=== PATIENT | male | born 1965 | race Caucasian/White ===

== ENCOUNTER 2016-10-04 20:42 | Inpatient (IN) | payer MEDICARE, MEDICAID ==
[2016-10-04 20:46] VITALS: BMI 27.3
[2016-10-04] MEDS ORDERED: Etomidate 20 mg/10ml Inj IV ONE (20:54)
[2016-10-04] MEDS ORDERED: Succinylcholine 200 mg/10 ml Inj IV ONE (20:59)
[2016-10-04] MEDS ORDERED: Etomidate 20 mg/10ml Inj IV STA (21:08)
[2016-10-04] MEDS ORDERED: Succinylcholine 200 mg/10 ml Inj IV STA (21:09)
[2016-10-04] MEDS ORDERED: Etomidate 20 mg/10ml Inj IVP STA (21:09)
[2016-10-04] MEDS ORDERED: Propofol 10 mg/ml 50 ML IV PRN (21:10)
[2016-10-04 21:11] LABS: ADD MANUAL DIFF? NO
[2016-10-04 21:14] LABS: VENOUS BLOOD GAS BASE EXCESS 2.3 mmol/L (0.0-2.0); VENOUS BLOOD PH 7.33 (7.32-7.43)
[2016-10-04 21:15] LABS: BASO # 0.03 K/mm3 (0.0-2.0); BASO % 0.2 % (0.0-3.0); EOS % 0.2 % (1.5-5.0); GRAN # 13.05 (1.4-6.5); GRAN % 79.2 % (50.0-68.0); HEMATOCRIT 43.6 % (42.0-52.0); LYMPH # 2.5 (1.2-3.4); MEAN CELL VOLUME 83.7 fL (80.0-105.0); MEAN CORPUSCULAR HEMOGLOBIN 28.2 pg (25.0-35.0); MEAN CORPUSCULAR HGB CONC 33.7 g/dl (31.0-37.0); MEAN PLATELET VOLUME 10.3 fl (7.0-11.0); MONO # 0.9 (0.1-0.6); MONO % 5.4 % (1.0-6.0); PLATELET COUNT 367 10^3/uL (120.0-450.0); RED CELL DISTRIBUTION WIDTH 13.1 % (11.5-14.5); WHITE BLOOD COUNT 16.5 10^3/ul (4.5-11.0)
--- NOTE | 2016-10-04 21:21 | ED PDOC ---
Arrival/HPI - General Time Seen by Provider: 10/04/16 20:42 Historian: EMS EM Caveat: Altered Mental Status - History of Present Illness Narrative History of Present Illness (Text): 10/04/16 21:18 51 year old male whose past medical history includes seizure disorder, multiple sclerosis, Larsen's palsy, hypertension, hypercholesterolemia, and GERD presents to the Emergency department via EMS complaining of shortness of breath. HPI and ROS limited due to patient's altered mental status. Past Medical History - Provider Review Nursing Documentation Reviewed: Yes - Infectious Disease Hx of Infectious Diseases: None - Cardiac Hx Cardiac Disorders: No Hx Hypertension: Yes - Neurological Hx Neurological Disorder: Yes (bells palsey, multiple sclerosis since 19 y/old) Hx Dizziness: Yes (headaches) Hx Seizures: Yes (Absent seizures) - HEENT Other/Comment: Optic neuritis - Musculoskeletal/Rheumatological Hx Falls: Yes (in the past) - Gastrointestinal Hx Gastroesophageal Reflux: Yes - Genitourinary/Gynecological Hx Incontinence: Yes - Psychiatric Hx Substance Use: No - Anesthesia Hx Anesthesia: Yes Hx Anesthesia Reactions: No Hx Malignant Hyperthermia: No Family/Social History - Physician Review Nursing Documentation Reviewed: Yes Family/Social History: Unknown Family HX Smoking Status: Light Smoker < 10 Cigarettes Daily Hx Alcohol Use: No Hx Substance Use: No Allergies/Home Meds Allergies/Adverse Reactions: Allergies No Known Allergies Allergy (Verified 10/04/16 21:29) Home Medications: Home Meds Medication Instructions Recorded Confirmed Pantoprazole Sodium [Protonix] 40 mg PO DAILY 09/14/15 10/04/16 lamoTRIgine [Lamictal] 25 mg PO BID 09/26/15 10/04/16 Review of Systems - Review of Systems Systems not reviewed;Unavailable: Altered Mental Status Respiratory: SOB Physical Exam Vital Signs Reviewed: Yes Vital Signs Temp Pulse Pulse Resp BP Pulse Ox 10/05/16 00:42 94 H 16 10/04/16 23:59 111/74 10/04/16 23:39 100 F H 126 H 18 113/79 97 10/04/16 22:37 103.8 F H 133 H 131 H 15 153/91 H 10/04/16 22:25 133 H 15 153/91 H 99 10/04/16 22:19 123 H 157/108 H 10/04/16 21:23 103.8 F H 139 H 16 83 L 10/04/16 21:22 131 H 188/117 H Temperature: Afebrile Blood Pressure: Hypertensive Pulse: Tachycardic Respiratory Rate: Normal Appearance: Positive for: Non-Toxic Pain Distress: None Mental Status: Positive for: other (obtunded) - Systems Exam Head: Present: Atraumatic, Normocephalic Pupils: Present: PERRL Extroacular Muscles: Present: EOMI Conjunctiva: Present: Normal Mouth: Present: Moist Mucous Membranes Neck: Present: Normal Range of Motion Respiratory/Chest: Present: Rhonchi (b/l) Cardiovascular: Present: Normal S1, S2, Tachycardic. No: Murmurs Abdomen: Present: Normal Bowel Sounds. No: Tenderness, Distention, Peritoneal Signs Back: Present: Normal Inspection Upper Extremity: Present: Normal Inspection. No: Cyanosis, Edema Lower Extremity: Present: Normal Inspection. No: Edema Neurological: Present: GCS=15, CN II-XII Intact Skin: Present: Warm, Dry, Normal Color. No: Rashes Psychiatric: Present: Other (+obtunded) Medical Decision Making ED Course and Treatment: 10/04/16 21:20 Impression: 51 year old male complaining of shortness of breath. Physical exam revealed b/l rhonchi and obtundation. Plan: --EKG --Chest X-ray --blood culture --labs --etomidate, succinylcholine, propofol -- Reassess and disposition Prior Visits: Notes and results from previous visits were reviewed. case d/w dr cline who saw pt in ed, case d/w dr wood accepts case to icu Progress Notes: 10/05/16 04:24 10/08/16 06:11 - Critical Care Critical Care Minutes: 30 minutes (management of respiratory failure) Critical Care Time: Excluding Proc Time - Lab Interpretations Microbiology Results: Microbiology Results 10/04/16 21:15 Blood-Venous Blood Culture - Preliminary NO GROWTH AFTER 3 DAYS 10/04/16 21:00 Blood-Venous Blood Culture - Preliminary NO GROWTH AFTER 3 DAYS Lab Results: 10/04/16 21:00 10/04/16 21:00 Lab Results 10/04/16 21:00: WBC 16.5 H, RBC 5.21, Hgb 14.7, Hct 43.6, MCV 83.7, MCH 28.2, MCHC 33.7, RDW 13.1, Plt Count 367, MPV 10.3, Gran % 79.2 H, Lymph % (Auto) 15.0 L, Stone % (Auto) 5.4, Eos % (Auto) 0.2 L, Baso % (Auto) 0.2, Gran # 13.05 H , Lymph # 2.5, Stone # 0.9 H, Eos # 0.0, Baso # 0.03, pO2 26 L, VBG pH 7.33, VBG pCO2 56.0, VBG HCO3 29.5 H, VBG Total CO2 31.2 H, VBG O2 Sat (Calc) 42.3, VBG Base Excess 2.3 H, VBG Potassium 4.0, Glucose 137 H, Lactate 1.8, FiO2 21.0, Sodium 143.0, Potassium 4.0, Chloride 110.0 H, Carbon Dioxide 31, Anion Gap 17, BUN 15, Creatinine 1.4, Est GFR ( Amer) > 60, Est GFR (Non-Af Amer) 54, Random Glucose 138 H, Calcium 10.2, Total Bilirubin 0.7, AST 37, ALT 47, Alkaline Phosphatase 125, Lactate Dehydrogenase 486, Total Creatine Kinase 54, Troponin I < 0.01, NT-Pro-B Natriuret Pep 77.6, Total Protein 9.3 H, Albumin 4.8 , Globulin 4.5, Albumin/Globulin Ratio 1.1, Venous Blood Potassium 4.0 I have reviewed the lab results: Yes - RAD Interpretation Radiology Orders: 10/04/16 21:07 CHEST PORTABLE [RAD] Stat - Medication Orders Current Medication Orders: Acetylcysteine (Acetylcysteine 20%) 4 ml IH BIDRESP [facility], [facility] Last Admin: 10/07/16 21:01 Dose: 4 ML Albuterol/Ipratropium (Duoneb 3 Mg/0.5 Mg (3 Ml) Ud) 3 ml IH [id number] [facility], [facility]1983 Last Admin: 10/08/16 00:59 Dose: 3 ML Furosemide (Lasix) 40 mg IV DAILY GOKUL Glycopyrrolate (Robinul) 0.2 mg IV Q12 GOKUL Last Admin: 10/07/16 21:51 Dose: 0.2 MG eMAR Start Stop Document 10/07/16 21:51 FDE (Rec: 10/07/16 21:52 FDE [facility]) Intravenous Solution Start Date 10/07/16 Start Time 21:51 Heparin Sodium (Porcine) (Heparin) 5,000 units SC Q8 GOKUL PRN Reason: Protocol Last Admin: 10/08/16 06:00 Dose: 5,000 UNITS Subcutaneous Administrations Document 10/08/16 06:00 AMA (Rec: 10/08/16 06:00 AMA [id number]) Injection Site MAR Injection Site Left Deltoid Charges for Administration # of Subcutaneous Administrations 1 Pantoprazole Sodium (Protonix 40mg Ivpb) 100 mls @ 20 mls/hr IVPB .Q5H GOKUL Last Admin: 10/08/16 02:00 Dose: 20 MLS/HR eMAR Start Stop Document 10/08/16 02:00 AMA (Rec: 10/08/16 02:18 AMA [id number]) Intravenous Solution Start Date 10/08/16 Start Time 02:00 End Date 10/08/16 End time 07:00 Total Infusion Time 300 Propofol (Diprivan) 100 mls @ 2.667 mls/hr IV .Q24H PRN; Protocol; 5 MCG/KG/MIN PRN Reason: TITRATE PER MD ORDER Last Admin: 10/07/16 16:07 Dose: 17.613 MLS/HR Titration Intervention Document 10/07/16 16:07 JCL (Rec: 10/07/16 16:10 [id number] Titration Intake Container Volume 100 Titration Dosing Titration Dose 35 IV Rate 17.613 Intake/Decrease Resume/Increase eMAR Start Stop Document 10/07/16 16:07 JCL (Rec: 10/07/16 16:10 [id number]) Intravenous Solution Start Date 10/07/16 Start Time 16:10 Propofol (Diprivan) 100 mls @ 2.395 mls/hr IV .Q24H PRN; Protocol; 5 MCG/KG/MIN PRN Reason: TITRATE PER MD ORDER Last Titration: 10/07/16 06:30 Dose: 30 MCG/KG/MIN Titration Intervention Document 10/07/16 06:30 LD (Rec: 10/07/16 06:49 LD [id number] Titration Dosing Titration Dose 30 IV Rate 14.37 Intake/Decrease Increase Vancomycin HCl (Vancomycin 1gm) 250 mls @ 167 mls/hr IVPB Q12H GOKUL PRN Reason: Protocol Last Admin: 10/08/16 04:56 Dose: 167 MLS/HR eMAR Start Stop Document 10/08/16 04:56 AMA (Rec: 10/08/16 04:56 AMA [id number]) Intravenous Solution Start Date 10/08/16 Start Time 04:00 End Date 10/08/16 End time 05:30 Total Infusion Time 90 Aztreonam (Azactam 2 Gm) 100 mls @ 100 mls/hr IVPB Q8 GOKUL PRN Reason: Protocol Stop: 10/12/16 23:59 Last Admin: 10/08/16 05:18 Dose: 100 MLS/HR eMAR Start Stop Document 10/08/16 05:18 AMA (Rec: 10/08/16 05:18 AMA [id number]) Intravenous Solution Start Date 10/08/16 Start Time 05:30 End Date 10/08/16 End time 06:30 Total Infusion Time 60 Metronidazole (Flagyl) 100 mls @ 100 mls/hr IVPB Q8 GOKUL PRN Reason: Protocol Last Admin: 10/07/16 21:35 Dose: 100 MLS/HR eMAR Start Stop Document 10/07/16 21:35 FDE (Rec: 10/07/16 21:36 FDE [place] [id number]) Intravenous Solution Start Date 10/07/16 Start Time 21:36 Lamotrigine (Lamictal) 25 mg PO BID GOKUL PRN Reason: Protocol Last Admin: 10/07/16 17:26 Dose: 25 MG Methylprednisolone (Solu-Medrol) 40 mg IVP Q12 [facility] Last Admin: 10/07/16 21:36 Dose: 40 MG IVP Administration Document 10/07/16 21:36 FDE (Rec: 10/07/16 21:36 FDE [place] [id number]) Charges for Administration # of IVP Administrations 1 Metoprolol Tartrate (Lopressor) 25 mg PO BID GOKUL Montelukast Sodium (Singulair) 10 mg PO HS [facility] Last Admin: 10/07/16 21:50 Dose: 10 MG Morphine Sulfate (Morphine) 2 mg IVP Q4H PRN PRN Reason: Pain, severe (8-10) Discontinued Medications Acetaminophen (Tylenol 650 Mg Supp) Confirm Administered Dose 650 mg .ROUTE .STK -MED ONE Stop: 10/04/16 21:30 Last Admin: 10/04/16 21:32 Dose: 650 MG Acetaminophen (Tylenol 650 Mg Supp) 650 mg RC STAT STA Stop: 10/04/16 21:32 Last Admin: 10/04/16 21:33 Dose: 650 MG Albuterol/Ipratropium (Duoneb 3 Mg/0.5 Mg (3 Ml) Ud) 3 ml IH Q3H PRN PRN Reason: Shortness of Breath Stop: 10/05/16 05:46 Etomidate (Amidate) Confirm Administered Dose 20 mg IV .STK-MED ONE Stop: 10/04/16 20:55 Last Admin: 10/04/16 20:54 Dose: 20 mg eMAR Start Stop Document 10/04/16 20:54 GMI (Rec: 10/04/16 21:37 [id number] Intravenous Solution Start Date 10/04/16 Start Time 21:37 End Date 10/04/16 End time 21:37 Total Infusion Time 0 Etomidate (Amidate) 10 mg IV STAT STA Stop: 10/04/16 21:09 Last Admin: 10/04/16 21:38 Dose: Etomidate (Amidate) 10 mg IVP STAT STA Stop: 10/04/16 21:10 Last Admin: 10/04/16 21:39 Dose: Furosemide (Lasix) 40 mg IV ONCE ONE Stop: 10/07/16 11:47 Last Admin: 10/07/16 13:32 Dose: Hydralazine HCl (Apresoline) 10 mg IVP STAT GOKUL Stop: 10/04/16 21:46 Last Admin: 10/04/16 22:19 Dose: 10 MG MAR Pulse and Blood Pressure Document 10/04/16 22:19 GMI (Rec: 10/04/16 22:20 I [id number]) Pulse Pulse Rate (60-90) 123 Blood Pressure Blood Pressure (100/60-150/90) 157/108 IVP Administration Document 10/04/16 22:19 GMI (Rec: 10/04/16 22:20 [id number]) Charges for Administration # of IVP Administrations 1 Hydralazine HCl (Apresoline) 10 mg IVP Q4H PRN PRN Reason: Systolic Blood Pressure Last Admin: 10/05/16 19:49 Dose: 10 MG MAR Pulse and Blood Pressure Document 10/05/16 19:49 LD (Rec: 10/05/16 19:50 LD [facility] [place] Pulse Pulse Rate (60-90) 111 Blood Pressure Blood Pressure (100/60-150/90) 181/122 IVP Administration Document 10/05/16 19:49 LD (Rec: 10/05/16 19:50 LD [facility] [place] Charges for Administration # of IVP Administrations 1 Hydralazine HCl (Apresoline) 20 mg IVP Q4H PRN PRN Reason: Systolic Blood Pressure Propofol (Diprivan) Confirm Administered Dose 100 mls @ ud .ROUTE .STK-MED ONE Stop: 10/04/16 21:06 Last Admin: 10/04/16 21:45 Dose: Propofol (Diprivan) 50 mls @ 2.667 mls/hr IV .[id number] PRN; Protocol; 5 MCG/KG/ MIN PRN Reason: TITRATE PER MD ORDER Last Titration: 10/04/16 23:57 Dose: 5 MCG/KG/MIN Titration Intervention Document 10/04/16 23:57 GMI (Rec: 10/04/16 23:58 GMI [id number]) Titration Dosing Titration Dose 5 IV Rate 2.667 Intake/Decrease Decrease Piperacillin Sod/Tazobactam Sod (Zosyn 3.375 In Ns 100ml) 100 mls @ 200 mls/hr IVPB STAT STA PRN Reason: Protocol Stop: 10/04/16 22:14 Last Admin: 10/04/16 22:20 Dose: 200 MLS/HR eMAR Start Stop Document 10/04/16 22:20 GMI (Rec: 10/04/16 22:20 GMI [id number]) Intravenous Solution Start Date 10/04/16 Start Time 22:20 End Date 10/04/16 End time 23:54 Total Infusion Time 94 Clindamycin Phosphate 300 mg/ (Sodium Chloride) 52 mls @ 104 mls/hr IVPB STAT STA PRN Reason: Protocol Stop: 10/04/16 22:44 Last Admin: 10/04/16 23:23 Dose: 104 MLS/HR eMAR Start Stop Document 10/04/16 23:23 RD (Rec: 10/04/16 23:23 RD [id number]) Intravenous Solution Start Date 10/04/16 Start Time 23:23 End Date 10/04/16 End time 23:53 Total Infusion Time 30 Acetaminophen (Ofirmev) 100 mls @ 400 mls/hr IVPB Q6H PRN PRN Reason: Fever >100.4 F Stop: 10/06/16 23:47 Last Admin: 10/06/16 03:07 Dose: 400 MLS/HR eMAR Start Stop Document 10/06/16 03:07 LD (Rec: 10/06/16 03:07 LD [id number]) Intravenous Solution Start Date 10/06/16 Start Time 03:07 End Date 10/06/16 End time 03:22 Total Infusion Time 15 Re-Assess: MAR Pain Assessment Document 10/06/16 04:07 LD (Rec: 10/06/16 04:11 LD [id number]) Pain Reassessment Is this a pain reassessment? No Sleep Is patient sleeping during reassessment? Yes Piperacillin Sod/Tazobactam Sod (Zosyn 3.375 In Ns 100ml) 100 mls @ 200 mls/hr IVPB Q6 GOKUL PRN Reason: Protocol Stop: 10/05/16 06:29 Last Admin: 10/05/16 04:03 Dose: 200 MLS/HR eMAR Start Stop Document 10/05/16 04:03 AMA (Rec: 10/05/16 04:03 AMA [id number]) Intravenous Solution Start Date 10/05/16 Start Time 04:00 End Date 10/05/16 End time 04:30 Total Infusion Time 30 Vancomycin HCl (Vancomycin 1gm) 250 mls @ 167 mls/hr IVPB Q12H GOKUL PRN Reason: Protocol Last Admin: 10/05/16 01:05 Dose: 167 MLS/HR eMAR Start Stop Document 10/05/16 01:05 AMA (Rec: 10/05/16 01:05 AMA [id number]) Intravenous Solution Start Date 10/05/16 Start Time 01:05 End Date 10/05/16 End time 02:35 Total Infusion Time 90 Sodium Chloride (Sodium Chloride 0.9%) 1,000 mls @ 100 mls/hr IV .Q10H GOKUL Last Admin: 10/06/16 20:42 Dose: 100 MLS/HR eMAR Start Stop Document 10/06/16 20:42 LD (Rec: 10/06/16 20:42 LD [id number] Intravenous Solution Start Date 10/06/16 Start Time 20:42 Cefepime HCl (Maxipime 1gm) 100 mls @ 100 mls/hr IVPB Q8 GOKUL PRN Reason: Protocol Last Admin: 10/05/16 21:55 Dose: 100 MLS/HR eMAR Start Stop Document 10/05/16 21:55 LD (Rec: 10/05/16 21:55 LD [id number]) Intravenous Solution Start Date 10/05/16 Start Time 21:55 End Date 10/05/16 End time 22:55 Total Infusion Time 60 Clindamycin Phosphate 600 mg/ (Sodium Chloride) 54 mls @ 102 mls/hr IVPB Q8 GOKUL Last Admin: 10/06/16 13:34 Dose: 102 MLS/HR eMAR Start Stop Document 10/06/16 13:34 [id number] (Rec: 10/06/16 13:35 [id number] ) Intravenous Solution Start Date 10/06/16 Start Time 13:34 End Date 10/06/16 End time 14:05 Total Infusion Time 31 Propofol (Diprivan) Confirm Administered Dose 100 mls @ ud .ROUTE .STK-MED ONE Stop: 10/06/16 04:07 Last Admin: 10/06/16 04:36 Dose: Aztreonam (Azactam 1 Gm) 100 mls @ 100 mls/hr IVPB Q8 GOKUL PRN Reason: Protocol Stop: 10/06/16 14:59 Last Admin: 10/06/16 14:54 Dose: 100 MLS/HR eMAR Start Stop Document 10/06/16 14:54 [id number] (Rec: 10/06/16 14:54 [id number] ) Intravenous Solution Start Date 10/06/16 Start Time 14:54 End Date 10/06/16 End time 15:54 Total Infusion Time 60 Influenza Virus Vaccine (Fluvirin) 45 mcg IM .ONCE ONE Stop: 10/04/16 23:07 Methylprednisolone (Solu-Medrol) 20 mg IVP Q12 GOKUL Last Admin: 10/06/16 10:00 Dose: 20 MG IVP Administration Document 10/06/16 10:00 [id number] (Rec: 10/06/16 10:00 [id number] ) Charges for Administration # of IVP Administrations 1 Metoprolol Tartrate (Lopressor) 5 mg IVP ONCE ONE Stop: 10/05/16 22:19 Last Admin: 10/05/16 22:25 Dose: 5 MG MAR Pulse and Blood Pressure Document 10/05/16 22:25 LD (Rec: 10/05/16 22:25 LD [facility] [place] Pulse Pulse Rate (60-90) 134 Blood Pressure Blood Pressure (100/60-150/90) 175/109 IVP Administration Document 10/05/16 22:25 LD (Rec: 10/05/16 22:25 LD [id number]) Charges for Administration # of IVP Administrations 1 Metoprolol Tartrate (Lopressor) 2.5 mg IVP ONCE ONE Stop: 10/06/16 01:22 Last Admin: 10/06/16 01:32 Dose: 2.5 MG MAR Pulse and Blood Pressure Document 10/06/16 01:32 LD (Rec: 10/06/16 01:33 LD [facility] [place] Pulse Pulse Rate (60-90) 133 Blood Pressure Blood Pressure (100/60-150/90) 139/79 IVP Administration Document 10/06/16 01:32 LD (Rec: 10/06/16 01:33 LD [facility] [place] Charges for Administration # of IVP Administrations 1 Midazolam HCl (Versed Inj) Confirm Administered Dose 2 mg .ROUTE .STK-MED ONE Stop: 10/06/16 03:57 Last Admin: 10/06/16 03:56 Dose: 2 MG Midazolam HCl (Versed Inj) Confirm Administered Dose 2 mg .ROUTE .STK-MED ONE Stop: 10/06/16 04:05 Last Admin: 10/06/16 04:05 Dose: 2 MG Pneumococcal Polyvalent Vaccine (Pneumovax 23 Vaccine) 0.5 ml IM .ONCE ONE Stop: 10/04/16 23:07 Succinylcholine Chloride (Quelicin) Confirm Administered Dose 200 mg IV .STK- MED ONE Stop: 10/04/16 21:00 Last Admin: 10/04/16 21:00 Dose: 80 MG eMAR Start Stop Document 10/04/16 21:00 GMI (Rec: 10/04/16 21:38 GMI [id number] Intravenous Solution Start Date 10/04/16 Start Time 21:37 End Date 10/04/16 End time 21:38 Total Infusion Time 1 Succinylcholine Chloride (Quelicin) 80 mg IV STAT STA Stop: 10/04/16 21:10 Last Admin: 10/04/16 21:39 Dose: - Scribe Statement The provider has reviewed the documentation as recorded by the Scribe Verenice Pardo Provider Scribe Attestation: All medical record entries made by the Scribe were at my direction and personally dictated by me. I have reviewed the chart and agree that the record accurately reflects my personal performance of the history, physical exam, medical decision making, and the department course for this patient. I have also personally directed, reviewed, and agree with the discharge instructions and disposition. Disposition/Present on Arrival - Present on Arrival Any Indicators Present on Arrival: No History of DVT/PE: No History of Uncontrolled Diabetes: No Urinary Catheter: No History Surgical Site Infection Following: None - Disposition Have Diagnosis and Disposition been Completed?: Yes Diagnosis: Respiratory distress, Aspiration pneumonia Disposition: HOSPITALIZED Disposition Time: 22:30 Condition: CRITICAL Endotracheal Intubation - Endotracheal Intubation Intubated With ETT Size: 8 Blade Type Used: Curved Indication: Respiratory Failure Intubated: Orally Pre-Intubation Airway Assessment: Ventilated And Oxygenated, Does Not Appear To Have A Difficult Airway Medications Used During Pre-Intubation: Etomidate Paralyzed With: Succinylcholine Post-Intubation Assessment: ETT Secured AT (cm): (24), Breath Sounds Equal Bilat , Placement Confirmed Via CXR, Color Change W/End Tidal CO2 Detector
[2016-10-04 21:27] LABS: ALB/GLOB RATIO 1.1 (1.1-1.8); ALKALINE PHOSPHATASE 125 U/L (38-133); ALT/SGPT 47 U/L (7-56); AST/SGOT 37 U/L (15-59); BILIRUBIN,TOTAL 0.7 mg/dL (0.2-1.3); BLOOD UREA NITROGEN 15 mg/dL (7-21); CALCIUM 10.2 mg/dL (8.4-10.5); CARBON DIOXIDE 31 mmol/L (21-33); CHLORIDE 102 mmol/L (98-107); GFR AFRICAN-AMERICAN > 60; GLUCOSE,RANDOM 138 mg/dL (70-110); SODIUM 146 mmol/L (132-148); TOTAL PROTEIN 9.3 g/dL (5.8-8.3)
[2016-10-04 21:45] LABS: TROPONIN I < 0.01 ng/mL
[2016-10-04] MEDS ORDERED: Piperacillin/Tazobact 3.375 gm 100 ML IVPB STA (21:45)
[2016-10-04] MEDS ORDERED: Clindamycin 300 MG in Sodium Chloride 0.9% 50 ML IVPB STA (22:15)
[2016-10-04] MEDS: Pantoprazole 40mg/100ml IVPB 100 ML IVPB SCH (22:19)
[2016-10-04 22:57] LABS: ARTERIAL BLOOD GAS HCO3 20.3 mmol/L (21-28); ARTERIAL BLOOD GAS O2 CAPACITY 18.8 mL/dl (16-24); ARTERIAL BLOOD GAS O2 CONTENT 18.7 ML/dl (15-23); CARBOXYHEMOGLOBIN 1.2 % (0.5-1.5); HHB 0.5 % (0-5); METHEMOGLOBIN 1.4 % (0.0-3.0)
[2016-10-04] MEDS ORDERED: Pneumococcal 23-Valent Vaccine IM ONE (23:06)
[2016-10-04] MEDS ORDERED: Influenza Vaccine 45 MCG/0.5 ml IM ONE (23:06)
--- NOTE | 2016-10-04 23:39 | CP.PCM.CON ---
History of Present Illness - History of Present Illness History of Present Illness: Reason for ICU Consult: Intubated due to respiratory distress HPI: 51 y/o male with a PMHx Seizures, MS, Htn, GERD and a history of larsen's palsy was brought to the ED in respiratory distress earlier tonight. As per my discussion with the ED Physician (Dr. Quiroga) the patient was extremely tachypnic, tachycardic and required emergent intubation. He is currently intubated and sedated, unable to participate in offering any history. As per my discussion with the patient's mother, she states that 2 days prior he began coughing with a thick clear sputum and she felt that he may have a cold as everyone in the house had a cold. She tells me that she went to see his PMD ( Dr. Torre) and was prescribed a Z-pack which he took yesterday and today. Today she noticed that he was lethargic moreso than usual, and also had been drooling with dried white secretions by his mouth. She feels he may have vomited shortly after he was given the Z-pack. Apart from these issues over the last 2 weeks, she reports he has been in his usual state of health being assisted by his home health aides which help transfer him due to his MS. About 1 week ago, he fell while being transferred and struck his right side of his ribcage leaving a bruise that was present for a few days. She did not witness any seizures or loss of consciousness today, only lethargy and increased work of breathing. While in the ED the patient was also noted to be febrile with a temp of 103. As per his mother, she did not report any subjective fevers until earlier today 10/04. His mother also relays that over the past few weeks he has been struggling to urinate and will often press on his abdomen to help with urination. She had scheduled an appointment as an outpatient for him to see a urologist. He was not offering any complaints of nausea or vomiting prior to intubation, however after the patient was intubated and an NG-tube was placed, it began draining coffee ground material. PMhx: Htn MS Seizures GERD h/o bells palsy h/o aspiration pneumonia after a seizure which required him to be intubated last year 09/14/2015 - 09/26/15 Allergies: NKDA Fam Hx: unable to obtain Soc Hx: no tobacco/etoh/illicit drug history as per the chart Home meds: Protonix 40mg po daily Lamictal 25mg po bid Review of Systems - Review of Systems Review of Systems: As per HPI otherwise negative for a 12 point ROS Past Patient History - Infectious Disease Hx of Infectious Diseases: None - Past Social History Smoking Status: Never Smoked Alcohol: None Drugs: Denies Home Situation {Lives}: With Family - CARDIAC Hx Cardiac Disorders: No Hx Hypercholesterolemia: (mother denies) Hx Hypertension: (mother denies) - NEUROLOGICAL Hx Neurological Disorder: Yes (bells palsey, multiple sclerosis since 19 y/old) Hx Dizziness: Yes (headaches) Hx Seizures: Yes (Absent seizures) Other/Comment: pt had bells palsey about 4 yrs ago, has had ms since age 19, according to mother donavan pt can speak but speech is impaired - HEENT Hx HEENT Problems: Yes Other/Comment: Optic neuritis - INTEGUMENTARY Other/Comment: multiple old bruises from banging his lower legs when in a chair - MUSCULOSKELETAL/RHEUMATOLOGICAL Hx Falls: (past) Hx Unsteady Gait: Yes (oob to chair only) - GASTROINTESTINAL Hx Gastroesophageal Reflux: Yes Other/Comment: mother and homemaker wheel pt to bathromm and assist to toilet for bm, sometimes pt is incontinent of stool, diaper at night - GENITOURINARY/GYNECOLOGICAL Hx Incontinence: Yes - PSYCHIATRIC Hx Substance Use: No - SURGICAL HISTORY Hx Surgeries: No - ANESTHESIA Hx Anesthesia: Yes Hx Anesthesia Reactions: No Hx Malignant Hyperthermia: No Meds Allergies/Adverse Reactions: Allergies Allergy/AdvReac Type Severity Reaction Status Date / Time No Known Allergies Allergy Verified 10/04/16 21:29 - Medications Medications: Current Medications Propofol (Diprivan) 50 mls @ 2.667 mls/hr IV .[id number] PRN; Protocol; 5 MCG/KG/ MIN PRN Reason: TITRATE PER MD ORDER Last Titration: 10/04/16 22:32 Dose: 25 mcg/kg/min Pantoprazole Sodium (Protonix 40mg Ivpb) 100 mls @ 20 mls/hr IVPB .Q5H GOKUL Last Admin: 10/04/16 22:19 Dose: 20 mls/hr Physical Exam - Constitutional Additional comments: intubated; sedated - Head Exam Head Exam: ATRAUMATIC, NORMOCEPHALIC - Eye Exam Eye Exam: Normal appearance - ENT Exam ENT Exam: Mucous Membranes Moist Additional comments: + NG-tube in place draining dark brown coffee ground material - Respiratory Exam Respiratory Exam: Clear to Auscultation Bilateral, NORMAL BREATHING PATTERN. absent: Rales, Rhonchi, Wheezes - Cardiovascular Exam Cardiovascular Exam: Tachycardia, +S1, +S2 - GI/Abdominal Exam GI & Abdominal Exam: Soft. absent: Guarding, Rebound, Tenderness - Rectal Exam Rectal Exam: Deferred - Extremities Exam Extremities exam: Positive for: normal inspection - Neurological Exam Additional comments: intubated and sedated; unable to perform a full neurological exam - Skin Skin Exam: Dry, Intact, Normal Color, Warm Results - Vital Signs Recent Vital Signs: Last Vital Signs Temp 103.8 F H 10/04/16 22:37 Pulse 131 H 10/04/16 22:37 Resp 15 10/04/16 22:37 BP 153/91 H 10/04/16 22:37 Pulse Ox 99 10/04/16 22:25 - Labs Result Diagrams: 10/04/16 21:00 10/04/16 21:00 Labs: Laboratory Results - last 24 hr 10/04/16 22:55 pCO2 26 L pO2 337.0 H HCO3 20.3 L ABG pH 7.50 H ABG Total CO2 21.1 L ABG O2 Saturation 99.5 H ABG O2 Content 18.7 ABG Base Excess -1.5 ABG Hemoglobin 13.1 ABG Carboxyhemoglobin 1.2 POC ABG HHb (Measured) 0.5 ABG Methemoglobin 1.4 ABG O2 Capacity 18.8 Hgb O2 Saturation 97.0 FiO2 100.0 - EKG Data EKG Interpreted by: Myself EKG shows normal: Sinus rhythm Rate: Tachycardia - Imaging and Cardiology Chest x-ray Status: Image reviewed by me (?RML infiltrate; no pleural effusion or gross pulmonary edema noted) Assessment & Plan - Assessment and Plan (Free Text) Assessment: 51 y/o male with a PMHx Htn, MS, Seizure disorder, GERD and a history of Larsen's Palsy presented to the ED in acute respiratory distress requiring emergent intubation. The patient is now intubated and sedated and will be admitted to the ICU for further care and management. Plan: Neuro: Patient was noted to be AAOX3 prior to intubation complaining of respiratory distress; will monitor him overnight and wean sedation in the AM for a possible breathing trial; will c/w Lamictal via NG-t for seizure prophylaxis; follow along with neurology who has been consulted as well Pulm: unclear as to the source of his respiratory failure; initial ABG shows the patient having a respiratory alkalosis; will continue on the ventilator overnight and decrease his tidal volume to 400; will place him on Abx for a possible Community Acquired pneumonia given his leukocytosis, fever and respiratory failure. Will obtain a CT Chest without contrast to further evaluate for a possible source of lung disease or infiltrate suggestive of pneumonia as the infiltrate on the CXR is not very large and would not necessarily account for the respiratory failure alone. It's possible that a recent rib contusion, coupled with his MS led to increased difficulty with diaphragmatic expansion which contributed to his respiratory failure. CVS: he remains tachycardic; will repeat his hgb Q4H to ensure he does not have a brisk upper GI bleed; po2 in the 300's on his initial ABG; will add IVF for maintenance @ 100cc/hr. Will trend his troponin's and get an additional EKG in the AM to ensure there's not a significant cardiac component to his shortness of breath. GI: will keep him NPO; will send the gastric contents for Occult blood testing; Protonix drip has already been started in the ED; check CBC Q4H; will also get a CT Abd/pelvis without contrast to evaluate for any possible cause of GI bleed. Renal: will monitor daily bmp for renal function; tapia catheter placed in the ED, he likely has BPH given the history of him pressing on the abdomen to urinate; will monitor strict i's and o's and daily weights ID: Sepsis with CAP vs Aspiration pneumonia as the likely culprit; will continue treatment with IV Abx (Zosyn - started in the ED already) and add Vanco. He also received one dose of clindamycin IV; will check a procalcitonin ; urine for legionella, strep pneumo and also obtain serum for mycoplasma. Heme: leukocytosis secondary to sepsis likely; will trend hgb to ensure no large drops in hgb; will transfuse if needed psych: unable to assess Case discussed with Dr. Quiroga in the Ed at length labs and images available thus far have been reviewed personally Total time of care: 45 minutes
[2016-10-04] MEDS ORDERED: Vancomycin 1gm in NS 250ml 250 ML IVPB SCH (23:45)
[2016-10-04] MEDS ORDERED: Albuterol-Ipratrop 3 mg / 0.5 (3 ml) UD IH PRN (23:46)
[2016-10-05] MEDS: Sodium Chloride 0.9% 1,000 ML IV SCH
[2016-10-05 00:16] LABS: PH,URINE 6.5 (4.7-8.0); URINE BILIRUBIN NEGATIVE (NEGATIVE); URINE BLOOD LARGE (NEGATIVE); URINE GLUCOSE (UA) NEGATIVE (NEGATIVE); URINE KETONE NEGATIVE (NEGATIVE); URINE LEUKOCYTE ESTERASE NEGATIVE Leu/uL (NEGATIVE); URINE PROTEIN 100 mg/dL (<30 mg/dL); URINE UROBILINOGEN 0.2 E.U./dL (<1 E.U./dL)
[2016-10-05 00:18] LABS: URINE APPEARANCE CLOUDY (CLEAR); URINE COLOR YELLOW (YELLOW)
[2016-10-05 00:23] LABS: MAGNESIUM 1.9 mg/dL (1.7-2.2); PHOSPHOROUS 3.2 mg/dL (2.5-4.5)
[2016-10-05 00:40] LABS: URINE RBC TNTC /hpf (0-2)
[2016-10-05 00:41] LABS: URINE AMORPHOUS SEDIMENT MODERATE; URINE EPITHELIAL CELLS 0 - 2 /hpf (0-5)
--- NOTE | 2016-10-05 00:48 | CT ---
EXAM: CT Chest Without Intravenous Contrast. CLINICAL HISTORY: 51 years old, male; Signs and symptoms; Shortness of breath; Additional info: Evaluate lung edward for possible infiltrate/pneum TECHNIQUE: Axial computed tomography images of the chest without intravenous contrast. This CT exam was performed using one or more of the following dose reduction techniques: automated exposure control, adjustment of the mA and/or kV according to patient size, and/or use of iterative reconstruction technique. MIP reconstructed images were created and reviewed. Coronal and sagittal reformatted images were created and reviewed. COMPARISON: No relevant prior studies available. FINDINGS: Lungs: Infiltrate with air bronchograms noted in the right lower lobe. Question infiltrate versus atelectasis at the left lung base. Pleural space: No pneumothorax. No significant effusion. Heart: No cardiomegaly. No significant pericardial effusion. Bones/joints: No acute fracture. Vasculature: At the level of the main pulmonary artery, the ascending aorta measures 3.9 cm and the right measures 2.7 cm. Lymph nodes: Shotty mediastinal nodes. Evaluation of zara limited without contrast Endotracheal tube and nasogastric tube noted. Partial visualization of a hypoattenuating lesion in the right lobe of the liver. IMPRESSION: Infiltrate with air bronchograms noted in the right lower lobe. Question infiltrate versus atelectasis at the left lung base. Please see additional details/findings as above. Some of the above findings may warrant followup evaluation.
[2016-10-05 01:02] LABS: ADD MANUAL DIFF? NO
[2016-10-05 01:04] LABS: BASO # 0.01 K/mm3 (0.0-2.0); BASO % 0.1 % (0.0-3.0); EOS % 0.1 % (1.5-5.0); GRAN # 12.85 (1.4-6.5); GRAN % 80.8 % (50.0-68.0); HEMATOCRIT 40.9 % (42.0-52.0); LYMPH # 1.8 (1.2-3.4); LYMPH % 11.4 % (22.0-35.0); MEAN CELL VOLUME 82.1 fL (80.0-105.0); MEAN CORPUSCULAR HEMOGLOBIN 27.7 pg (25.0-35.0); MEAN CORPUSCULAR HGB CONC 33.7 g/dl (31.0-37.0); MEAN PLATELET VOLUME 9.8 fl (7.0-11.0); MONO # 1.2 (0.1-0.6); MONO % 7.6 % (1.0-6.0); PLATELET COUNT 302 10^3/uL (120.0-450.0); RED CELL DISTRIBUTION WIDTH 13.3 % (11.5-14.5); WHITE BLOOD COUNT 15.9 10^3/ul (4.5-11.0)
--- NOTE | 2016-10-05 01:04 | CT ---
EXAM: CT Abdomen and Pelvis Without Intravenous Contrast. CLINICAL HISTORY: 51 years old, male; Pain; Abdominal pain; Acute; Additional info: Evaluate for gastrointestinal bleed TECHNIQUE: Axial computed tomography images of the abdomen and pelvis without intravenous contrast. This CT exam was performed using one or more of the following dose reduction techniques: automated exposure control, adjustment of the mA and/or kV according to patient size, and/or use of iterative reconstruction technique. Coronal and sagittal reformatted images were created and reviewed. COMPARISON: No relevant prior studies available. FINDINGS: 2.6 cm hypoattenuating lesion in the right lobe of the liver, may represent cysts. Incompletely characterize without contrast. The unenhanced spleen, pancreas and adrenal glands demonstrate no acute abnormalities. Bilateral intrarenal calcification. Calcification within the central left collecting system is significant. No hydronephrosis. Nonspecific perinephric stranding. Calcification along the peripheral wall and the bladder. Garcia catheter in the bladder along with air. The aorta is unremarkable. Evaluation of the bowel limited without contrast. The small and large bowel as visualized demonstrate no evidence of obstruction or clear focus of inflammation. Retained fecal material in the colon. No ascites. No free air. Mild degenerative changes. IMPRESSION: Bilateral intrarenal calcification. Calcification within the central left collecting system is significant. No hydronephrosis. Nonspecific perinephric stranding. Calcification along the peripheral wall and the bladder. Garcia catheter in the bladder along with air. Retained fecal material in the colon. If there is concern for GI bleed, nuclear study may aid in evaluation. 2.6 cm hypoattenuating lesion in the right lobe of the liver, may represent cysts. Incompletely characterize without contrast. Correlate with report for a concurrently performed CT chest which describes an infiltrate.
[2016-10-05] MEDS: Pantoprazole 40mg/100ml IVPB 100 ML IVPB SCH ×3 (03:24→20:36)
[2016-10-05] MEDS ORDERED: Piperacillin/Tazobact 3.375 gm 100 ML IVPB SCH (04:00)
[2016-10-05 05:20] LABS: ADD MANUAL DIFF? NO
[2016-10-05 05:32] LABS: BASO # 0.01 K/mm3 (0.0-2.0); BASO % 0.1 % (0.0-3.0); GRAN # 14.97 (1.4-6.5); GRAN % 83.2 % (50.0-68.0); LYMPH # 1.7 (1.2-3.4); LYMPH % 9.2 % (22.0-35.0); MEAN CORPUSCULAR HEMOGLOBIN 27.6 pg (25.0-35.0); MEAN CORPUSCULAR HGB CONC 33.3 g/dl (31.0-37.0); MEAN PLATELET VOLUME 10.3 fl (7.0-11.0); MONO # 1.3 (0.1-0.6); MONO % 7.5 % (1.0-6.0); PLATELET COUNT 309 10^3/uL (120.0-450.0); RED CELL DISTRIBUTION WIDTH 13.4 % (11.5-14.5)
[2016-10-05 05:37] LABS: ALB/GLOB RATIO 1.1 (1.1-1.8); ALKALINE PHOSPHATASE 100 U/L (38-133); ALT/SGPT 39 U/L (7-56); AST/SGOT 33 U/L (15-59); BILIRUBIN,TOTAL 1.2 mg/dL (0.2-1.3); BLOOD UREA NITROGEN 18 mg/dL (7-21); CALCIUM 9.1 mg/dL (8.4-10.5); CARBON DIOXIDE 26 mmol/L (21-33); CHLORIDE 107 mmol/L (98-107); GFR AFRICAN-AMERICAN > 60; GLUCOSE,RANDOM 150 mg/dL (70-110); POTASSIUM 3.6 mmol/L (3.6-5.0); SODIUM 145 mmol/L (132-148); TOTAL PROTEIN 7.7 g/dL (5.8-8.3)
[2016-10-05 05:52] LABS: TROPONIN I 0.12 ng/mL
[2016-10-05 06:11] LABS: ARTERIAL BLOOD GAS HCO3 23.2 mmol/L (21-28); ARTERIAL BLOOD GAS O2 CONTENT 17.9 ML/dl (15-23); ARTERIAL BLOOD GAS PH 7.43 (7.35-7.45); CARBOXYHEMOGLOBIN 1.4 % (0.5-1.5); HHB 0.7 % (0-5); METHEMOGLOBIN 0.9 % (0.0-3.0)
[2016-10-05] MEDS: Cefepime 1gm in NS 100ml 100 ML IVPB SCH ×3 (08:25→21:55)
--- NOTE | 2016-10-05 09:12 | RAD ---
PROCEDURE: Chest portable HISTORY: sob COMPARISON: October 05, 2016. CT thorax. Summary of findings on the comparison examination: Infiltrate with air bronchograms noted in the right lower lobe. Question infiltrate versus atelectasis at the left lung base TECHNIQUE: Technique: Single view portable semi erect @ 21:24. FINDINGS: No active pulmonary disease. No pulmonary nodules, masses or infiltrates. No evidence of acute, significant cardiovascular disease. No significant pleural, osseous or subdiaphragmatic abnormalities. Endotracheal tube in satisfactory position. The tip is 3.7 cm from the rell. Suboptimal placement nasogastric tube. The tip is at gastroesophageal junction. The distal side hole is in the distal esophagus. This should be advanced at least 9 cm for optimal placement. IMPRESSION: 1. No active pulmonary disease, infiltrate apparent on recent CT scan and not identified on the current study. 2. Endotracheal tube in satisfactory position. 3. Suboptimal placement nasogastric tube should be advanced 09-2010 cm for optimal placement in the stomach
[2016-10-05] MEDS: MethylPREDNISolone 40 mg Vial IVP SCH ×2 (09:28→21:56)
--- NOTE | 2016-10-05 12:17 | CON ---
DATE: 10/05/2016 CHIEF COMPLAINT: History of MS and seizures. HISTORY OF PRESENT ILLNESS: A 51-year-old man who is well known to me from previous admission in 201 6 who has past medical history of multiple sclerosis with his last MRI on 09/07/2015 showing chronic d emyelinating disease, atrophy of the corpus callosum, but no enhancing lesions. He is on Copaxone in jections for his MS. He has history of seizure disorder, last was replaced on Lamictal 25 mg p.o. b. i.d. and Vimpat as an outpatient 100 mg p.o. b.i.d. for seizure prophylaxis, who came in for respirat ory distress. He was intubated overnight and currently extubated. Apparently, the patient was extre lj tachypneic and tachycardia and required emergent intubation. He was intubated and sedated initi ally and he was having 2 days prior of a cough with clear thick sputum and was prescribed a Z-AGUSTIN whi ch he took yesterday, was becoming more lethargic and was drooling and came to the hospital for furth er evaluation. Currently, he is extubated. He has an NG tube in place. He denies any chest pain. No seizures while he has been in the hospital. He is following commands, moving all extremities. He has dysmetria from his multiple sclerosis in his extremities. PAST MEDICAL HISTORY: History of multiple sclerosis, history of seizures from MS, GERD, hypertension , history of Larsen's palsy. ALLERGIES: No known drug allergies. FAMILY HISTORY: Noncontributory. SOCIAL HISTORY: No illicit drug use, smoking, or ETOH abuse. MEDICATIONS: Reviewed via nurse's reconciliation sheet. REVIEW OF SYSTEMS: A 14-point review of systems is negative except for the HPI. PHYSICAL EXAMINATION: VITAL SIGNS: Temperature of 100, pulse rate of 92, blood pressure 129/97, respiratory rate of 20. GENERAL: The patient is sitting in bed with a NG-tube place, in no acute distress. HEENT: Atraumatic, normocephalic. PERRLA. Extraocular muscles intact. NECK: Supple, no JVD, no adenopathy noted. LUNGS: Decreased breath sounds bilaterally. HEART: S1, S2, normal rate and rhythm. No murmurs, rubs, or gallops. ABDOMEN: Soft, nontender, nondistended. Bowel sounds are present. EXTREMITIES: No clubbing, no cyanosis. Peripheral pulses 2+ felt bilaterally. NEUROLOGIC: The patient is alert. Speech is hypophonic due to NG tube in place. He is oriented to person and place and month. Recall after 5 minutes is 0/3. Judgment and insight are kind of poor. He has cognitive impairment. Cranial nerves II-XII are intact. MOTOR: Slight increased tone throughout and spastic, but moves all extremities equally. Toes downgo ing bilaterally. SENSORY: Withdraws to localized noxious stimulus. Light touch is intact. Proprioception intact dani aterally. DTRs are 2+ throughout and brisk at the knees. Toes are downgoing bilaterally. COORDINAT ION: Dysmetria [id number] which is consistent with his history of MS. GAIT: Deferred for now. LABORATORIES: Sodium is 145, potassium 3.6, chloride of 107, carbon dioxide 26, BUN of 18, creatinin e 1.2, random glucose of 150. ASSESSMENT AND PLAN: This is a 51-year-old man with past medical history of multiple sclerosis with his last MRI on 09/07/2015 showing chronic demyelinating disease and atrophy of the corpus callosum. No enhancing lesions, on Copaxone injections for his multiple sclerosis. He has history of seizures from his multiple sclerosis, on Lamictal 25 mg p.o. b.i.d. and was supposed to be on Vimpat 100 mg p. o. b.i.d., came in for respiratory distress which required emergent intubation, now extubated. He is in the ICU being monitored. He is getting Lamictal for his seizures via NG tube. His CT scan of e chest showed infiltrate in the right lower lobe. He is on antibiotics such as cefepime and getting some Solu-Medrol as well. At this time, in regards to his multiple sclerosis: 1. Make sure he has been getting his Copaxone injections, be may need to get his medications from [facility]. 2. Continue with Lamictal 25 mg p.o. b.i.d. via NG tube for seizure prophylaxis. 3. Seizure precautions should be in place since he has a right lobe infiltrate which could lower the seizure threshold, so therefore monitor. 4. Monitor his electrolytes and correct accordingly and continue with current present medical manage ment. No further neurological workup needed at this time, continue with ICU management. Thank you for this consult. Bentley Lindquist MD cc: [id number] TT: 10/05/2016 12:17:27 Confirmation # [id number] Dictation # [id number] tn
--- NOTE | 2016-10-05 13:31 | CARD ---
APPROVED REPORT EKG Measurement Heart [id number] <Conclusion> Sinus tachycardia Cannot rule out Anterior infarct, age undetermined Abnormal ECG
[2016-10-05 13:49] LABS: TROPONIN I 0.07 ng/mL
--- NOTE | 2016-10-05 15:48 | CON ---
DATE: 10/05/2016 The patient is a 51-year-old gentleman with history of multiple sclerosis, seizures, hypertension, who came to [facility] with difficulty breathing, respiratory distress, tachypneic after several days of fever and cold -like symptoms. He was prescribed by his primary medical doctor a Z-Scott; however, it did not help and his symptoms progressed. He was also coughing some sputum of whitish color. No nausea, no vomiting, no diarrhea, no constipation. PAST MEDICAL HISTORY: Hypertension, multiple sclerosis, seizures, GERD, history of Larsen's palsy, history of aspiration pneumonia after seizures about a year ago. ALLERGIES: NKDA. FAMILY HISTORY: Noncontributory. SOCIAL HISTORY: No alcohol or illicit drug abuse. No tobacco smoking. MEDICATIONS AT HOME: Protonix, Lamictal. REVIEW OF SYSTEMS: Revealed 12 organ system other than mentioned in history of present illness is negative. HOSPITAL MEDICATIONS: Tylenol p.r.n., propofol drip, cefepime, Protonix drip, Solu-Medrol 20 mg IV q. 12, normal saline 100 mL per hour, vancomycin. Chest x-ray: No acute pulmonary disease, however, CAT scan showed a right lower lobe infiltrate. Abdominal CAT scan revealed bilateral intrarenal calcifications, no hydronephrosis, nonspecific perinephric stranding. Calcification within the central left collecting system is significant. LABORATORY DATA: Influenza rapid negative. WBC 18, hemoglobin 13.3, platelet count 309. U-tox screen is negative. Sodium 145, potassium 3.6, chloride 107, carbon dioxide 26, BUN 18, creatinine 1.3, glucose 150. Troponin 0.12. ASSESSMENT AND PLAN: This is a 51-year-old gentleman with severe community- acquired pneumonia resulted in hypoxemic respiratory failure. At present time, the patient is on broad-spectrum antibiotics. Low-dose Solu-Medrol was started for severe community-acquired pneumonia. At present time, the patient is on pressure support 5/5 and tolerates it well. He is pulling in about 370 mL of tidal volume. His rapid shallow breathing index is 51. His oxygen saturation is 100% on 35% FIO2. If the patient is successfully extubated, we will monitor him on nasal cannula in the ICU for overnight. We will continue antibiotics, septic workup, urine for legionella and streptococcal antigen. Procalcitonin will be followed as well. Blood culture, urine culture and sputum culture were sent. We will continue with conservative fluid management. We will continue with conservative oxygen management. I will continue with deep venous thrombosis and gastrointestinal prophylaxis. Addendum: patient is successfully extubated and doing well. Will get swallow eval ccm time 40 min Dann Seymour MD cc: [id number] TT: 10/05/2016 15:47:53 Confirmation # [id number] Dictation # [id number] tn MTDD
--- NOTE | 2016-10-05 16:58 | HP ---
HISTORY OF PRESENT ILLNESS: The patient is a 51-year-old male admitted through the Emergency Departm ent on 10/04/2016 with respiratory distress. The patient required intubation and mechanical ventilat ion, and was transferred to the intensive care unit for further evaluation and management. At the pr esent time he has been extubated, he is awake and alert without chest pain or shortness of breath, an d he is responsive to verbal commands. The patient's past medical history includes Seizure disorder, multiple sclerosis, Larsen's palsy, and h ypertension, hypercholesterolemia, and GERD. There is no history of diabetes mellitus, heart disease , or cancer. The patient has no significant past surgical history. The patient's current medications include Lamictal 25 mg twice daily, and Protonix 40 mg daily. The patient has no known drug allergies. SOCIAL HISTORY: The patient is essentially bed and wheelchair- bound with total ADL and IADL depende nce, and lives at home with his mother and father. There is no history of tobacco, alcohol, or drug use. REVIEW OF SYSTEMS: The patient denies any chest pain, shortness of breath. No nausea, no vomiting, no diarrhea, no hemoptysis. PHYSICAL EXAMINATION: The patient is a well-developed male in no acute distress. VITAL SIGNS: Blood pressure 129/97, pulse 95, respiratory rate 20, T-max 103, temperature 100 axilla ry. HEENT: Head is normocephalic, atraumatic. Pupils equal, round, reactive to light, extraocular movem ents intact. NECK: Supple, no thyromegaly, no carotid bruit, no nuchal rigidity. LUNGS: Show scattered crepitations at the right base. HEART: Regular rate and rhythm, slightly tachycardic. ABDOMEN: Soft, nontender, bowel sounds are normoactive. There is a nasogastric tube intact. EXTREMITIES: Without cyanosis, clubbing, or edema. NEUROLOGIC: The patient is awake and responsive to verbal commands without focal, sensory, or motor deficits. SKIN: Warm and dry. LABORATORY DATA: WBC is 18.0, hemoglobin 13.3, hematocrit 40.0. Sodium 145, potassium 3.6, chloride 107, CO2 of 26, BUN 18, creatinine 1.3, glucose 150. Troponin is slightly elevated at 0.12. CAT scan of the chest shows a right lower lobe infiltrate. IMPRESSION: 1. Probable aspiration pneumonia with ventilatory failure. 2. Seizure disorder. 3. Multiple sclerosis. 4. History of Larsen's palsy. 5. History of hypertension. 6. History of hypercholesterolemia. 7. History of gastroesophageal reflux disease. PLAN: Continue to monitor the patient in the intensive care unit. Will obtain neurology consult grover Dr. Lindquist, infectious disease consult with Dr. De Leon. Will maintain the patient empirically on cefep gerry 1 g IV q. 24 hours, and clindamycin 600 q. 8 hours for anaerobic coverage. Will obtain cardiolog y consult, Dr. Huynh/[facility], for elevated troponin and CPK levels. Out of bed as tolerated. Social w ork for discharge planning. Garrett Torre JD, MD cc: [id number] TT: 10/05/2016 16:57:19 [email or web address]
--- NOTE | 2016-10-05 20:04 | CP.PCM.CON ---
History of Present Illness - History of Present Illness History of Present Illness: Infectious Disease Consultation October 05, 2016 51 yo male with presentation of SOB, tachypnea, and tachycardia. The patient was intubated in the ER and given Clindamycin and Zosyn in the ER. He was extubated earlier today and remains on Nasal Cannula without any major issues. The patient is awake and alert. Severe Multiple Sclerosis where the patient is mostly bedbound, has random involuntary movements especially of the arms, and he has difficulty with speech. Patient does understand what is going on around him as it is easier for him to say short phrases like "Yes I do" or "No I don't " in interviewing him. More complicated answer before garbled as he speaks. The patient is currently afebrile but had fevers up to 103 F on admission that has slowly downtrended through the course of the day. He is currently on Cefepime and Clindamycin which is reasonable coverage at this time. RLL possible pneumonia based on Chest X-ray. PMHx: Multiple sclerosis, hyperlipidemia, seizures PSHx: none that I am aware of Allergies: NKDA Social Hx: No tobacco, EtOH, illicit drug use Active Medications Heparin Sodium (Porcine) (Heparin) 5,000 units SC Q8 [facility] PRN Reason: Protocol Last Admin: 10/05/16 14:35 Dose: 5,000 units Hydralazine HCl (Apresoline) 10 mg IVP Q4H PRN PRN Reason: Systolic Blood Pressure Hydralazine HCl (Apresoline) 20 mg IVP Q4H PRN PRN Reason: Systolic Blood Pressure Pantoprazole Sodium (Protonix 40mg Ivpb) 100 mls @ 20 mls/hr IVPB .Q5H [facility] Last Admin: 10/05/16 08:26 Dose: 20 mls/hr Acetaminophen (Ofirmev) 100 mls @ 400 mls/hr IVPB Q6H PRN PRN Reason: Fever >100.4 F Stop: 10/06/16 23:47 Last Admin: 10/05/16 01:06 Dose: 400 mls/hr Sodium Chloride (Sodium Chloride 0.9%) 1,000 mls @ 100 mls/hr IV .Q10H [facility] Last Admin: 10/05/16 00:00 Dose: 100 mls/hr Propofol (Diprivan) 100 mls @ 2.667 mls/hr IV .Q24H PRN; Protocol; 5 MCG/KG/MIN PRN Reason: TITRATE PER MD ORDER Last Titration: 10/05/16 09:41 Dose: 0 mcg/kg/min Cefepime HCl (Maxipime 1gm) 100 mls @ 100 mls/hr IVPB Q8 [facility] PRN Reason: Protocol Last Admin: 10/05/16 14:35 Dose: 100 mls/hr Clindamycin Phosphate 600 mg/ (Sodium Chloride) 54 mls @ 102 mls/hr IVPB Q8 [facility] Last Admin: 10/05/16 14:33 Dose: 102 mls/hr Lamotrigine (Lamictal) 25 mg PO BID [facility] PRN Reason: Protocol Last Admin: 10/05/16 18:06 Dose: 25 mg Methylprednisolone (Solu-Medrol) 20 mg IVP Q12 [facility] Last Admin: 10/05/16 09:28 Dose: Not Given Family Hx: Unable to obtain at this time ROS: Unable to obtain at this time. Patient has difficulty with speech secondary to Multiple Sclerosis. Past Patient History - Infectious Disease Hx of Infectious Diseases: None - Past Social History Smoking Status: Light Smoker < 10 Cigarettes Daily - CARDIAC Hx Cardiac Disorders: No Hx Congestive Heart Failure: No Hx Hypercholesterolemia: No Hx Hypertension: Yes - PULMONARY Hx Chronic Obstructive Pulmonary Disease (COPD): No Hx Pneumonia: No - NEUROLOGICAL HX Cerebrovascular Accident: No - HEENT Other/Comment: Optic neuritis - RENAL Hx Renal Failure: No - ENDOCRINE/METABOLIC Hx Diabetes Mellitus Type 1: No Hx Diabetes Mellitus Type 2: No Hx Hypothyroidism: No - HEMATOLOGICAL/ONCOLOGICAL Hx Cancer: No - INTEGUMENTARY Other/Comment: multiple old bruises from banging his lower legs when in a chair - MUSCULOSKELETAL/RHEUMATOLOGICAL Hx Arthritis: No Hx Rheumatoid Arthritis: No - GASTROINTESTINAL Hx Gastroesophageal Reflux: Yes - GENITOURINARY/GYNECOLOGICAL Hx Incontinence: Yes - PSYCHIATRIC Hx Substance Use: No - SURGICAL HISTORY Hx Surgeries: No - ANESTHESIA Hx Anesthesia: Yes Hx Anesthesia Reactions: No Hx Malignant Hyperthermia: No Meds Allergies/Adverse Reactions: Allergies Allergy/AdvReac Type Severity Reaction Status Date / Time No Known Allergies Allergy Verified 10/04/16 21:29 - Medications Medications: Current Medications Heparin Sodium (Porcine) (Heparin) 5,000 units SC Q8 [facility] PRN Reason: Protocol Last Admin: 10/05/16 14:35 Dose: 5,000 units Hydralazine HCl (Apresoline) 10 mg IVP Q4H PRN PRN Reason: Systolic Blood Pressure Hydralazine HCl (Apresoline) 20 mg IVP Q4H PRN PRN Reason: Systolic Blood Pressure Pantoprazole Sodium (Protonix 40mg Ivpb) 100 mls @ 20 mls/hr IVPB .Q5H [facility] Last Admin: 10/05/16 08:26 Dose: 20 mls/hr Acetaminophen (Ofirmev) 100 mls @ 400 mls/hr IVPB Q6H PRN PRN Reason: Fever >100.4 F Stop: 10/06/16 23:47 Last Admin: 10/05/16 01:06 Dose: 400 mls/hr Sodium Chloride (Sodium Chloride 0.9%) 1,000 mls @ 100 mls/hr IV .Q10H [facility] Last Admin: 10/05/16 00:00 Dose: 100 mls/hr Propofol (Diprivan) 100 mls @ 2.667 mls/hr IV .Q24H PRN; Protocol; 5 MCG/KG/MIN PRN Reason: TITRATE PER MD ORDER Last Titration: 10/05/16 09:41 Dose: 0 mcg/kg/min Cefepime HCl (Maxipime 1gm) 100 mls @ 100 mls/hr IVPB Q8 [facility] PRN Reason: Protocol Last Admin: 10/05/16 14:35 Dose: 100 mls/hr Clindamycin Phosphate 600 mg/ (Sodium Chloride) 54 mls @ 102 mls/hr IVPB Q8 [facility] Last Admin: 10/05/16 14:33 Dose: 102 mls/hr Lamotrigine (Lamictal) 25 mg PO BID [facility] PRN Reason: Protocol Last Admin: 10/05/16 18:06 Dose: 25 mg Methylprednisolone (Solu-Medrol) 20 mg IVP Q12 [facility] Last Admin: 10/05/16 09:28 Dose: Not Given Physical Exam - Constitutional Appears: Non-toxic, No Acute Distress, Chronically Ill - Head Exam Head Exam: ATRAUMATIC, NORMOCEPHALIC - Eye Exam Eye Exam: EOMI, PERRL Pupil Exam: NORMAL ACCOMODATION, PERRL - ENT Exam ENT Exam: Mucous Membranes Moist, Normal External Ear Exam, TM's Normal Bilaterally - Neck Exam Neck exam: Positive for: Full Rom, Normal Inspection - Respiratory Exam Respiratory Exam: Decreased Breath Sounds, Rhonchi. absent: Rales, Wheezes Additional comments: worst in RLL - Cardiovascular Exam Cardiovascular Exam: REGULAR RHYTHM, RRR, +S1, +S2 - GI/Abdominal Exam GI & Abdominal Exam: Normal Bowel Sounds, Soft. absent: Distended, Tenderness - Extremities Exam Additional comments: random jerking movement on exam. - Neurological Exam Neurological exam: Alert, Oriented x3 Additional comments: He does have random facial jerking motions on exam. I believe he is orientated x 3. - Psychiatric Exam Psychiatric exam: Normal Affect, Normal Mood - Skin Skin Exam: Intact, Normal Color Results - Vital Signs Recent Vital Signs: Last Vital Signs Temp 100 F H 10/05/16 03:45 Pulse 92 H 10/05/16 08:54 Resp 16 10/05/16 00:42 BP 129/97 H 10/05/16 07:00 Pulse Ox 100 10/05/16 07:00 - Labs Result Diagrams: 10/05/16 05:00 10/05/16 05:00 Labs: Laboratory Results - last 24 hr 10/04/16 10/04/16 10/04/16 22:55 23:30 23:40 WBC RBC Hgb Hct MCV MCH MCHC RDW Plt Count MPV Gran % Lymph % (Auto) Curry % (Auto) Eos % (Auto) Baso % (Auto) Gran # Lymph # Curry # Eos # Baso # ESR pCO2 26 L pO2 337.0 H HCO3 20.3 L ABG pH 7.50 H ABG Total CO2 21.1 L ABG O2 Saturation 99.5 H ABG O2 Content 18.7 ABG Base Excess -1.5 ABG Hemoglobin 13.1 ABG Carboxyhemoglobin 1.2 POC ABG HHb (Measured) 0.5 ABG Methemoglobin 1.4 ABG O2 Capacity 18.8 Hgb O2 Saturation 97.0 FiO2 100.0 Sodium Potassium Chloride Carbon Dioxide Anion Gap BUN Creatinine Est GFR ( Amer) Est GFR (Non-Af Amer) Random Glucose Calcium Phosphorus 3.2 Magnesium 1.9 Total Bilirubin AST ALT Alkaline Phosphatase Lactate Dehydrogenase Total Creatine Kinase CK-MB (CK-2) CK-MB (CK-2) % Troponin I Total Protein Albumin Globulin Albumin/Globulin Ratio Procalcitonin Urine Color Urine Appearance Urine pH Ur Specific [place] Urine Protein Urine Glucose (UA) Urine Ketones Urine Blood Urine Nitrate Urine Bilirubin Urine Urobilinogen Ur Leukocyte Esterase Urine RBC Urine WBC Ur Epithelial Cells Amorphous Sediment Urine Opiates Screen Negative Urine Methadone Screen Negative Ur Barbiturates Screen Negative Ur Phencyclidine Scrn Negative Ur Amphetamines Screen Negative U Benzodiazepines Scrn Negative U Oth Cocaine Metabols Negative U Cannabinoids Screen Negative Influenza Typ A,B (EIA) 10/04/16 10/05/16 10/05/16 23:45 00:10 01:00 WBC 15.9 H RBC 4.98 Hgb 13.8 L Hct 40.9 L MCV 82.1 MCH 27.7 MCHC 33.7 RDW 13.3 Plt Count 302 MPV 9.8 Gran % 80.8 H Lymph % (Auto) 11.4 L Curry % (Auto) 7.6 H Eos % (Auto) 0.1 L Baso % (Auto) 0.1 Gran # 12.85 H Lymph # 1.8 Curry # 1.2 H Eos # 0.0 Baso # 0.01 ESR pCO2 pO2 HCO3 ABG pH ABG Total CO2 ABG O2 Saturation ABG O2 Content ABG Base Excess ABG Hemoglobin ABG Carboxyhemoglobin POC ABG HHb (Measured) ABG Methemoglobin ABG O2 Capacity Hgb O2 Saturation FiO2 Sodium Potassium Chloride Carbon Dioxide Anion Gap BUN Creatinine Est GFR ( Amer) Est GFR (Non-Af Amer) Random Glucose Calcium Phosphorus Magnesium Total Bilirubin AST ALT Alkaline Phosphatase Lactate Dehydrogenase Total Creatine Kinase CK-MB (CK-2) CK-MB (CK-2) % Troponin I Total Protein Albumin Globulin Albumin/Globulin Ratio Procalcitonin < 0.05 L Urine Color Yellow Urine Appearance Cloudy Urine pH 6.5 Ur Specific [place] 1.020 Urine Protein 100 H Urine Glucose (UA) Negative Urine Ketones Negative Urine Blood Large H Urine Nitrate Negative Urine Bilirubin Negative Urine Urobilinogen 0.2 Ur Leukocyte Esterase Negative Urine RBC Tntc Urine WBC 2 - 5 Ur Epithelial Cells 0 - 2 Amorphous Sediment Moderate Urine Opiates Screen Urine Methadone Screen Ur Barbiturates Screen Ur Phencyclidine Scrn Ur Amphetamines Screen U Benzodiazepines Scrn U Oth Cocaine Metabols U Cannabinoids Screen Influenza Typ A,B (EIA) 03/06/1310/05/16 10/05/16 05:00 06:00 07:24 WBC 18.0 H RBC 4.82 Hgb 13.3 L Hct 40.0 L MCV 83.0 MCH 27.6 MCHC 33.3 RDW 13.4 Plt Count 309 MPV 10.3 Gran % 83.2 H Lymph % (Auto) 9.2 L Curry % (Auto) 7.5 H Eos % (Auto) 0.0 L Baso % (Auto) 0.1 Gran # 14.97 H Lymph # 1.7 Curry # 1.3 H Eos # 0.0 Baso # 0.01 ESR pCO2 35 pO2 148.0 H HCO3 23.2 ABG pH 7.43 ABG Total CO2 24.3 ABG O2 Saturation 99.3 H ABG O2 Content 17.9 ABG Base Excess -0.7 ABG Hemoglobin 12.9 ABG Carboxyhemoglobin 1.4 POC ABG HHb (Measured) 0.7 ABG Methemoglobin 0.9 ABG O2 Capacity 18.0 Hgb O2 Saturation 97.0 FiO2 50.0 Sodium 145 Potassium 3.6 Chloride 107 Carbon Dioxide 26 Anion Gap 16 BUN 18 Creatinine 1.3 Est GFR ( Amer) > 60 Est GFR (Non-Af Amer) 59 Random Glucose 150 H Calcium 9.1 Phosphorus Magnesium Total Bilirubin 1.2 AST 33 ALT 39 Alkaline Phosphatase 100 Lactate Dehydrogenase 507 Total Creatine Kinase 381 H CK-MB (CK-2) 0.7 CK-MB (CK-2) % Cancelled Troponin I 0.12 D Total Protein 7.7 Albumin 4.0 Globulin 3.8 Albumin/Globulin Ratio 1.1 Procalcitonin Urine Color Urine Appearance Urine pH Ur Specific [place] Urine Protein Urine Glucose (UA) Urine Ketones Urine Blood Urine Nitrate Urine Bilirubin Urine Urobilinogen Ur Leukocyte Esterase Urine RBC Urine WBC Ur Epithelial Cells Amorphous Sediment Urine Opiates Screen Urine Methadone Screen Ur Barbiturates Screen Ur Phencyclidine Scrn Ur Amphetamines Screen U Benzodiazepines Scrn U Oth Cocaine Metabols U Cannabinoids Screen Influenza Typ A,B (EIA) Negative for flu a/b 10/05/16 10/05/16 08:00 13:10 WBC RBC Hgb Hct MCV MCH MCHC RDW Plt Count MPV Gran % Lymph % (Auto) Curry % (Auto) Eos % (Auto) Baso % (Auto) Gran # Lymph # Curry # Eos # Baso # ESR 25 H pCO2 pO2 HCO3 ABG pH ABG Total CO2 ABG O2 Saturation ABG O2 Content ABG Base Excess ABG Hemoglobin ABG Carboxyhemoglobin POC ABG HHb (Measured) ABG Methemoglobin ABG O2 Capacity Hgb O2 Saturation FiO2 Sodium Potassium Chloride Carbon Dioxide Anion Gap BUN Creatinine Est GFR ( Amer) Est GFR (Non-Af Amer) Random Glucose Calcium Phosphorus Magnesium Total Bilirubin AST ALT Alkaline Phosphatase Lactate Dehydrogenase 557 Total Creatine Kinase 569 H CK-MB (CK-2) 1.0 CK-MB (CK-2) % Cancelled Troponin I 0.07 D Total Protein Albumin Globulin Albumin/Globulin Ratio Procalcitonin Urine Color Urine Appearance Urine pH Ur Specific [place] Urine Protein Urine Glucose (UA) Urine Ketones Urine Blood Urine Nitrate Urine Bilirubin Urine Urobilinogen Ur Leukocyte Esterase Urine RBC Urine WBC Ur Epithelial Cells Amorphous Sediment Urine Opiates Screen Urine Methadone Screen Ur Barbiturates Screen Ur Phencyclidine Scrn Ur Amphetamines Screen U Benzodiazepines Scrn U Oth Cocaine Metabols U Cannabinoids Screen Influenza Typ A,B (EIA) Assessment & Plan - Assessment and Plan (Free Text) Assessment: 51 yo male with severe Multiple Sclerosis presented with SOB, tachypnea, and tachycardia. The patient was intubated on admission and febrile up to 103 F. The patient has improved over the past few hours and has been extubated now. The patient with findings of RLL pneumonia and questionable LLL pneumonia on Chest CT and the patient had signs of fecal impaction on the CT of the abdomen and pelvis. The patient remains on Cefepime and Clindamycin which is a reasonable choice for antibiotic therapy. Cody cultures sent. Fevers on admission up to 103 F. Supportive care. Patient appears to have improved during this hospitalization. Than you for allowing me to participate in the care of this patient, we will follow with you.
[2016-10-05] MEDS ORDERED: Metoprolol 1 mg/ml Inj IVP ONE (22:18)
[2016-10-06] MEDS ORDERED: Metoprolol 1 mg/ml Inj IVP ONE (01:21)
[2016-10-06] MEDS: Pantoprazole 40mg/100ml IVPB 100 ML IVPB SCH ×4 (03:11→19:30)
[2016-10-06 03:38] LABS: ARTERIAL BLOOD GAS HCO3 19.5 mmol/L (21-28); ARTERIAL BLOOD GAS O2 CAPACITY 16.8 mL/dl (16-24); ARTERIAL BLOOD GAS O2 CONTENT 16.4 ML/dl (15-23); ARTERIAL BLOOD GAS PH 7.42 (7.35-7.45); ARTERIAL BLOOD HGB O2 SAT 94.6 % (95.0-98.0); CARBOXYHEMOGLOBIN 1.8 % (0.5-1.5); HHB 2.5 % (0-5); METHEMOGLOBIN 1.1 % (0.0-3.0)
[2016-10-06] MEDS ORDERED: Midazolam 2 MG/2 ML VIAL ONE ×2 (03:56→04:04)
[2016-10-06 04:02] LABS: ADD MANUAL DIFF? NO
[2016-10-06 04:07] LABS: BASO # 0.01 K/mm3 (0.0-2.0); BASO % 0.1 % (0.0-3.0); GRAN # 11.83 (1.4-6.5); GRAN % 89.3 % (50.0-68.0); HEMATOCRIT 37.6 % (42.0-52.0); LYMPH # 0.5 (1.2-3.4); LYMPH % 3.7 % (22.0-35.0); MEAN CELL VOLUME 82.6 fL (80.0-105.0); MEAN CORPUSCULAR HEMOGLOBIN 27.9 pg (25.0-35.0); MEAN CORPUSCULAR HGB CONC 33.8 g/dl (31.0-37.0); MEAN PLATELET VOLUME 10.1 fl (7.0-11.0); MONO # 0.9 (0.1-0.6); MONO % 6.9 % (1.0-6.0); PLATELET COUNT 294 10^3/uL (120.0-450.0); RED CELL DISTRIBUTION WIDTH 13.5 % (11.5-14.5); WHITE BLOOD COUNT 13.2 10^3/ul (4.5-11.0)
[2016-10-06] MEDS ORDERED: Metoprolol 1 mg/ml Inj IVP PRN (04:21)
--- NOTE | 2016-10-06 04:21 | CP.PCM.PN ---
Subjective - Date & Time of Evaluation Date of Evaluation: 10/06/16 Time of Evaluation: 03:30 - Subjective Subjective: Asked by Nurse to evaluate patient for oxygen desaturation and respiratory distress. I came to the bedside to see the patient who was tachypnic breathing at approximately 35-40 per minute and was also tachycardic with a HR in the 130' s. His oxygen saturation was fluctuating between 92 and 88% while on 100%NRM mask. He was unable to offer any complaints and appeared extremely lethargic. He was also noted to have a temperature of 103 F. ABG was ordered and reviewed showing a decreaed p02 of 72 while on 100% fi02 via NRM. Objective - Vital Signs/Intake and Output Vital Signs (last 24 hours): Temp Pulse Resp BP Pulse Ox 98.9 F 133 H 26 H 139/79 82 L 10/05/16 20:00 10/06/16 01:32 10/06/16 01:00 10/06/16 01:32 10/06/16 01:00 Intake and Output: 10/05/16 10/06/16 18:59 07:59 Intake Total 1200 Output Total 500 Balance 700 - Medications Medications: Current Medications Heparin Sodium (Porcine) (Heparin) 5,000 units SC Q8 [facility] PRN Reason: Protocol Last Admin: 10/05/16 21:56 Dose: 5,000 units Hydralazine HCl (Apresoline) 10 mg IVP Q4H PRN PRN Reason: Systolic Blood Pressure Last Admin: 10/05/16 19:49 Dose: 10 mg Hydralazine HCl (Apresoline) 20 mg IVP Q4H PRN PRN Reason: Systolic Blood Pressure Pantoprazole Sodium (Protonix 40mg Ivpb) 100 mls @ 20 mls/hr IVPB .Q5H [facility] Last Admin: 10/06/16 03:11 Dose: 20 mls/hr Acetaminophen (Ofirmev) 100 mls @ 400 mls/hr IVPB Q6H PRN PRN Reason: Fever >100.4 F Stop: 10/06/16 23:47 Last Admin: 10/06/16 03:07 Dose: 400 mls/hr Sodium Chloride (Sodium Chloride 0.9%) 1,000 mls @ 100 mls/hr IV .Q10H [facility] Last Admin: 10/05/16 00:00 Dose: 100 mls/hr Propofol (Diprivan) 100 mls @ 2.667 mls/hr IV .Q24H PRN; Protocol; 5 MCG/KG/MIN PRN Reason: TITRATE PER MD ORDER Last Titration: 10/05/16 09:41 Dose: 0 mcg/kg/min Clindamycin Phosphate 600 mg/ (Sodium Chloride) 54 mls @ 102 mls/hr IVPB Q8 [facility] Last Admin: 10/05/16 21:55 Dose: 102 mls/hr Aztreonam (Azactam 1 Gm) 100 mls @ 100 mls/hr IVPB Q8 [facility] PRN Reason: Protocol Stop: 10/06/16 14:59 Propofol (Diprivan) 100 mls @ 2.395 mls/hr IV .Q24H PRN; Protocol; 5 MCG/KG/MIN PRN Reason: TITRATE PER MD ORDER Vancomycin HCl (Vancomycin 1gm) 250 mls @ 167 mls/hr IVPB Q12H [facility] PRN Reason: Protocol Lamotrigine (Lamictal) 25 mg PO BID [facility] PRN Reason: Protocol Last Admin: 10/05/16 18:06 Dose: 25 mg Methylprednisolone (Solu-Medrol) 20 mg IVP Q12 [facility] Last Admin: 10/05/16 21:56 Dose: 20 mg - Labs Labs: 10/05/16 05:00 10/05/16 05:00 - Constitutional Appears: In Acute Distress, Confused - Head Exam Head Exam: ATRAUMATIC, NORMOCEPHALIC - ENT Exam ENT Exam: Mucous Membranes Dry - Neck Exam Neck Exam: Normal Inspection - Respiratory Exam Respiratory Exam: Accessory Muscle Use, Rhonchi (bilateral ronchi) - Cardiovascular Exam Cardiovascular Exam: Tachycardia, +S1, +S2 - GI/Abdominal Exam GI & Abdominal Exam: Soft, Normal Bowel Sounds. absent: Guarding, Tenderness, Rebound - Rectal Exam Rectal Exam: Deferred - Extremities Exam Extremities Exam: Normal Inspection. absent: Calf Tenderness - Neurological Exam Neurological Exam: Alert, Altered, Awake - Skin Skin Exam: Dry, Intact, Normal Color, Warm Assessment and Plan - Assessment and Plan (Free Text) Assessment: 51 y/o male with a PMHx MS, Seizure disorder, GERD who was admitted 2 days ago for respiratory distress requiring intubation and ventilator support. He was successfully extubated yesterday after passing his breathing trial, however became acutely short of breath and went into hypoxic respiratory failure early this morning. Decision was made to intubate; patient successfully intubated by the House DrFifi (Dr. Carpenter). Immediately upon intubation, patient's ETT put out copious amounts of thick, green secretions. Plan: CAP vs Aspiration pneumonia Aggressively suctioned Will place on PRVC with a rate of 16, fi02 of 100% and PEEP of 5; repeat ABG at 6am Cefepime DC'd; Started Vanco and Azactam IV in addition to c/w clindamycin IV Acetaminophen IV administered and patient was pancultured (Blood and Urine) again for temp of 103; cooling blanket applied 12 lead EKG reviewed showing sinus tachycardia Will sedate with IV propofol Increase solumedrol to 40mg IV Q8 c/w Hep SQ for DVT ppx Will follow along with pulmonary for further recs Called patient's mother (Kallie Galicia) and updated her on patient's current condition
[2016-10-06] MEDS: Vancomycin 1gm in NS 250ml 250 ML IVPB SCH ×2 (04:23→16:55)
[2016-10-06] MEDS: Sodium Chloride 0.9% 1,000 ML IV SCH ×2 (04:24→20:42)
[2016-10-06 04:25] LABS: ALKALINE PHOSPHATASE 94 U/L (38-133); ALT/SGPT 29 U/L (7-56); AST/SGOT 36 U/L (15-59); BILIRUBIN,TOTAL 0.9 mg/dL (0.2-1.3); BLOOD UREA NITROGEN 14 mg/dL (7-21); CALCIUM 8.9 mg/dL (8.4-10.5); CARBON DIOXIDE 22 mmol/L (21-33); CHLORIDE 112 mmol/L (98-107); GFR AFRICAN-AMERICAN > 60; GLUCOSE,RANDOM 147 mg/dL (70-110); POTASSIUM 3.7 mmol/L (3.6-5.0); SODIUM 147 mmol/L (132-148); TOTAL PROTEIN 7.4 g/dL (5.8-8.3)
--- NOTE | 2016-10-06 04:53 | CP.PCM.PN ---
Subjective - Date & Time of Evaluation Date of Evaluation: 10/06/16 Time of Evaluation: 04:50 - Subjective Subjective: # 7.5 ETT inserted. Position confirmed with CO2 detector, auscultation,CXR. large amount of white/mancuso mucus secretion came out as soon as ETT was inserted. Objective - Vital Signs/Intake and Output Vital Signs (last 24 hours): Temp Pulse Resp BP Pulse Ox 103.5 F H 116 H 22 115/69 99 10/06/16 04:00 10/06/16 03:31 10/06/16 03:31 10/06/16 03:10 10/06/16 03:31 Intake and Output: 10/05/16 10/06/16 18:59 07:59 Intake Total 1200 Output Total 500 Balance 700 - Medications Medications: Current Medications Heparin Sodium (Porcine) (Heparin) 5,000 units SC Q8 [facility] PRN Reason: Protocol Last Admin: 10/05/16 21:56 Dose: 5,000 units Pantoprazole Sodium (Protonix 40mg Ivpb) 100 mls @ 20 mls/hr IVPB .Q5H [facility] Last Admin: 10/06/16 03:11 Dose: 20 mls/hr Acetaminophen (Ofirmev) 100 mls @ 400 mls/hr IVPB Q6H PRN PRN Reason: Fever >100.4 F Stop: 10/06/16 23:47 Last Admin: 10/06/16 03:07 Dose: 400 mls/hr Sodium Chloride (Sodium Chloride 0.9%) 1,000 mls @ 100 mls/hr IV .Q10H [facility] Last Admin: 10/06/16 04:24 Dose: 100 mls/hr Propofol (Diprivan) 100 mls @ 2.667 mls/hr IV .Q24H PRN; Protocol; 5 MCG/KG/MIN PRN Reason: TITRATE PER MD ORDER Last Titration: 10/05/16 09:41 Dose: 0 mcg/kg/min Clindamycin Phosphate 600 mg/ (Sodium Chloride) 54 mls @ 102 mls/hr IVPB Q8 [facility] Last Admin: 10/05/16 21:55 Dose: 102 mls/hr Aztreonam (Azactam 1 Gm) 100 mls @ 100 mls/hr IVPB Q8 [facility] PRN Reason: Protocol Stop: 10/06/16 14:59 Propofol (Diprivan) 100 mls @ 2.395 mls/hr IV .Q24H PRN; Protocol; 5 MCG/KG/MIN PRN Reason: TITRATE PER MD ORDER Last Titration: 10/06/16 04:15 Dose: 10 mcg/kg/min Vancomycin HCl (Vancomycin 1gm) 250 mls @ 167 mls/hr IVPB Q12H [facility] PRN Reason: Protocol Last Admin: 10/06/16 04:23 Dose: 167 mls/hr Lamotrigine (Lamictal) 25 mg PO BID [facility] PRN Reason: Protocol Last Admin: 10/05/16 18:06 Dose: 25 mg Methylprednisolone (Solu-Medrol) 20 mg IVP Q12 [facility] Last Admin: 10/05/16 21:56 Dose: 20 mg Metoprolol Tartrate (Lopressor) 5 mg IVP Q4H PRN PRN Reason: Heart rate - Labs Labs: 10/06/16 03:40 10/06/16 03:40
--- NOTE | 2016-10-06 05:02 | CP.PCM.PRO ---
Pronouncement of Note - Clinical Findings Physical Exam: No Response Verbal/Painful Stimuli, Absent Peripheral Pulses{ Carotid & Femoral}, Absent Heart & Breath Sounds, No Pupillary Light Reflex, No Corneal Reflex, Pupils Fixed & Dilated, Absence of Vital Signs - Pronouncement Time Time of Pronouncement of : 03:45 Additional Comments: Nurse Candy will notify PMD and sharing network. - Notifications Pronouncement Notifications: Atending Notified (To be done by nurse.) [employer] Notified: No - Autopsy Autopsy Requested: No [place] [id number]
--- NOTE | 2016-10-06 05:17 | CP.PCM.PN ---
Subjective - Date & Time of Evaluation Date of Evaluation: 10/06/16 Time of Evaluation: 05:14 - Subjective Subjective: Preceding note of pronouncement was entered by mistake.It was for another patient:Geovanna Arcos. I tried to cancel it , but not able to cancel it. DISREGARD THIS NOTE WHICH WAS ENTERED BY ME AT 5:00 ON 10/06/2016. Objective - Vital Signs/Intake and Output Vital Signs (last 24 hours): Temp Pulse Resp BP Pulse Ox 103.5 F H 116 H 22 115/69 99 10/06/16 04:00 10/06/16 03:31 10/06/16 03:31 10/06/16 03:10 10/06/16 03:31 Intake and Output: 10/05/16 10/06/16 18:59 07:59 Intake Total 1200 Output Total 500 Balance 700 - Medications Medications: Current Medications Heparin Sodium (Porcine) (Heparin) 5,000 units SC Q8 [facility] PRN Reason: Protocol Last Admin: 10/05/16 21:56 Dose: 5,000 units Pantoprazole Sodium (Protonix 40mg Ivpb) 100 mls @ 20 mls/hr IVPB .Q5H [facility] Last Admin: 10/06/16 03:11 Dose: 20 mls/hr Acetaminophen (Ofirmev) 100 mls @ 400 mls/hr IVPB Q6H PRN PRN Reason: Fever >100.4 F Stop: 10/06/16 23:47 Last Admin: 10/06/16 03:07 Dose: 400 mls/hr Sodium Chloride (Sodium Chloride 0.9%) 1,000 mls @ 100 mls/hr IV .Q10H [facility] Last Admin: 10/06/16 04:24 Dose: 100 mls/hr Propofol (Diprivan) 100 mls @ 2.667 mls/hr IV .Q24H PRN; Protocol; 5 MCG/KG/MIN PRN Reason: TITRATE PER MD ORDER Last Titration: 10/05/16 09:41 Dose: 0 mcg/kg/min Clindamycin Phosphate 600 mg/ (Sodium Chloride) 54 mls @ 102 mls/hr IVPB Q8 [facility] Last Admin: 10/05/16 21:55 Dose: 102 mls/hr Aztreonam (Azactam 1 Gm) 100 mls @ 100 mls/hr IVPB Q8 [facility] PRN Reason: Protocol Stop: 10/06/16 14:59 Propofol (Diprivan) 100 mls @ 2.395 mls/hr IV .Q24H PRN; Protocol; 5 MCG/KG/MIN PRN Reason: TITRATE PER MD ORDER Last Titration: 10/06/16 04:15 Dose: 10 mcg/kg/min Vancomycin HCl (Vancomycin 1gm) 250 mls @ 167 mls/hr IVPB Q12H [facility] PRN Reason: Protocol Last Admin: 10/06/16 04:23 Dose: 167 mls/hr Lamotrigine (Lamictal) 25 mg PO BID [facility] PRN Reason: Protocol Last Admin: 10/05/16 18:06 Dose: 25 mg Methylprednisolone (Solu-Medrol) 20 mg IVP Q12 [facility] Last Admin: 10/05/16 21:56 Dose: 20 mg Metoprolol Tartrate (Lopressor) 5 mg IVP Q4H PRN PRN Reason: Heart rate - Labs Labs: 10/06/16 03:40 10/06/16 03:40
[2016-10-06 05:18] LABS: URINE BILIRUBIN NEGATIVE (NEGATIVE); URINE BLOOD LARGE (NEGATIVE); URINE GLUCOSE (UA) NEGATIVE (NEGATIVE); URINE KETONE >=80 mg/dL (NEGATIVE); URINE LEUKOCYTE ESTERASE NEGATIVE Leu/uL (NEGATIVE); URINE PROTEIN TRACE mg/dL (<30 mg/dL); URINE UROBILINOGEN 0.2 E.U./dL (<1 E.U./dL)
[2016-10-06 05:21] LABS: URINE APPEARANCE CLEAR (CLEAR); URINE COLOR YELLOW (YELLOW)
[2016-10-06] MEDS: Aztreonam 1 Gm in NS 100mL 100 ML IVPB SCH ×2 (05:24→14:54)
[2016-10-06 05:27] LABS: ARTERIAL BLOOD GAS HCO3 20.3 mmol/L (21-28); ARTERIAL BLOOD GAS O2 CAPACITY 16.9 mL/dl (16-24); ARTERIAL BLOOD GAS O2 CONTENT 16.8 ML/dl (15-23); ARTERIAL BLOOD GAS PH 7.41 (7.35-7.45); ARTERIAL BLOOD HGB O2 SAT 97.2 % (95.0-98.0); CARBOXYHEMOGLOBIN 1.4 % (0.5-1.5); HHB 0.5 % (0-5)
[2016-10-06 05:29] LABS: URINE RBC 25 - 30 /hpf (0-2)
--- NOTE | 2016-10-06 05:36 | CON ---
DATE: 10/05/2016 REFERRING PHYSICIAN: Dr. Torre. REASON FOR CONSULT: Respiratory failure, aspiration pneumonia. HISTORY OF PRESENT ILLNESS: This is a 51-year-old gentleman with known history of multiple sclerosis, seizure disorder, hypertens ion, history of recurrent aspiration pneumonia in the past, brought into Emergency Room with few days history of fever, cough and shortness of breath. He failed treatment as an outpatient. He was unab le to clear pulmonary secretion and of a respiratory failure requiring intubation. This morning, he is liberated from the ventilator, presently sleepy, arousable, has a nasogastric tube. Unable to cou gh and clear secretion, has shortness of breath. No nausea, vomiting, diarrhea. No leg pain or leg swelling. PAST MEDICAL HISTORY: Multiple sclerosis, seizure disorder, hypertension, recurrent aspiration pneumonia, basically bedridd en. SOCIAL HISTORY: Denied any smoking or alcohol use. FAMILY HISTORY: No significant cardiopulmonary disease reported. MEDICATIONS: At present, he is on hydralazine 10 mg q. 4 hours p.r.n., also on hydralazine 20 mg q. 4 hours for hy pertension, clindamycin 600 mg q. 8 hours, was on Diprivan, heparin 5000 units subQ q. 8 hours, Lamic blaze 25 mg twice a day, cefepime 1 gram IV q. 8 hours, Tylenol q. 6 hours, Protonix 40 mg daily, IV fl uid normal saline 100 mL per hour, Solu-Medrol 20 mg q. 12 hours. REVIEW OF SYSTEMS: Denies any headache, no rhinitis. Has cough, shortness of breath, sputum production. No chest pain, no nausea, no vomiting, no diarrhea, no leg pain or leg swelling. PHYSICAL EXAMINATION: GENERAL: Sleepy, arousable. VITAL SIGNS: Temp is 98, heart rate is 92, respiratory rate is 22, blood pressure 129/97, pulse ox 1 00% on supplemental oxygen. HEENT: Moist mucous membranes. Crowded airway. Mallampati score is 4. NECK: Supple, no JVD. Has a nasogastric tube. LUNGS: Has a poor effort with scattered rhonchi and crackles. HEART: S1, S2. ABDOMEN: Soft, nontender. No organomegaly. EXTREMITIES: There is no edema. NEUROLOGIC: Sleepy, but arousable. LABORATORY DATA: Shows hemoglobin 13.3, hematocrit 40.7, WBC 18,000, platelet is 309. Sed rate is 25. ABG done this morning shows pH 7.43, pCO2 of 35, pO2 of 148 that was on ventilator with 60% oxygen. Sodium 144, po tassium 3.6, chloride 107, bicarbonate 26, BUN 18, creatinine 1.3, glucose 150, calcium is 9.1, AST 3 3, ALT 39, alkaline phosphatase is 100, troponin is less than 0.07, serum protein is 7.7, albumin is 4.0. Procalcitonin 0.05. Tracheal aspiration culture is pending. CAT scan of lungs shows right lower lobe infiltrate with air bronchograms, also left basilar infiltra te. There is a shotty lymphadenopathy. Has abdominal CAT scan done, which shows unremarkable. There is some retained fecal material in the colon. IMPRESSION AND PLAN: Probably aspiration related pneumonia with some shotty mediastinal lymph node, history of multiple sc lerosis, hypertension, gastroesophageal reflux disease, seizure disorder. Agree with the present man agement. Keep head elevated at 45 degrees. Keep n.p.o. for now. Speech therapy evaluation for aspi ration and inhaled bronchodilator, IV antibiotics. Gastric prophylaxis, deep venous thrombosis proph ylaxis. Follow up x-ray and labs in the morning. We will follow with you. Laquita Gonzalez MD cc: [id number] TT: 10/06/2016 05:36:22 Confirmation # [id number] Dictation # [id number] hn
[2016-10-06] MEDS: MethylPREDNISolone 40 mg Vial IVP SCH ×2 (10:00→21:31)
[2016-10-06] MEDS ORDERED: Morphine 2 mg/ml ISec IVP PRN (10:06)
--- NOTE | 2016-10-06 11:46 | RAD ---
PROCEDURE: Portable chest HISTORY: hypoxia; tachycardia; evaluate for infiltrate/[place] COMPARISON: October 05, 2016. CT thorax. Summary of findings on the comparison examination: Infiltrate with air bronchograms noted in the right lower lobe. Question infiltrate versus atelectasis at the left lung base. TECHNIQUE: Technique: Single view portable semi erect @ 03:54. FINDINGS: Right lower lobe infiltrate. Clear left lung. No radiographic findings to suggest acute or significant cardiovascular disease. New line nasogastric tube in the proximal stomach. The distal side hole is at gastroesophageal junction. Optimal placement would be achieved by advancing the nasogastric tube with these 5 cm. IMPRESSION: Right lower lobe infiltrate.
--- NOTE | 2016-10-06 11:47 | RAD ---
PROCEDURE: Portable chest HISTORY: pt now intubated; evaluate ET tube COMPARISON: Multiple serial examinations preceding the most recent study: October 06, 2016. Study performed within 1 hour of the current examination. TECHNIQUE: Technique: Single view portable semi erect @ 04:16. FINDINGS: Stable right lower lobe infiltrate. Stable position of nasogastric tube. Satisfactory position of recently placed endotracheal tube. IMPRESSION: Satisfactory position of recently placed endotracheal tube. Otherwise no interval change.
--- NOTE | 2016-10-06 14:54 | PN ---
DATE: 10/06/2016 SUBJECTIVE: The patient went into respiratory distress earlier this morning, required reintubation. At the present time, he is intubated on the ventilator. He is awake and responsive, in no acute dis tress, tolerating CPAP with pressure support. OBJECTIVE: VITAL SIGNS: Blood pressure 119/76, pulse 94, temperature 98.9, respiratory rate 14. LUNGS: Endotracheal tube is intact. There is good air entry bilaterally with coarse crepitations at the right base. HEART: Regular rate and rhythm. Slightly tachycardic. ABDOMEN: Soft, nontender, bowel sounds are normoactive. EXTREMITIES: Without cyanosis, clubbing, or edema. NEUROLOGIC: The patient is awake and responsive to verbal commands without focal, sensory or motor d eficits. SKIN: Warm and dry. LABORATORY DATA: WBCs 13.2, hemoglobin 12.7, hematocrit 37.6. Sodium 147, potassium 3.7, chloride 1 12, CO2 22, BUN 14, creatinine 1.0, glucose 147. Troponin is slightly elevated at 0.12. ABG: pH 7. 41, pCO2 32, pO2 218, bicarbonate 20.3, O2 saturation 97.2% on CPAP with pressure support, FiO2 100%. Chest x-ray shows a right lower lobe infiltrate, endotracheal tube is in place. IMPRESSION: 1. Recurrent aspiration pneumonia with ventilatory failure. 2. Seizure disorder. 3. Multiple sclerosis. 4. History of Larsen's palsy. 5. History of hypertension. 6. Hypercholesterolemia. 7. Gastroesophageal reflux disease. PLAN: Continue ventilatory support. Continue pulmonary followup with Dr. Gonzalez, neurology followup with Dr. Lindquist and infectious disease followup with Dr. De Leon. Continue IV antibiotics. Cardiology c onsult for elevated troponin and CPK levels pending. Garrett Torre JD, MD cc: [id number] TT: 10/06/2016 14:53:56 Confirmation # [id number] Dictation # [id number] en
--- NOTE | 2016-10-06 16:00 | CARD ---
APPROVED REPORT EKG Measurement Heart [id number] <Conclusion> Sinus tachycardia Septal infarct, age undetermined Possible Lateral infarct, age undetermined Abnormal ECG
--- NOTE | 2016-10-06 17:54 | PN ---
DATE: 10/06/2016 The patient seen and examined at bedside. He is on propofol, however, fairly awake and trying to communicate nonverbally. He was reintubated last night due to his inability to protect airways and inability to manage saliva and secretion. The patient became tachypneic, tachycardic, started using accessory muscle to breathe, secretion pooled in oral cavity and despite our best effort to clear his airways with conservative measures, had to be reintubated for airway protection. He also spiked fever, which likely signifies progression of the aspiration pneumonia/pneumonitis. PHYSICAL EXAMINATION: VITAL SIGNS: T-max 104.2, heart rate 88, respiratory rate currently 17, oxygen saturation 100% of 60 FiO2, blood pressure 119/76. HEAD AND NECK: Atraumatic. LUNGS: Few crackles bibasilarly. HEART: Regular rate and rhythm. S1, S2 normal. ABDOMEN: Soft, nontender, nondistended. MUSCULOSKELETAL: No C/C/E. SKIN: Moist. PSYCHIATRIC: The patient is alert and trying to communicate nonverbally. LABORATORIES: WBC 13.2, down from 18, hemoglobin 12.7, platelet count 294. Sodium 147, potassium 3.7, chloride 112, carbon dioxide 22, BUN 14, creatinine 1 , glucose 147, AST 36, ALT 29. Troponin x 3 negative. Procalcitonin less than 0.05. Influenza serology is negative. Urine legionella antigen is negative. MEDICATIONS: Tylenol IV p.r.n., clindamycin, heparin subQ, Lamictal, metoprolol , Protonix. drip, Solu-Medrol 20 mg IV q. 12, vancomycin. ASSESSMENT AND PLAN: This is a 51-year-old gentleman who presented with aspiration pneumonia/pneumonitis complicated by hypoxemic respiratory failure requiring intubation. Pulmonary marie, the patient has been doing very well shortly after extubation yesterday. However, later in the day and during the night, it appears that he was unable to manage secretion/saliva, was drooling, had increased cough, shortness of breath, fell into respiratory distress and had to be reintubated after failed attempts to control his secretion and aspiration conservatively. The patient is continued to be followed up by ID service, he is on broad-spectrum antibiotics and septic workup is pending. Today, he appears to be doing very well pulmonary marie, while his airways protected with ET. He passed his pressure support trial. However, extubating at present time, without protecting airways first will be too dangerous provided that he has impaired airway protective reflexes. I discussed option of proceeding with tracheostomy with subsequent weaning from mechanical ventilation with PMD (Dr. Torre) and patient pulmonary service (). In my opinion, that will be the safest way to proceed from here. Trach would allow quick weaning from MV, while allowing to perform endotracheal suction and preventing (to some degree) secretion/saliva from getting into low airways by cuffed trach. Patient's family did admit that patient had similar presentation not so long ago when he was admitted with pneumonia and hypoxemic respiratory requiring intubation when they also refused tracheostomy at that time, which led to several reintubations (for the same reason), before patient was able to stay off of vent. At present time, we will continue with antibiotics, pulmonary toilet, head of bed elevated more than 35 degrees, septic workup. I will keep in touch with patient's PMD, queen's counsel and family. We will continue to target euvolemia, euglycemia, normothermia and oxygen saturation more than 90%. ccm time 40 min Dann Seymour MD cc: [id number] TT: 10/06/2016 17:53:57 Confirmation # [id number] Dictation # [id number] en MTDD
--- NOTE | 2016-10-06 18:13 | PN ---
DATE: 10/06/2016 REFERRING PHYSICIAN: Dr. Torre. SUBJECTIVE: He is intubated and sedated, arousable, on Diprivan. Overnight events noted. Apparentl y had respiratory difficulty with problems including secretions; ended up on the ventilator because o f respiratory failure. Since then he has been doing okay. I spoke to grocery caddy, Dr. Seymour in d etail. Also case discussed with Dr. Torre in detail. Presently there is not much secretion in ET tu be. No hemoptysis, no hematemesis, no hematuria, no diarrhea reported. OBJECTIVE: GENERAL: On a ventilator, mildly sedated. VITAL SIGNS: Temperature is 98, heart rate is 88, respiratory rate is 20, blood pressure 119/76 and pulse ox 100% on ventilator with 60% oxygen. HEENT: Moist mucous membrane. Crowded airway. ET tube not much secretion. NECK: Supple. No JVD. LUNGS: Has scattered rhonchi. HEART: S1 and S2. ABDOMEN: Soft and nontender. No organomegaly. EXTREMITIES: There is no edema. NEUROLOGIC: Sedated. MEDICATIONS: He is on clindamycin 600 mg q.8 hours, Diprivan IV, heparin 5000 units subQ q.8 hours, Lamictal 25 mg twice a day, metoprolol tartrate 5 mg q.4 hours p.r.n., morphine 2 mg q.4 hours p.r.n. , Tylenol p.r.n., Protonix 40 mg daily, IV fluid normal saline 100 mL per hour, vancomycin 1 gram q.1 2 hours. LABORATORY DATA: Shows hemoglobin 12.7, hematocrit 37.6, WBC 13.2, platelet count is 294. Yesterday SED rate was 25. Blood gases this morning shows, after intubation, pH 7.41, pCO2 of 32, O2 of 218; this is on 100% oxygen after intubation on the ventilator. Sodium 147, potassium 3.7, chloride 112, bicarbonate 22, BUN 14, creatinine 1.0, calcium is 8.9, AST 36, ALT 29, alkaline phosphatase is 94, a lbumin is 3.8. Influenza A and B has been negative. Microbiology: Blood culture, nasal culture and sputum all are positive unremarkable. Chest x-ray this morning shows right lower lobe pneumonia, ET tube in place. IMPRESSION AND PLAN: Aspiration pneumonia with respiratory failure on ventilator, shotty lymphadenop athy, mediastinal; history of multiple sclerosis, hypertension, gastroesophageal reflux disease, seiz ure disorder. Case discussed with grocery caddy Dr. Seymour. Also, spoke to Dr. Torre In detail. I spoke to nursing staff. Requested to cut down the sedative, only keep minimal sedative as much as po ssible. Keep head elevated at 45 degree. Will add IV and inhaled bronchodilator. Pulmonary toilet. Will give him another day or so to get the secretion under control. Will make another attemp t to extubate him in the next 24-48 hours once the secretions are better. he is a high risk fo r reintubation because of his, I believe, multiple scleroses and difficulty clearing secretions. Fol low up ABGs, chest x-ray, CBC, CMP in the morning. Critical care time spent more than 35 minutes. Thank you and will follow with you. Laquita Gonzalez MD cc: [id number] TT: 10/06/2016 18:12:41 Confirmation # [id number] Dictation # [id number] raphael
--- NOTE | 2016-10-06 18:24 | CP.PCM.PN ---
Subjective - Date & Time of Evaluation Date of Evaluation: 10/06/16 Time of Evaluation: 17:15 - Subjective Subjective: Infectious Disease Follow Up: October 06, 2016 51 yo male with presentation of SOB, tachypnea, and tachycardia. The patient was intubated in the ER and given Clindamycin and Zosyn in the ER. He was extubated earlier today and remains on Nasal Cannula without any major issues. The patient is awake and alert. Severe Multiple Sclerosis where the patient is mostly bedbound, has random involuntary movements especially of the arms, and he has difficulty with speech. Patient does understand what is going on around him as it is easier for him to say short phrases like "Yes I do" or "No I don't " in interviewing him. More complicated answer before garbled as he speaks. The patient is currently afebrile but had fevers up to 103 F on admission that has slowly downtrended through the course of the day. He was on Cefepime and Clindamycin. RLL possible pneumonia based on Chest X-ray. Events overnight noted. Respiratory distress with severe lethargy overnight into the radar air traffic controller. Fevers spiked back up to 103 to 104.2 F. Noted that Aztreonam started and Cefepime stopped last night. On Vancomycin as well. Would stop Clindamycin and start Flagyl. Unclear if there is a reason to stop Cefepime. Cultures currently negative. The patient was intubated this morning. Objective - Vital Signs/Intake and Output Vital Signs (last 24 hours): Temp Pulse Resp BP Pulse Ox 99.3 F 88 18 136/80 98 10/06/16 16:00 10/06/16 15:25 10/06/16 15:25 10/06/16 15:00 10/06/16 15:25 Intake and Output: 10/06/16 10/06/16 06:59 18:59 Intake Total 1666 Output Total 450 Balance 1216 - Medications Medications: Current Medications Acetylcysteine (Acetylcysteine 20%) 4 ml IH BIDRESP GOKUL Albuterol/Ipratropium (Duoneb 3 Mg/0.5 Mg (3 Ml) Ud) 3 ml IH [id number] GOKUL Glycopyrrolate (Robinul) 0.2 mg IV Q12 GOKUL Heparin Sodium (Porcine) (Heparin) 5,000 units SC Q8 GOKUL PRN Reason: Protocol Last Admin: 10/06/16 13:37 Dose: 5,000 units Pantoprazole Sodium (Protonix 40mg Ivpb) 100 mls @ 20 mls/hr IVPB .Q5H GOKUL Last Admin: 10/06/16 13:32 Dose: 20 mls/hr Acetaminophen (Ofirmev) 100 mls @ 400 mls/hr IVPB Q6H PRN PRN Reason: Fever >100.4 F Stop: 10/06/16 23:47 Last Admin: 10/06/16 03:07 Dose: 400 mls/hr Sodium Chloride (Sodium Chloride 0.9%) 1,000 mls @ 100 mls/hr IV .Q10H GOKUL Last Admin: 10/06/16 04:24 Dose: 100 mls/hr Propofol (Diprivan) 100 mls @ 2.667 mls/hr IV .Q24H PRN; Protocol; 5 MCG/KG/MIN PRN Reason: TITRATE PER MD ORDER Last Titration: 10/05/16 09:41 Dose: 0 mcg/kg/min Clindamycin Phosphate 600 mg/ (Sodium Chloride) 54 mls @ 102 mls/hr IVPB Q8 GOKUL Last Admin: 10/06/16 13:34 Dose: 102 mls/hr Propofol (Diprivan) 100 mls @ 2.395 mls/hr IV .Q24H PRN; Protocol; 5 MCG/KG/MIN PRN Reason: TITRATE PER MD ORDER Last Titration: 10/06/16 13:06 Dose: 20 mcg/kg/min Vancomycin HCl (Vancomycin 1gm) 250 mls @ 167 mls/hr IVPB Q12H GOKUL PRN Reason: Protocol Last Admin: 10/06/16 16:55 Dose: 167 mls/hr Lamotrigine (Lamictal) 25 mg PO BID GOKUL PRN Reason: Protocol Last Admin: 10/06/16 17:12 Dose: 25 mg Methylprednisolone (Solu-Medrol) 40 mg IVP Q12 GOKUL Metoprolol Tartrate (Lopressor) 5 mg IVP Q4H PRN PRN Reason: Heart rate Montelukast Sodium (Singulair) 10 mg PO HS [facility] Morphine Sulfate (Morphine) 2 mg IVP Q4H PRN PRN Reason: Pain, severe (8-10) - Labs Labs: 10/06/16 03:40 10/06/16 03:40 - Constitutional Appears: Toxic, Chronically Ill - Head Exam Additional comments: intubated and ventilated. - Eye Exam Eye Exam: EOMI, PERRL. absent: Conjunctival injection, Scleral icterus Pupil Exam: NORMAL ACCOMODATION, PERRL - ENT Exam ENT Exam: Mucous Membranes Moist, Normal External Ear Exam, TM's Normal Bilaterally Additional comments: intubated and ventilated. - Neck Exam Additional comments: intubated and ventilated. - Respiratory Exam Respiratory Exam: Decreased Breath Sounds, Rhonchi. absent: Rales, Wheezes - Cardiovascular Exam Cardiovascular Exam: REGULAR RHYTHM, RRR, +S1, +S2 - GI/Abdominal Exam GI & Abdominal Exam: Soft, Normal Bowel Sounds. absent: Distended, Tenderness - Extremities Exam Additional comments: random jerking movement on exam. - Neurological Exam Additional comments: intubated and ventilated. sedated. - Skin Skin Exam: Intact, Normal Color Assessment and Plan - Assessment and Plan (Free Text) Assessment: 51 yo male with severe Multiple Sclerosis presented with SOB, tachypnea, and tachycardia. The patient was intubated on admission and febrile up to 103 F. The patient had improved over the past few hours after admission and was extubated. The patient with findings of RLL pneumonia and questionable LLL pneumonia on Chest CT and the patient had signs of fecal impaction on the CT of the abdomen and pelvis. The patient was on Cefepime and Clindamycin which is a reasonable choice for antibiotic therapy. Cody cultures sent. Fevers on admission up to 103 F. Supportive care. Unfortunately, overnight the patient became lethargic and had difficulty with breathing. The patient spiked fevers up to 104.2 F overnight. The patient required intubation this morning. Cultures to date remain negative. On Vancomycin, Clindamycin, and Aztreonam. Changed Clindamycin to Flagyl. Consider Meropenem over Aztreonam if no previous documentation of PCN allergy. Guarded to poor prognosis at this time. Than you for allowing me to participate in the care of this patient, we will follow with you.
[2016-10-06] MEDS: Acetylcysteine 20% Inhal Soln (4ml) IH SCH (19:55)
[2016-10-06] MEDS: Albuterol-Ipratrop 3 mg / 0.5 (3 ml) UD IH SCH (19:56)
--- NOTE | 2016-10-06 21:22 | CON ---
DATE: 10/06/2016 REASON FOR CONSULTATION: Tracheostomy tube placement. HISTORY OF PRESENT ILLNESS: The patient is a 51-year-old male with a history of relapsing remitting multiple sclerosis. He is currently undergoing an acute exacerbation of his multiple sclerosis. He admitted to [facility] secondary to sepsis secondary to aspiration pneumonia. He subsequently improved after intubation on admission and was extubated by the intensive care staff. However, he metz bsequently aspirated an additional time and required additional intubation due to decompensation at t hat time. Due to the recurrent nature of his aspiration, the intensive care unit team is requesting tracheostomy tube placement for protection of lower airway. Upon ENT evaluation, patient is sedated on the ventilator. Therefore, history was gathered from the intensive care unit team as well as from the patient's chart. PAST MEDICAL HISTORY: Significant for multiple sclerosis, Larsen palsy, hypertension. PAST SURGICAL HISTORY: None. ALLERGIES: No known drug allergies. CURRENT MEDICATIONS: Include vancomycin, aztreonam, Solu-Medrol, Lamictal and heparin subQ. PHYSICAL EXAMINATION: VITAL SIGNS: Blood pressure 110/70, heart rate 70, saturating 100% on the ventilator, FiO2 of 40%. GENERAL: The patient is sedated on the ventilator. HEAD: Normocephalic, atraumatic. EARS: External auricles without masses or lesions. NOSE: Nares patent bilaterally. No purulence or discharge noted. ORAL CAVITY AND OROPHARYNX: Endotracheal tube secured and in place. No ____ noted. NECK: Thick neck, but palpable landmarks. CHEST: No pacer noted. LABORATORIES: White blood count 13, hemoglobin 12.7, hematocrit 37.6, platelets 294. ASSESSMENT AND PLAN: The patient is a 51-year-old male with multiple sclerosis exacerbation causing recurrent aspiration with resultant sepsis secondary to pneumonia. As of yet intensive care unit team has not had a discussion with the patient's family regarding trach eostomy tube placement. Once family is amenable and intensive care unit team feels he is appropriate , please recontact the otolaryngology service and we will be available for tracheostomy tube placemen t possibly some time later this week. This was discussed with the warp spooler who agrees with the ab ove plan. Thank you for allowing us to participate in this patient's care. Juan Quarles DO cc: [id number] TT: 10/06/2016 21:21:52 Confirmation # [id number] Dictation # [id number] sn
[2016-10-06] MEDS: metroNIDAZOLE IV 500 mg/100 ml 100 ML IVPB SCH (21:30)
[2016-10-06] MEDS: Glycopyrrolate 0.2 mg/ml (2ml vial) IV SCH (21:32)
--- NOTE | 2016-10-06 21:43 | CON ---
DATE: 10/06/2016 LOCATION: ICU 128, bed 4. REASON FOR CONSULTATION: Respiratory failure, elevated troponin, history of hypertension, hyperlipid emia. HISTORY OF PRESENT ILLNESS: The patient is a 51-year-old male, known case of multiple sclerosis, sei zure disorder, Larsen's palsy, hypertension, hyperlipidemia and GERD, admitted with a history for a few days of having fever and cough without any expectoration. He could not bring up secretions and came to hospital in respiratory distress and had to be intubated. The patient was extubated last night, but again he went into respiratory distress and was intubated again and patient now presently still o n respirator. There is no history of cardiac disease in the past or any exertional chest pains. The patient mostly wheelchair and bed bound. PAST MEDICAL HISTORY: Include multiple sclerosis, Larsen's palsy, seizure disorder, hypertension, hype rcholesterolemia, GERD. PERSONAL HISTORY: No history of smoking or drinking or drug abuse. ALLERGIES: The patient does not have any allergies. HOME MEDICATIONS: The patient's medications at home consisted of Lamictal 25 mg twice daily, Protoni x 40 daily. REVIEW OF SYSTEMS: All the systems were reviewed, positives mentioned in the history, otherwise nega tive. PHYSICAL EXAMINATION: VITAL SIGNS: Blood pressure 130/83, respirations 60, pulse 94, temperature 98.9. HEENT: Head is normocephalic. Eyes: Pupils normal. Conjunctivae are normal. Nose and throat norm al. NECK: JVP low. Carotids equal. THORAX: AP diameter normal. LUNGS: Scattered rhonchi, no significant rales. CARDIOVASCULAR: S1, S2. No rub. No click. ABDOMEN: Soft, nontender, no organomegaly. EXTREMITIES: No clubbing, no cyanosis. LABORATORY DATA: Showed WBC 13.2, hemoglobin 12.7, hematocrit 37.6, platelet 294. Sodium 147, potas sium 3.7, BUN 14, creatinine 1.0, random sugar 147. AST, ALT normal. Total protein and albumin norm al. Chest x-ray does not show any significant infiltrate; however, CAT scan of the chest shows right lower lobe infiltrate and a bronchogram also left basilar infiltrate. There is also shotty lymphade nopathy. The patient's first troponin was less than 0.01, second was 0.12, third one 0.07. DIAGNOSES: Out of 3 troponins, only one troponin, which is 0.12, is minimally elevated. EKG showed sinus tachycardia, poor progression of V1-V3. Respiratory failure, aspiration pneumonia, multi ple sclerosis, hypertension, hyperlipidemia, seizure disorder, Larsen's palsy, history of gastroesophag eal reflux disease. PLAN: Only one troponin is borderline at 0.12 and there is no history of any chest pain suggestive o f coronary artery disease at present. The patient is on clindamycin 600 mg IV q. 8 hours, DuoNeb ballard d nebulizer therapy, heparin 5000 units subq q. 8 hours, Lamictal 25 b.i.d. Metoprolol 5 mg IV has be en used p.r.n. for sinus tachycardia. Protonix 40 mg IV, Solu-Medrol 40 mg IV q. 12 hours, Singulair 10 mg at bedtime, IV fluid as ordered, vancomycin 1 gram IV q. 12 hours. One slight elevation of tro ponin probably not significant. Clinically, cardiac status seemed to be stable. We will do echocard iogram and we will continue present therapy and will follow with you. Laquita Huynh MD cc: [id number] TT: 10/06/2016 21:42:47 Confirmation # [id number] Dictation # [id number] cecile
[2016-10-06] MEDS: Aztreonam 2 Gm in NS 100mL 100 ML IVPB SCH (21:54)
[2016-10-07] MEDS: Pantoprazole 40mg/100ml IVPB 100 ML IVPB SCH ×3 (00:31→20:18)
[2016-10-07] MEDS: Albuterol-Ipratrop 3 mg / 0.5 (3 ml) UD IH SCH ×4 (02:11→21:01)
[2016-10-07] MEDS: Vancomycin 1gm in NS 250ml 250 ML IVPB SCH ×2 (04:12→16:00)
[2016-10-07] MEDS: metroNIDAZOLE IV 500 mg/100 ml 100 ML IVPB SCH ×3 (05:41→21:35)
[2016-10-07] MEDS: Aztreonam 2 Gm in NS 100mL 100 ML IVPB SCH ×3 (05:41→22:38)
[2016-10-07 06:04] LABS: ARTERIAL BLOOD GAS HCO3 20.9 mmol/L (21-28); ARTERIAL BLOOD GAS O2 CONTENT 14.8 ML/dl (15-23); ARTERIAL BLOOD GAS PH 7.36 (7.35-7.45); ARTERIAL BLOOD HGB O2 SAT 95.9 % (95.0-98.0); CARBOXYHEMOGLOBIN 1.6 % (0.5-1.5); HHB 1.3 % (0-5); METHEMOGLOBIN 1.2 % (0.0-3.0)
[2016-10-07 06:08] LABS: ADD MANUAL DIFF? NO
[2016-10-07 06:19] LABS: GRAN # 10.59 (1.4-6.5); GRAN % 87.7 % (50.0-68.0); HEMATOCRIT 32.6 % (42.0-52.0); LYMPH # 1.2 (1.2-3.4); LYMPH % 9.7 % (22.0-35.0); MEAN CORPUSCULAR HEMOGLOBIN 27.6 pg (25.0-35.0); MEAN CORPUSCULAR HGB CONC 32.8 g/dl (31.0-37.0); MEAN PLATELET VOLUME 10.6 fl (7.0-11.0); MONO # 0.3 (0.1-0.6); MONO % 2.6 % (1.0-6.0); PLATELET COUNT 277 10^3/uL (120.0-450.0); WHITE BLOOD COUNT 12.1 10^3/ul (4.5-11.0)
[2016-10-07 06:23] LABS: ALB/GLOB RATIO 0.9 (1.1-1.8); ALKALINE PHOSPHATASE 83 U/L (38-133); ALT/SGPT 29 U/L (7-56); AST/SGOT 23 U/L (15-59); BILIRUBIN,TOTAL 0.3 mg/dL (0.2-1.3); BLOOD UREA NITROGEN 21 mg/dL (7-21); CALCIUM 8.6 mg/dL (8.4-10.5); CARBON DIOXIDE 23 mmol/L (21-33); CHLORIDE 114 mmol/L (95-110); GFR AFRICAN-AMERICAN > 60; GLUCOSE,RANDOM 142 mg/dL (70-110); POTASSIUM 4.1 mmol/L (3.6-5.0); SODIUM 147 mmol/L (132-148); TOTAL PROTEIN 6.7 g/dL (5.8-8.3)
[2016-10-07] MEDS: Acetylcysteine 20% Inhal Soln (4ml) IH SCH ×2 (08:11→21:01)
--- NOTE | 2016-10-07 08:40 | PQF SEPSIS ---
This form is a permanent part of the medical record Dr. Torre, Patient was admitted with aspiration pneumonia with respiratory failure. Patient had fever, tachycardia, tachypnea, elevated wbc, positive CXR. Documentation noted r/o sepsis and septic work-up done. Please document specifically if sepsis was present on admission, ruled out, undetermined. Clarification of your documentation is requested to better reflect the severity of illness and intensity of treatment of your patient. Indicators present [x] Temp < 96.8 or > 100.4 [x] WBC count > 12,000/mm3 or <000/mm3 or 10% immature neutrophils [x] Heart Rate > 90 [x] Respiratory Rate > 20 [x] Fever or hypothermia [] Chills [] Positive blood cultures [x] Hypotension [] Metabolic acidosis (Elevated lactate level, anion gap or reduced blood pH) [] Acute confusion /Altered Mental Status [] Shock [] Other: [] RLL pneumonia Location in the medical record that reflects the above clinical findings: [] Treatment Provided: [] PHYSICIAN'S RESPONSE Based on your medical judgment of the clinical indicators outlined above, are you treating this patient for a known or suspected: [] Sepsis / Septicemia Please specify organism if known [] [] SIRS (Systemic Inflammatory Response Syndrome) [] Severe Sepsis (Sepsis with Associated Organ Dysfunction) [] Fever of Unknown Origin [] Other, please indicate: [] [x] If Unable to Determine, please check the box, sign and date. Present On Admission (POA) Indicator: [] Present at the time of admission [] Not present at the time of admission [] Clinically Undetermined In responding to this query, please exercise your independent professional judgment. The fact that a question is asked does not imply that any particular answer is desired or expected. Thank you for your clarification on this documentation. If you have any questions please call:[ ] * Thank you, [ ]Mely Amador [facility], #[id number] clinical research associate PATRICIA
--- NOTE | 2016-10-07 09:12 | RAD ---
HISTORY: res. fail COMPARISON: 10/06/2016 FINDINGS: LUNGS: No active pulmonary disease. PLEURA: No significant pleural effusion identified, no pneumothorax apparent. CARDIOVASCULAR: Normal. OSSEOUS STRUCTURES: No significant abnormalities. VISUALIZED UPPER ABDOMEN: Normal. OTHER FINDINGS: None. IMPRESSION: The endotracheal tube and nasogastric tube are in satisfactory position. The lungs are clear
[2016-10-07] MEDS: Glycopyrrolate 0.2 mg/ml (2ml vial) IV SCH ×2 (09:22→21:51)
[2016-10-07] MEDS: MethylPREDNISolone 40 mg Vial IVP SCH ×2 (09:25→21:36)
--- NOTE | 2016-10-07 12:17 | PN ---
DATE: 10/07/2016 REASON FOR CONSULTATION AND FOLLOWUP: Respiratory failure, elevated troponin, hypertension, hyperlipidemia history, cardiac evaluation. BRIEF CLINICAL HISTORY: This is a 51-year-old male with a past medical history significant for multiple sclerosis, seizure disorder, Larsen's palsy, hypertension , hyperlipidemia, mostly bedbound and wheelchair bound, who started having cough and unable to bring out the secretion from respiratory tract and developed respiratory distress, brought here, requiring intubation. The patient is currently being intubated, sedated in ICU 128, bed 4. PHYSICAL EXAMINATION: VITAL SIGNS: Temperature afebrile, heart rate 74, blood pressure 102/67. HEENT: PERRLA. Extraocular muscles intact. NECK: Supple. No carotid bruits. No thyromegaly. CHEST: Clear to auscultation. HEART: S1, S2 regular. ABDOMEN: Soft. EXTREMITIES: Clubbing and cyanosis negative. BLOOD WORKUP: WBC 12.1, hemoglobin 10.7, hematocrit 32.6, platelet count 277. Chemistry shows sodium 147, potassium 4.____, chloride 104, carbon dioxide 23, anion gap of 14, BUN 21, creatinine 0.9, random sugar 142. Total protein 6.7, albumin 3.0, albumin/globulin ratio 0.9. Troponin 0.1 to 0.07,0.12 to indeterminate range. IMPRESSION: Respiratory failure, borderline positive troponin to indeterminant range positive, diabetes, hypertension, hyperlipidemia, multiple sclerosis, bedbound, respiratory failure, rule out early pneumonia. Electrocardiogram shows sinus rhythm, poor RR progression, possible aspiration pneumonia, hypertension, hyperlipidemia, seizure disorder, Larsen's palsy, history of gastroesophageal reflux. RECOMMENDATION: Continue vent management. Continue broad-spectrum antibiotic for aspiration pneumonia. Will get echo to assess LV function. Vent management. Will keep negative fluid balance with gentle Lasix to keep that lung dry and help in extubation p.r.n. Clinically, patient is not in failure as the BNP on admission was 77.6. Actually, the patient is on gentle IV fluid. We will discontinue IV fluid. Give a gentle diuretics, keeping negative fluid balance, and start NG feeding and free water from the NG tube. Will follow with you. Thank you, Dr. Torre, for providing the opportunity in taking care of the patient. Once the patient is extubated, depending on hospital course, will decide if patient may need noninvasive cardiac workup versus invasive. Will follow with you. Thank you, Dr. Torre, for providing the opportunity in taking care of the patient. Laquita Reyna MD cc: [id number] TT: 10/07/2016 12:11:23 Confirmation # [id number] Dictation # [id number] wy 10/07/2016 11:16:44 PATRICIA
--- NOTE | 2016-10-07 12:20 | PN ---
DATE: 10/07/2016 The patient seen and examined at bedside. He is comfortable. He is sedated with propofol. He is not overbreathing vent and his blood pressure trended down a little bit. One liter of normal saline given, propofol stopped. The patient was switched to PRVC 400/15/5/40. PHYSICAL EXAMINATION: HEAD AND NECK: Atraumatic. LUNGS: Clear to auscultation bilaterally. HEART: Regular rate and rhythm. S1, S2 normal. ABDOMEN: Soft, nontender, nondistended. MUSCULOSKELETAL: Trace bilateral pedal and ankle edema. NEUROLOGIC: The patient moves all extremities spontaneously. SKIN: Moist. PSYCHIATRIC: The patient is sedated. LABORATORY DATA: WBC 12.1 down from 15.2, hemoglobin 10.7, platelet count 277. Sodium 147, potassium 4.1, chloride 114, carbon dioxide 23, BUN 21, creatinine 0.9 down from 1, glucose 142. Procalcitonin less than 0.05. Albumin 3.3. MEDICATIONS: DuoNeb every 6, Mucomyst, aztreonam, Flagyl, heparin subQ, Lamictal, metoprolol, morphine p.r.n., Protonix drip, Solu-Medrol 40 mg IV q. 12 , Singulair, vancomycin. ASSESSMENT AND PLAN: This is a 51-year-old gentleman who presented with aspiration pneumonitis/community-acquired pneumonia complicated by hypoxemic respiratory failure, requiring intubation. The patient was started on antibiotics and was shortly extubated; however, due to the patient's multiple sclerosis, he was not able to manage his secretions, saliva. He had to be reintubated due to what appears to be major recurrent aspiration event. At present time, the patient is on propofol and sedated, but during sedation vacation period, patient was alert, awake and doing very well on pressure support (he is intubated, so his airways are protected). It is my opinion that to extubate him at this point without protecting airways first with tracheostomy would be too risky and this patient is high risk for aspiration pneumonitis and reintubation. In my opinion, benefits/risks ratio of tracheotomy prior to extubation to protect airways swings in favor of benefit, which would allow complete weaning from mechanical ventilation, access to airways for aggressive pulmonary toilet and protection of the airways from repeated aspiration events. Besides, if/once patient demosntrated his ability to protect airways, he could be easily decannulated. At present time, we will continue with antibiotics; however, I would quickly taper them down as patient' s procalcitonin is normal and chest x-ray is clear. At present time, the patient is clinically stable, afebrile and leukocytosis substantially improved. Urine for Legionella pneumonia is negative, influenza rapid test negative. I would continue with protective lung ventilation strategy, sedation vacation, conservative fluid management, pulmonary toilet, bronchodilators. We will continue with deep venous thrombosis and gastrointestinal prophylaxis. Discussed with PMD and primary pulmonary service ccm time 40 min Dann Seymour MD cc: [id number] TT: 10/07/2016 12:19:15 Confirmation # [id number] Dictation # [id number] cecile GOMEZ
--- NOTE | 2016-10-07 13:56 | CP.CCUPN ---
<Renetta Sellers - Last Filed: 10/07/16 13:46> CCU Subjective - Physician Review Subjective (Free Text): 10/07/16 13:46 Pt s&e w ICU attending. Pt is currently sedated on propofol and intubated. CCU Objective - Vital Signs / Intake & Output Vital Signs (Last 4 hours): Vital Signs Temp 10/07/16 11:59 98.8 F Intake and Output (Last 8hrs): Intake & Output 10/06/16 10/07/16 10/07/16 22:59 06:59 14:59 Intake Total 1666 1836 Output Total 450 350 Balance 1216 1486 Weight 184 lb 14.4 oz Intake: IV 1666 1836 Right Antecubital 126 116 Right Forearm 1300 Right Hand 240 1500 Right wrist 220 Oral 0 Output: Urine 450 350 Urethral (Garcia) 450 350 Other: Voiding Method Indwelling Catheter Indwelling Catheter # Bowel Movements 1 1 - Physical Exam Head: Positive for: Atraumatic, Normocephalic Pupils: Positive for: PERRL Extroacular Muscles: Positive for: EOMI Conjunctiva: Positive for: Normal Mouth: Positive for: Moist Mucous Membranes Neck: Positive for: Normal Range of Motion Respiratory/Chest: Positive for: Respiratory Distress, Rhonchi (b/l), Other ( Intubated. ) Cardiovascular: Positive for: Normal S1, S2, Tachycardic. Negative for: Murmurs Abdomen: Positive for: Normal Bowel Sounds. Negative for: Tenderness, Distention, Peritoneal Signs Back: Positive for: Normal Inspection Upper Extremity: Positive for: Normal Inspection. Negative for: Cyanosis, Edema Lower Extremity: Positive for: Normal Inspection. Negative for: Edema Skin: Positive for: Warm, Dry, Normal Color. Negative for: Rashes Psychiatric: Positive for: Other (intubated). Negative for: Alert - Medications Active Medications: Active Medications Generic Name Dose Route Start Last Admin Trade Name Freq PRN Reason Stop Dose Admin Acetylcysteine 4 ml 10/06/16 20:00 10/07/16 08:11 Acetylcysteine 20% IH 4 ml BIDRESP GOKUL Administration Albuterol/Ipratropium 3 ml 10/06/16 20:00 10/07/16 13:22 Duoneb 3 Mg/0.5 Mg (3 Ml) Ud IH 3 ml [id number] GOKUL Administration Glycopyrrolate 0.2 mg 10/06/16 22:00 10/07/16 09:22 Robinul IV 0.2 mg Q12 GOKUL Administration Heparin Sodium (Porcine) 5,000 units 10/05/16 09:00 10/07/16 05:41 Heparin SC 5,000 units Q8 GOKUL Administration Protocol Pantoprazole Sodium 100 mls @ 20 mls/hr 10/04/16 22:00 10/07/16 05:40 Protonix 40mg Ivpb IVPB 20 mls/hr .Q5H GOKUL Administration Propofol 100 mls @ 2.667 mls/hr 10/05/16 03:27 10/05/16 09:41 Diprivan IV 0 mcg/kg/min .Q24H PRN Titration TITRATE PER MD ORDER Protocol 5 MCG/KG/MIN Propofol 100 mls @ 2.395 mls/hr 10/06/16 04:05 10/07/16 06:30 Diprivan IV 30 mcg/kg/min .Q24H PRN Titration TITRATE PER MD ORDER Protocol 5 MCG/KG/MIN Vancomycin HCl 250 mls @ 167 mls/hr 10/06/16 04:00 10/07/16 04:12 Vancomycin 1gm IVPB 167 mls/hr Q12H GOKUL Administration Protocol Aztreonam 100 mls @ 100 mls/hr 10/06/16 22:00 10/07/16 05:41 Azactam 2 Gm IVPB 10/12/16 23:59 100 mls/hr Q8 GOKUL Administration Protocol Metronidazole 100 mls @ 100 mls/hr 10/06/16 22:00 10/07/16 13:35 Flagyl IVPB 100 mls/hr Q8 GOKUL Administration Protocol Lamotrigine 25 mg 10/05/16 11:15 10/07/16 09:24 Lamictal PO 25 mg BID GOKUL Administration Protocol Methylprednisolone 40 mg 10/06/16 22:00 10/07/16 09:25 Solu-Medrol IVP 40 mg Q12 GOKUL Administration Metoprolol Tartrate 5 mg 10/06/16 04:21 Lopressor IVP Q4H PRN Heart rate Montelukast Sodium 10 mg 10/06/16 22:00 10/06/16 21:31 Singulair PO 10 mg HS GOKUL Administration Morphine Sulfate 2 mg 10/06/16 10:06 Morphine IVP Q4H PRN Pain, severe (8-10) - Patient Studies Lab Studies: Microbiology Studies 10/05/16 06:00 Gram Stain - Final Trachasp Sputum Culture - Final NORMAL ORAL DIXON 10/06/16 03:54 Urine Culture - Final Urine,Garcia No Growth (<1,000 CFU/ML) 10/06/16 04:15 Blood Culture - Preliminary Blood-Venous NO GROWTH AFTER 24 HOURS 10/06/16 03:40 Blood Culture - Preliminary Blood-Venous NO GROWTH AFTER 24 HOURS 10/05/16 01:00 MRSA Culture (Admit) - Final Nose MRSA NOT DETECTED Lab Studies 10/07/16 10/07/16 Range/Units 06:00 05:58 WBC 12.1 H (4.5-11.0) 10^3/ul RBC 3.88 (3.5-6.1) 10^6/uL Hgb 10.7 L (14.0-18.0) gm/dL Hct 32.6 L (42.0-52.0) % MCV 84.0 (80.0-105.0) fL MCH 27.6 (25.0-35.0) pg MCHC 32.8 (31.0-37.0) g/dl RDW 14.0 (11.5-14.5) % Plt Count 277 (120.0-450.0) 10^3/uL MPV 10.6 (7.0-11.0) fl Gran % 87.7 H (50.0-68.0) % Lymph % (Auto) 9.7 L (22.0-35.0) % Schoolcraft % (Auto) 2.6 (1.0-6.0) % Eos % (Auto) 0.0 L (1.5-5.0) % Baso % (Auto) 0.0 (0.0-3.0) % Gran # 10.59 H (1.4-6.5) Lymph # 1.2 (1.2-3.4) Schoolcraft # 0.3 (0.1-0.6) Eos # 0.0 (0.0-0.7) Baso # 0.00 (0.0-2.0) K/mm3 pCO2 37 (35-45) mm/Hg pO2 90.0 (80-100) mm/Hg HCO3 20.9 L (21-28) mmol/L ABG pH 7.36 (7.35-7.45) ABG Total CO2 22.0 (22-28) mmol.L ABG O2 Saturation 98.7 H (95-98) % ABG O2 Content 14.8 L (15-23) ML/dl ABG Base Excess -4.1 L (-2.0-3.0) mmol/L ABG Hemoglobin 10.9 L (11.7-17.4) g/dL ABG Carboxyhemoglobin 1.6 H (0.5-1.5) % POC ABG HHb (Measured) 1.3 (0-5) % ABG Methemoglobin 1.2 (0.0-3.0) % ABG O2 Capacity 15.0 L (16-24) mL/dl Hgb O2 Saturation 95.9 (95.0-98.0) % FiO2 40.0 % Sodium 147 (132-148) mmol/L Potassium 4.1 (3.6-5.0) mmol/L Chloride 114 H (95-110) mmol/L Carbon Dioxide 23 (21-33) mmol/L Anion Gap 14 (10-20) BUN 21 (7-21) mg/dL Creatinine 0.9 (0.5-1.4) mg/dL Est GFR ( Amer) > 60 Est GFR (Non-Af Amer) > 60 Random Glucose 142 H (70-110) mg/dL Calcium 8.6 (8.4-10.5) mg/dL Total Bilirubin 0.3 (0.2-1.3) mg/dL AST 23 (15-59) U/L ALT 29 (7-56) U/L Alkaline Phosphatase 83 (38-133) U/L Total Protein 6.7 (5.8-8.3) g/dL Albumin 3.3 (3.0-4.8) g/dL Globulin 3.5 gm/dL Albumin/Globulin Ratio 0.9 L (1.1-1.8) Laboratory Results - last 24 hr 10/07/16 10/07/16 05:58 06:00 WBC 12.1 H RBC 3.88 Hgb 10.7 L Hct 32.6 L MCV 84.0 MCH 27.6 MCHC 32.8 RDW 14.0 Plt Count 277 MPV 10.6 Gran % 87.7 H Lymph % (Auto) 9.7 L Schoolcraft % (Auto) 2.6 Eos % (Auto) 0.0 L Baso % (Auto) 0.0 Gran # 10.59 H Lymph # 1.2 Schoolcraft # 0.3 Eos # 0.0 Baso # 0.00 pCO2 37 pO2 90.0 HCO3 20.9 L ABG pH 7.36 ABG Total CO2 22.0 ABG O2 Saturation 98.7 H ABG O2 Content 14.8 L ABG Base Excess -4.1 L ABG Hemoglobin 10.9 L ABG Carboxyhemoglobin 1.6 H POC ABG HHb (Measured) 1.3 ABG Methemoglobin 1.2 ABG O2 Capacity 15.0 L Hgb O2 Saturation 95.9 FiO2 40.0 Sodium 147 Potassium 4.1 Chloride 114 H Carbon Dioxide 23 Anion Gap 14 BUN 21 Creatinine 0.9 Est GFR ( Amer) > 60 Est GFR (Non-Af Amer) > 60 Random Glucose 142 H Calcium 8.6 Total Bilirubin 0.3 AST 23 ALT 29 Alkaline Phosphatase 83 Total Protein 6.7 Albumin 3.3 Globulin 3.5 Albumin/Globulin Ratio 0.9 L Review of Systems - Review of Systems Systems not reviewed;Unavailable: Intubated - Constitutional Constitutional: absent: Fever, Chills Critical Care Progress Note - Ventilator Checklist Head of Bed 30 Degrees: Yes Daily Sedation Vacation: Yes - Nutrition Nutrition: Nutrition Category Date Time Status NPO Diet [DIET] Diets 10/04/16 Breakfast Ordered Assessment/Plan - Assessment and Plan (Free Text) Assessment: 51 M w PMH of MS, seizure Hypoxic respiratory failure 2/2 aspiration pneumonia Neuro -Propofol drip CV -Keep MAP 65+ -h/o HTN -Lopressor -NS100 -Keep euvolemia Pulm -on Vent -Pockets And Pieces Necktie Operator following: f/u for possible extubation vs tracheostomy -Keep O2s sat 90% -duoneb -Solumedrol -Aceylcystein -Singulair -Pulmonary toilet GI -PTX drip Renal -Keep euvolemia -Replete e-lyte as needed Endo -Keep euglycemia ID Aztreonam/Flagyl/Vanc DVT ppx: S[facility] DW ICU attending <Dann Seymour - Last Filed: 10/07/16 17:43> CCU Objective - Vital Signs / Intake & Output Vital Signs (Last 4 hours): Vital Signs Temp Pulse Resp BP Pulse Ox 10/07/16 15:10 99 F 10/07/16 15:08 81 15 114/66 100 10/07/16 14:06 99.1 F 80 15 100 10/07/16 14:00 99.1 F 79 15 114/66 100 Intake and Output (Last 8hrs): Intake & Output 10/07/16 10/07/16 10/07/16 06:59 14:59 22:59 Intake Total 1836 760 Output Total 350 500 Balance 1486 260 Weight 184 lb 14.4 oz Intake: IV 1836 Right Antecubital 116 Right Hand 1500 Right wrist 220 Oral 0 Tube Feeding 210 Other 550 Output: Urine 350 500 Urethral (Garcia) 350 500 Stool 0 Other: Voiding Method Indwelling Catheter # Bowel Movements 1 - Medications Active Medications: Active Medications Generic Name Dose Route Start Last Admin Trade Name Freq PRN Reason Stop Dose Admin Acetylcysteine 4 ml 10/06/16 20:00 10/07/16 08:11 Acetylcysteine 20% IH 4 ml BIDRESP GOKUL Administration Albuterol/Ipratropium 3 ml 10/06/16 20:00 10/07/16 13:22 Duoneb 3 Mg/0.5 Mg (3 Ml) Ud IH 3 ml [id number] GOKUL Administration Glycopyrrolate 0.2 mg 10/06/16 22:00 10/07/16 09:22 Robinul IV 0.2 mg Q12 GOKUL Administration Heparin Sodium (Porcine) 5,000 units 10/05/16 09:00 10/07/16 15:51 Heparin SC 5,000 units Q8 GOKUL Administration Protocol Pantoprazole Sodium 100 mls @ 20 mls/hr 10/04/16 22:00 10/07/16 05:40 Protonix 40mg Ivpb IVPB 20 mls/hr .Q5H GOKUL Administration Propofol 100 mls @ 2.667 mls/hr 10/05/16 03:27 10/07/16 16:07 Diprivan IV 17.613 mls/hr .Q24H PRN Administration TITRATE PER MD ORDER Protocol 5 MCG/KG/MIN Propofol 100 mls @ 2.395 mls/hr 10/06/16 04:05 10/07/16 06:30 Diprivan IV 30 mcg/kg/min .Q24H PRN Titration TITRATE PER MD ORDER Protocol 5 MCG/KG/MIN Vancomycin HCl 250 mls @ 167 mls/hr 10/06/16 04:00 10/07/16 16:00 Vancomycin 1gm IVPB 167 mls/hr Q12H GOKUL Administration Protocol Aztreonam 100 mls @ 100 mls/hr 10/06/16 22:00 10/07/16 14:05 Azactam 2 Gm IVPB 10/12/16 23:59 100 mls/hr Q8 GOKUL Administration Protocol Metronidazole 100 mls @ 100 mls/hr 10/06/16 22:00 10/07/16 13:35 Flagyl IVPB 100 mls/hr Q8 GOKUL Administration Protocol Lamotrigine 25 mg 10/05/16 11:15 10/07/16 17:26 Lamictal PO 25 mg BID GOKUL Administration Protocol Methylprednisolone 40 mg 10/06/16 22:00 10/07/16 09:25 Solu-Medrol IVP 40 mg Q12 GOKUL Administration Metoprolol Tartrate 5 mg 10/06/16 04:21 Lopressor IVP Q4H PRN Heart rate Montelukast Sodium 10 mg 10/06/16 22:00 10/06/16 21:31 Singulair PO 10 mg HS GOKUL Administration Morphine Sulfate 2 mg 10/06/16 10:06 Morphine IVP Q4H PRN Pain, severe (8-10) - Patient Studies Lab Studies: Microbiology Studies 10/05/16 06:00 Gram Stain - Final Trachasp Sputum Culture - Final NORMAL ORAL DIXON 10/06/16 03:54 Urine Culture - Final Urine,Garcia No Growth (<1,000 CFU/ML) 10/06/16 04:15 Blood Culture - Preliminary Blood-Venous NO GROWTH AFTER 24 HOURS 10/06/16 03:40 Blood Culture - Preliminary Blood-Venous NO GROWTH AFTER 24 HOURS Lab Studies 10/07/16 10/07/16 Range/Units 06:00 05:58 WBC 12.1 H (4.5-11.0) 10^3/ul RBC 3.88 (3.5-6.1) 10^6/uL Hgb 10.7 L (14.0-18.0) gm/dL Hct 32.6 L (42.0-52.0) % MCV 84.0 (80.0-105.0) fL MCH 27.6 (25.0-35.0) pg MCHC 32.8 (31.0-37.0) g/dl RDW 14.0 (11.5-14.5) % Plt Count 277 (120.0-450.0) 10^3/uL MPV 10.6 (7.0-11.0) fl Gran % 87.7 H (50.0-68.0) % Lymph % (Auto) 9.7 L (22.0-35.0) % Schoolcraft % (Auto) 2.6 (1.0-6.0) % Eos % (Auto) 0.0 L (1.5-5.0) % Baso % (Auto) 0.0 (0.0-3.0) % Gran # 10.59 H (1.4-6.5) Lymph # 1.2 (1.2-3.4) Schoolcraft # 0.3 (0.1-0.6) Eos # 0.0 (0.0-0.7) Baso # 0.00 (0.0-2.0) K/mm3 pCO2 37 (35-45) mm/Hg pO2 90.0 (80-100) mm/Hg HCO3 20.9 L (21-28) mmol/L ABG pH 7.36 (7.35-7.45) ABG Total CO2 22.0 (22-28) mmol.L ABG O2 Saturation 98.7 H (95-98) % ABG O2 Content 14.8 L (15-23) ML/dl ABG Base Excess -4.1 L (-2.0-3.0) mmol/L ABG Hemoglobin 10.9 L (11.7-17.4) g/dL ABG Carboxyhemoglobin 1.6 H (0.5-1.5) % POC ABG HHb (Measured) 1.3 (0-5) % ABG Methemoglobin 1.2 (0.0-3.0) % ABG O2 Capacity 15.0 L (16-24) mL/dl Hgb O2 Saturation 95.9 (95.0-98.0) % FiO2 40.0 % Sodium 147 (132-148) mmol/L Potassium 4.1 (3.6-5.0) mmol/L Chloride 114 H (95-110) mmol/L Carbon Dioxide 23 (21-33) mmol/L Anion Gap 14 (10-20) BUN 21 (7-21) mg/dL Creatinine 0.9 (0.5-1.4) mg/dL Est GFR ( Amer) > 60 Est GFR (Non-Af Amer) > 60 Random Glucose 142 H (70-110) mg/dL Calcium 8.6 (8.4-10.5) mg/dL Total Bilirubin 0.3 (0.2-1.3) mg/dL AST 23 (15-59) U/L ALT 29 (7-56) U/L Alkaline Phosphatase 83 (38-133) U/L Total Protein 6.7 (5.8-8.3) g/dL Albumin 3.3 (3.0-4.8) g/dL Globulin 3.5 gm/dL Albumin/Globulin Ratio 0.9 L (1.1-1.8) Laboratory Results - last 24 hr 10/07/16 10/07/16 05:58 06:00 WBC 12.1 H RBC 3.88 Hgb 10.7 L Hct 32.6 L MCV 84.0 MCH 27.6 MCHC 32.8 RDW 14.0 Plt Count 277 MPV 10.6 Gran % 87.7 H Lymph % (Auto) 9.7 L [place] % (Auto) 2.6 Eos % (Auto) 0.0 L Baso % (Auto) 0.0 Gran # 10.59 H Lymph # 1.2 Schoolcraft # 0.3 Eos # 0.0 Baso # 0.00 pCO2 37 pO2 90.0 HCO3 20.9 L ABG pH 7.36 ABG Total CO2 22.0 ABG O2 Saturation 98.7 H ABG O2 Content 14.8 L ABG Base Excess -4.1 L ABG Hemoglobin 10.9 L ABG Carboxyhemoglobin 1.6 H POC ABG HHb (Measured) 1.3 ABG Methemoglobin 1.2 ABG O2 Capacity 15.0 L Hgb O2 Saturation 95.9 FiO2 40.0 Sodium 147 Potassium 4.1 Chloride 114 H Carbon Dioxide 23 Anion Gap 14 BUN 21 Creatinine 0.9 Est GFR ( Amer) > 60 Est GFR (Non-Af Amer) > 60 Random Glucose 142 H Calcium 8.6 Total Bilirubin 0.3 AST 23 ALT 29 Alkaline Phosphatase 83 Total Protein 6.7 Albumin 3.3 Globulin 3.5 Albumin/Globulin Ratio 0.9 L Critical Care Progress Note - Nutrition Nutrition: Nutrition Category Date Time Status NPO Diet [DIET] Diets 10/04/16 Breakfast Ordered Addendum Addendum: 10/07/16 17:42 patient was seen and examined at bedside with dr. Renetta Sellers. Please see Dr. Seymour note
--- NOTE | 2016-10-07 14:38 | PN ---
DATE: 10/07/2016 SUBJECTIVE: The patient is lying in bed, intubated. He seems somewhat agitated, in wrist restraints . He is tolerating CPAP with pressure support, FIO2 40%. VITAL SIGNS: Blood pressure 109/68, temperature 98.8 axillary, pulse 100, respiratory rate 16. LUNGS: Show good air entry bilaterally. Endotracheal tube is intact. There is a few crepitations a t the right base, otherwise clear. HEART: Regular rate and rhythm, slightly tachycardic. ABDOMEN: Soft, nontender, bowel sounds are normoactive. Nasogastric tube is intact. EXTREMITIES: Without cyanosis, clubbing, or edema. NEUROLOGICALLY: The patient is awake and responsive to verbal commands without focal sensory or jose r deficits. SKIN: Warm and dry. LABORATORY DATA: WBC is 12.1, hemoglobin 10.7, hematocrit 32.6. Sodium 147, potassium 4.1, chloride 114, CO2 of 23, BUN 21, creatinine 0.9, glucose 142. Chest x-ray shows no acute disease. IMPRESSION: 1. Recurrent aspiration pneumonia with ventilatory failure. 2. Seizure disorder. 3. Multiple sclerosis. 4. History of Larsen palsy. 5. History of hypertension. 6. Hypercholesterolemia. 7. Gastroesophageal reflux disease. 8. Slight elevation of CPK and troponin levels. PLAN: Continue ventilatory support, continue IV antibiotics. Infectious disease followup with Dr. Anjel yost. Pulmonary followup with Dr. Gonzalez. Cardiology consult with Drs. Huynh/Axel is appreciated. We an as tolerated. Garrett Torre JD, MD cc: [phone] TT: 10/07/2016 14:37:30 Confirmation # [id number] Dictation # [id number] [email or web address]
--- NOTE | 2016-10-07 16:13 | CARD ---
APPROVED REPORT EXAM: Two-dimensional and M-mode echocardiogram with Doppler and color Doppler. INDICATION LVFX/RVSP/RESPIRATORY FAILURE 2D DIMENSIONS Left Atrium (2D)4.1 (1.6-4.0cm)IVSd1.4 (0.7-1.1cm) LVDd4.7 (3.9-5.9cm)PWd1.2 (0.7-1.1cm) LVDs3.0 (2.5-4.0cm)FS (%) 36.5 % LVEF (%)66.1 (>50%) M-Mode DIMENSIONS Aortic Root3.70 (2.2-3.7cm)Aortic Cusp Exc.2.10 (1.5-2.0cm) Aortic Valve AoV Peak Vkfocmyq200.0cm/[place] GR.5mmHg Mitral Valve MV E Ijfhdyty95.1cm/sMV A Gwzbubye99.5cm/sE/A ratio0.9 TDI Lateral E' Peak V10.80cm/sMedial E' Peak V6.53cm/sE/Lateral E'6.5 E/Medial E'10.7 Pulmonary Valve PV Peak Foktfndy64.1cm/sPV Peak Grad.2mmHg Tricuspid Valve TR Peak Kepkdtfq530ss/sRAP [id number] Peak Gr.11mmHg [id number] LEFT VENTRICLE The left ventricle is normal size. There is mild concentric left ventricular hypertrophy. The left ventricular function is normal.EF-65% There is normal LV segmental wall motion. The left ventricular diastolic function is normal. No left ventricle thrombus noted on this study. There is no ventricular septal defect visualized. There is no left ventricular aneurysm. There is no mass noted in the left ventricle. RIGHT VENTRICLE The right ventricle is normal size. There is normal right ventricular wall thickness. The right ventricular systolic function is normal. ATRIA The left atrium is borderline dilated. The right atrium size is normal. The interatrial septum is intact with no evidence for an atrial septal defect. AORTIC VALVE The aortic valve is thickened but opens well. There is mild aortic regurgitation. There is no aortic valvular stenosis. There is no aortic valvular vegetation. MITRAL VALVE The mitral valve is thickened but opens well. Mitral regurgitation is trace. There is no mitral valve stenosis. There is no evidence of mitral valve prolapse. TRICUSPID VALVE The tricuspid valve leaflets are thickened , but open well. There is trace tricuspid regurgitation.RVSP-20 mmof Hg. There is no tricuspid valve stenosis. There is no tricuspid valve prolapse or vegetation. PULMONIC VALVE The pulmonary valve is normal in structure. GREAT VESSELS The aortic root is normal in size. The ascending aorta is normal in size. The pulmonary artery is normal. The IVC is normal in size and collapses >50% with inspiration. PERICARDIAL EFFUSION There is no pleural effusion. There is no pericardial effusion. <Conclusion> The left ventricle is normal size. There is mild concentric left ventricular hypertrophy. The left ventricular function is normal.EF-65% There is mild aortic regurgitation. Mitral regurgitation is trace. There is trace tricuspid regurgitation.RVSP-20 mmof Hg.
--- NOTE | 2016-10-07 18:35 | CP.PCM.PN ---
Subjective - Date & Time of Evaluation Date of Evaluation: 10/07/16 Time of Evaluation: 17:30 - Subjective Subjective: Infectious Disease Follow Up: October 07, 2016 51 yo male with presentation of SOB, tachypnea, and tachycardia. The patient was intubated in the ER and given Clindamycin and Zosyn in the ER. He was extubated earlier today and remains on Nasal Cannula without any major issues. The patient is awake and alert. Severe Multiple Sclerosis where the patient is mostly bedbound, has random involuntary movements especially of the arms, and he has difficulty with speech. Patient does understand what is going on around him as it is easier for him to say short phrases like "Yes I do" or "No I don't " in interviewing him. More complicated answer before garbled as he speaks. The patient is currently afebrile but had fevers up to 103 F on admission that has slowly downtrended through the course of the day. He was on Cefepime and Clindamycin. RLL possible pneumonia based on Chest X-ray. Events overnight noted. 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 Fevers spiked back up to 103 to 104.2 F. Noted that Aztreonam started and Cefepime stopped last night. On Vancomycin as well. Would stop Clindamycin and start Flagyl. Unclear if there is a reason to stop Cefepime. Cultures remain negative at 24 and 48 hours. The patient was intubated yesterday morning and extubated this late afternoon. Objective - Vital Signs/Intake and Output Vital Signs (last 24 hours): Temp Pulse Resp BP Pulse Ox 99 F 94 H 93 H 139/83 100 10/07/16 18:16 10/07/16 17:03 10/07/16 18:16 10/07/16 16:00 10/07/16 18:16 Intake and Output: 10/07/16 10/07/16 06:59 18:59 Intake Total 1836 760 Output Total 350 500 Balance 1486 260 - Medications Medications: Current Medications Acetylcysteine (Acetylcysteine 20%) 4 ml IH BIDRESP [facility] [place] Last Admin: 10/07/16 08:11 Dose: 4 ml Albuterol/Ipratropium (Duoneb 3 Mg/0.5 Mg (3 Ml) Ud) 3 ml IH [id number] [facility] [place] Last Admin: 10/07/16 13:22 Dose: 3 ml Glycopyrrolate (Robinul) 0.2 mg IV Q12 [facility] [place] Last Admin: 10/07/16 09:22 Dose: 0.2 mg Heparin Sodium (Porcine) (Heparin) 5,000 units SC Q8 [facility] [place] PRN Reason: Protocol Last Admin: 10/07/16 15:51 Dose: 5,000 units Pantoprazole Sodium (Protonix 40mg Ivpb) 100 mls @ 20 mls/hr IVPB .Q5H [facility] [place] Last Admin: 10/07/16 05:40 Dose: 20 mls/hr Propofol (Diprivan) 100 mls @ 2.667 mls/hr IV .Q24H PRN; Protocol; 5 MCG/KG/MIN PRN Reason: TITRATE PER MD ORDER Last Admin: 10/07/16 16:07 Dose: 17.613 mls/hr Propofol (Diprivan) 100 mls @ 2.395 mls/hr IV .Q24H PRN; Protocol; 5 MCG/KG/MIN PRN Reason: TITRATE PER MD ORDER Last Titration: 10/07/16 06:30 Dose: 30 mcg/kg/min Vancomycin HCl (Vancomycin 1gm) 250 mls @ 167 mls/hr IVPB Q12H [facility] [place] PRN Reason: Protocol Last Admin: 10/07/16 16:00 Dose: 167 mls/hr Aztreonam (Azactam 2 Gm) 100 mls @ 100 mls/hr IVPB Q8 [facility] [place] PRN Reason: Protocol Stop: 10/12/16 23:59 Last Admin: 10/07/16 14:05 Dose: 100 mls/hr Metronidazole (Flagyl) 100 mls @ 100 mls/hr IVPB Q8 [facility] [place] PRN Reason: Protocol Last Admin: 10/07/16 13:35 Dose: 100 mls/hr Lamotrigine (Lamictal) 25 mg PO BID [facility] [place] PRN Reason: Protocol Last Admin: 10/07/16 17:26 Dose: 25 mg Methylprednisolone (Solu-Medrol) 40 mg IVP Q12 [facility] [place] Last Admin: 10/07/16 09:25 Dose: 40 mg Metoprolol Tartrate (Lopressor) 5 mg IVP Q4H PRN PRN Reason: Heart rate Montelukast Sodium (Singulair) 10 mg PO HS [facility] [place] Last Admin: 10/06/16 21:31 Dose: 10 mg Morphine Sulfate (Morphine) 2 mg IVP Q4H PRN PRN Reason: Pain, severe (8-10) - Labs Labs: 10/07/16 06:00 10/07/16 06:00 - Constitutional Appears: Non-toxic, No Acute Distress, Chronically Ill - Head Exam Head Exam: ATRAUMATIC, NORMOCEPHALIC - Eye Exam Eye Exam: EOMI, PERRL Pupil Exam: NORMAL ACCOMODATION, PERRL - ENT Exam ENT Exam: Mucous Membranes Moist, Normal External Ear Exam, TM's Normal Bilaterally - Neck Exam Neck Exam: Full ROM, Normal Inspection - Respiratory Exam Respiratory Exam: Decreased Breath Sounds, Rhonchi, NORMAL BREATHING PATTERN. absent: Rales, Wheezes - Cardiovascular Exam Cardiovascular Exam: REGULAR RHYTHM, RRR, +S1, +S2 - GI/Abdominal Exam GI & Abdominal Exam: Soft, Normal Bowel Sounds. absent: Distended, Tenderness - Extremities Exam Additional comments: random jerking movement on exam. - Neurological Exam Additional comments: extubated. slow in response. - Skin Skin Exam: Intact, Normal Color Assessment and Plan - Assessment and Plan (Free Text) Assessment: 51 yo male with severe Multiple Sclerosis presented with SOB, tachypnea, and tachycardia. The patient was intubated on admission and febrile up to 103 F. The patient had improved over the past few hours after admission and was extubated. The patient with findings of RLL pneumonia and questionable LLL pneumonia on Chest CT and the patient had signs of fecal impaction on the CT of the abdomen and pelvis. The patient was on Cefepime and Clindamycin which is a reasonable choice for antibiotic therapy. [place] cultures sent. Fevers on admission up to 103 F. Supportive care. Afebrile the past 24 hours. The patient spiked fevers up to 104.2 F the night prior. The patient required intubation yesterday morning. Cultures to date remain negative. On Vancomycin , Clindamycin, and Aztreonam. Changed Clindamycin to Flagyl. Consider Meropenem over Aztreonam if no previous documentation of PCN allergy. Guarded to poor prognosis at this time. Cultures negative to date. Supportive care. Extubated in the last hour. Thank you for allowing me to participate in the care of this patient, we will follow with you.
--- NOTE | 2016-10-07 22:03 | PN ---
DATE: 10/07/2016 REFERRING PHYSICIAN: Dr. Torre SUBJECTIVE: He is lying in the bed on low dose of Diprivan. Arousable. Wants to be extubated. Ful ly awake. Nursing staff and therapy staff bedside. Oral and nasal secretion is decreased, has a deb ogastric tube carrying feeding. No hemoptysis, no vomiting, no hematuria, no diarrhea reported. OBJECTIVE: GENERAL: On ventilator, mildly sedated, but awake. VITAL SIGNS: Temp is 99, heart rate is 95, respiratory rate is 20, blood pressure 139/83, pulse ox 1 00% on ventilator. HEENT: Moist mucous membranes. Crowded airway. Mallampati score is 4. NECK: Supple. No JVD. LUNGS: Has scattered rhonchi. HEART: S1 and S2. ABDOMEN: Soft, nontender. No organomegaly. EXTREMITIES: There is no edema. NEUROLOGIC: Awake, alert, follows simple command. MEDICATIONS: He is on Mucomyst 20% 4 mL twice a day, Azactam 2 g IV q.8 hours, on IV Diprivan, DuoNe b q.6 hours, Flagyl 500 mg q.8 hours, heparin 5000 units subQ q.8 hours, Lamictal 25 mg twice a day, metoprolol tartrate 5 mg q.4 hours p.r.n., morphine 2 mg IV q.4 hours p.r.n., Protonix 40 mg IV daily , Robinul 0.2 mg IV q.2 hours, Singulair 10 mg daily, Solu-Medrol 40 mg q.12 hours, vancomycin 1 g IV q.12 hours. LABORATORY DATA: Shows hemoglobin 10.7, hematocrit 32.6, WBC 12.1, platelet count is 277. Blood gas es shows pH of 7.36, CO2 of 37, O2 of 90. This is on 40% oxygen on ventilator this morning. Sodium 147, potassium 4.1, chloride 114, bicarbonate 23, BUN 21, creatinine 0.9, glucose 142, calcium 8.6, A ST 23, ALT 29, alk phos is 83, albumin is 3.3. MICROBIOLOGY: Blood cultures, urine culture is no growth. Chest x-ray today done is unremarkable. No infiltrate recognized. Has the ____ tube. Had echocardi ogram done which shows left ventricular ejection fraction is 65%, right ventricular systolic pressure is 20, mild valvular disease. IMPRESSION AND PLAN: Respiratory failure, probably secondary to aspiration pneumonia, multiple scler osis, gastroesophageal reflux disease, hypertension, seizure disorder. May be component of sleep architect ea syndrome. Case discussed with the nursing staff. Spoke to medical center representative, also spoke to respir atory therapist. Understanding patient is a high risk for reintubation, decision is made to extubate the patient in my presence. The patient tolerates extubation well. Able to verbalize, able to coug h and clear secretion, ____ him with some of the oral and nasal suction to clear some of the secretio n. We will keep him on nasal cannula. Pulse ox is 99% and there is no stridor. Will need aggressiv e pulmonary toilet with oronasal suctioning q.4 hours as needed. Keep head elevated at 45 degrees. Continue antibiotics. Continue intravenous and inhaled bronchodilator. Do not feed by mouth. May c ontinue to use nasogastric tube. High risk for respiratory failure though, needs close monitoring. Follow up ABG, chest x-ray, CBC, CMP in the morning. Critical care time was more than 35 minutes. Thank you and we will follow with you. Laquita Gonzalez MD cc: [id number] TT: 10/07/2016 22:03:13 Confirmation # [id number] Dictation # [id number]
[2016-10-08] MEDS: Albuterol-Ipratrop 3 mg / 0.5 (3 ml) UD IH SCH ×4 (00:59→19:36)
[2016-10-08] MEDS: Pantoprazole 40mg/100ml IVPB 100 ML IVPB SCH ×2 (02:00→06:35)
--- NOTE | 2016-10-08 04:35 | PN ---
DATE: 10/08/2016 REASON FOR CONSULTATION: Respiratory failure, elevated troponin, hypertension, hyperlipidemia, histo ry of multiple sclerosis, cardiac evaluation. BRIEF CLINICAL HISTORY: A 51-year-old male with past medical history significant for multiple sclero sis, seizure disorder, Larsen's palsy, hypertension, hyperlipidemia, mostly bed bound, wheelchair bound , who started coughing, unable to bring secretion, respiratory failure, developed respiratory distres s, brought, intubated, currently in 128, bed 4, after successfully extubated, awake and alert, denies any chest pain, shortness of breath, any palpitation. PHYSICAL EXAMINATION: VITAL SIGNS: Temperature afebrile, heart rate 101, blood pressure 155/98. HEENT: PERRLA. Extraocular muscles intact. NECK: Supple. No carotid bruits. No thyromegaly. CHEST: Clear to auscultation. HEART: S1, S2 regular. ABDOMEN: Soft. EXTREMITIES: Clubbing and cyanosis negative. LABORATORY DATA: Blood workup as follows: WBC 12.1, hemoglobin 10.7, hematocrit 32.6, platelet coun t 277. Chemistry shows sodium 147, potassium 4.0, chloride 104, carbon dioxide 23, anion gap of 14, BUN 21, creatinine 0.9. Troponin 0.1-0.067. IMPRESSION: Borderline troponin elevated to indeterminate range, status post respiratory failure, mu ltiple sclerosis, most likely secondary to hemodynamic instability doubt with multiple sclerosi s, status post respiratory failure, successfully extubated, mostly bed bound, possible aspiration pne umonia, hypertension, hyperlipidemia, Larsen's palsy, gastroesophageal reflux. The patient had echocar diography done that showed left ventricle size, normal ejection fraction 65%, mild aortic regurgitati on, trace mitral regurgitation, trace tricuspid regurgitation, right ventricular systolic pressure 20 . Chest x-ray shows clear. The patient's respiratory failure possibly secondary to aspiration pneum onia, multiple sclerosis, gastroesophageal reflux disease, hypertension, seizure disorder, borderline due to indeterminate range of troponin, doubt his multiple sclerosis, preserved left ventricular fun ction, ejection fraction 65%, mild mitral regurgitation, mild tricuspid regurgitation, mild aortic in sufficiency, seizure disorder, hyperlipidemia. RECOMMENDATION: Continue vent management. The patient was successfully extubated. Continue broad-s pectrum antibiotic for pneumonia. We will try to keep negative fluid balance. The patient can be ex tubated. The patient has a positive fluid balance and currently on IV fluid. We will cut down the f luid to 50 mL an hour. We will follow with you. Continue gentle Lasix p.r.n. We will put Lasix thr ough the NG tube. We will continue low-dose beta-estella. We will follow with you. Once the patien t is extubated and is medically stable, consider stress test. We will follow with you. Laquita Reyna MD cc:Garrett Torre JD, MD [id number] TT: 10/08/2016 04:34:40 Confirmation # [id number] Dictation # [id number]
[2016-10-08] MEDS: Vancomycin 1gm in NS 250ml 250 ML IVPB SCH ×2 (04:56→16:12)
[2016-10-08 05:17] LABS: ADD MANUAL DIFF? NO
[2016-10-08] MEDS: Aztreonam 2 Gm in NS 100mL 100 ML IVPB SCH ×3 (05:18→21:38)
[2016-10-08 05:20] LABS: BASO # 0.01 K/mm3 (0.0-2.0); BASO % 0.1 % (0.0-3.0); GRAN % 87.8 % (50.0-68.0); HEMATOCRIT 30.9 % (42.0-52.0); LYMPH # 0.9 (1.2-3.4); LYMPH % 7.9 % (22.0-35.0); MEAN CELL VOLUME 83.3 fL (80.0-105.0); MEAN CORPUSCULAR HGB CONC 32.4 g/dl (31.0-37.0); MEAN PLATELET VOLUME 10.6 fl (7.0-11.0); MONO # 0.5 (0.1-0.6); MONO % 4.2 % (1.0-6.0); PLATELET COUNT 302 10^3/uL (120.0-450.0); RED CELL DISTRIBUTION WIDTH 13.9 % (11.5-14.5); WHITE BLOOD COUNT 11.2 10^3/ul (4.5-11.0)
[2016-10-08 05:25] LABS: ARTERIAL BLOOD GAS HCO3 22.8 mmol/L (21-28); ARTERIAL BLOOD GAS O2 CAPACITY 13.8 mL/dl (16-24); ARTERIAL BLOOD GAS O2 CONTENT 13.7 ML/dl (15-23); ARTERIAL BLOOD GAS PH 7.41 (7.35-7.45); CARBOXYHEMOGLOBIN 1.3 % (0.5-1.5); HHB 0.9 % (0-5); METHEMOGLOBIN 0.8 % (0.0-3.0)
[2016-10-08 05:54] LABS: ALB/GLOB RATIO 0.9 (1.1-1.8); ALKALINE PHOSPHATASE 79 U/L (38-133); ALT/SGPT 26 U/L (7-56); AST/SGOT 32 U/L (15-59); BILIRUBIN,TOTAL 0.4 mg/dL (0.2-1.3); BLOOD UREA NITROGEN 19 mg/dL (7-21); CALCIUM 8.5 mg/dL (8.4-10.5); CARBON DIOXIDE 27 mmol/L (21-33); CHLORIDE 114 mmol/L (95-110); GFR AFRICAN-AMERICAN > 60; GLUCOSE,RANDOM 127 mg/dL (70-110); POTASSIUM 4.3 mmol/L (3.6-5.0); SODIUM 148 mmol/L (132-148); TOTAL PROTEIN 6.4 g/dL (5.8-8.3)
[2016-10-08] MEDS: metroNIDAZOLE IV 500 mg/100 ml 100 ML IVPB SCH ×3 (07:00→21:39)
[2016-10-08] MEDS: Acetylcysteine 20% Inhal Soln (4ml) IH SCH ×2 (07:24→19:37)
--- NOTE | 2016-10-08 08:11 | RAD ---
HISTORY: Respiratory failure. Technique: Single view portable semi erect @ 05:12. COMPARISON: 10/07/2016. FINDINGS: LUNGS: No active pulmonary disease. PLEURA: No significant pleural effusion identified, no pneumothorax apparent. CARDIOVASCULAR: No radiographic findings to suggest acute or significant cardiovascular disease. OSSEOUS STRUCTURES: No significant abnormalities. VISUALIZED UPPER ABDOMEN: Normal. OTHER FINDINGS: Removal of support apparatus since the prior study: The patient has been extubated and the nasogastric tube removed. IMPRESSION: No significant interval change compared to the prior examination(s).
[2016-10-08] MEDS: MethylPREDNISolone 40 mg Vial IVP SCH ×2 (10:03→21:40)
[2016-10-08] MEDS: Glycopyrrolate 0.2 mg/ml (2ml vial) IV SCH (10:28)
--- NOTE | 2016-10-08 13:03 | CP.CCUPN ---
<Renetta Sellers - Last Filed: 10/08/16 12:59> CCU Subjective - Physician Review Subjective (Free Text): Pt s&e w ICU attending. Pt is extubated yesterday. No complainst. Denies F/C/N/V /CP/SOB. On NC. O2 sat on 90% + 10/08/16 12:59 CCU Objective - Vital Signs / Intake & Output Vital Signs (Last 4 hours): Vital Signs Pulse BP 10/08/16 10:04 63 195/04 H Intake and Output (Last 8hrs): Intake & Output 10/07/16 10/08/16 10/08/16 22:59 06:59 14:59 Intake Total 760 980 Output Total 500 1103 Balance 260 -123 Weight 185 lb Intake: IV 690 Right Forearm 450 Right Hand 240 Tube Feeding 210 90 Other 550 200 Output: Urine 500 1100 Urethral (Garcia) 500 1100 Stool 0 Oral Regurgitation 3 Other: Voiding Method Indwelling Catheter - Physical Exam Head: Positive for: Atraumatic, Normocephalic Pupils: Positive for: PERRL Extroacular Muscles: Positive for: EOMI Conjunctiva: Positive for: Normal Mouth: Positive for: Moist Mucous Membranes Neck: Positive for: Normal Range of Motion Respiratory/Chest: Positive for: Good Air Exchange. Negative for: Respiratory Distress, Accessory Muscle Use, Tender to Palpation Cardiovascular: Positive for: Normal S1, S2. Negative for: Murmurs Abdomen: Positive for: Normal Bowel Sounds. Negative for: Tenderness, Distention, Peritoneal Signs Back: Positive for: Normal Inspection Upper Extremity: Positive for: Normal Inspection. Negative for: Cyanosis, Edema Lower Extremity: Positive for: Normal Inspection. Negative for: Edema Neurological: Positive for: GCS=15, CN II-XII Intact Skin: Positive for: Warm, Dry, Normal Color. Negative for: Rashes Psychiatric: Positive for: Alert - Medications Active Medications: Active Medications Generic Name Dose Route Start Last Admin Trade Name Freq PRN Reason Stop Dose Admin Acetylcysteine 4 ml 10/06/16 20:00 10/08/16 07:24 Acetylcysteine 20% IH 4 ml BIDRESP GOKUL Administration Albuterol/Ipratropium 3 ml 10/06/16 20:00 10/08/16 07:24 Duoneb 3 Mg/0.5 Mg (3 Ml) Ud IH 3 ml [id number] GOKUL Administration Furosemide 40 mg 10/08/16 10:00 10/08/16 10:04 Lasix IV 40 mg DAILY GOKUL Administration Glycopyrrolate 0.2 mg 10/06/16 22:00 10/08/16 10:28 Robinul IV 0.2 mg Q12 GOKUL Administration Heparin Sodium (Porcine) 5,000 units 10/05/16 09:00 10/08/16 06:00 Heparin SC 5,000 units Q8 GOKUL Administration Protocol Vancomycin HCl 250 mls @ 167 mls/hr 10/06/16 04:00 10/08/16 04:56 Vancomycin 1gm IVPB 167 mls/hr Q12H GOKUL Administration Protocol Aztreonam 100 mls @ 100 mls/hr 10/06/16 22:00 10/08/16 05:18 Azactam 2 Gm IVPB 10/12/16 23:59 100 mls/hr Q8 GOKUL Administration Protocol Metronidazole 100 mls @ 100 mls/hr 10/06/16 22:00 10/08/16 07:00 Flagyl IVPB 100 mls/hr Q8 GOKUL Administration Protocol Lamotrigine 25 mg 10/05/16 11:15 10/08/16 10:04 Lamictal PO 25 mg BID GOKUL Administration Protocol Methylprednisolone 40 mg 10/06/16 22:00 10/08/16 10:03 Solu-Medrol IVP 40 mg Q12 GOKUL Administration Metoprolol Tartrate 25 mg 10/08/16 10:00 10/08/16 10:04 Lopressor PO 25 mg BID GOKUL Administration Montelukast Sodium 10 mg 10/06/16 22:00 10/07/16 21:50 Singulair PO 10 mg HS GOKUL Administration Morphine Sulfate 2 mg 10/06/16 10:06 Morphine IVP Q4H PRN Pain, severe (8-10) Pantoprazole Sodium 40 mg 10/08/16 10:00 10/08/16 10:03 Protonix Inj IVP 40 mg Q12 GOKUL Administration - Patient Studies Lab Studies: Microbiology Studies 10/06/16 04:15 Blood Culture - Preliminary Blood-Venous NO GROWTH AFTER 48 HOURS 10/06/16 03:40 Blood Culture - Preliminary Blood-Venous NO GROWTH AFTER 48 HOURS 10/05/16 06:00 Gram Stain - Final Trachasp Sputum Culture - Final NORMAL ORAL DIXON Lab Studies 10/08/16 Range/Units 05:00 WBC 11.2 H (4.5-11.0) 10^3/ul RBC 3.71 (3.5-6.1) 10^6/uL Hgb 10.0 L (14.0-18.0) gm/dL Hct 30.9 L (42.0-52.0) % MCV 83.3 (80.0-105.0) fL MCH 27.0 (25.0-35.0) pg MCHC 32.4 (31.0-37.0) g/dl RDW 13.9 (11.5-14.5) % Plt Count 302 (120.0-450.0) 10^3/uL MPV 10.6 (7.0-11.0) fl Gran % 87.8 H (50.0-68.0) % Lymph % (Auto) 7.9 L (22.0-35.0) % [place] % (Auto) 4.2 (1.0-6.0) % Eos % (Auto) 0.0 L (1.5-5.0) % Baso % (Auto) 0.1 (0.0-3.0) % Gran # 9.80 H (1.4-6.5) Lymph # 0.9 L (1.2-3.4) [place] # 0.5 (0.1-0.6) Eos # 0.0 (0.0-0.7) Baso # 0.01 (0.0-2.0) K/mm3 pCO2 36 (35-45) mm/Hg pO2 123.0 H (80-100) mm/Hg HCO3 22.8 (21-28) mmol/L ABG pH 7.41 (7.35-7.45) ABG Total CO2 23.9 (22-28) mmol.L ABG O2 Saturation 99.1 H (95-98) % ABG O2 Content 13.7 L (15-23) ML/dl ABG Base Excess -1.5 (-2.0-3.0) mmol/L ABG Hemoglobin 9.9 L (11.7-17.4) g/dL ABG Carboxyhemoglobin 1.3 (0.5-1.5) % POC ABG HHb (Measured) 0.9 (0-5) % ABG Methemoglobin 0.8 (0.0-3.0) % ABG O2 Capacity 13.8 L (16-24) mL/dl Hgb O2 Saturation 97.0 (95.0-98.0) % FiO2 40.0 % Sodium 148 (132-148) mmol/L Potassium 4.3 (3.6-5.0) mmol/L Chloride 114 H (95-110) mmol/L Carbon Dioxide 27 (21-33) mmol/L Anion Gap 11 (10-20) BUN 19 (7-21) mg/dL Creatinine 0.9 (0.5-1.4) mg/dL Est GFR ( Amer) > 60 Est GFR (Non-Af Amer) > 60 Random Glucose 127 H (70-110) mg/dL Calcium 8.5 (8.4-10.5) mg/dL Total Bilirubin 0.4 (0.2-1.3) mg/dL AST 32 (15-59) U/L ALT 26 (7-56) U/L Alkaline Phosphatase 79 (38-133) U/L Total Protein 6.4 (5.8-8.3) g/dL Albumin 3.0 (3.0-4.8) g/dL Globulin 3.3 gm/dL Albumin/Globulin Ratio 0.9 L (1.1-1.8) Laboratory Results - last 24 hr 10/08/16 05:00 WBC 11.2 H RBC 3.71 Hgb 10.0 L Hct 30.9 L MCV 83.3 MCH 27.0 MCHC 32.4 RDW 13.9 Plt Count 302 MPV 10.6 Gran % 87.8 H Lymph % (Auto) 7.9 L [place] % (Auto) 4.2 Eos % (Auto) 0.0 L Baso % (Auto) 0.1 Gran # 9.80 H Lymph # 0.9 L [place] # 0.5 Eos # 0.0 Baso # 0.01 pCO2 36 pO2 123.0 H HCO3 22.8 ABG pH 7.41 ABG Total CO2 23.9 ABG O2 Saturation 99.1 H ABG O2 Content 13.7 L ABG Base Excess -1.5 ABG Hemoglobin 9.9 L ABG Carboxyhemoglobin 1.3 POC ABG HHb (Measured) 0.9 ABG Methemoglobin 0.8 ABG O2 Capacity 13.8 L Hgb O2 Saturation 97.0 FiO2 40.0 Sodium 148 Potassium 4.3 Chloride 114 H Carbon Dioxide 27 Anion Gap 11 BUN 19 Creatinine 0.9 Est GFR ( Amer) > 60 Est GFR (Non-Af Amer) > 60 Random Glucose 127 H Calcium 8.5 Total Bilirubin 0.4 AST 32 ALT 26 Alkaline Phosphatase 79 Total Protein 6.4 Albumin 3.0 Globulin 3.3 Albumin/Globulin Ratio 0.9 L Review of Systems - Constitutional Constitutional: absent: Fever, Chills - EENT Eyes: absent: Change in Vision Nose/Mouth/Throat: absent: Nasal Congestion - Cardiovascular Cardiovascular: absent: Chest Pain, Chest Pain at Rest - Respiratory Respiratory: absent: Dyspnea, Hemoptysis, Dyspnea on Exertion, Wheezing - Gastrointestinal Gastrointestinal: absent: Bloating Critical Care Progress Note - Ventilator Checklist Head of Bed 30 Degrees: Yes - Nutrition Nutrition: Nutrition Category Date Time Status NPO Diet [DIET] Diets 10/04/16 Breakfast Ordered Assessment/Plan - Assessment and Plan (Free Text) Assessment: 51 M w PMH of MS, seizure Hypoxic respiratory failure 2/2 aspiration pneumonia : Resolving Neuro: AAO x3 CV -Keep MAP 65+ -h/o HTN -Lopressor -Keep negative fluid balance -Lasix Pulm -Extubated -Pathology Secretary following -Keep O2s sat 90% -duoneb -Solumedrol -Aceylcystein -Singulair -Pulmonary toilet -IS GI -PTX IV q12 Renal -Replete e-lyte as needed Endo -Keep euglycemia ID Aztreonam/Flagyl/Vanc DVT ppx: SQH . PT/OT Dispo: Transfer to [facility] ICU attending <Emory Wilson - Last Filed: 10/08/16 13:08> CCU Objective - Vital Signs / Intake & Output Vital Signs (Last 4 hours): Vital Signs Pulse BP 10/08/16 10:04 63 195/04 H Intake and Output (Last 8hrs): Intake & Output 10/07/16 10/08/16 10/08/16 22:59 06:59 14:59 Intake Total 760 980 Output Total 500 1103 Balance 260 -123 Weight 185 lb Intake: IV 690 Right Forearm 450 Right Hand 240 Tube Feeding 210 90 Other 550 200 Output: Urine 500 1100 Urethral (Garcia) 500 1100 Stool 0 Oral Regurgitation 3 Other: Voiding Method Indwelling Catheter - Medications Active Medications: Active Medications Generic Name Dose Route Start Last Admin Trade Name Niharika PRN Reason Stop Dose Admin Acetylcysteine 4 ml 10/06/16 20:00 10/08/16 07:24 Acetylcysteine 20% IH 4 ml BIDRESP GOKUL Administration Albuterol/Ipratropium 3 ml 10/06/16 20:00 10/08/16 13:02 Duoneb 3 Mg/0.5 Mg (3 Ml) Ud IH 3 ml [id number] GOKUL Administration Furosemide 40 mg 10/08/16 10:00 10/08/16 10:04 Lasix IV 40 mg DAILY GOKUL Administration Glycopyrrolate 0.2 mg 10/06/16 22:00 10/08/16 10:28 Robinul IV 0.2 mg Q12 GOKUL Administration Heparin Sodium (Porcine) 5,000 units 10/05/16 09:00 10/08/16 13:02 Heparin SC 5,000 units Q8 GOKUL Administration Protocol Vancomycin HCl 250 mls @ 167 mls/hr 10/06/16 04:00 10/08/16 04:56 Vancomycin 1gm IVPB 167 mls/hr Q12H GOKUL Administration Protocol Aztreonam 100 mls @ 100 mls/hr 10/06/16 22:00 10/08/16 13:02 Azactam 2 Gm IVPB 10/12/16 23:59 100 mls/hr Q8 GOKUL Administration Protocol Metronidazole 100 mls @ 100 mls/hr 10/06/16 22:00 10/08/16 13:02 Flagyl IVPB 100 mls/hr Q8 GOKUL Administration Protocol Lamotrigine 25 mg 10/05/16 11:15 10/08/16 10:04 Lamictal PO 25 mg BID GOKUL Administration Protocol Methylprednisolone 40 mg 10/06/16 22:00 10/08/16 10:03 Solu-Medrol IVP 40 mg Q12 GOKUL Administration Metoprolol Tartrate 25 mg 10/08/16 10:00 10/08/16 10:04 Lopressor PO 25 mg BID GOKUL Administration Montelukast Sodium 10 mg 10/06/16 22:00 10/07/16 21:50 Singulair PO 10 mg HS GOKUL Administration Morphine Sulfate 2 mg 10/06/16 10:06 Morphine IVP Q4H PRN Pain, severe (8-10) Pantoprazole Sodium 40 mg 10/08/16 10:00 10/08/16 10:03 Protonix Inj IVP 40 mg Q12 GOKUL Administration - Patient Studies Lab Studies: Microbiology Studies 10/06/16 04:15 Blood Culture - Preliminary Blood-Venous NO GROWTH AFTER 48 HOURS 10/06/16 03:40 Blood Culture - Preliminary Blood-Venous NO GROWTH AFTER 48 HOURS 10/05/16 06:00 Gram Stain - Final Trachasp Sputum Culture - Final NORMAL ORAL DIXON Lab Studies 10/08/16 Range/Units 05:00 WBC 11.2 H (4.5-11.0) 10^3/ul RBC 3.71 (3.5-6.1) 10^6/uL Hgb 10.0 L (14.0-18.0) gm/dL Hct 30.9 L (42.0-52.0) % MCV 83.3 (80.0-105.0) fL MCH 27.0 (25.0-35.0) pg MCHC 32.4 (31.0-37.0) g/dl RDW 13.9 (11.5-14.5) % Plt Count 302 (120.0-450.0) 10^3/uL MPV 10.6 (7.0-11.0) fl Gran % 87.8 H (50.0-68.0) % Lymph % (Auto) 7.9 L (22.0-35.0) % [place] % (Auto) 4.2 (1.0-6.0) % Eos % (Auto) 0.0 L (1.5-5.0) % Baso % (Auto) 0.1 (0.0-3.0) % Gran # 9.80 H (1.4-6.5) Lymph # 0.9 L (1.2-3.4) [place] # 0.5 (0.1-0.6) Eos # 0.0 (0.0-0.7) Baso # 0.01 (0.0-2.0) K/mm3 pCO2 36 (35-45) mm/Hg pO2 123.0 H (80-100) mm/Hg HCO3 22.8 (21-28) mmol/L ABG pH 7.41 (7.35-7.45) ABG Total CO2 23.9 (22-28) mmol.L ABG O2 Saturation 99.1 H (95-98) % ABG O2 Content 13.7 L (15-23) ML/dl ABG Base Excess -1.5 (-2.0-3.0) mmol/L ABG Hemoglobin 9.9 L (11.7-17.4) g/dL ABG Carboxyhemoglobin 1.3 (0.5-1.5) % POC ABG HHb (Measured) 0.9 (0-5) % ABG Methemoglobin 0.8 (0.0-3.0) % ABG O2 Capacity 13.8 L (16-24) mL/dl Hgb O2 Saturation 97.0 (95.0-98.0) % FiO2 40.0 % Sodium 148 (132-148) mmol/L Potassium 4.3 (3.6-5.0) mmol/L Chloride 114 H (95-110) mmol/L Carbon Dioxide 27 (21-33) mmol/L Anion Gap 11 (10-20) BUN 19 (7-21) mg/dL Creatinine 0.9 (0.5-1.4) mg/dL Est GFR ( Amer) > 60 Est GFR (Non-Af Amer) > 60 Random Glucose 127 H (70-110) mg/dL Calcium 8.5 (8.4-10.5) mg/dL Total Bilirubin 0.4 (0.2-1.3) mg/dL AST 32 (15-59) U/L ALT 26 (7-56) U/L Alkaline Phosphatase 79 (38-133) U/L Total Protein 6.4 (5.8-8.3) g/dL Albumin 3.0 (3.0-4.8) g/dL Globulin 3.3 gm/dL Albumin/Globulin Ratio 0.9 L (1.1-1.8) Laboratory Results - last 24 hr 10/08/16 05:00 WBC 11.2 H RBC 3.71 Hgb 10.0 L Hct 30.9 L MCV 83.3 MCH 27.0 MCHC 32.4 RDW 13.9 Plt Count 302 MPV 10.6 Gran % 87.8 H Lymph % (Auto) 7.9 L [place] % (Auto) 4.2 Eos % (Auto) 0.0 L Baso % (Auto) 0.1 Gran # 9.80 H Lymph # 0.9 L [place] # 0.5 Eos # 0.0 Baso # 0.01 pCO2 36 pO2 123.0 H HCO3 22.8 ABG pH 7.41 ABG Total CO2 23.9 ABG O2 Saturation 99.1 H ABG O2 Content 13.7 L ABG Base Excess -1.5 ABG Hemoglobin 9.9 L ABG Carboxyhemoglobin 1.3 POC ABG HHb (Measured) 0.9 ABG Methemoglobin 0.8 ABG O2 Capacity 13.8 L Hgb O2 Saturation 97.0 FiO2 40.0 Sodium 148 Potassium 4.3 Chloride 114 H Carbon Dioxide 27 Anion Gap 11 BUN 19 Creatinine 0.9 Est GFR ( Amer) > 60 Est GFR (Non-Af Amer) > 60 Random Glucose 127 H Calcium 8.5 Total Bilirubin 0.4 AST 32 ALT 26 Alkaline Phosphatase 79 Total Protein 6.4 Albumin 3.0 Globulin 3.3 Albumin/Globulin Ratio 0.9 L Critical Care Progress Note - Nutrition Nutrition: Nutrition Category Date Time Status NPO Diet [DIET] Diets 10/04/16 Breakfast Ordered Attending/Attestation - Attestation I have personally seen and examined this patient.: Yes I have fully participated in the care of the patient.: Yes I have reviewed all pertinent clinical information: Yes Notes (Text): 10/08/16 13:06 The patient was seen and examined at the bedside. Patient care was discussed with resident Medical records, lab studies, and imaging were reviewed and management issues were discussed and formulated. Last 24H events reviewed. Agree with above treatment plans as outlined in 's note with addition of the following: -pt clinically improved -remains hemodynamically stable and is comfortable on NC in NAD -continue chest PT and pulmonary toileting -Dysphagia eval and aspiration precautions -Incentive spirometry -PT\Ot eval CCM f\u 25min
--- NOTE | 2016-10-08 20:18 | PN ---
DATE: 10/08/2016 SUBJECTIVE: The patient is lying in bed in no acute distress. He has been extubated. He is awake, alert and responsive. There is no cough, no shortness of breath, no chest pain. PHYSICAL EXAMINATION: VITAL SIGNS: Blood pressure 125/55, pulse 59, temperature 98.2, respiratory rate 18. LUNGS: Show a few crepitations at the right base, otherwise clear. HEART: Regular rate and rhythm. ABDOMEN: Soft, nontender, bowel sounds are normoactive. EXTREMITIES: Without cyanosis, clubbing, or edema. NEUROLOGIC: The patient is awake and responsive without focal sensory or motor deficits. SKIN: Warm and dry. LABORATORY DATA: WBC is 11.2, hemoglobin 10.0, hematocrit 30.9. Sodium 148, potassium 4.3, chloride 114, CO2 27, BUN 19, creatinine 0.9, glucose 127. IMPRESSION: 1. Aspiration pneumonia, status post ventilatory failure. 2. Seizure disorder. 3. Multiple sclerosis. 4. History of Larsen's palsy. 5. History of hypertension. 6. Hypercholesterolemia. 7. Gastroesophageal reflux disease. 8. Slight elevation of CPK and troponin levels. PLAN: Continue ID followup with Dr. De Leon, pulmonary followup with Dr. Gonzalez and cardiology followup w ith Dr. Huynh. Speech for swallowing evaluation is pending. The patient n.p.o. at present. Enrique montes hold [facility]. Social work for discharge planning. Garrett Torre JD, MD cc: [id number] TT: 10/08/2016 20:17:39 Confirmation # [id number] Dictation # [id number] cecile
--- NOTE | 2016-10-08 21:33 | PN ---
DATE: 10/08/2016 REFERRING PHYSICIAN: Dr. Torre. SUBJECTIVE: He is lying in the bed, head at 45 degrees, much more awake and alert, able to cough and clear secretions, still n.p.o., awaiting for speech therapy evaluation. No chest pain, no nausea, n o vomiting, diarrhea. No leg pain or leg swelling. OBJECTIVE: GENERAL: No acute distress. VITAL SIGNS: Temp is 98, heart rate is 59, respiratory rate is 20, blood pressure 135/85, pulse ox 1 00% on nasal cannula. HEENT: Moist mucous membranes. Crowded airway. NECK: Supple. No JVD. LUNGS: Has a few scattered rhonchi. HEART: S1 and S2. ABDOMEN: Soft, nontender. No organomegaly. EXTREMITIES: There is no edema. NEUROLOGIC: Awake, alert, follows simple commands. MEDICATIONS: He is on Mucomyst 20% 4 mL inhaled twice a day, Azactam 2 g IV q. 8 hours, DuoNeb q. 6 hours, Flagyl is 500 mg q. 8 hours, heparin 5000 units subQ q. 8 hours, Lamictal 25 mg twice a day, m etoprolol tartrate 25 mg twice a day, Protonix 40 mg twice a day, Robinul 0.2 mg IV q. 12 hours, Sing ulair 10 mg daily, Solu-Medrol 40 mg q. 12 hours, vancomycin 1 gram q. 12 hours. LABORATORY DATA: Shows hemoglobin 10.0, hematocrit 30.9, WBC 11.2, platelet count is 302. Blood gas es done this morning shows pH 7.41, pCO2 of 36, O2 123. Sodium 148, potassium 4.3, chloride 114, bic arbonate is 27, BUN 19, creatinine 0.9, glucose is 127, calcium is 8.5. AST 32, ALT 26, alkaline fritz sphatase is 79, albumin is 3.0. Chest x-ray shows no infiltrate or effusion reported. IMPRESSION AND PLAN: Status post respiratory failure, resolved pneumonia, multiple sclerosis, gastro esophageal reflux disease, hypertension, seizure disorder, may have oropharyngeal dysphagia. Need to rule out sleep apnea syndrome. I spoke to nursing staff. For now, keep head elevated at 45 degrees , continue mouth suction, speech therapy evaluation for oropharyngeal dysphagia. Decrease Solu-Medro l. Discontinue Robinul. Out of bed to chair if possible. Physical therapy. We will follow with yo u. Laquita Gonzalez MD cc: [id number] TT: 10/08/2016 21:33:06 Confirmation # [id number] Dictation # [id number] rn
--- NOTE | 2016-10-09 00:40 | CP.PCM.PN ---
Subjective - Date & Time of Evaluation Date of Evaluation: 10/08/16 Time of Evaluation: 17:00 - Subjective Subjective: Infectious Disease Follow Up: October 08, 2016 51 yo male with presentation of SOB, tachypnea, and tachycardia. The patient was intubated in the ER and given Clindamycin and Zosyn in the ER. He was extubated earlier today and remains on Nasal Cannula without any major issues. The patient is awake and alert. Severe Multiple Sclerosis where the patient is mostly bedbound, has random involuntary movements especially of the arms, and he has difficulty with speech. Patient does understand what is going on around him as it is easier for him to say short phrases like "Yes I do" or "No I don't " in interviewing him. More complicated answer before garbled as he speaks. The patient is currently afebrile but had fevers up to 103 F on admission that has slowly downtrended through the course of the day. He was on Cefepime and Clindamycin. RLL possible pneumonia based on Chest X-ray. Events overnight noted. 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 Fevers spiked back up to 103 to 104.2 F. Noted that Aztreonam started and Cefepime stopped last night. On Vancomycin as well. Would stop Clindamycin and start Flagyl. Unclear if there is a reason to stop Cefepime. Cultures remain negative at 24 and 48 hours. The patient was intubated in the morning two days ago and extubated late afternoon yesterday. Transferred to medical floor. He has been stable to date. Objective - Vital Signs/Intake and Output Vital Signs (last 24 hours): Temp Pulse Resp BP Pulse Ox 98.2 F 59 L 18 125/85 100 10/08/16 18:00 10/08/16 18:00 10/08/16 18:00 10/08/16 18:00 10/08/16 13:12 Intake and Output: 10/08/16 10/09/16 18:59 06:59 Intake Total 0 Balance 0 - Medications Medications: Current Medications Acetylcysteine (Acetylcysteine 20%) 4 ml IH BIDRESP GOKUL Last Admin: 10/08/16 19:37 Dose: 4 ml Albuterol/Ipratropium (Duoneb 3 Mg/0.5 Mg (3 Ml) Ud) 3 ml IH [id number] GOKUL Last Admin: 10/08/16 19:36 Dose: 3 ml Heparin Sodium (Porcine) (Heparin) 5,000 units SC Q8 GOKUL PRN Reason: Protocol Last Admin: 10/08/16 21:40 Dose: 5,000 units Vancomycin HCl (Vancomycin 1gm) 250 mls @ 167 mls/hr IVPB Q12H GOK[facility] PRN Reason: Protocol Last Admin: 10/08/16 16:12 Dose: 167 mls/hr Aztreonam (Azactam 2 Gm) 100 mls @ 100 mls/hr IVPB Q8 GOKUL PRN Reason: Protocol Stop: 10/12/16 23:59 Last Admin: 10/08/16 21:38 Dose: 100 mls/hr Metronidazole (Flagyl) 100 mls @ 100 mls/hr IVPB Q8 GOKUL PRN Reason: Protocol Last Admin: 10/08/16 21:39 Dose: 100 mls/hr Lamotrigine (Lamictal) 25 mg PO BID GOKUL PRN Reason: Protocol Last Admin: 10/08/16 18:05 Dose: 25 mg Methylprednisolone (Solu-Medrol) 20 mg IVP Q12 [facility] Last Admin: 10/08/16 21:40 Dose: 20 mg Metoprolol Tartrate (Lopressor) 25 mg PO BID [facility] Last Admin: 10/08/16 18:05 Dose: 25 mg Montelukast Sodium (Singulair) 10 mg PO HS [facility] Last Admin: 10/08/16 21:40 Dose: 10 mg Pantoprazole Sodium (Protonix Inj) 40 mg IVP Q12 [facility] Last Admin: 10/08/16 21:40 Dose: 40 mg - Labs Labs: 10/08/16 05:00 10/08/16 05:00 - Constitutional Appears: Non-toxic, No Acute Distress, Chronically Ill - Head Exam Head Exam: ATRAUMATIC, NORMOCEPHALIC - Eye Exam Eye Exam: EOMI, PERRL Pupil Exam: NORMAL ACCOMODATION, PERRL - ENT Exam ENT Exam: Mucous Membranes Moist, Normal External Ear Exam, TM's Normal Bilaterally - Neck Exam Neck Exam: Full ROM, Normal Inspection - Respiratory Exam Respiratory Exam: Clear to Ausculation Bilateral, NORMAL BREATHING PATTERN. absent: Rales, Rhonchi, Wheezes - Cardiovascular Exam Cardiovascular Exam: REGULAR RHYTHM, RRR, +S1, +S2 - GI/Abdominal Exam GI & Abdominal Exam: Soft, Normal Bowel Sounds. absent: Distended, Tenderness - Extremities Exam Additional comments: random jerking movement on exam. - Neurological Exam Neurological Exam: Alert, Awake, CN II-XII Intact - Psychiatric Exam Psychiatric exam: Normal Affect, Normal Mood - Skin Skin Exam: Intact, Normal Color Assessment and Plan - Assessment and Plan (Free Text) Assessment: 51 yo male with severe Multiple Sclerosis presented with SOB, tachypnea, and tachycardia. The patient was intubated on admission and febrile up to 103 F. The patient had improved over the past few hours after admission and was extubated. The patient with findings of RLL pneumonia and questionable LLL pneumonia on Chest CT and the patient had signs of fecal impaction on the CT of the abdomen and pelvis. The patient was on Cefepime and Clindamycin which is a reasonable choice for antibiotic therapy. Cody cultures sent. Fevers on admission up to 103 F. Supportive care. Afebrile the past 48 hours. The patient spiked fevers up to 104.2 F a few nights ago. The patient required intubation in the morning two nights ago. Cultures to date remain negative. On Vancomycin, Clindamycin, and Aztreonam. Changed Clindamycin to Flagyl. Consider Meropenem over Aztreonam if no previous documentation of PCN allergy. Guarded prognosis at this time. Cultures negative to date. Supportive care. Extubated yesterday and remains stable. Transferred to the medical floor today. Thank you for allowing me to participate in the care of this patient, we will follow with you.
[2016-10-09] MEDS: Albuterol-Ipratrop 3 mg / 0.5 (3 ml) UD IH SCH ×4 (02:46→19:57)
[2016-10-09] MEDS: Vancomycin 1gm in NS 250ml 250 ML IVPB SCH ×2 (04:00→17:52)
[2016-10-09] MEDS: Aztreonam 2 Gm in NS 100mL 100 ML IVPB SCH ×3 (05:13→22:23)
[2016-10-09] MEDS: metroNIDAZOLE IV 500 mg/100 ml 100 ML IVPB SCH ×3 (05:13→22:23)
[2016-10-09] MEDS: Acetylcysteine 20% Inhal Soln (4ml) IH SCH ×2 (08:04→19:57)
[2016-10-09] MEDS ORDERED: Aminophylline 25 mg/ml Inj ONE (08:12)
--- NOTE | 2016-10-09 09:21 | PN ---
DATE: 10/09/2016 REASON FOR CONSULTATION AND FOLLOWUP: Respiratory failure, status post extubated, elevated troponin, hypertension, hyperlipidemia, history of multiple sclerosis, cardiac evaluation. BRIEF CLINICAL HISTORY: This is a 51-year-old male with past medical history significant for multipl e sclerosis, seizure disorder, Larsen's palsy, hypertension, hyperlipidemia, mostly bedbound and wheelc hair bound, who started coughing, unable to bring secretion, went into respiratory distress, respirat ory failure, requiring intubation. Now, patient successfully extubated, now is in 2R. Denies any ch est pain, shortness of breath, any palpitation. He is scheduled for a stress test today, though te ent has troponin positive, most likely secondary to hemodynamic instability, possibly, but cannot rul e out underlying coronary artery disease. The patient denies any chest pain. PHYSICAL EXAMINATION: VITAL SIGNS: Temperature afebrile, heart rate 61, blood pressure 133/80. HEENT: PERRLA. Extraocular muscles intact. NECK: Supple. No carotid bruits, no thyromegaly. CHEST: Clear to auscultation. HEART: S1, S2 regular. ABDOMEN: Soft. EXTREMITIES: Clubbing, cyanosis negative. BLOOD WORKUP: WBC 11. , hemoglobin 10. , hematocrit 30.9, platelet count 302. Chemistry leidy ws sodium 140, potassium 4.3, chloride 114, carbon dioxide 27, anion gap of 11, BUN 19, creatinine 0. 9, glucose 127, calcium 8.5, total protein 6.4, albumin 3, albumin/globulin ratio 0.9. Troponin 0.01 . Next troponin 0.12. Repeat troponin is 0.7. So borderline troponin positive to indeterminate range, possibly secondary to hemodynamic instability , status post intubation, secretion, thick secretions, unable to bring the secretion up, status post respiratory failure, history of multiple sclerosis, status post successfully extubated, hypertension, hyperlipidemia, Larsen's palsy, rule out aspiration pneumonia. The patient underwent echocardiography done yesterday that showed normal left ventricular size, ejection fraction 65%, mild aortic regurgit ation, trace to mild mitral regurgitation, trace tricuspid regurgitation, right ventricular systolic pressure 20. Chest x-ray cleared up now. RECOMMENDATIONS: Because the patient has indeterminate range of troponin, suggest for risk stratific ation, stress test today. The patient is n.p.o. Going for a stress test today. Further recommendat ion after the stress test. Interim, continue broad-spectrum antibiotic, chest physiotherapy, keep ne gative fluid balance. Discontinue IV fluid. Continue Lopressor 25 p.o. b.i.d. Continue antibiotic. Further recommendation after the stress test. We will follow with you. Thank you, Dr. Torre, for providing us the opportunity in taking care of the patient. No active dise ase in the lung noted. Thank you, Dr. Torre, for providing us the opportunity in taking care of the patient. We will follow with you. We will get a stress test today. Laquita Reyna MD cc: [id number] TT: 10/09/2016 09:21:18 Confirmation # [id number] Dictation # [id number] en
[2016-10-09] MEDS: MethylPREDNISolone 40 mg Vial IVP SCH (11:10)
--- NOTE | 2016-10-09 14:44 | CP.PCM.PN ---
Subjective - Date & Time of Evaluation Date of Evaluation: 10/09/16 Time of Evaluation: 13:00 - Subjective Subjective: Infectious Disease Follow Up: October 09, 2016 51 yo male with presentation of SOB, tachypnea, and tachycardia. The patient was intubated in the ER and given Clindamycin and Zosyn in the ER. He was extubated earlier today and remains on Nasal Cannula without any major issues. The patient is awake and alert. Severe Multiple Sclerosis where the patient is mostly bedbound, has random involuntary movements especially of the arms, and he has difficulty with speech. Patient does understand what is going on around him as it is easier for him to say short phrases like "Yes I do" or "No I don't " in interviewing him. More complicated answer before garbled as he speaks. The patient is currently afebrile but had fevers up to 103 F on admission that has slowly downtrended through the course of the day. He was on Cefepime and Clindamycin. RLL possible pneumonia based on Chest X-ray. Events overnight noted. 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 Fevers spiked back up to 103 to 104.2 F. Noted that Aztreonam started and Cefepime stopped last night. On Vancomycin as well. Would stop Clindamycin and start Flagyl. Unclear if there is a reason to stop Cefepime. Cultures remain negative at 24 and 48 hours. The patient had been intubated twice in this hospitalization but has been extubated for a few days now. Transferred to medical floor. He has been stable to date. Went for stress test today. Objective - Vital Signs/Intake and Output Vital Signs (last 24 hours): Temp Pulse Resp BP Pulse Ox 97.4 F L 55 L 18 142/80 100 10/09/16 12:00 10/09/16 12:00 10/09/16 12:00 10/09/16 12:00 10/08/16 13:12 Intake and Output: 10/09/16 10/09/16 06:59 18:59 Intake Total 0 Balance 0 - Medications Medications: Current Medications Acetylcysteine (Acetylcysteine 20%) 4 ml IH BIDRESP GOKUL Last Admin: 10/09/16 08:04 Dose: Not Given Albuterol/Ipratropium (Duoneb 3 Mg/0.5 Mg (3 Ml) Ud) 3 ml IH [id number] [facility] Last Admin: 10/09/16 13:53 Dose: 3 ml Heparin Sodium (Porcine) (Heparin) 5,000 units SC Q8 GOKUL PRN Reason: Protocol Last Admin: 10/09/16 05:13 Dose: 5,000 units Vancomycin HCl (Vancomycin 1gm) 250 mls @ 167 mls/hr IVPB Q12H [facility]OK[facility] PRN Reason: Protocol Last Admin: 10/09/16 04:00 Dose: 167 mls/hr Aztreonam (Azactam 2 Gm) 100 mls @ 100 mls/hr IVPB Q8 [facility] PRN Reason: Protocol Stop: 10/12/16 23:59 Last Admin: 10/09/16 05:13 Dose: 100 mls/hr Metronidazole (Flagyl) 100 mls @ 100 mls/hr IVPB Q8 [facility] PRN Reason: Protocol Last Admin: 10/09/16 05:13 Dose: 100 mls/hr Lamotrigine (Lamictal) 25 mg PO BID [facility] PRN Reason: Protocol Last Admin: 10/09/16 11:09 Dose: 25 mg Methylprednisolone (Solu-Medrol) 20 mg IVP Q12 [facility] Last Admin: 10/09/16 11:10 Dose: 20 mg Metoprolol Tartrate (Lopressor) 25 mg PO BID [facility] Last Admin: 10/09/16 11:23 Dose: Not Given Montelukast Sodium (Singulair) 10 mg PO HS [facility] Last Admin: 10/08/16 21:40 Dose: 10 mg Pantoprazole Sodium (Protonix Inj) 40 mg IVP Q12 [facility] Last Admin: 10/09/16 11:11 Dose: 40 mg - Labs Labs: 10/08/16 05:00 10/08/16 05:00 - Constitutional Appears: Non-toxic, No Acute Distress, Chronically Ill - Head Exam Head Exam: ATRAUMATIC, NORMOCEPHALIC - Eye Exam Eye Exam: EOMI, PERRL Pupil Exam: NORMAL ACCOMODATION, PERRL - ENT Exam ENT Exam: Mucous Membranes Moist, Normal External Ear Exam, TM's Normal Bilaterally - Neck Exam Neck Exam: Full ROM, Normal Inspection - Respiratory Exam Respiratory Exam: Decreased Breath Sounds, Wheezes. absent: Rales, Rhonchi - Cardiovascular Exam Cardiovascular Exam: REGULAR RHYTHM, RRR, +S1 - GI/Abdominal Exam GI & Abdominal Exam: Soft, Normal Bowel Sounds. absent: Distended, Tenderness - Extremities Exam Additional comments: random jerking movement on exam. - Neurological Exam Neurological Exam: Alert, Awake, CN II-XII Intact, Oriented x3 - Psychiatric Exam Psychiatric exam: Normal Affect, Normal Mood - Skin Skin Exam: Intact, Normal Color Assessment and Plan - Assessment and Plan (Free Text) Assessment: 51 yo male with severe Multiple Sclerosis presented with SOB, tachypnea, and tachycardia. The patient was intubated on admission and febrile up to 103 F. The patient had improved over the past few hours after admission and was extubated. He required reintubation but was extubated a little more than a day later. The patient with findings of RLL pneumonia and questionable LLL pneumonia on Chest CT and the patient had signs of fecal impaction on the CT of the abdomen and pelvis. Cody cultures sent. Fevers on admission up to 103 F. Supportive care. Afebrile the past 48 hours. The patient spiked fevers up to 104.2 F a few nights ago. The patient required intubation in the morning two nights ago. Cultures to date remain negative. On Vancomycin, Flagyl, and Aztreonam. Changed Clindamycin to Flagyl. Guarded prognosis at this time. Cultures negative to date. Supportive care. Extubated now and remains stable. Transferred to the medical floor yesterday. Thank you for allowing me to participate in the care of this patient, we will follow with you.
--- NOTE | 2016-10-09 15:39 | PN ---
DATE: 10/09/2016 SUBJECTIVE: The patient is sitting up in bed, in no acute distress. There is no shortness of breath . He is awake, alert and responsive. OBJECTIVE: VITAL SIGNS: Blood pressure 142/80, temperature 97.4, pulse 55, respiratory rate 18. LUNGS: Clear. HEART: Regular rate and rhythm. ABDOMEN: Soft, nontender, bowel sounds are normoactive. EXTREMITIES: Without cyanosis, clubbing, or edema. NEUROLOGIC: The patient is awake and responsive without focal deficits. SKIN: Warm and dry. IMPRESSION: 1. Aspiration pneumonia, status post ventilatory failure, clinically improved. 2. Seizure disorder. 3. Multiple sclerosis. 4. History of Larsen's palsy. 5. History of hypertension. 6. Hypercholesterolemia. 7. Gastroesophageal reflux disease. 8. Slight elevation of CPK and troponin levels. PLAN: Continue ID followup with Dr. De Leon. Continue IV antibiotics. Pulmonary followup with Dr. Boby taylor and cardiology followup with Dr. Huynh. Results of stress test pending. The patient's diet has b een advanced with thickened liquids. Social work for discharge planning. Garrett Torre JD, MD cc: [id number] TT: 10/09/2016 15:38:36 Confirmation # [id number] Dictation # [id number] jamie
--- NOTE | 2016-10-09 21:28 | CARD ---
APPROVED REPORT Protocol: LEXISCAN Test Type: Lexiscan Sestamibi Stress Test Attending Physician: Dr. Laquita Huynh Referring Physician: Dr. Garrett Torre Test Indications: R/O Ischemia Height:5 ft 11 in Weight:185lbs Medications: duoneb lopressor flagyl Lamictal Medical History: 51 y/o male hx of MS has elevated troponin Target HR: 171 bpm Resting ECG: RSR. Resting Heart Rate: 52 bpm Resting Blood Pressure: 142/80mmHg Submaximum (85%): 145 bpm PROCEDURE Pharmacologic stress testing was performed using 0.4mg per 5ml of regadenoson given intravenously over 7-10 seconds. Reversal agent aminophyline 100 mg, given intravenously for Dyspnea. POST EXERCISE Reason for Termination: Protocol completed Target HR: No Max HR: 51 bpm 61% of Maximum Predicted HR: 171 bpm Exercise duration: 00:32 min:sec, 0 Stage Exercise capacity: 1.0METs Max Blood Pressure: 142/80mmHg Blood Pressure response to exercise: normal resting BP - appropriate response Heart Rate response to exercise: appropriate Chest Pain: No, none Angina index: 0 Arrhythmia: No, none ST Change: No, none Deviation: 0 mm INTERPRETATION Stress EKG Conclusion: IV LEXISCAN NUCLEAR STRESS TEST NEGATIVE FOR CHEST PAIN AND NEGATIVE FOR ST-T CHANGES, NUCLEAR SCAN REPORT PENDING. Signed by Laquita Huynh Electronically Approved: 10/09/2016 12:11:21 EXAM: Myocardial Perfusion REST/STRESS Stress Test Type: Pharmacologic Imaging Protocol Rest Spect myocardial perfusion imaging was performed in supine position 60 minutes following the injection of 10.9 mCi of Tc-99 Myoview. At peak stress, the patient was injected intravenously with 30.1mCi of Tc-99 tetrofosmin after an infusion time of 0 minutes and 10 seconds. Gated Stress Spect was performed 60 minutes after intravenous Tc-99 Myoview injection. The images were gated to evaluate regional wall motion and calculate ventricular ejection fraction.Images were reconstructed using backfilter projection method in short horizontal and verticle long axis. Spect slices were generated. LV Perfusion The quality of the study is good. The left ventricle is within normal limits in size. The right ventricle is unremarkable. The lung uptake is normal. The distribution of tracer reveals moderately and diffusely decreased perfusion in the inferior wall on the stress study. The remainder of the LV myocardium is unremarkable. The rest myocardial perfusion study shows no significant change. Wall Motion Wall motion study shows good contractility of the left ventricle. LVEF = 55%. Conclusion 1. Essentially normal SPECT myocardial perfusion study. 2. Fixed, inferior defect is most likely due to diaphrgmatic attenuation. 3. Normal gated wall motion and thicknening of the left ventricle.
--- NOTE | 2016-10-10 01:19 | PN ---
DATE: 10/09/2016 REFERRING PHYSICIAN: Dr. Torre. SUBJECTIVE: The patient is lying in the bed, head at 45 degrees, feels much better, decreased cough, decreased shortness of breath, decreased pulmonary secretion. No nausea, no vomiting, diarrhea. No leg pain or leg swelling. OBJECTIVE: GENERAL: No acute distress. VITAL SIGNS: Temp is 98, heart rate is 72, respiratory rate is 18, blood pressure 149/101, pulse ox 100% on nasal cannula. HEENT: Moist mucous membranes. Crowded airway. Mallampati score is 4. NECK: Supple. No JVD. LUNGS: Has a fair airflow with few rhonchi. HEART: S1 and S2. ABDOMEN: Soft, nontender. No organomegaly. EXTREMITIES: There is no edema. NEUROLOGIC: Awake, alert, follows simple command. MEDICATIONS: He is on Mucomyst 4 mL inhaled twice a day, Azactam 2 g IV q. 8 hours, DuoNeb q. 6 hour s, Flagyl 500 mg q. 8 hours, heparin 5000 units subQ q. 8 hours, Lamictal 25 mg twice a day, metoprol ol tartrate 25 mg twice a day, Protonix 40 mg twice a day, Singulair 10 mg daily, vancomycin 1 g IV q . 12 hours. LABORATORY DATA: Reviewed. No new lab is available since yesterday. Has a myocardial stress test d one, which shows essentially normal SPECT myocardial perfusion study, fixed inferior defect is most l ikely due to the diaphragmatic attenuation, LV ejection fraction is 55%. IMPRESSION AND PLAN: Status post respiratory failure, has multiple sclerosis, gastroesophageal reflu x disease, hypertension, seizure disorder, oropharyngeal dysphagia, probably have a component of slee p apnea syndrome. I spoke to nursing staff, waiting for speech therapy to evaluate the patient, delores shin the patient is hungry, wants to eat. We will start him on pureed diet with honey-thick liquids for now until evaluated by speech therapy. Keep head elevated at 45 degree. Aspiration precaution. An tibiotics as per infectious diseases. Start physical therapy, out of bed to chair if possible. Foll owup labs in the morning. We will follow with you. Laquita Gonzalez MD cc: [id number] TT: 10/10/2016 01:18:52 Confirmation # [id number] Dictation # [id number] in
[2016-10-10] MEDS ORDERED: Oxycodone/Acetaminophen 5/325 mg Tab PO ONE (01:23)
[2016-10-10] MEDS: Albuterol-Ipratrop 3 mg / 0.5 (3 ml) UD IH SCH ×4 (02:20→19:18)
[2016-10-10] MEDS: Vancomycin 1gm in NS 250ml 250 ML IVPB SCH (04:05)
[2016-10-10] MEDS: metroNIDAZOLE IV 500 mg/100 ml 100 ML IVPB SCH (05:01)
[2016-10-10] MEDS: Aztreonam 2 Gm in NS 100mL 100 ML IVPB SCH (05:01)
[2016-10-10] MEDS ORDERED: Iodixanol 320 MG/ML 100 ML BOTTLE IV ONE (07:46)
[2016-10-10 07:52] LABS: ADD MANUAL DIFF? NO
[2016-10-10 08:05] LABS: BASO # 0.07 K/mm3 (0.0-2.0); BASO % 0.7 % (0.0-3.0); EOS # 0.1 (0.0-0.7); EOS % 0.8 % (1.5-5.0); GRAN # 5.34 (1.4-6.5); HEMATOCRIT 36.1 % (42.0-52.0); LYMPH # 4.1 (1.2-3.4); LYMPH % 38.4 % (22.0-35.0); MEAN CELL VOLUME 81.5 fL (80.0-105.0); MEAN CORPUSCULAR HEMOGLOBIN 27.5 pg (25.0-35.0); MEAN CORPUSCULAR HGB CONC 33.8 g/dl (31.0-37.0); MEAN PLATELET VOLUME 10.6 fl (7.0-11.0); MONO # 1.1 (0.1-0.6); MONO % 10.1 % (1.0-6.0); PLATELET COUNT 338 10^3/uL (120.0-450.0); RED CELL DISTRIBUTION WIDTH 13.4 % (11.5-14.5); WHITE BLOOD COUNT 10.7 10^3/ul (4.5-11.0)
[2016-10-10 08:08] LABS: BLOOD UREA NITROGEN 14 mg/dL (7-21); CALCIUM 8.7 mg/dL (8.4-10.5); CARBON DIOXIDE 31 mmol/L (21-33); CHLORIDE 104 mmol/L (95-110); GFR AFRICAN-AMERICAN > 60; GLUCOSE,RANDOM 100 mg/dL (70-110); MAGNESIUM 1.8 mg/dL (1.7-2.2); PHOSPHOROUS 2.8 mg/dL (2.5-4.5); POTASSIUM 3.6 mmol/L (3.6-5.0); SODIUM 143 mmol/L (132-148)
--- NOTE | 2016-10-10 09:01 | CT ---
PROCEDURE: CT Chest with contrast (Pulmonary Angiogram) HISTORY: R/O pulmonary embolism COMPARISON: None available. TECHNIQUE: Axial computed tomography images were obtained of the chest in the pulmonary arterial phase of enhancement. Coronal and sagittal reformatted images were created and reviewed. Intravenous contrast dose: 100 mL Visipaque 320 Radiation dose: Total exam DLP = 657.44 mGy-cm. FINDINGS: PULMONARY ARTERIES: Unremarkable. No pulmonary embolism. AORTA: No acute findings. No thoracic aortic aneurysm. LUNGS: Bilateral dependent lower lobe subsegmental atelectasis. No pulmonary infiltrate. PLEURAL SPACES: Trace left pleural effusion. No right pleural effusion. No pneumothorax. HEART: Unremarkable. No cardiomegaly. No significant pericardial effusion. LYMPH NODES: No lymphadenopathy. BONES, CHEST WALL: Unremarkable. No fracture or destructive lesion OTHER FINDINGS: Small hiatal hernia. Incidental bilobed low-density mass in right hepatic lobe, 2.6 x 3.0 cm. Corresponds to 2 adjacent simple cysts identified on ultrasound examination of 09/22/2015. . Diffuse fatty infiltration of the liver. IMPRESSION: No evidence of pulmonary embolism. Dependent lower lobe subsegmental atelectasis bilaterally with trace left pleural effusion. Small hiatal hernia. Fatty liver. 3 cm bilobed cyst versus 2 adjacent cysts in right hepatic lobe, unchanged since 09/22/2015.
[2016-10-10] MEDS: Acetylcysteine 20% Inhal Soln (4ml) IH SCH ×2 (09:08→19:18)
--- NOTE | 2016-10-10 09:17 | PN ---
DATE: 10/10/2016 REASON FOR CONSULTATION AND FOLLOWUP: Respiratory failure, status post extubated, elevated troponin, hypertension, hyperlipidemia, history of multiple sclerosis, cardiac evaluation. BRIEF CLINICAL HISTORY: This is a 51-year-old male with past medical history significant for multipl e risk of seizure disorder, Larsen's palsy, hypertension, hyperlipidemia. 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 The patient is still complai taisha of mild chest pain with tenderness on the left side of the chest. PHYSICAL EXAMINATION: VITAL SIGNS: Temperature afebrile, heart rate 60, blood pressure 140/90. HEENT: PERRLA. Extraocular muscles intact. NECK: Supple. No carotid bruits. No thyromegaly. CHEST: Clear to auscultation. HEART: S1, S2 regular. ABDOMEN: Soft. EXTREMITIES: Clubbing and cyanosis negative. LABORATORY DATA: Blood workup as follows: WBC 10.7, hemoglobin 12.2, hematocrit 36.1, platelet coun t 338. Chemistry shows sodium 143, potassium 3.6, chloride 104, carbon dioxide 32, anion gap of 12, BUN 14, creatinine 0.8, magnesium 1.8. IMPRESSION: Stress test yesterday showed essentially normal myocardial perfusion study, fixed anter ior defect, inferior diaphragmatic attenuation. Ejection fraction 55%. The patient had echocardiogr aphy 10/07/2016 that showed ejection fraction 55%, mild aortic regurgitation, trace mitral regurgitat ion, trace tricuspid regurgitation, right ventricular systolic pressure 20, status post respiratory f ailure, aspiration pneumonia, multiple sclerosis, hypertension, hyperlipidemia. Since the patient is having chest pain and respiratory failure, bed bound, wheelchair bound high risk of a pulmonary embo lism, so we will sent stat CAT CT to rule out pulmonary embolism as never been worked up for pulmonar y embolism. Interim continue deep venous thrombosis prophylaxis. RECOMMENDATION: Interim continue DVT prophylaxis. Continue Mucomyst. Continue antibiotic, continue metoprolol. Followup CT angio. We will follow with you. Thank you, Dr. Torre, for providing the opportunity in taking care of the patient. Laquita Reyna MD cc: [id number] TT: 10/10/2016 09:16:25 Confirmation # [id number] Dictation # [id number]
--- NOTE | 2016-10-10 10:06 | CARD ---
APPROVED REPORT EKG Measurement Heart [id number] <Conclusion> Normal sinus rhythm LVH by voltage
--- NOTE | 2016-10-10 10:30 | PN ---
DATE: 10/10/2016 SUBJECTIVE: The patient is sitting up in bed in no acute distress. There is no chest pain or shortn ess of breath. He is awake and responsive. OBJECTIVE: VITAL SIGNS: Blood pressure 148/90, temperature 98.7, pulse 67, respiratory rate 20. LUNGS: Clear. HEART: Regular rate and rhythm. ABDOMEN: Soft, nontender. Bowel sounds are normoactive. EXTREMITIES: Without cyanosis, clubbing, or edema. NEUROLOGIC: The patient is awake and responsive without focal deficits. SKIN: Warm and dry. LABORATORY DATA: WBC is 10.7, hemoglobin 12.2, hematocrit 36.1. Sodium 143, potassium 3.6, chloride 104, CO2 of 31, BUN 14, creatinine 0.8, glucose 100. CT scan of the chest shows some subsegmental a telectasis at the bases bilaterally, otherwise no active infiltrates noted, no pulmonary embolism. IMPRESSION: 1. Aspiration pneumonia, status post ventilatory failure, clinically improved. 2. Seizure disorder. 3. Multiple sclerosis. 4. History of hypertension. 5. History of Larsen's palsy. 6. Hypercholesterolemia. 7. Gastroesophageal reflux disease. 8. Slight elevation of CPK and troponin levels. PLAN: Continue infectious disease followup with Dr. De Leon. Continue cardiology followup with Dr. Kiana chowdary/Dr. Reyna. Stress test was essentially normal. Continue chopped diet with thickened liquids, aspir ation precautions, physical therapy and social work for discharge planning. Garrett Torre JD, MD cc: [id number] TT: 10/10/2016 10:29:53 Confirmation # [id number] Dictation # [id number] tn
--- NOTE | 2016-10-10 14:43 | CP.PCM.PN ---
Subjective - Date & Time of Evaluation Date of Evaluation: 10/10/16 Time of Evaluation: 14:00 - Subjective Subjective: Infectious Disease Follow Up: October 10, 2016 51 yo male with presentation of SOB, tachypnea, and tachycardia. The patient was intubated in the ER and given Clindamycin and Zosyn in the ER. He was extubated earlier today and remains on Nasal Cannula without any major issues. The patient is awake and alert. Severe Multiple Sclerosis where the patient is mostly bedbound, has random involuntary movements especially of the arms, and he has difficulty with speech. Patient does understand what is going on around him as it is easier for him to say short phrases like "Yes I do" or "No I don't " in interviewing him. More complicated answer before garbled as he speaks. The patient is currently afebrile but had fevers up to 103 F on admission that has slowly downtrended through the course of the day. He was on Cefepime and Clindamycin. RLL possible pneumonia based on Chest X-ray. Events overnight noted. Respiratory distress with severe lethargy overnight into the canvas baster. Fevers spiked back up to 103 to 104.2 F. Noted that Aztreonam started and Cefepime stopped last night. On Vancomycin as well. Would stop Clindamycin and start Flagyl. Unclear if there is a reason to stop Cefepime. Cultures remain negative at 24 and 48 hours. The patient had been intubated twice in this hospitalization but has been extubated for a few days now. Transferred to medical floor. He has been stable to date. Went for stress test. No new complaints. Unclear if there was any indication of allergic reaction to either Vanco or Zosyn. Objective - Vital Signs/Intake and Output Vital Signs (last 24 hours): Temp Pulse Resp BP Pulse Ox 98.9 F 90 20 131/91 H 99 10/10/16 12:00 10/10/16 12:00 10/10/16 12:00 10/10/16 12:00 10/10/16 06:00 Intake and Output: 10/10/16 10/10/16 06:59 18:59 Intake Total 1070 Output Total 1475 Balance -405 - Medications Medications: Current Medications Acetylcysteine (Acetylcysteine 20%) 4 ml IH BIDRESP GOKUL Last Admin: 10/10/16 09:08 Dose: 4 ml Albuterol/Ipratropium (Duoneb 3 Mg/0.5 Mg (3 Ml) Ud) 3 ml IH [id number] [facility] Last Admin: 10/10/16 14:05 Dose: 3 ml Cephalexin Monohydrate (Keflex) 500 mg PO Q8 GOKUL PRN Reason: Protocol Last Admin: 10/10/16 14:14 Dose: 500 mg Heparin Sodium (Porcine) (Heparin) 5,000 units SC Q8 GOKUL PRN Reason: Protocol Last Admin: 10/10/16 14:14 Dose: 5,000 units Lamotrigine (Lamictal) 25 mg PO BID GOKUL PRN Reason: Protocol Last Admin: 10/10/16 10:03 Dose: 25 mg Metoprolol Tartrate (Lopressor) 25 mg PO BID [facility] Last Admin: 10/10/16 10:03 Dose: 25 mg Montelukast Sodium (Singulair) 10 mg PO HS [facility] Last Admin: 10/09/16 22:22 Dose: 10 mg Pantoprazole Sodium (Protonix Inj) 40 mg IVP Q12 GOKUL Last Admin: 10/10/16 10:05 Dose: 40 mg - Labs Labs: 10/10/16 07:00 10/10/16 07:00 - Constitutional Appears: Non-toxic, No Acute Distress, Chronically Ill - Head Exam Head Exam: ATRAUMATIC, NORMOCEPHALIC - Eye Exam Eye Exam: EOMI, PERRL Pupil Exam: NORMAL ACCOMODATION, PERRL - ENT Exam ENT Exam: Mucous Membranes Moist, Normal External Ear Exam, TM's Normal Bilaterally - Neck Exam Neck Exam: Full ROM, Normal Inspection - Respiratory Exam Respiratory Exam: Clear to Ausculation Bilateral, NORMAL BREATHING PATTERN. absent: Rales, Rhonchi, Wheezes - Cardiovascular Exam Cardiovascular Exam: REGULAR RHYTHM, RRR, +S1, +S2 - GI/Abdominal Exam GI & Abdominal Exam: Soft, Normal Bowel Sounds. absent: Distended, Tenderness - Extremities Exam Additional comments: random jerking movement on exam. - Neurological Exam Neurological Exam: Alert, Awake, CN II-XII Intact - Psychiatric Exam Psychiatric exam: Normal Affect, Normal Mood - Skin Skin Exam: Intact, Normal Color Assessment and Plan - Assessment and Plan (Free Text) Assessment: 51 yo male with severe Multiple Sclerosis presented with SOB, tachypnea, and tachycardia. The patient was intubated on admission and febrile up to 103 F. The patient had improved over the past few hours after admission and was extubated. He required reintubation but was extubated a little more than a day later. The patient with findings of RLL pneumonia and questionable LLL pneumonia on Chest CT and the patient had signs of fecal impaction on the CT of the abdomen and pelvis. Cody cultures sent. Fevers on admission up to 103 F. Supportive care. Afebrile the past 48 hours. The patient spiked fevers up to 104.2 F a few nights ago. The patient required intubation in the morning two nights ago. Cultures to date remain negative. On Vancomycin, Flagyl, and Aztreonam. Changed Clindamycin to Flagyl. Guarded prognosis at this time. Cultures negative to date. Supportive care. Extubated now and remains stable. Transferred to the medical floor yesterday. Consider trial of Keflex before discharge to see if there is any allergies to PCN. Data on the night Zosyn was stopped did not provided strong evidence of allergic symptoms. Thank you for allowing me to participate in the care of this patient, we will follow with you.
--- NOTE | 2016-10-10 21:36 | PN ---
DATE: 10/10/2016 REFERRING PHYSICIAN: Dr. Torre. SUBJECTIVELY: The patient is lying in the bed, sleepy, arousable. He was unremarkable, feeling bett er, decreased cough, decreased shortness of breath. No nausea, no vomiting, diarrhea, leg pain, or l eg swelling. OBJECTIVELY: In no acute distress. Temp is 98, heart rate is 87, respiratory rate is 20, blood pressure 128/68, pulse ox 99% on 2 L nasa l cannula. HENT: Moist mucous membranes. Crowded airway. Mallampati score is 4. NECK: Supple, no JVD. LUNGS: Have a fair airflow with few rhonchi. HEART: S1 and S2. ABDOMEN: Soft, nontender. No organomegaly. EXTREMITIES: There is no edema. NEUROLOGICALLY: Awake, alert. Follows simple commands. MEDICATIONS: He is on Mucomyst 20% 4 mL twice a day, inhaled, DuoNeb q. 6 hours, heparin 5000 units subQ q. 8 hours, Keflex 500 mg q. 8 hours, Lamictal is at 25 mg twice a day, metoprolol tartrate 25 m g twice a day, Protonix 40 mg twice a day, Singulair 10 mg daily. LABORATORY DATA: Shows hemoglobin 12.2, hematocrit 36.1, WBC 10.7, platelet is 338. Sodium 143, pot assium 3.6, chloride 104, bicarbonate 31, BUN 14, creatinine 0.8, glucose 100, calcium is 8.7, phosph orus 2.8, magnesium 1.8. Had a CAT scan of the chest done today which shows no evidence of pulmonary embolism, dependent lower lobe subsegmental atelectasis bilaterally with trace left pleural effusion, small hiatus hernia, fat ty liver 3 cm bilobed versus 2 adjacent cysts in the right hepatic lobe. IMPRESSION AND PLAN: Status post respiratory failure, has a multiple sclerosis, gastroesophageal ref lux disease, hypertension, seizure disorder, oropharyngeal dysphagia on modified diet. Pulmonary point of view, he is doing well. High risk for respiratory failure. Avoid sedation. Keep up with pulmonary toilet. Keep head elevated 45 degree, bronchodilator, modified diet. May benefit from physical therapy, out of bed to chair if possible. Thank you, and will follow with you. Laquita Gonzalez MD cc: [facility] TT: 10/10/2016 21:36:25 Confirmation # [id number] Dictation # [id number] jn
[2016-10-11] MEDS: Albuterol-Ipratrop 3 mg / 0.5 (3 ml) UD IH SCH ×3 (01:06→13:10)
[2016-10-11] MEDS: Acetylcysteine 20% Inhal Soln (4ml) IH SCH (08:02)
[2016-10-11 09:21] VITALS: O2SAT 95
--- NOTE | 2016-10-11 09:36 | PN ---
DATE: 10/11/2016 REASON FOR CONSULTATION AND FOLLOWUP: Respiratory failure, status post extubated, multiple sclerosis , cardiac evaluation. BRIEF CLINICAL HISTORY: This is a 51-year-old male with past medical history significant for multipl e sclerosis, seizure disorder, Larsen's palsy, hypertension, hyperlipidemia, mostly bedbound and wheelc hair bound, who admitted after having started coughing, difficult to expectorate secretion. Respirat ory status got worse, requiring intubation; now successfully extubated. During this, patient had 1 b orderline positive troponin. ____ patient had cardiac noninvasive workup including stress test that was negative. Yesterday, the patient underwent CAT scan to rule out PE; PE protocol was negative. The patient is lying flat. Denies any chest pain, shortness of breath, any palpitation. Yesterday, patient had 1 episode of chest pain, left-sided, which is tendon and musculoskeletal. Troponin remai ns negative. PHYSICAL EXAMINATION: VITAL SIGNS: Temperature afebrile, heart rate 77, blood pressure 140/89. HEENT: PERRLA. Extraocular muscles intact. NECK: Supple. No carotid bruits. No thyromegaly. CHEST: Clear to auscultation. HEART: S1, S2 regular. ABDOMEN: Soft. EXTREMITIES: Clubbing and cyanosis negative. BLOOD WORKUP: WBC 10.7, hemoglobin 12.2, hematocrit 36.1, platelet count 338. Chemistry shows sodiu m 143, potassium 3.6, chloride 104, carbon dioxide 31, anion gap of 12, BUN 14, creatinine 0.8. IMPRESSION: Status post respiratory failure, indeterminant range troponin 0.12 and then 0.7. A stre ss test was negative for ischemia. Multiple sclerosis, gastroesophageal reflux. Yesterday, patient underwent CAT scan of the chest to rule out pulmonary embolism; it was negative. Echocardiogram show s ejection fraction 55%, mild aortic regurgitation, trace mitral regurgitation, trace tricuspid regur gitation, right ventricular systolic pressure at 20, as well as respiratory failure, aspiration pneum onia, multiple sclerosis, hypertension, hyperlipidemia. RECOMMENDATION: Continue beta estella. If the blood pressure remains elevated, will start amlodipin e 5 mg. Continue deep venous thrombosis prophylaxis. Discharge planning. We will follow with you. Thank you, Dr. Torre, for providing the opportunity in taking care of the patient. We will discontin ue telemetry. Laquita Reyna MD cc: [id number] TT: 10/11/2016 09:36:02 Confirmation # [id number] Dictation # [id number] mn
[2016-10-11 12:52] VITALS: BP 136/82; PULSE 118; RESP 19; TEMP 98.9
--- NOTE | 2016-10-11 15:03 | DS ---
HOSPITAL COURSE: The patient is a 51-year-old male admitted through the Emergency Department on 10/04 in respiratory distress due to aspiration pneumonia. The patient was intubated and transferred to the intensive care unit. He received IV antibiotics and infectious disease consultation was call ed with Dr. Adrian De Leon. He was seen in consultation by pulmonary, Dr. Gonzalez. The patient was extub ated and had an uneventful post-extubation course. He is currently awake and alert, medically stable for discharge. PHYSICAL EXAMINATION: VITAL SIGNS: Blood pressure 155/93, pulse 77, temperature 98.6, respiratory rate 20. LUNGS: Clear. HEART: Regular rate and rhythm. ABDOMEN: Soft, nontender. Bowel sounds are normoactive. EXTREMITIES: Without cyanosis, clubbing, or edema. NEUROLOGIC: The patient is awake and oriented without focal sensory or motor deficits. SKIN: Warm and dry. IMPRESSION: 1. Aspiration pneumonia, status post ventilatory failure. 2. Seizure disorder. 3. Multiple sclerosis. 4. Hypertension. 5. Larsen's palsy. 6. Hypercholesterolemia. 7. Gastroesophageal reflux disease. 8. Slight elevation of CPK and troponin levels. The patient had a negative stress test and started on oral beta blockers. PLAN: The patient will be discharged today in stable condition on the following medications: Keflex 500 mg q. 8 hours, metoprolol 25 mg twice daily, Lamictal 25 mg twice daily, amlodipine 5 mg daily a nd Singulair 10 mg at bedtime. He will consult his neurologist, Dr. Lindquist, for possible continued C opaxone injections on a weekly basis. He will be maintained on a heart healthy diet. Activity is ad libitum. He will also have a chopped diet with thickened liquids to prevent aspiration. The family was instructed on aspiration precautions. Garrett Torre JD, MD cc: [id number] TT: 10/11/2016 15:02:35 tn
--- NOTE | 2016-10-11 15:30 | CP.PCM.PN ---
Subjective - Date & Time of Evaluation Date of Evaluation: 10/11/16 Time of Evaluation: 13:00 - Subjective Subjective: Infectious Disease Follow Up: October 11, 2016 51 yo male with presentation of SOB, tachypnea, and tachycardia. The patient was intubated in the ER and given Clindamycin and Zosyn in the ER. He was extubated earlier today and remains on Nasal Cannula without any major issues. The patient is awake and alert. Severe Multiple Sclerosis where the patient is mostly bedbound, has random involuntary movements especially of the arms, and he has difficulty with speech. Patient does understand what is going on around him as it is easier for him to say short phrases like "Yes I do" or "No I don't " in interviewing him. More complicated answer before garbled as he speaks. The patient is currently afebrile but had fevers up to 103 F on admission that has slowly downtrended through the course of the day. He was on Cefepime and Clindamycin. RLL possible pneumonia based on Chest X-ray. Events overnight noted. Respiratory distress with severe lethargy overnight into the bow tacker. Fevers spiked back up to 103 to 104.2 F. Noted that Aztreonam started and Cefepime stopped last night. On Vancomycin as well. Would stop Clindamycin and start Flagyl. Unclear if there is a reason to stop Cefepime. Cultures remain negative at 24 and 48 hours. The patient had been intubated twice in this hospitalization but has been extubated for a few days now. Transferred to medical floor. He has been stable to date. Went for stress test. No new complaints. Unclear if there was any indication of allergic reaction to either Vanco or Zosyn. Switched to Keflex at this time. Awaiting discharge. Objective - Vital Signs/Intake and Output Vital Signs (last 24 hours): Temp Pulse Resp BP Pulse Ox 98.9 F 118 H 19 136/82 95 10/11/16 12:00 10/11/16 12:00 10/11/16 12:00 10/11/16 12:10/11/16 09:20 Intake and Output: 10/11/16 10/11/16 06:59 18:59 Intake Total 600 600 Output Total 300 300 Balance 300 300 - Medications Medications: Current Medications Acetylcysteine (Acetylcysteine 20%) 4 ml IH BIDRESP GOKUL Last Admin: 10/11/16 08:02 Dose: 4 ml Albuterol/Ipratropium (Duoneb 3 Mg/0.5 Mg (3 Ml) Ud) 3 ml IH [id number] [facility] Last Admin: 10/11/16 13:10 Dose: 3 ml Amlodipine Besylate (Norvasc) 5 mg PO DAILY [facility] Last Admin: 10/11/16 10:48 Dose: 5 mg Cephalexin Monohydrate (Keflex) 500 mg PO Q8 GOKUL PRN Reason: Protocol Last Admin: 10/11/16 13:19 Dose: 500 mg Heparin Sodium (Porcine) (Heparin) 5,000 units SC Q8 GOKUL PRN Reason: Protocol Last Admin: 10/11/16 13:19 Dose: 5,000 units Lamotrigine (Lamictal) 25 mg PO BID GOKUL PRN Reason: Protocol Last Admin: 10/11/16 10:45 Dose: 25 mg Metoprolol Tartrate (Lopressor) 25 mg PO BID [facility] Last Admin: 10/11/16 10:47 Dose: 25 mg Montelukast Sodium (Singulair) 10 mg PO HS [facility] Last Admin: 10/10/16 22:32 Dose: 10 mg Pantoprazole Sodium (Protonix Inj) 40 mg IVP Q12 [facility] Last Admin: 10/11/16 10:46 Dose: 40 mg - Labs Labs: 10/10/16 07:00 10/10/16 07:00 - Constitutional Appears: Non-toxic, No Acute Distress, Chronically Ill - Head Exam Head Exam: ATRAUMATIC, NORMOCEPHALIC - Eye Exam Eye Exam: EOMI, PERRL Pupil Exam: NORMAL ACCOMODATION, PERRL - ENT Exam ENT Exam: Mucous Membranes Moist, Normal External Ear Exam, TM's Normal Bilaterally - Neck Exam Neck Exam: Full ROM, Normal Inspection - Respiratory Exam Respiratory Exam: Clear to Ausculation Bilateral, NORMAL BREATHING PATTERN. absent: Rales, Rhonchi, Wheezes - Cardiovascular Exam Cardiovascular Exam: REGULAR RHYTHM, RRR, +S1, +S2 - GI/Abdominal Exam GI & Abdominal Exam: Soft, Normal Bowel Sounds. absent: Distended, Tenderness - Extremities Exam Additional comments: random jerking movement on exam. - Neurological Exam Neurological Exam: Alert, Awake, CN II-XII Intact - Skin Skin Exam: Intact, Normal Color Assessment and Plan - Assessment and Plan (Free Text) Assessment: 51 yo male with severe Multiple Sclerosis presented with SOB, tachypnea, and tachycardia. The patient was intubated on admission and febrile up to 103 F. The patient had improved over the past few hours after admission and was extubated. He required reintubation but was extubated a little more than a day later. The patient with findings of RLL pneumonia and questionable LLL pneumonia on Chest CT and the patient had signs of fecal impaction on the CT of the abdomen and pelvis. Cody cultures sent. Fevers on admission up to 103 F. Supportive care. Afebrile the past 48 hours. The patient spiked fevers up to 104.2 F a several nights ago. The patient required intubation in the morning two nights ago. Cultures to date remain negative. On Vancomycin, Flagyl, and Aztreonam. Changed Clindamycin to Flagyl. Guarded prognosis at this time. Cultures negative to date. Supportive care. Extubated and remains stable. Transferred to the medical floor for a few days now. Keflex tolerated by the patient. Data on the night Zosyn was stopped did not provide strong evidence of allergic symptoms. Thank you for allowing me to participate in the care of this patient, we will follow with you.
--- NOTE | 2016-10-11 19:21 | PN ---
DATE: 10/11/2016 REFERRING PHYSICIAN: Dr. Torre. SUBJECTIVE: The patient in the bed, sleepy, arousable, feels much better, decreased cough, decreased shortness of breath. No nausea, no vomiting, no diarrhea. No leg pain or leg swelling. OBJECTIVE: GENERAL: In no acute distress. VITAL SIGNS: Temperature is 98, heart rate is 77, respiratory rate is 20, blood pressure 155/93. HEENT: Moist mucous membranes. No ulcer or oral thrush noted. Crowded airway. NECK: Supple. No JVD. LUNGS: Has a fair airflow with a few rhonchi. HEART: S1, S2. ABDOMEN: Soft, nontender. No organomegaly. EXTREMITIES: There is no edema. NEUROLOGIC: Sleepy, arousable, follows simple commands. MEDICATIONS: Reviewed and no new changes in medication reported since yesterday. LABORATORY DATA: Reviewed and no new lab is available since yesterday. 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 Pulmonary point of view, he is doing well. Keep head elevated at 45 degrees. Avoid se datives. Pulmonary toilet. Will recommend outpatient attended sleep study. Will benefit from noctu rnal CPAP. Thank you. Laquita Gonzalez MD cc: [id number] TT: 10/11/2016 19:20:55 Confirmation # [id number] Dictation # [id number] dn
== END 2016-10-11 15:59 | disposition home or self-care (01) | DRG 208 ==
LOC: ED 20:42 → ERH 21:53 → CCU 10-05 00:40 → 2RNO 10-08 15:29
PROVIDERS: ADMIT Internal Medicine; ATTEND Internal Medicine
PROC: 5A1935Z Respiratory Ventilation, Less than 24 Consecutive Hours (ICD-10-PCS; 2016-10-05)
PROC: 0BH17EZ Insertion of Endotracheal Airway into Trachea, Via Natural or Artificial Opening (ICD-10-PCS; 2016-10-05)
PROC: 5A1945Z Respiratory Ventilation, 24-96 Consecutive Hours (ICD-10-PCS; principal; 2016-10-06)
PROC: 0BH17EZ Insertion of Endotracheal Airway into Trachea, Via Natural or Artificial Opening (ICD-10-PCS; 2016-10-06)
PROC: 3E0F7GC Introduction of Other Therapeutic Substance into Respiratory Tract, Via Natural or Artificial Opening (ICD-10-PCS; 2016-10-06)
DX: J69.0 Pneumonitis due to inhalation of food and vomit (principal); J96.91 Respiratory failure, unspecified with hypoxia; G37.9 Demyelinating disease of central nervous system, unspecified; G35 Multiple sclerosis; I10 Essential (primary) hypertension; G51.0 Bell's palsy; G40.909 Epilepsy, unspecified, not intractable, without status epilepticus; K21.9 Gastro-esophageal reflux disease without esophagitis; E78.00 Pure hypercholesterolemia, unspecified; R00.0 Tachycardia, unspecified; R27.8 Other lack of coordination; E78.5 Hyperlipidemia, unspecified; R59.1 Generalized enlarged lymph nodes; E11.9 Type 2 diabetes mellitus without complications; R13.12 Dysphagia, oropharyngeal phase; G47.30 Sleep apnea, unspecified; Z87.01 Personal history of pneumonia (recurrent); Z74.01 Bed confinement status; Z99.3 Dependence on wheelchair; Z78.1 Physical restraint status

== ENCOUNTER 2016-12-21 14:33 | Inpatient (IN) | payer MEDICARE, MEDICAID ==
[2016-12-21] MEDS ORDERED: Propofol 10 mg/ml Inj (20 ML) IVP ONE (14:43)
--- NOTE | 2016-12-21 14:52 | ED PDOC ---
Arrival/HPI - General Time Seen by Provider: 12/21/16 14:36 Historian: Family, EMS EM Caveat: Acuity of Condition - Critical Care Critical Care Minutes: 60 minutes - History of Present Illness Narrative History of Present Illness (Text): 12/21/16 14:36 A 51 year old male, whose past medical history includes multiple sclerosis, seizure, hypertension and GERD, is brought into the emergency department via EMS. Family states the patient was last seen well around 1100. Family notes patient of coughing a lot this morning and for the past couple of days so he was evaluated by PMD, Dr. Torre at home. He started patient on clindamycin and levofloxacin but hasn't taken the medication yet. Family states that they were told that maybe he aspirated. Family says after the patient's PMD left the patient health started to decline. HPI and ROS limited due to acuity of condition. Patient intubated in the field by EMS with Versed, Succynlcholine, and Etomidate. They said they found him unresponsive with an abnormal breathing pattern. BP in the field was systolic in the 200's. They gave Narcan as well with no response. PMD: Dr. Torre 12/21/16 15:07 Past Medical History - Provider Review Nursing Documentation Reviewed: Yes - Infectious Disease Hx of Infectious Diseases: None - Cardiac Hx Cardiac Disorders: Yes Hx Congestive Heart Failure: No Hx Hypertension: Yes - Pulmonary Hx Chronic Obstructive Pulmonary Disease (COPD): No Hx Pneumonia: Yes (rll infiltrates while in icu w intubation) - Neurological HX Cerebrovascular Accident: No - HEENT Other/Comment: Optic neuritis - Renal Hx Renal Failure: No - Endocrine/Metabolic Hx Diabetes Mellitus Type 1: No Hx Diabetes Mellitus Type 2: No Hx Hypothyroidism: No - Hematological/Oncological Hx Cancer: No - Integumentary Other/Comment: multiple old bruises from banging his lower legs when in a chair - Musculoskeletal/Rheumatological Hx Arthritis: No Hx Rheumatoid Arthritis: No - Gastrointestinal Hx Gastroesophageal Reflux: No - Genitourinary/Gynecological Hx Incontinence: Yes - Psychiatric Hx Substance Use: No - Anesthesia Hx Anesthesia: Yes Hx Anesthesia Reactions: No Hx Malignant Hyperthermia: No Family/Social History - Physician Review Nursing Documentation Reviewed: Yes Family/Social History: Unknown Family HX Smoking Status: Light Smoker < 10 Cigarettes Daily Hx Alcohol Use: No Hx Substance Use: No Allergies/Home Meds Allergies/Adverse Reactions: Allergies No Known Allergies Allergy (Verified 12/21/16 15:14) Home Medications: Home Meds Medication Instructions Recorded Confirmed Pantoprazole Sodium [Protonix] 40 mg PO DAILY 09/14/15 12/21/16 lamoTRIgine [Lamictal] 25 mg PO BID 09/26/15 12/21/16 Review of Systems - Review of Systems Systems not reviewed;Unavailable: Acuity of Condition Physical Exam Vital Signs Reviewed: Yes Vital Signs Temp Pulse Resp BP Pulse Ox 12/21/16 16:37 104.3 F H 117 H 14 138/76 99 12/21/16 16:12 145 H 150/106 H 12/21/16 15:57 145 H 18 150/106 H 100 12/21/16 15:14 103.4 F H 12/21/16 14:34 103.4 F H 157 H 14 187/145 H 96 Temperature: Febrile Blood Pressure: Hypertensive Pulse: Tachycardic Respiratory Rate: Mechanically Ventilated Appearance: Positive for: Ill-Appearing Pain Distress: None Mental Status: Positive for: Comatose - Systems Exam Head: Present: Atraumatic, Normocephalic Pupils: Present: Pinpoint Extroacular Muscles: Present: EOMI Conjunctiva: Present: Normal Mouth: Present: Moist Mucous Membranes Nose (External): Present: Atraumatic Neck: Present: Normal Range of Motion Respiratory/Chest: Present: Clear to Auscultation (with BVM by Respiratory), Good Air Exchange. No: Respiratory Distress, Accessory Muscle Use, Wheezes Cardiovascular: Present: Normal S1, S2, Peripheal Pulses Present, Tachycardic. No: Murmurs Abdomen: Present: Normal Bowel Sounds. No: Tenderness, Distention, Peritoneal Signs Rectal: Present: Other (Temp 103) Back: Present: Normal Inspection Upper Extremity: Present: Normal Inspection. No: Cyanosis, Edema Lower Extremity: Present: Normal Inspection. No: Edema Neurological: Present: Other (not responsive to painful stimuli but patient just received sedation for intubation) Skin: Present: Warm, Dry, Normal Color. No: Rashes Psychiatric: Present: Other (Intubated) Medical Decision Making ED Course and Treatment: 12/21/16 14:36 Impression: A 51 year old male who is unresponsive. Differential Diagnosis include but are not limited to: Sepsis vs. CVA vs Status Epilepticus Plan: -- EKG -- Head CT -- Chest X-ray -- Labs -- Urinalysis -- Vanco and Zosyn IV for broad spectrum Immediately on arrival patient was evaluated by me and suspected to have either seizure due to sepsis or stroke. He appeared to have posturing that could either be due to seizure vs stroke. Family states that his mental status may have been normal at 11 am but it's uncertain by their history what that means because he has MS and always has slurred speech they state. Ativan 2mg IV given which helped with possible seizure activity. Propofol 50 mcg IV given prior to CT Head. I went to the CT scanner with patient. No more seizure like activity. CT Head negative. Tylenol DE ordered for fever. Prior Visits: Notes and results from previous visits were reviewed. The patient last presented to the emergency department on 10/04/16 for evalution of shortness of breath. Progress Notes: EKG: Ordered, reviewed, and independently interpreted the EKG. Rate : 148 BPM Rhythm : Sinus tachycardia Interpretation : No ST-segment elevations 12/21/16 16:[address] Garrett Torre who will take him under his service. Dr. Jimmy Wen came down to evaluation patient and will place in the ICU. Will obtain CT Chest r/o PE. Labetolol 20mg IV ordered for BP and tachy. ICU will f/u CT results. 12/21/16 17:32 Case was discussed with Dr. Lindquist, Neurology, who agrees this is more like a septic picture and not a code stroke. CT Brain w/o contrast is negative. No need for aspirin at this time. Patient's temperature was elevated and nurse place ice packs and gave tylenol. She stated rectal exam seemed like a lot of stool. CT abd/pelv ordered and pending. ICU will f/u CT results. - Critical Care Critical Care Minutes: 60 minutes - Lab Interpretations Lab Results: 12/21/16 15:20 12/21/16 15:13 Lab Results 12/21/16 15:24: Urine Color Yellow, Urine Appearance Clear, Urine pH 7.5, Ur Specific [place] 1.020, Urine Protein Trace H, Urine Glucose (UA) Negative, Urine Ketones Negative, Urine Blood Moderate H, Urine Nitrate Negative, Urine Bilirubin Negative, Urine Urobilinogen 0.2, Ur Leukocyte Esterase Negative, Urine RBC 20 - 25, Urine WBC 1 - 3, Ur Epithelial Cells 0 - 2, Amorphous Sediment Few, Urine Bacteria Many, Urine Other Uyeast 12/21/16 15:20: pO2 127 H, VBG pH 7.38, VBG pCO2 44.0, VBG HCO3 26.0, VBG Total CO2 27.4, VBG O2 Sat (Calc) 99.8 H, VBG Base Excess 0.5, VBG Potassium 3.9, Sodium 142.0, Chloride 109.0 H, Glucose 142 H, Lactate 1.7, FiO2 21.0, Venous Blood Potassium 3.9 12/21/16 15:20: WBC 13.6 H D, RBC 4.97, Hgb 14.0, Hct 40.9 L, MCV 82.3, MCH 28.2 , MCHC 34.2, RDW 13.5, Plt Count 256, MPV 10.4, Gran % 92.3 H, Lymph % (Auto) 3.8 L, Anderson % (Auto) 3.7, Eos % (Auto) 0.1 L, Baso % (Auto) 0.1, Gran # 12.58 H , Lymph # 0.5 L, Anderson # 0.5, Eos # 0.0, Baso # 0.02 12/21/16 15:13: Sodium 144, Chloride 105, Potassium 3.7, Carbon Dioxide 27, Anion Gap 16, BUN 16, Creatinine 1.1, Est GFR ( Amer) > 60, Est GFR (Non- Af Amer) > 60, Random Glucose 141 H, Calcium 9.8, Total Bilirubin 0.9, AST 32, ALT 51, Alkaline Phosphatase 109, Troponin I < 0.01 D, Total Protein 8.3, Albumin 4.6, Globulin 3.7, Albumin/Globulin Ratio 1.2, Triglycerides 154, Cholesterol 261 H, LDL Cholesterol Direct 186 H, HDL Cholesterol 47 12/21/16 15:13: PT 11.5, INR 1.06, APTT 27.6 12/21/16 15:10: pCO2 38, pO2 85.0, HCO3 22.5, ABG pH 7.38, ABG Total CO2 23.7, ABG O2 Saturation 98.9 H, ABG Base Excess -2.3 L, ABG Potassium 3.3 L, Sodium 142.0, Chloride 115.0 H, Glucose 146 H, Lactate 1.2, Mechanical Rate 14, FiO2 50.0, Tidal Volume 450, PEEP 5, Arterial Blood Potassium 3.3 L I have reviewed the lab results: Yes Interpretation: Abnormal lab values (WBC elevated) - RAD Interpretation Radiology Orders: 12/21/16 14:41 HEAD W/O (CODE STROKE) [CT] Stat 12/21/16 14:47 CHEST PORTABLE [RAD] Stat Emblem Maker: Radiologist - EKG Interpretation Interpreted by ED Physician: Yes Type: 12 lead EKG - Medication Orders Current Medication Orders: Propofol (Diprivan) 1,000 mg in 100 mls @ 2.517 mls/hr IV .Q24H PRN; Protocol; 5 MCG/KG/MIN PRN Reason: TITRATE PER MD ORDER Last Admin: 12/21/16 15:06 Dose: 2.517 mls/hr Discontinued Medications Acetaminophen (Tylenol 325 Mg Supp) 650 mg RC STAT STA Stop: 12/21/16 14:43 Last Admin: 12/21/16 15:14 Dose: 650 mg Vancomycin HCl (Vancomycin 1gm) 1 gm in 250 mls @ 167 mls/hr IVPB STAT STA PRN Reason: Protocol Stop: 12/21/16 16:30 Last Admin: 12/21/16 16:47 Dose: 167 mls/hr Piperacillin Sod/Tazobactam Sod (Zosyn 4.5 Gm In Ns 100ml) 4.5 gm in 100 mls @ 200 mls/hr IVPB STAT STA PRN Reason: Protocol Stop: 12/21/16 15:30 Last Admin: 12/21/16 15:13 Dose: 200 mls/hr Iodixanol (Visipaque 320 Mg/Ml 100 Ml) Confirm Administered Dose 100 ml IV .STK- MED ONE Stop: 12/21/16 17:26 Labetalol HCl (Trandate) 20 mg IV STAT STA Stop: 12/21/16 16:08 Last Admin: 12/21/16 16:12 Dose: 20 mg Labetalol HCl (Trandate) Confirm Administered Dose 100 mg .ROUTE .STK-MED ONE Stop: 12/21/16 16:12 Last Admin: 12/21/16 16:37 Dose: Propofol (Diprivan) 50 mg IVP ONCE ONE Stop: 12/21/16 14:44 Last Admin: 12/21/16 15:01 Dose: 50 mg - Scribe Statement The provider has reviewed the documentation as recorded by the Fady De Dios Provider Fady Attestation: All medical record entries made by the Fady were at my direction and personally dictated by me. I have reviewed the chart and agree that the record accurately reflects my personal performance of the history, physical exam, medical decision making, and the department course for this patient. I have also personally directed, reviewed, and agree with the discharge instructions and disposition. Disposition/Present on Arrival - Present on Arrival Any Indicators Present on Arrival: No History of DVT/PE: No History of Uncontrolled Diabetes: No Urinary Catheter: No History Surgical Site Infection Following: None - Disposition Have Diagnosis and Disposition been Completed?: Yes Diagnosis: Respiratory distress, Sepsis Disposition: HOSPITALIZED Disposition Time: 15:59 Patient Plan: Admission Condition: FAIR
[2016-12-21] MEDS ORDERED: Propofol 10 mg/ml 1,000 MG/100 ML VIAL IV PRN (15:00)
[2016-12-21] MEDS ORDERED: Piperacill/Tazo 4.5gm in NS 4.5 GM/100 ML BAG IVPB STA (15:01)
[2016-12-21] MEDS ORDERED: Vancomycin 1gm in NS 250ml 1 GM/250 ML BAG IVPB STA (15:01)
--- NOTE | 2016-12-21 15:10 | CT ---
PROCEDURE: CT HEAD WITHOUT CONTRAST. HISTORY: altered mental status COMPARISON: 09/14/2015 TECHNIQUE: Axial computed tomography images were obtained through the head/brain without intravenous contrast. Radiation dose: Total exam DLP = 801 mGy-cm. This CT exam was performed using one or more of the following dose reduction techniques: Automated exposure control, adjustment of the mA and/or kV according to patient size, and/or use of iterative reconstruction technique. FINDINGS: HEMORRHAGE: No intracranial hemorrhage. BRAIN: No mass effect or edema. No atrophy or chronic microvascular ischemic changes. VENTRICLES: Unremarkable. No hydrocephalus. CALVARIUM: Unremarkable. PARANASAL SINUSES: Unremarkable as visualized. No significant inflammatory changes. MASTOID AIR CELLS: Unremarkable as visualized. No inflammatory changes. OTHER FINDINGS: None. IMPRESSION: No acute findings
[2016-12-21 15:15] LABS: ABG MECHANICAL RATE 14; ARTERIAL BLOOD GAS HCO3 22.5 mmol/L (21-28); ARTERIAL BLOOD GAS PH 7.38 (7.35-7.45); ATERIAL BLOOD GAS PEEP 5
[2016-12-21 15:27] LABS: ADD MANUAL DIFF? NO
[2016-12-21 15:33] LABS: VENOUS BLOOD GAS BASE EXCESS 0.5 mmol/L (0.0-2.0); VENOUS BLOOD PH 7.38 (7.32-7.43)
[2016-12-21 15:35] LABS: PH,URINE 7.5 (4.7-8.0); URINE BILIRUBIN NEGATIVE (NEGATIVE); URINE BLOOD MODERATE (NEGATIVE); URINE GLUCOSE (UA) NEGATIVE (NEGATIVE); URINE KETONE NEGATIVE (NEGATIVE); URINE LEUKOCYTE ESTERASE NEGATIVE Leu/uL (NEGATIVE); URINE PROTEIN TRACE mg/dL (<30 mg/dL); URINE UROBILINOGEN 0.2 E.U./dL (<1 E.U./dL)
[2016-12-21 15:36] LABS: BASO # 0.02 K/mm3 (0.0-2.0); BASO % 0.1 % (0.0-3.0); EOS % 0.1 % (1.5-5.0); GRAN # 12.58 (1.4-6.5); GRAN % 92.3 % (50.0-68.0); HEMATOCRIT 40.9 % (42.0-52.0); LYMPH # 0.5 (1.2-3.4); LYMPH % 3.8 % (22.0-35.0); MEAN CELL VOLUME 82.3 fL (80.0-105.0); MEAN CORPUSCULAR HEMOGLOBIN 28.2 pg (25.0-35.0); MEAN CORPUSCULAR HGB CONC 34.2 g/dl (31.0-37.0); MEAN PLATELET VOLUME 10.4 fl (7.0-11.0); MONO # 0.5 (0.1-0.6); MONO % 3.7 % (1.0-6.0); PLATELET COUNT 256 10^3/uL (120.0-450.0); RED CELL DISTRIBUTION WIDTH 13.5 % (11.5-14.5); WHITE BLOOD COUNT 13.6 10^3/ul (4.5-11.0)
[2016-12-21 15:38] LABS: ALB/GLOB RATIO 1.2 (1.1-1.8); ALKALINE PHOSPHATASE 109 U/L (38-133); ALT/SGPT 51 U/L (7-56); AST/SGOT 32 U/L (15-59); BILIRUBIN,TOTAL 0.9 mg/dL (0.2-1.3); BLOOD UREA NITROGEN 16 mg/dL (7-21); CALCIUM 9.8 mg/dL (8.4-10.5); CARBON DIOXIDE 27 mmol/L (21-33); CHLORIDE 105 mmol/L (98-107); CHOLESTEROL 261 mg/dL (130-200); GFR AFRICAN-AMERICAN > 60; GLUCOSE,RANDOM 141 mg/dL (70-110); POTASSIUM 3.7 mmol/L (3.6-5.0); SODIUM 144 mmol/L (132-148); TOTAL PROTEIN 8.3 g/dL (5.8-8.3)
[2016-12-21 15:40] LABS: URINE APPEARANCE CLEAR (CLEAR); URINE COLOR YELLOW (YELLOW)
[2016-12-21 15:44] LABS: INR 1.06 (0.93-1.08); PARTIAL THROMBOPLASTIN TIME 27.6 Seconds (23.7-30.8)
[2016-12-21 15:48] LABS: URINE AMORPHOUS SEDIMENT FEW; URINE BACTERIA MANY (NEG); URINE EPITHELIAL CELLS 0 - 2 /hpf (0-5); URINE RBC 20 - 25 /hpf (0-2)
[2016-12-21 15:49] LABS: TROPONIN I < 0.01 ng/mL
[2016-12-21] MEDS ORDERED: Labetalol 5 mg/ml Inj 20ML IV STA (16:07)
--- NOTE | 2016-12-21 16:07 | RAD ---
HISTORY: sepsis vs stroke COMPARISON: 10/08/2016 FINDINGS: LUNGS: No active pulmonary disease. PLEURA: No significant pleural effusion identified, no pneumothorax apparent. CARDIOVASCULAR: Normal. OSSEOUS STRUCTURES: No significant abnormalities. VISUALIZED UPPER ABDOMEN: Normal. OTHER FINDINGS: None. IMPRESSION: Endotracheal tube in satisfactory position
[2016-12-21] MEDS ORDERED: Labetalol 5 mg/ml Inj 20ML ONE (16:11)
[2016-12-21] MEDS ORDERED: Iodixanol 320 MG/ML 100 ML BOTTLE IV ONE (17:25)
--- NOTE | 2016-12-21 17:52 | CT ---
PROCEDURE: CT Abdomen and Pelvis without intravenous contrast HISTORY: constipation r/o obstruction COMPARISON: 10/05/2016 TECHNIQUE: Without contrast. Contrast Dose: Radiation dose: Total exam DLP = 853 mGy-cm. This CT exam was performed using one or more of the following dose reduction techniques: Automated exposure control, adjustment of the mA and/or kV according to patient size, and/or use of iterative reconstruction technique. FINDINGS: LOWER THORAX: Unremarkable. LIVER: Unremarkable. No gross lesion or ductal dilatation. GALLBLADDER AND BILE DUCTS: Unremarkable. PANCREAS: Unremarkable. No gross lesion or ductal dilatation. SPLEEN: Unremarkable. ADRENALS: Unremarkable. No mass. KIDNEYS AND URETERS: Multiple renal stones are seen in the left renal pelvis including a stone in the proximal ureter measuring 6 mm. There is a mild to moderate degree of hydronephrosis on the left. Multiple stones are layered in the renal pelvis. There is mild chronic hydronephrosis of the right kidney. Several small stones are seen VASCULATURE: Unremarkable. No aortic aneurysm. BOWEL: Unremarkable. No obstruction. No gross mural thickening. There is a moderate degree of constipation APPENDIX: Unremarkable. Normal appendix. PERITONEUM: Unremarkable. No free fluid. No free air. LYMPH NODES: Unremarkable. No enlarged lymph nodes. BLADDER: Multiple small stones are layered in the bladder. There is a Garcia catheter decompressing the bladder. REPRODUCTIVE: Unremarkable. BONES: No acute fracture. OTHER FINDINGS: None. IMPRESSION: 6 mm left proximal ureteral stone with moderate hydronephrosis. Multiple stones layered in the left renal pelvis. Small stones layered in the urinary bladder. Moderate constipation
--- NOTE | 2016-12-21 17:55 | CP.CCUPN ---
CCU Subjective - Physician Review Events Since Last Encounter (Free Text): 12/21/16 17:49 51 y/o M who presented to the ER intubated. Family states that the patient was becoming more sob and coughing until he suddenly colapsed and was difficult to arrouse. No fevers, chills or seizure like activity was noted. Currently the patient is intubated and sedated on the vent. CCU Objective - Vital Signs / Intake & Output Vital Signs (Last 4 hours): Vital Signs Temp Pulse Resp BP Pulse Ox 12/21/16 16:37 104.3 F H 117 H 14 138/76 99 12/21/16 16:12 145 H 150/106 H - Physical Exam Head: Positive for: Atraumatic, Normocephalic Pupils: Positive for: PERRL, Pinpoint Extroacular Muscles: Positive for: EOMI Conjunctiva: Positive for: Normal Mouth: Positive for: Moist Mucous Membranes Nose (External): Positive for: Atraumatic Neck: Positive for: Normal Range of Motion Respiratory/Chest: Positive for: Clear to Auscultation (with BVM by Respiratory) , Good Air Exchange. Negative for: Respiratory Distress, Accessory Muscle Use, Wheezes Cardiovascular: Positive for: Normal S1, S2, Peripheal Pulses Present, Tachycardic. Negative for: Murmurs Abdomen: Positive for: Normal Bowel Sounds. Negative for: Tenderness, Distention, Peritoneal Signs Rectal: Positive for: Other (Temp 103) Back: Positive for: Normal Inspection Upper Extremity: Positive for: Normal Inspection. Negative for: Cyanosis, Edema Lower Extremity: Positive for: Normal Inspection. Negative for: Edema Neurological: Positive for: Other (not responsive to painful stimuli but patient just received sedation for intubation) Skin: Positive for: Warm, Dry, Normal Color. Negative for: Rashes Psychiatric: Positive for: Other (Intubated) - Medications Active Medications: Active Medications Generic Name Dose Route Start Last Admin Trade Name Freq PRN Reason Stop Dose Admin Propofol 1,000 mg in 100 mls @ 2.517 mls/hr 12/21/16 15:00 12/21/16 15:06 Diprivan IV 2.517 mls/hr .Q24H PRN Administration TITRATE PER MD ORDER Protocol 5 MCG/KG/MIN - Patient Studies Lab Studies: Lab Studies 12/21/16 12/21/16 Range/Units 17:01 16:27 Urine Opiates Screen Negative (NEGATIVE) Urine Methadone Screen Negative (NEGATIVE) Ur Barbiturates Screen Negative (NEGATIVE) Ur Phencyclidine Scrn Negative (NEGATIVE) Ur Amphetamines Screen Negative (NEGATIVE) U Benzodiazepines Scrn Positive H (NEGATIVE) U Oth Cocaine Metabols Negative (NEGATIVE) U Cannabinoids Screen Negative (NEGATIVE) Blood Type O NEGATIVE Antibody Screen Negative BBK History Checked No verified bt Laboratory Results - last 24 hr 12/21/16 12/21/16 16:27 17:01 Urine Opiates Screen Negative Urine Methadone Screen Negative Ur Barbiturates Screen Negative Ur Phencyclidine Scrn Negative Ur Amphetamines Screen Negative U Benzodiazepines Scrn Positive H U Oth Cocaine Metabols Negative U Cannabinoids Screen Negative Blood Type O NEGATIVE Antibody Screen Negative BBK History Checked No verified bt Review of Systems - Review of Systems Systems not reviewed;Unavailable: Altered Mental Status Critical Care Progress Note - Ventilator Checklist Head of Bed 30 Degrees: Yes Daily Sedation Vacation: Yes Daily Assessment of Readiness to Wean: Yes Daily Spontaneous Breathing Trial: Yes PUD Prophalyxis: Yes DVT Prophylaxis: Yes - Nutrition Nutrition: Nutrition Category Date Time Status NPO Diet [DIET] Diets 12/21/16 Breakfast Ordered Assessment/Plan - Assessment and Plan (Free Text) Assessment: 51 y/o M w/ acute respiratory failure of uncertain causes Continue vent support to keep pao2> 60 and PH> 7.3 Empiric abx was given for presumed URI. cx pending Currently lungs are clear to ascultation . CT chest ordered to r/o PE and explore the lung parynchyma . HX of M.S maybe muscle fatigue that caused the respiratory failure from coughing.? Would need MRi brain if mental status doesn't restore by a.m D/w PCP about other contributing factors . R/O seizures. Neurology consulted by pcp. cc time 65 min
[2016-12-21] MEDS ORDERED: cefTRIAXone 1 gm 1 GM/100 ML BAG IVPB SCH (18:00)
--- NOTE | 2016-12-21 18:08 | CT ---
PROCEDURE: CT Chest with contrast (Pulmonary Angiogram) HISTORY: tachy and tachypneic r/o PE COMPARISON: None available. TECHNIQUE: Axial computed tomography images were obtained of the chest in the pulmonary arterial phase of enhancement. Coronal and sagittal reformatted images were created and reviewed. Intravenous contrast dose: 150 cc of Omni 350. Radiation dose: Total exam DLP = 660 mGy-cm. This CT exam was performed using one or more of the following dose reduction techniques: Automated exposure control, adjustment of the mA and/or kV according to patient size, and/or use of iterative reconstruction technique. FINDINGS: PULMONARY ARTERIES: Unremarkable. No pulmonary embolism. AORTA: No acute findings. No thoracic aortic aneurysm. LUNGS: Small area of subsegmental consolidation at the left lung base which may represent atelectasis or an early pneumonia PLEURAL SPACES: Unremarkable. No effusion or pneuomothorax. HEART: Unremarkable. No cardiomegaly. No significant pericardial effusion. LYMPH NODES: No lymphadenopathy. BONES, CHEST WALL: Unremarkable. No fracture or destructive lesion OTHER FINDINGS: Unremarkable. IMPRESSION: No evidence of pulmonary embolus.
[2016-12-21] MEDS ORDERED: Metoprolol 1 mg/ml Inj IVP ONE (18:17)
[2016-12-21] MEDS: Metoprolol 1 mg/ml Inj IVP PRN ×2 (18:35→21:15)
--- NOTE | 2016-12-21 19:21 | HP ---
HISTORY OF PRESENT ILLNESS: The patient is a 51-year-old male admitted through the Emergency Departm ent today with ventilatory failure. The patient was intubated and mechanical ventilation was initiat ed. He is transferred to intensive care unit for further evaluation and management. PAST MEDICAL HISTORY: Includes seizure disorder, multiple sclerosis, Larsen's palsy, hypertension, hyp ercholesterolemia and GERD. There is no history of diabetes mellitus, heart disease or cancer. PAST SURGICAL HISTORY: The patient has no significant past surgical history. CURRENT MEDICATIONS: Include Lamictal 25 mg twice daily, amlodipine 5 mg daily, Singulair 10 mg yoal y, metoprolol 25 mg twice daily. ALLERGIES: The patient has no known drug allergies. SOCIAL HISTORY: The patient is essentially bed and wheelchair bound with total ADLs and IADLs depend ence and lives at home under the care of his parents. There is no history of tobacco, alcohol or darryn g use. REVIEW OF SYSTEMS: The patient is intubated and sedated and history is unobtainable. PHYSICAL EXAMINATION: GENERAL: The patient is a well-developed, slightly cachectic male, intubated and sedated on propofol . VITAL SIGNS: Blood pressure 138/76, pulse 117, temperature 104.3, respiratory rate 14. HEENT: Head is normocephalic, atraumatic. Pupils equal, round, reactive, extraocular movements not tested. NECK: Supple. No thyromegaly, no carotid bruit, no adenopathy. LUNGS: Show some decreased breath sounds at the right base, endotracheal tube is intact with good ai r entry bilaterally. HEART: Regular rate and rhythm, tachycardic. ABDOMEN: Soft, nontender. Bowel sounds are hypoactive. EXTREMITIES: Without cyanosis, clubbing, or edema. NEUROLOGIC: The patient is sedated on the ventilator and unresponsive. SKIN: Warm and dry. LABORATORY DATA: WBCs is 13.6, hemoglobin 14.0, hematocrit 40.9. Sodium 144, potassium 3.7, chlorid e 104, CO2 of 27, BUN 16, creatinine 1.1, glucose 141. IMPRESSION: 1. Recurrent aspiration pneumonia secondary to multiple sclerosis. 2. Multiple sclerosis. 3. Seizure disorder. 4. Hypertension. 5. Larsen's palsy. 6. Hypercholesterolemia. 7. Gastroesophageal reflux disease. PLAN: Continue mechanical ventilation. Will obtain pulmonary consultation with Dr. Gonzalez and neuro logy consult with Dr. Lindquist. Start empiric antibiotics with Rocephin 1 gram IV q. 24 and clindamyci n 600 mg q. 8 hours for anaerobic coverage. Prognosis is guarded. Family is aware. CT scan of the head was performed which showed no acute bleeds or infarcts. CT scan of the chest, abdomen and pelvi s are pending. Garrett Torre JD, MD cc: [id number] TT: 12/21/2016 19:21:00 jn
[2016-12-21] MEDS: Sodium Chloride 0.9% 1,000 ML IV SCH (19:30)
[2016-12-21] MEDS ORDERED: Piperacillin/Tazobact 3.375 gm 100 ML IVPB SCH (21:00)
[2016-12-21] MEDS ORDERED: Pneumococcal 23-Valent Vaccine IM ONE (21:07)
[2016-12-21 21:08] VITALS: BMI 25.4
[2016-12-22] MEDS: Sodium Chloride 0.9% 1,000 ML IV SCH ×3 (02:30→22:09)
[2016-12-22] MEDS ORDERED: Piperacillin/Tazobact 3.375 gm 100 ML IVPB ONE (03:30)
[2016-12-22 06:58] LABS: ADD MANUAL DIFF? NO
[2016-12-22 07:12] LABS: BASO # 0.06 K/mm3 (0.0-2.0); BASO % 0.3 % (0.0-3.0); EOS % 0.1 % (1.5-5.0); GRAN # 16.78 (1.4-6.5); GRAN % 72.8 % (50.0-68.0); HEMATOCRIT 41.7 % (42.0-52.0); LYMPH # 3.2 (1.2-3.4); LYMPH % 13.7 % (22.0-35.0); MEAN CELL VOLUME 85.8 fL (80.0-105.0); MEAN CORPUSCULAR HEMOGLOBIN 28.4 pg (25.0-35.0); MEAN CORPUSCULAR HGB CONC 33.1 g/dl (31.0-37.0); MEAN PLATELET VOLUME 10.2 fl (7.0-11.0); MONO % 13.1 % (1.0-6.0); PLATELET COUNT 190 10^3/uL (120.0-450.0); RED CELL DISTRIBUTION WIDTH 13.9 % (11.5-14.5); WHITE BLOOD COUNT 23.1 10^3/ul (4.5-11.0)
[2016-12-22 07:23] LABS: ALB/GLOB RATIO 1.2 (1.1-1.8); ALKALINE PHOSPHATASE 84 U/L (38-133); ALT/SGPT 48 U/L (7-56); AST/SGOT 47 U/L (15-59); BILIRUBIN,TOTAL 1.4 mg/dL (0.2-1.3); BLOOD UREA NITROGEN 15 mg/dL (7-21); CALCIUM 8.7 mg/dL (8.4-10.5); CARBON DIOXIDE 23 mmol/L (21-33); CHLORIDE 108 mmol/L (95-110); GFR AFRICAN-AMERICAN > 60; GLUCOSE,RANDOM 92 mg/dL (70-110); MAGNESIUM 1.8 mg/dL (1.7-2.2); PHOSPHOROUS 3.4 mg/dL (2.5-4.5); POTASSIUM 4.1 mmol/L (3.6-5.0); SODIUM 142 mmol/L (132-148); TOTAL PROTEIN 6.9 g/dL (5.8-8.3)
[2016-12-22] MEDS ORDERED: Iohexol 240 (50 ml) ONE (07:34)
[2016-12-22] MEDS ORDERED: Propofol 10 mg/ml Inj (20 ML) ONE (07:34)
[2016-12-22] MEDS ORDERED: Phenylephrine 10 mg/ml Inj ONE (07:49)
[2016-12-22] MEDS ORDERED: Vancomycin 1gm in NS 250ml 1 GM/250 ML BAG IVPB SCH (10:00)
--- NOTE | 2016-12-22 12:07 | CP.CCUPN ---
<Ifeoma Sharpe - Last Filed: 12/22/16 13:50> CCU Subjective - Physician Review Events Since Last Encounter (Free Text): 12/22/16 12:03 Stable overnight, taken to OR early this AM Subjective (Free Text): 12/22/16 12:03 Critical care progress note for Dr. Ana Sharpe, PGY-1 Pt S & E at bedside this AM. Pt intubated and sedated, just came back from OR with urology. Pt arousable to toxic stimuli, not verbal stimuli. Plan to decrease sedation and extubate today. CCU Objective - Vital Signs / Intake & Output Vital Signs (Last 4 hours): Vital Signs Temp Pulse Resp BP Pulse Ox 12/22/16 11:01 99.7 F H 100 H 17 81/33 L 87 L 12/22/16 11:00 99.7 F H 95 H 16 100 12/22/16 10:00 99.1 F 80 148/80 100 12/22/16 09:35 99.1 F 76 150/95 H 100 12/22/16 09:00 99.0 F 94 H 65 L 12/22/16 08:27 98.8 F 83 159/99 H 100 12/22/16 08:26 98.8 F 93 H 169/115 H 79 L 12/22/16 08:14 19 100 12/22/16 08:06 143/106 H Intake and Output (Last 8hrs): Intake & Output 12/21/16 12/22/16 12/22/16 22:59 06:59 14:59 Intake Total 3360 1630 Output Total 300 1000 Balance 3060 630 Weight 82.554 kg 77.564 kg Intake: IV 3360 1630 Left Forearm 3350 1550 Right wrist 10 80 Oral 0 Output: Gastric Amount 0 Nares 0 Urine 300 1000 Urethral (Garcia) 300 1000 Other: Voiding Method Incontinent Indwelling Catheter # Bowel Movements 1 0 - Physical Exam Head: Positive for: Atraumatic, Normocephalic Pupils: Positive for: PERRL Extroacular Muscles: Positive for: EOMI Conjunctiva: Positive for: Normal Ears: Positive for: Normal Mouth: Positive for: Moist Mucous Membranes Nose (External): Positive for: Atraumatic Neck: Positive for: Other (ET tube in place) Respiratory/Chest: Positive for: Clear to Auscultation, Good Air Exchange. Negative for: Respiratory Distress, Accessory Muscle Use, Wheezes, Rales, Rhonchi, Tachypneic Cardiovascular: Positive for: Regular Rate and Rhythm, Normal S1, S2. Negative for: Murmurs Abdomen: Positive for: Normal Bowel Sounds. Negative for: Tenderness, Distention, Peritoneal Signs Upper Extremity: Positive for: Normal Inspection. Negative for: Cyanosis, Edema , Swelling, Erythema Lower Extremity: Positive for: Normal Inspection. Negative for: Edema, Swelling , Erythema Neurological: Negative for: GCS=15 (intubated/sedated) Skin: Positive for: Warm, Dry, Normal Color. Negative for: Rashes Psychiatric: Positive for: Other (Intubated/sedated) - Medications Active Medications: Active Medications Generic Name Dose Route Start Last Admin Trade Name Freq PRN Reason Stop Dose Admin Vancomycin HCl 1 gm in 250 mls @ 167 mls/hr 12/22/16 10:00 12/22/16 09:49 Vancomycin 1gm IVPB 167 mls/hr Q12H GOKUL Administration Protocol Sodium Chloride 1,000 mls @ 150 mls/hr 12/21/16 18:30 12/22/16 08:00 Sodium Chloride 0.9% IV 150 mls/hr .Q6H40M GOKUL Administration Ceftriaxone Sodium 1 gm in 100 mls @ 100 mls/hr 12/22/16 12:00 Rocephin 1 Gram Ivpb IVPB DAILY GOKUL Protocol Metoprolol Tartrate 5 mg 12/21/16 18:25 12/21/16 21:15 Lopressor IVP 5 mg Q3H PRN Administration Systolic Blood Pressure - Patient Studies Lab Studies: Lab Studies 12/22/16 12/22/16 12/22/16 Range/Units 08:41 06:50 06:50 WBC 23.1 H D (4.5-11.0) 10^3/ul RBC 4.86 (3.5-6.1) 10^6/uL Hgb 13.8 L (14.0-18.0) gm/dL Hct 41.7 L (42.0-52.0) % MCV 85.8 (80.0-105.0) fL MCH 28.4 (25.0-35.0) pg MCHC 33.1 (31.0-37.0) g/dl RDW 13.9 (11.5-14.5) % Plt Count 190 (120.0-450.0) 10^3/uL MPV 10.2 (7.0-11.0) fl Gran % 72.8 H (50.0-68.0) % Lymph % (Auto) 13.7 L (22.0-35.0) % Irwin % (Auto) 13.1 H (1.0-6.0) % Eos % (Auto) 0.1 L (1.5-5.0) % Baso % (Auto) 0.3 (0.0-3.0) % Gran # 16.78 H (1.4-6.5) Lymph # 3.2 (1.2-3.4) Irwin # 3.0 H (0.1-0.6) Eos # 0.0 (0.0-0.7) Baso # 0.06 (0.0-2.0) K/mm3 Sodium 142 (132-148) mmol/L Potassium 4.1 (3.6-5.0) mmol/L Chloride 108 (95-110) mmol/L Carbon Dioxide 23 (21-33) mmol/L Anion Gap 15 (10-20) BUN 15 (7-21) mg/dL Creatinine 0.9 (0.5-1.4) mg/dL Est GFR ( Amer) > 60 Est GFR (Non-Af Amer) > 60 POC Glucose (mg/dL) 77 (65-110) mg/dL Random Glucose 92 (70-110) mg/dL Calcium 8.7 (8.4-10.5) mg/dL Phosphorus 3.4 (2.5-4.5) mg/dL Magnesium 1.8 (1.7-2.2) mg/dL Total Bilirubin 1.4 H (0.2-1.3) mg/dL AST 47 (15-59) U/L ALT 48 (7-56) U/L Alkaline Phosphatase 84 (38-133) U/L Total Protein 6.9 (5.8-8.3) g/dL Albumin 3.8 (3.0-4.8) g/dL Globulin 3.1 gm/dL Albumin/Globulin Ratio 1.2 (1.1-1.8) Urine Opiates Screen (NEGATIVE) Urine Methadone Screen (NEGATIVE) Ur Barbiturates Screen (NEGATIVE) Ur Phencyclidine Scrn (NEGATIVE) Ur Amphetamines Screen (NEGATIVE) U Benzodiazepines Scrn (NEGATIVE) U Oth Cocaine Metabols (NEGATIVE) U Cannabinoids Screen (NEGATIVE) Blood Type Blood Type Confirm Antibody Screen BBK History Checked 12/21/16 12/21/16 12/21/16 Range/Units 22:10 19:50 17:01 WBC (4.5-11.0) 10^3/ul RBC (3.5-6.1) 10^6/uL Hgb (14.0-18.0) gm/dL Hct (42.0-52.0) % MCV (80.0-105.0) fL MCH (25.0-35.0) pg MCHC (31.0-37.0) g/dl RDW (11.5-14.5) % Plt Count (120.0-450.0) 10^3/uL MPV (7.0-11.0) fl Gran % (50.0-68.0) % Lymph % (Auto) (22.0-35.0) % Irwin % (Auto) (1.0-6.0) % Eos % (Auto) (1.5-5.0) % Baso % (Auto) (0.0-3.0) % Gran # (1.4-6.5) Lymph # (1.2-3.4) Irwin # (0.1-0.6) Eos # (0.0-0.7) Baso # (0.0-2.0) K/mm3 Sodium (132-148) mmol/L Potassium (3.6-5.0) mmol/L Chloride (95-110) mmol/L Carbon Dioxide (21-33) mmol/L Anion Gap (10-20) BUN (7-21) mg/dL Creatinine (0.5-1.4) mg/dL Est GFR ( Amer) Est GFR (Non-Af Amer) POC Glucose (mg/dL) 85 (65-110) mg/dL Random Glucose (70-110) mg/dL Calcium (8.4-10.5) mg/dL Phosphorus (2.5-4.5) mg/dL Magnesium (1.7-2.2) mg/dL Total Bilirubin (0.2-1.3) mg/dL AST (15-59) U/L ALT (7-56) U/L Alkaline Phosphatase (38-133) U/L Total Protein (5.8-8.3) g/dL Albumin (3.0-4.8) g/dL Globulin gm/dL Albumin/Globulin Ratio (1.1-1.8) Urine Opiates Screen Negative (NEGATIVE) Urine Methadone Screen Negative (NEGATIVE) Ur Barbiturates Screen Negative (NEGATIVE) Ur Phencyclidine Scrn Negative (NEGATIVE) Ur Amphetamines Screen Negative (NEGATIVE) U Benzodiazepines Scrn Positive H (NEGATIVE) U Oth Cocaine Metabols Negative (NEGATIVE) U Cannabinoids Screen Negative (NEGATIVE) Blood Type Blood Type Confirm O NEGATIVE Antibody Screen BBK History Checked 12/21/16 Range/Units 16:27 WBC (4.5-11.0) 10^3/ul RBC (3.5-6.1) 10^6/uL Hgb (14.0-18.0) gm/dL Hct (42.0-52.0) % MCV (80.0-105.0) fL MCH (25.0-35.0) pg MCHC (31.0-37.0) g/dl RDW (11.5-14.5) % Plt Count (120.0-450.0) 10^3/uL MPV (7.0-11.0) fl Gran % (50.0-68.0) % Lymph % (Auto) (22.0-35.0) % Irwin % (Auto) (1.0-6.0) % Eos % (Auto) (1.5-5.0) % Baso % (Auto) (0.0-3.0) % Gran # (1.4-6.5) Lymph # (1.2-3.4) Irwin # (0.1-0.6) Eos # (0.0-0.7) Baso # (0.0-2.0) K/mm3 Sodium (132-148) mmol/L Potassium (3.6-5.0) mmol/L Chloride (95-110) mmol/L Carbon Dioxide (21-33) mmol/L Anion Gap (10-20) BUN (7-21) mg/dL Creatinine (0.5-1.4) mg/dL Est GFR ( Amer) Est GFR (Non-Af Amer) POC Glucose (mg/dL) (65-110) mg/dL Random Glucose (70-110) mg/dL Calcium (8.4-10.5) mg/dL Phosphorus (2.5-4.5) mg/dL Magnesium (1.7-2.2) mg/dL Total Bilirubin (0.2-1.3) mg/dL AST (15-59) U/L ALT (7-56) U/L Alkaline Phosphatase (38-133) U/L Total Protein (5.8-8.3) g/dL Albumin (3.0-4.8) g/dL Globulin gm/dL Albumin/Globulin Ratio (1.1-1.8) Urine Opiates Screen (NEGATIVE) Urine Methadone Screen (NEGATIVE) Ur Barbiturates Screen (NEGATIVE) Ur Phencyclidine Scrn (NEGATIVE) Ur Amphetamines Screen (NEGATIVE) U Benzodiazepines Scrn (NEGATIVE) U Oth Cocaine Metabols (NEGATIVE) U Cannabinoids Screen (NEGATIVE) Blood Type O NEGATIVE Blood Type Confirm Antibody Screen Negative BBK History Checked No verified bt Laboratory Results - last 24 hr 12/21/16 12/21/16 12/21/16 16:27 17:01 19:50 WBC RBC Hgb Hct MCV MCH MCHC RDW Plt Count MPV Gran % Lymph % (Auto) Irwin % (Auto) Eos % (Auto) Baso % (Auto) Gran # Lymph # Irwin # Eos # Baso # Sodium Potassium Chloride Carbon Dioxide Anion Gap BUN Creatinine Est GFR ( Amer) Est GFR (Non-Af Amer) POC Glucose (mg/dL) Random Glucose Calcium Phosphorus Magnesium Total Bilirubin AST ALT Alkaline Phosphatase Total Protein Albumin Globulin Albumin/Globulin Ratio Urine Opiates Screen Negative Urine Methadone Screen Negative Ur Barbiturates Screen Negative Ur Phencyclidine Scrn Negative Ur Amphetamines Screen Negative U Benzodiazepines Scrn Positive H U Oth Cocaine Metabols Negative U Cannabinoids Screen Negative Blood Type O NEGATIVE Blood Type Confirm O NEGATIVE Antibody Screen Negative BBK History Checked No verified bt 12/21/16 12/22/16 12/22/16 22:10 06:50 06:50 WBC 23.1 H D RBC 4.86 Hgb 13.8 L Hct 41.7 L MCV 85.8 MCH 28.4 MCHC 33.1 RDW 13.9 Plt Count 190 MPV 10.2 Gran % 72.8 H Lymph % (Auto) 13.7 L Irwin % (Auto) 13.1 H Eos % (Auto) 0.1 L Baso % (Auto) 0.3 Gran # 16.78 H Lymph # 3.2 Irwin # 3.0 H Eos # 0.0 Baso # 0.06 Sodium 142 Potassium 4.1 Chloride 108 Carbon Dioxide 23 Anion Gap 15 BUN 15 Creatinine 0.9 Est GFR ( Amer) > 60 Est GFR (Non-Af Amer) > 60 POC Glucose (mg/dL) 85 Random Glucose 92 Calcium 8.7 Phosphorus 3.4 Magnesium 1.8 Total Bilirubin 1.4 H AST 47 ALT 48 Alkaline Phosphatase 84 Total Protein 6.9 Albumin 3.8 Globulin 3.1 Albumin/Globulin Ratio 1.2 Urine Opiates Screen Urine Methadone Screen Ur Barbiturates Screen Ur Phencyclidine Scrn Ur Amphetamines Screen U Benzodiazepines Scrn U Oth Cocaine Metabols U Cannabinoids Screen Blood Type Blood Type Confirm Antibody Screen BBK History Checked 12/22/16 08:41 WBC RBC Hgb Hct MCV MCH MCHC RDW Plt Count MPV Gran % Lymph % (Auto) Irwin % (Auto) Eos % (Auto) Baso % (Auto) Gran # Lymph # Irwin # Eos # Baso # Sodium Potassium Chloride Carbon Dioxide Anion Gap BUN Creatinine Est GFR ( Amer) Est GFR (Non-Af Amer) POC Glucose (mg/dL) 77 Random Glucose Calcium Phosphorus Magnesium Total Bilirubin AST ALT Alkaline Phosphatase Total Protein Albumin Globulin Albumin/Globulin Ratio Urine Opiates Screen Urine Methadone Screen Ur Barbiturates Screen Ur Phencyclidine Scrn Ur Amphetamines Screen U Benzodiazepines Scrn U Oth Cocaine Metabols U Cannabinoids Screen Blood Type Blood Type Confirm Antibody Screen BBK History Checked Fingerstick Blood Sugar Results: 85 Review of Systems - Review of Systems Systems not reviewed;Unavailable: Intubated All systems: reviewed and no additional remarkable complaints except - Constitutional Constitutional: Fever (over last 24H) Critical Care Progress Note - Ventilator Checklist Head of Bed 30 Degrees: Yes Daily Sedation Vacation: Yes Daily Assessment of Readiness to Wean: Yes Daily Spontaneous Breathing Trial: Yes PUD Prophalyxis: Yes DVT Prophylaxis: Yes Oral Care with Chlorhexidine Gluconate {CHG}: Yes - Vent Settings MODE:: CPAP PRESSURE SUPPORT:: 5 - Extremities/Vascular Does the Patient have a Central Venous Catheter?: No Does the Patient need a Central Venous Catheter?: No Does the Patient have a Garcia Catheter?: Yes Does the Patient need a Garcia Catheter?: Yes Catheter Insertion Criteria: Need for accurate measurement of output in critically ill patient - Prophylaxis GI Prophylaxis GI: PPI - Prophylaxis DVT Prophylaxis DVT: Heparin SQ - Nutrition Nutrition: Nutrition Category Date Time Status NPO Diet [DIET] Diets 12/21/16 Breakfast Ordered Assessment/Plan - Assessment and Plan (Free Text) Assessment: 51M w/PMH sig for MS, HTN, GERD, seizure d/o admitted to ICU s/p AMS due to sepsis 2/2 obstructing Left ureteral stone. Pt intubated/sedated prior to arrival at ED, stabilized overnight. POD #0 from B/L ureteral stent placement. Plan to extubate today. Plan: Neuro hx Seizure d/o Intubated Sedated Arousable to toxic stimuli Will decrease sedation/wean off sedation Plan for extubation today If pt passes swallow eval, will consider re-starting home seizure med CVS Hx HTN BP 171/90 Cont Lopressor 5mg IVP PRN SBP >180 Normocardic Trops neg x 1 Monitor Pulm Acute hypercapneic respiratory failure- resolved Intubated/sedated Sa02 100% Target SaO2 to keep >94% CTA neg for PE Plan to extubate today Chest PT Encourage IS use Monitor GI Swallow eval Will advance diet per recs Recs-Honey thickened liquids, advanced bite size foods, no bread or dry foods, do Barium swallow eval (either inpatient or outpatient) Aspiration precautions Nephro Electrolytes WNL NS@150 Monitor POD#0 s/p B/L ureteral stent placement Garcia in place U/A w/mod blood, trace protein CT ab w/6 mm left proximal ureteral stone with moderate hydronephrosis. Multiple stones layered in the left renal pelvis. Small stones layered in the urinary bladder. Moderate constipation Monitor Endo BS 85 Target euglycemia as per NICE sugar trial ID Febrile over last 24H- Tmax 104.3 Leukocytosis 23.1 from 13.6 Rocephin 1gm Q24H Cont Vanc 1gm Q12H Clindamycin as per PMD FU Blood cxr FU Urine cxr Monitor Heme Hgb 13.8 frp, 14 Hct 41.7 from 40.9 Monitor MSK Monitor for skin break down PT/OT eval Speech and swallow eval OOBTC w/rehabilitation assistant x 2 GI/DVT ppx Heparin SCDs Protonix Dispo Currently on sedation 2/2 intubation Plan to extubate Cont ABx for UTI OOBTC w/rehabilitation assistant x 2 after extub Cont ICU care at this time DW attending - Date & Time Date: 12/22/16 Time: 09:30 <Behzad ARIZMENDI,Tabitha H - Last Filed: 12/22/16 15:49> CCU Objective - Vital Signs / Intake & Output Vital Signs (Last 4 hours): Vital Signs Pulse BP 12/22/16 15:19 113 H 196/77 H Intake and Output (Last 8hrs): Intake & Output 12/22/16 12/22/16 12/22/16 06:59 14:59 22:59 Intake Total 1630 Output Total 1000 Balance 630 Weight 171 lb Intake: IV 1630 Left Forearm 1550 Right wrist 80 Oral 0 Output: Urine 1000 Urethral (Garcia) 1000 Other: Voiding Method Indwelling Catheter # Bowel Movements 0 - Medications Active Medications: Active Medications Generic Name Dose Route Start Last Admin Trade Name Freq PRN Reason Stop Dose Admin Sodium Chloride 1,000 mls @ 150 mls/hr 12/21/16 18:30 12/22/16 08:00 Sodium Chloride 0.9% IV 150 mls/hr .Q6H40M GOKUL Administration Ceftriaxone Sodium 1 gm in 100 mls @ 100 mls/hr 12/22/16 12:00 12/22/16 13:00 Rocephin 1 Gram Ivpb IVPB 100 mls/hr DAILY GOKUL Administration Protocol Clindamycin Phosphate 600 mg/ 54 mls @ 102 mls/hr 12/22/16 14:00 12/22/16 15: 13 Sodium Chloride IVPB 102 mls/hr Q8 GOKUL Administration Protocol Metoprolol Tartrate 5 mg 12/21/16 18:25 12/22/16 15:19 Lopressor IVP 5 mg Q3H PRN Administration Systolic Blood Pressure - Patient Studies Lab Studies: Lab Studies 12/22/16 12/22/16 12/22/16 Range/Units 08:41 06:50 06:50 WBC 23.1 H D (4.5-11.0) 10^3/ul RBC 4.86 (3.5-6.1) 10^6/uL Hgb 13.8 L (14.0-18.0) gm/dL Hct 41.7 L (42.0-52.0) % MCV 85.8 (80.0-105.0) fL MCH 28.4 (25.0-35.0) pg MCHC 33.1 (31.0-37.0) g/dl RDW 13.9 (11.5-14.5) % Plt Count 190 (120.0-450.0) 10^3/uL MPV 10.2 (7.0-11.0) fl Gran % 72.8 H (50.0-68.0) % Lymph % (Auto) 13.7 L (22.0-35.0) % Irwin % (Auto) 13.1 H (1.0-6.0) % Eos % (Auto) 0.1 L (1.5-5.0) % Baso % (Auto) 0.3 (0.0-3.0) % Gran # 16.78 H (1.4-6.5) Lymph # 3.2 (1.2-3.4) Irwin # 3.0 H (0.1-0.6) Eos # 0.0 (0.0-0.7) Baso # 0.06 (0.0-2.0) K/mm3 Sodium 142 (132-148) mmol/L Potassium 4.1 (3.6-5.0) mmol/L Chloride 108 (95-110) mmol/L Carbon Dioxide 23 (21-33) mmol/L Anion Gap 15 (10-20) BUN 15 (7-21) mg/dL Creatinine 0.9 (0.5-1.4) mg/dL Est GFR ( Amer) > 60 Est GFR (Non-Af Amer) > 60 POC Glucose (mg/dL) 77 (65-110) mg/dL Random Glucose 92 (70-110) mg/dL Calcium 8.7 (8.4-10.5) mg/dL Phosphorus 3.4 (2.5-4.5) mg/dL Magnesium 1.8 (1.7-2.2) mg/dL Total Bilirubin 1.4 H (0.2-1.3) mg/dL AST 47 (15-59) U/L ALT 48 (7-56) U/L Alkaline Phosphatase 84 (38-133) U/L Total Protein 6.9 (5.8-8.3) g/dL Albumin 3.8 (3.0-4.8) g/dL Globulin 3.1 gm/dL Albumin/Globulin Ratio 1.2 (1.1-1.8) Urine Opiates Screen (NEGATIVE) Urine Methadone Screen (NEGATIVE) Ur Barbiturates Screen (NEGATIVE) Ur Phencyclidine Scrn (NEGATIVE) Ur Amphetamines Screen (NEGATIVE) U Benzodiazepines Scrn (NEGATIVE) U Oth Cocaine Metabols (NEGATIVE) U Cannabinoids Screen (NEGATIVE) Blood Type Blood Type Confirm Antibody Screen BBK History Checked 12/21/16 12/21/16 12/21/16 Range/Units 22:10 19:50 17:01 WBC (4.5-11.0) 10^3/ul RBC (3.5-6.1) 10^6/uL Hgb (14.0-18.0) gm/dL Hct (42.0-52.0) % MCV (80.0-105.0) fL MCH (25.0-35.0) pg MCHC (31.0-37.0) g/dl RDW (11.5-14.5) % Plt Count (120.0-450.0) 10^3/uL MPV (7.0-11.0) fl Gran % (50.0-68.0) % Lymph % (Auto) (22.0-35.0) % Irwin % (Auto) (1.0-6.0) % Eos % (Auto) (1.5-5.0) % Baso % (Auto) (0.0-3.0) % Gran # (1.4-6.5) Lymph # (1.2-3.4) Irwin # (0.1-0.6) Eos # (0.0-0.7) Baso # (0.0-2.0) K/mm3 Sodium (132-148) mmol/L Potassium (3.6-5.0) mmol/L Chloride (95-110) mmol/L Carbon Dioxide (21-33) mmol/L Anion Gap (10-20) BUN (7-21) mg/dL Creatinine (0.5-1.4) mg/dL Est GFR ( Amer) Est GFR (Non-Af Amer) POC Glucose (mg/dL) 85 (65-110) mg/dL Random Glucose (70-110) mg/dL Calcium (8.4-10.5) mg/dL Phosphorus (2.5-4.5) mg/dL Magnesium (1.7-2.2) mg/dL Total Bilirubin (0.2-1.3) mg/dL AST (15-59) U/L ALT (7-56) U/L Alkaline Phosphatase (38-133) U/L Total Protein (5.8-8.3) g/dL Albumin (3.0-4.8) g/dL Globulin gm/dL Albumin/Globulin Ratio (1.1-1.8) Urine Opiates Screen Negative (NEGATIVE) Urine Methadone Screen Negative (NEGATIVE) Ur Barbiturates Screen Negative (NEGATIVE) Ur Phencyclidine Scrn Negative (NEGATIVE) Ur Amphetamines Screen Negative (NEGATIVE) U Benzodiazepines Scrn Positive H (NEGATIVE) U Oth Cocaine Metabols Negative (NEGATIVE) U Cannabinoids Screen Negative (NEGATIVE) Blood Type Blood Type Confirm O NEGATIVE Antibody Screen BBK History Checked 12/21/16 Range/Units 16:27 WBC (4.5-11.0) 10^3/ul RBC (3.5-6.1) 10^6/uL Hgb (14.0-18.0) gm/dL Hct (42.0-52.0) % MCV (80.0-105.0) fL MCH (25.0-35.0) pg MCHC (31.0-37.0) g/dl RDW (11.5-14.5) % Plt Count (120.0-450.0) 10^3/uL MPV (7.0-11.0) fl Gran % (50.0-68.0) % Lymph % (Auto) (22.0-35.0) % Irwin % (Auto) (1.0-6.0) % Eos % (Auto) (1.5-5.0) % Baso % (Auto) (0.0-3.0) % Gran # (1.4-6.5) Lymph # (1.2-3.4) Irwin # (0.1-0.6) Eos # (0.0-0.7) Baso # (0.0-2.0) K/mm3 Sodium (132-148) mmol/L Potassium (3.6-5.0) mmol/L Chloride (95-110) mmol/L Carbon Dioxide (21-33) mmol/L Anion Gap (10-20) BUN (7-21) mg/dL Creatinine (0.5-1.4) mg/dL Est GFR ( Amer) Est GFR (Non-Af Amer) POC Glucose (mg/dL) (65-110) mg/dL Random Glucose (70-110) mg/dL Calcium (8.4-10.5) mg/dL Phosphorus (2.5-4.5) mg/dL Magnesium (1.7-2.2) mg/dL Total Bilirubin (0.2-1.3) mg/dL AST (15-59) U/L ALT (7-56) U/L Alkaline Phosphatase (38-133) U/L Total Protein (5.8-8.3) g/dL Albumin (3.0-4.8) g/dL Globulin gm/dL Albumin/Globulin Ratio (1.1-1.8) Urine Opiates Screen (NEGATIVE) Urine Methadone Screen (NEGATIVE) Ur Barbiturates Screen (NEGATIVE) Ur Phencyclidine Scrn (NEGATIVE) Ur Amphetamines Screen (NEGATIVE) U Benzodiazepines Scrn (NEGATIVE) U Oth Cocaine Metabols (NEGATIVE) U Cannabinoids Screen (NEGATIVE) Blood Type O NEGATIVE Blood Type Confirm Antibody Screen Negative BBK History Checked No verified bt Laboratory Results - last 24 hr 12/21/16 12/21/16 12/21/16 16:27 17:01 19:50 WBC RBC Hgb Hct MCV MCH MCHC RDW Plt Count MPV Gran % Lymph % (Auto) Irwin % (Auto) Eos % (Auto) Baso % (Auto) Gran # Lymph # Irwin # Eos # Baso # Sodium Potassium Chloride Carbon Dioxide Anion Gap BUN Creatinine Est GFR ( Amer) Est GFR (Non-Af Amer) POC Glucose (mg/dL) Random Glucose Calcium Phosphorus Magnesium Total Bilirubin AST ALT Alkaline Phosphatase Total Protein Albumin Globulin Albumin/Globulin Ratio Urine Opiates Screen Negative Urine Methadone Screen Negative Ur Barbiturates Screen Negative Ur Phencyclidine Scrn Negative Ur Amphetamines Screen Negative U Benzodiazepines Scrn Positive H U Oth Cocaine Metabols Negative U Cannabinoids Screen Negative Blood Type O NEGATIVE Blood Type Confirm O NEGATIVE Antibody Screen Negative BBK History Checked No verified bt 12/21/16 12/22/16 12/22/16 22:10 06:50 06:50 WBC 23.1 H D RBC 4.86 Hgb 13.8 L Hct 41.7 L MCV 85.8 MCH 28.4 MCHC 33.1 RDW 13.9 Plt Count 190 MPV 10.2 Gran % 72.8 H Lymph % (Auto) 13.7 L Irwin % (Auto) 13.1 H Eos % (Auto) 0.1 L Baso % (Auto) 0.3 Gran # 16.78 H Lymph # 3.2 Irwin # 3.0 H Eos # 0.0 Baso # 0.06 Sodium 142 Potassium 4.1 Chloride 108 Carbon Dioxide 23 Anion Gap 15 BUN 15 Creatinine 0.9 Est GFR ( Amer) > 60 Est GFR (Non-Af Amer) > 60 POC Glucose (mg/dL) 85 Random Glucose 92 Calcium 8.7 Phosphorus 3.4 Magnesium 1.8 Total Bilirubin 1.4 H AST 47 ALT 48 Alkaline Phosphatase 84 Total Protein 6.9 Albumin 3.8 Globulin 3.1 Albumin/Globulin Ratio 1.2 Urine Opiates Screen Urine Methadone Screen Ur Barbiturates Screen Ur Phencyclidine Scrn Ur Amphetamines Screen U Benzodiazepines Scrn U Oth Cocaine Metabols U Cannabinoids Screen Blood Type Blood Type Confirm Antibody Screen BBK History Checked 12/22/16 08:41 WBC RBC Hgb Hct MCV MCH MCHC RDW Plt Count MPV Gran % Lymph % (Auto) Irwin % (Auto) Eos % (Auto) Baso % (Auto) Gran # Lymph # Irwin # Eos # Baso # Sodium Potassium Chloride Carbon Dioxide Anion Gap BUN Creatinine Est GFR ( Amer) Est GFR (Non-Af Amer) POC Glucose (mg/dL) 77 Random Glucose Calcium Phosphorus Magnesium Total Bilirubin AST ALT Alkaline Phosphatase Total Protein Albumin Globulin Albumin/Globulin Ratio Urine Opiates Screen Urine Methadone Screen Ur Barbiturates Screen Ur Phencyclidine Scrn Ur Amphetamines Screen U Benzodiazepines Scrn U Oth Cocaine Metabols U Cannabinoids Screen Blood Type Blood Type Confirm Antibody Screen BBK History Checked Critical Care Progress Note - Nutrition Nutrition: Nutrition Category Date Time Status Dysphagia/Modified Consistency Diet [DIET] Diets 12/22/16 Dinner Ordered NPO Diet [DIET] Diets 12/21/16 Breakfast Ordered Attending/Attestation - Attestation I have personally seen and examined this patient.: Yes I have fully participated in the care of the patient.: Yes I have reviewed all pertinent clinical information: Yes Notes (Text): 12/22/16 15:46 51 y/o M admitted w/ AMS w/ SEPSIS Found to have uretral stone w/ UTI/Pyelonephritis S/P B/L uretral stents placed On empiric abx per PCP's orders. Was given vancomycin and Zosyn earlier. Cx to follow up. Passed SBT this morning post -op and was extubated. Currently out of bed to chair. Speech/ swallow eval needed. dvt p Heparin sq tid cc time 65 min
--- NOTE | 2016-12-22 12:12 | CARD ---
APPROVED REPORT EKG Measurement Heart [id number] <Conclusion> Sinus tachycardia Right atrial enlargement T wave abnormality, consider lateral ischemia VS Rate related changes, Pl repeat Abnormal ECG
--- NOTE | 2016-12-22 12:45 | RAD ---
PROCEDURE: Fluoroscopy up to 1 hour HISTORY: BILATERAL URETER STENT INSERTION COMPARISON: TECHNIQUE: Fluoroscopy up to 1 hour. Twelve images were submitted FINDINGS: A stone is visualized in the left proximal ureter. There is placement of bilateral stents. The procedure was performed by Dr. Nury Escobar IMPRESSION: As above
[2016-12-22] MEDS: cefTRIAXone 1 gm 1 GM/100 ML BAG IVPB SCH (13:00)
--- NOTE | 2016-12-22 14:18 | PN ---
DATE: 12/22/2016 SUBJECTIVE: The patient is extubated. He is sitting up in bed, in no acute distress. CT scan of th e abdomen and pelvis showed a 6 mm left proximal ureteral stone with mild hydronephrosis and the te ent underwent a cystoscopy with pigtail stent placement in the left ureter by Dr. Escobar this mornin g. He denies any abdominal pain. There is no chest pain, no shortness breath. There is a nonproduc tive cough. OBJECTIVE: VITAL SIGNS: Blood pressure 120/80, pulse 102, temperature 99.2 rectally, respiratory rate is 20. LUNGS: Show some decreased breath sounds and scattered crepitations at the right base. HEART: Regular rate and rhythm. Slightly tachycardic. ABDOMEN: Soft, nontender, bowel sounds are normoactive. EXTREMITIES: Without cyanosis, clubbing, or edema. NEUROLOGIC: The patient is awake and responsive. SKIN: Warm and dry. LABORATORY DATA: WBCs 23.1, hemoglobin 13.8, hematocrit 41.7. Sodium 142, potassium 4.1, chloride 1 08, CO2 23, BUN 15, creatinine 0.9, glucose 92. CT scan of the chest was negative. IMPRESSION: 1. Aspiration pneumonia, status post ventilatory failure. 2. Multiple sclerosis. 3. Seizure disorder. 4. Left ureteral stone, status post cystoscopy and stent placement by Dr. Escobar. 5. Larsen's palsy. 6. Hypertension. 7. Gastroesophageal reflux disease. 8. Hypercholesterolemia. PLAN: Monitor respiratory status closely. Out of bed as tolerated, aspiration precautions, chest ph ysical therapy. Continue IV antibiotics and pulmonary followup with Dr. Gonzalez. followup with Dr Fifi Escobar. Garrett Torre JD, MD cc: [phone] TT: 12/22/2016 14:17:52 Confirmation # [id number] Dictation # [id number] en
[2016-12-22] MEDS: Metoprolol 1 mg/ml Inj IVP PRN ×2 (15:19→22:19)
[2016-12-22] MEDS ORDERED: guaiFENesin 600 mg ER Tab PO SCH (18:00)
--- NOTE | 2016-12-22 18:27 | CP.PCM.CON ---
History of Present Illness - History of Present Illness History of Present Illness: Infectious Disease Consultation December 22, 2016 51 yo male with presentation of SOB and AMS. The patient had worsening shortness of breath at home to the point that during a coughing fit at home he collapsed. He was intubated in the [place]. The patient was brought to the MICU for further care. He remains intubated and ventilated. The patient was last in [facility] [place] in September 2016. The patient has Multiple Sclerosis. He was sent home with Keflex at this time. He was on Aztreonam and Vancomycin on the past admission. PMHx: Multiple sclerosis, hyperlipidemia, seizures PSHx: none that I am aware of Allergies: NKDA Social Hx: No tobacco, EtOH, illicit drug use Active Medications Guaifenesin (Mucinex La) 600 mg PO BID [facility] Sodium Chloride (Sodium Chloride 0.9%) 1,000 mls @ 150 mls/hr IV .Q6H40M [facility] Last Admin: 12/22/16 08:00 Dose: 150 mls/hr Ceftriaxone Sodium (Rocephin 1 Gram Ivpb) 1 gm in 100 mls @ 100 mls/hr IVPB DAILY [facility] PRN Reason: Protocol Last Admin: 12/22/16 13:00 Dose: 100 mls/hr Clindamycin Phosphate 600 mg/ (Sodium Chloride) 54 mls @ 102 mls/hr IVPB Q8 [facility] PRN Reason: Protocol Last Admin: 12/22/16 15:13 Dose: 102 mls/hr Lamotrigine (Lamictal) 25 mg PO BID [facility] PRN Reason: Protocol Metoprolol Tartrate (Lopressor) 5 mg IVP Q3H PRN PRN Reason: Systolic Blood Pressure Last Admin: 12/22/16 15:19 Dose: 5 mg Family Hx: Unable to obtain at this time ROS: Unable to obtain at this time. Patient has difficulty with speech secondary to Multiple Sclerosis. Past Patient History - Infectious Disease Hx of Infectious Diseases: None - Past Social History Smoking Status: Former Smoker - CARDIAC Hx Hypertension: Yes - PULMONARY Hx Respiratory Disorders: Yes Hx Chronic Obstructive Pulmonary Disease (COPD): No Hx Pneumonia: Yes (rll infiltrates while in icu w intubation) - NEUROLOGICAL Hx Neurological Disorder: Yes HX Cerebrovascular Accident: No Other/Comment: SIMPSON'S PALSY,MULTIPLE SCLEROSIS - HEENT Hx HEENT Problems: Yes Other/Comment: Optic neuritis - RENAL Hx Renal Failure: No - ENDOCRINE/METABOLIC Hx Diabetes Mellitus Type 1: No Hx Diabetes Mellitus Type 2: No Hx Hypothyroidism: No - HEMATOLOGICAL/ONCOLOGICAL Hx Blood Transfusions: No Hx Blood Transfusion Reaction: No - INTEGUMENTARY Hx Dermatological Problems: Yes Other/Comment: multiple old bruises from banging his lower legs when in a chair - MUSCULOSKELETAL/RHEUMATOLOGICAL Hx Musculoskeletal Disorders: Yes (BEDBOUND WHEELCHAIR BOUND) Hx Arthritis: No Hx Falls: Yes - GASTROINTESTINAL Hx Gastroesophageal Reflux: Yes - GENITOURINARY/GYNECOLOGICAL Hx Genitourinary Disorders: Yes Hx Incontinence: Yes - PSYCHIATRIC Hx Psychophysiologic Disorder: No Hx Substance Use: No - SURGICAL HISTORY Hx Surgeries: No - ANESTHESIA Hx Anesthesia Reactions: No Meds Allergies/Adverse Reactions: Allergies Allergy/AdvReac Type Severity Reaction Status Date / Time No Known Allergies Allergy Verified 12/21/16 20:02 - Medications Medications: Current Medications Guaifenesin (Mucinex La) 600 mg PO BID [facility] Sodium Chloride (Sodium Chloride 0.9%) 1,000 mls @ 150 mls/hr IV .Q6H40M [facility] Last Admin: 12/22/16 08:00 Dose: 150 mls/hr Ceftriaxone Sodium (Rocephin 1 Gram Ivpb) 1 gm in 100 mls @ 100 mls/hr IVPB DAILY [facility] PRN Reason: Protocol Last Admin: 12/22/16 13:00 Dose: 100 mls/hr Clindamycin Phosphate 600 mg/ (Sodium Chloride) 54 mls @ 102 mls/hr IVPB Q8 [facility] PRN Reason: Protocol Last Admin: 12/22/16 15:13 Dose: 102 mls/hr Lamotrigine (Lamictal) 25 mg PO BID [facility] PRN Reason: Protocol Metoprolol Tartrate (Lopressor) 5 mg IVP Q3H PRN PRN Reason: Systolic Blood Pressure Last Admin: 12/22/16 15:19 Dose: 5 mg Physical Exam - Constitutional Appears: Toxic, No Acute Distress, Chronically Ill - Head Exam Additional comments: intubated and ventilated. - Eye Exam Eye Exam: EOMI, PERRL Pupil Exam: NORMAL ACCOMODATION, PERRL - ENT Exam ENT Exam: Mucous Membranes Moist, Normal External Ear Exam, TM's Normal Bilaterally - Neck Exam Neck exam: Positive for: Full Rom, Normal Inspection - Respiratory Exam Respiratory Exam: Decreased Breath Sounds. absent: Rales, Rhonchi, Wheezes - Cardiovascular Exam Cardiovascular Exam: REGULAR RHYTHM, RRR, +S1, +S2 - GI/Abdominal Exam GI & Abdominal Exam: Normal Bowel Sounds, Soft. absent: Distended, Tenderness - Extremities Exam Extremities exam: Positive for: full ROM, normal inspection - Neurological Exam Additional comments: intubated and ventilated. - Psychiatric Exam Additional comments: intubated and ventilated. - Skin Skin Exam: Intact, Normal Color Results - Vital Signs Recent Vital Signs: Last Vital Signs Temp 101.1 F H 12/22/16 14:09 Pulse 99 H 12/22/16 17:00 Resp 25 H 12/22/16 17:00 BP 141/72 12/22/16 17:00 Pulse Ox 100 12/22/16 17:00 - Labs Result Diagrams: 12/22/16 06:50 12/22/16 06:50 Labs: Laboratory Results - last 24 hr 12/21/16 12/21/16 12/22/16 19:50 22:10 06:50 WBC 23.1 H D RBC 4.86 Hgb 13.8 L Hct 41.7 L MCV 85.8 MCH 28.4 MCHC 33.1 RDW 13.9 Plt Count 190 MPV 10.2 Gran % 72.8 H Lymph % (Auto) 13.7 L [place] % (Auto) 13.1 H Eos % (Auto) 0.1 L Baso % (Auto) 0.3 Gran # 16.78 H Lymph # 3.2 [place] # 3.0 H Eos # 0.0 Baso # 0.06 Sodium Potassium Chloride Carbon Dioxide Anion Gap BUN Creatinine Est GFR ( Amer) Est GFR (Non-Af Amer) POC Glucose (mg/dL) 85 Random Glucose Calcium Phosphorus Magnesium Total Bilirubin AST ALT Alkaline Phosphatase Total Protein Albumin Globulin Albumin/Globulin Ratio Blood Type Confirm O NEGATIVE 12/22/16 12/22/16 12/22/16 06:50 08:41 11:19 WBC RBC Hgb Hct MCV MCH MCHC RDW Plt Count MPV Gran % Lymph % (Auto) [place] % (Auto) Eos % (Auto) Baso % (Auto) Gran # Lymph # [place] # Eos # Baso # Sodium 142 Potassium 4.1 Chloride 108 Carbon Dioxide 23 Anion Gap 15 BUN 15 Creatinine 0.9 Est GFR ( Amer) > 60 Est GFR (Non-Af Amer) > 60 POC Glucose (mg/dL) 77 83 Random Glucose 92 Calcium 8.7 Phosphorus 3.4 Magnesium 1.8 Total Bilirubin 1.4 H AST 47 ALT 48 Alkaline Phosphatase 84 Total Protein 6.9 Albumin 3.8 Globulin 3.1 Albumin/Globulin Ratio 1.2 Blood Type Confirm 12/22/16 15:56 WBC RBC Hgb Hct MCV MCH MCHC RDW Plt Count MPV Gran % Lymph % (Auto) [place] % (Auto) Eos % (Auto) Baso % (Auto) Gran # Lymph # [place] # Eos # Baso # Sodium Potassium Chloride Carbon Dioxide Anion Gap BUN Creatinine Est GFR ( Amer) Est GFR (Non-Af Amer) POC Glucose (mg/dL) 121 H Random Glucose Calcium Phosphorus Magnesium Total Bilirubin AST ALT Alkaline Phosphatase Total Protein Albumin Globulin Albumin/Globulin Ratio Blood Type Confirm Assessment & Plan - Assessment and Plan (Free Text) Assessment: 51 yo [place] male with left pyelonephritis and nephrolithiasis presenting with sepsis, AMS, SOB, and syncope. Went to OR for stent placement and stone removal today. The patient is currently on Clindamycin and Rocephin. Given prior hospitalizations, would use Zosyn, Cefepime, or even meropenem over Rocephin due the spectrum for gram negative coverage. Would consider a dose of Aminoglycoside as part of patient's coverage. The patient is intubated and ventilated. Supportive care Thank you for allowing me to participate in the care of the patient, we will follow with you.
[2016-12-22] MEDS ORDERED: Amikacin 500 MG in Dextrose 5% In Water 100 ML IVPB ONE (18:30)
[2016-12-22] MEDS: guaiFENesin 600 mg ER Tab PO SCH ×2 (18:49→18:50)
[2016-12-22] MEDS: Arformoterol 15 mcg/2 ml Inh Sol IH SCH (19:55)
[2016-12-22] MEDS: Budesonide 0.5 mg/2 ml Inhal Susp UD IH SCH (19:55)
--- NOTE | 2016-12-22 20:42 | CON ---
DATE: 12/22/2016 HISTORY OF PRESENT ILLNESS: This is a 51-year-old with a past medical history of multiple sclerosis, seizure disorder, Larsen's palsy and GERD came to the hospital with respiratory failure. The patient was intubated and sent to ICU for further management. At the moment, the patient is extubated and ca lled to evaluate the patient. PAST MEDICAL HISTORY: MS and seizures. CURRENT MEDICATIONS: Lamictal 25 mg twice a day, amlodipine 5 mg, metoprolol. ALLERGIES: No known drug allergies. SOCIAL HISTORY: The patient is wheelchair-bound. REVIEW OF SYSTEMS: The patient just recently extubated. PHYSICAL EXAMINATION: HEENT: Normocephalic, atraumatic. NECK: Supple. NEUROLOGIC: Awake, oriented to self. Cranial nerves II-XII were tested. Pupils reactive. Spontane ous movement of the extremities noted. Deep tendon reflexes 1+. Both plantars are downgoing. Senso ry appears intact. Cerebellar gait deferred. IMPRESSION: Encephalopathy superimposed on multiple sclerosis and respiratory failure. Workup in pr ogress. Continue present management. We will follow up. Silvestre Lindquist MD cc: [id number] TT: 12/22/2016 20:42:42 Confirmation # [id number] Dictation # [id number] jamie
--- NOTE | 2016-12-22 23:08 | CON ---
DATE: 12/22/2016 REFERRING PHYSICIAN: Dr. Torre. REASON FOR CONSULT: Respiratory failure, chronic lung disease, may have sleep apnea syndrome, histor y of MS. HISTORY OF PRESENT ILLNESS: This is a 51-year-old gentleman with past medical history significant fo r MS, history of Larsen's palsy, hypertension, seizure disorder, chronic lung disease, may have sleep a pnea syndrome. Apparently came into ER with pain and shortness of breath. He was intubated and li sferred to intensive care unit. He had a CT scan of the abdomen and pelvis done that showed a left u reteral stone with hydronephrosis. He was taken to OR with bilateral ureteral stent placement and ex traction of the stone. Presently, he is extubated, sitting up in a chair, has a cough, sputum produc tion. No nausea, no vomiting, no diarrhea, no leg pain or leg swelling. PAST MEDICAL HISTORY: MS, recurrent aspiration pneumonia, oropharyngeal dysphagia, seizure disorder, history of Larsen's palsy, hypertension, GERD, hyperlipidemia. ALLERGIES: None known. SOCIAL HISTORY: Nonsmoker, nondrinker. FAMILY HISTORY: No significant cardiopulmonary disease reported. MEDICATIONS: He is on amikacin 500 mg 1 dose was given, clindamycin 600 mg q. 8 hours, Lamictal 25 m g twice a day, metoprolol tartrate 5 mg q. hours p.r.n., Mucinex 500 mg twice a day, Rocephin 1 gram daily, IV fluid normal saline at mL per hour. REVIEW OF SYSTEMS: No headache, no rhinitis. He has a cough, pulmonary secretion. No hemoptysis, n o hematemesis, no hematuria, no abdominal pain. No dysuria. No leg pain or leg swelling. PHYSICAL EXAMINATION: GENERAL: Lying in the reclining chair in no acute distress. VITAL SIGNS: Heart rate is 99, respiratory rate is 25, blood pressure 141/72, pulse ox 100% on nasal cannula, temp is 99, T-max 100.2. HEENT: Moist mucous membranes. Crowded airway. Mallampati score is 4. NECK: Supple, no JVD. LUNGS: Scattered rhonchi and crackles. HEART: S1 and S2. ABDOMEN: Soft, nontender. No organomegaly. EXTREMITIES: There is no edema. NEUROLOGIC: Awake, alert, follows simple commands. LABORATORY DATA: Shows hemoglobin 13.8, hematocrit 41.7, WBC 23,000, platelet is 190. INR 1.06, PTT is 28. Blood gases shows pH 7.38, pCO2 of 38, O2 was 85. This is on ventilator with FiO2 of 50%. Presently extubated, pulse ox is 96%. Chemistry shows sodium 142, potassium 4.1, chloride 108, bicar bonate 23, BUN 15, creatinine 0.9, glucose is 92, calcium 8.7, phosphorus 3.4, magnesium 1.8, total b tara 1.4, AST 47, ALT 48, alk phos is 84, albumin is 3.8. Microbiology: Blood cultures have been neg ative. Urine culture, there is no growth. CAT scan of the chest was done on admission and shows no evidence of pulmonary embolism. There is some area of consolidation in the left lung base, may repre sent atelectasis with pneumonia. Also, had a CT of the abdomen and pelvis done, which shows a 6 mm l eft proximal ureteral stone with moderate hydronephrosis, multiple stone derrickman and rigger in the left renal pelv is, stone layered in the urinary bladder, moderate constipation. IMPRESSION AND PLAN: Respiratory failure with sepsis, could be secondary to pneumonia versus urinary tract infection with obstructive renal stone with hydronephrosis, status post ureteral stent placeme nt and extraction of stone, history of multiple sclerosis, may have oropharyngeal dysphagia, seizure disorder, history of Larsen's palsy, hypertension, gastroesophageal reflux disease. I agree with the p resent treatment. Continue antibiotics, bronchodilator. We will place him on BiPAP 12 hour 7, with 35% oxygen while sleeping . Speech therapy evaluation to rule out oropharyngeal dysphagia. Amanda anne followed by infectious disease and urology. , pneumonia. We will add inhaled bronchodilator s. Thank you and will follow with you. Laquita Gonzalez MD cc: [phone] TT: 12/22/2016 21:08:33 Confirmation # [id number] Dictation # [id number] mn
[2016-12-23] MEDS ORDERED: Metoprolol 1 mg/ml Inj IVP ONE (00:01)
[2016-12-23 00:29] LABS: ARTERIAL BLOOD GAS HCO3 20.1 mmol/L (21-28); ARTERIAL BLOOD GAS O2 CAPACITY 16.4 mL/dl (16-24); ARTERIAL BLOOD GAS O2 CONTENT 14.9 ML/dl (15-23); ARTERIAL BLOOD GAS PH 7.48 (7.35-7.45); ARTERIAL BLOOD HGB O2 SAT 88.4 % (95.0-98.0); CARBOXYHEMOGLOBIN 1.6 % (0.5-1.5); HHB 9.2 % (0-5); METHEMOGLOBIN 0.8 % (0.0-3.0)
[2016-12-23] MEDS: Sodium Chloride 0.9% 1,000 ML IV SCH (05:19)
[2016-12-23 05:37] LABS: ADD MANUAL DIFF? NO
[2016-12-23 05:46] LABS: BASO # 0.01 K/mm3 (0.0-2.0); BASO % 0.1 % (0.0-3.0); EOS % 0.1 % (1.5-5.0); GRAN # 8.72 (1.4-6.5); GRAN % 77.8 % (50.0-68.0); HEMATOCRIT 38.2 % (42.0-52.0); LYMPH # 1.9 (1.2-3.4); LYMPH % 16.7 % (22.0-35.0); MEAN CELL VOLUME 83.4 fL (80.0-105.0); MEAN CORPUSCULAR HEMOGLOBIN 27.9 pg (25.0-35.0); MEAN CORPUSCULAR HGB CONC 33.5 g/dl (31.0-37.0); MEAN PLATELET VOLUME 10.7 fl (7.0-11.0); MONO # 0.6 (0.1-0.6); MONO % 5.3 % (1.0-6.0); PLATELET COUNT 214 10^3/uL (120.0-450.0); RED CELL DISTRIBUTION WIDTH 13.9 % (11.5-14.5); WHITE BLOOD COUNT 11.2 10^3/ul (4.5-11.0)
[2016-12-23 05:48] LABS: ALB/GLOB RATIO 1.2 (1.1-1.8); ALKALINE PHOSPHATASE 81 U/L (38-133); ALT/SGPT 48 U/L (7-56); AST/SGOT 40 U/L (15-59); BILIRUBIN,TOTAL 0.8 mg/dL (0.2-1.3); BLOOD UREA NITROGEN 10 mg/dL (7-21); CALCIUM 8.6 mg/dL (8.4-10.5); CARBON DIOXIDE 24 mmol/L (21-33); CHLORIDE 107 mmol/L (95-110); GFR AFRICAN-AMERICAN > 60; GLUCOSE,RANDOM 95 mg/dL (70-110); MAGNESIUM 1.5 mg/dL (1.7-2.2); POTASSIUM 3.5 mmol/L (3.6-5.0); SODIUM 141 mmol/L (132-148); TOTAL PROTEIN 6.9 g/dL (5.8-8.3)
[2016-12-23 06:19] LABS: ARTERIAL BLOOD GAS HCO3 19.8 mmol/L (21-28); ARTERIAL BLOOD GAS O2 CAPACITY 16.6 mL/dl (16-24); ARTERIAL BLOOD GAS PH 7.49 (7.35-7.45); CARBOXYHEMOGLOBIN 1.3 % (0.5-1.5); HHB 3.4 % (0-5); METHEMOGLOBIN 1.3 % (0.0-3.0)
[2016-12-23] MEDS: Metoprolol 1 mg/ml Inj IVP PRN ×2 (06:20→17:12)
[2016-12-23] MEDS ORDERED: Magnesium Sulfate 2 GM in Sodium Chloride 0.9% 100 ML IVPB ONE (06:39)
[2016-12-23] MEDS ORDERED: Potassium Phosphate 15 MMOLE in Dextrose 5% In Water 250 ML IVPB ONE (06:43)
[2016-12-23] MEDS ORDERED: Potassium Chloride 20 mEq ER Tab PO SCH (06:45)
[2016-12-23] MEDS: Arformoterol 15 mcg/2 ml Inh Sol IH SCH ×2 (07:36→19:30)
[2016-12-23] MEDS: Budesonide 0.5 mg/2 ml Inhal Susp UD IH SCH ×2 (07:36→19:30)
--- NOTE | 2016-12-23 07:52 | PCM.URO ---
Urology Progress Note - Objective Lab Results Last 24 Hours: Laboratory Results - last 24 hr 12/22/16 12/22/16 12/22/16 08:41 11:19 15:56 WBC RBC Hgb Hct MCV MCH MCHC RDW Plt Count MPV Gran % Lymph % (Auto) [place] % (Auto) Eos % (Auto) Baso % (Auto) Gran # Lymph # [place] # Eos # Baso # pCO2 pO2 HCO3 ABG pH ABG Total CO2 ABG O2 Saturation ABG O2 Content ABG Base Excess ABG Hemoglobin ABG Carboxyhemoglobin POC ABG HHb (Measured) ABG Methemoglobin ABG O2 Capacity Hgb O2 Saturation FiO2 Sodium Potassium Chloride Carbon Dioxide Anion Gap BUN Creatinine Est GFR ( Amer) Est GFR (Non-Af Amer) POC Glucose (mg/dL) 77 83 121 H Random Glucose Calcium Phosphorus Magnesium Total Bilirubin AST ALT Alkaline Phosphatase Total Protein Albumin Globulin Albumin/Globulin Ratio 12/22/16 12/23/16 12/23/16 21:50 00:20 05:20 WBC 11.2 H D RBC 4.58 Hgb 12.8 L Hct 38.2 L MCV 83.4 MCH 27.9 MCHC 33.5 RDW 13.9 Plt Count 214 MPV 10.7 Gran % 77.8 H Lymph % (Auto) 16.7 L [place] % (Auto) 5.3 Eos % (Auto) 0.1 L Baso % (Auto) 0.1 Gran # 8.72 H Lymph # 1.9 [place] # 0.6 Eos # 0.0 Baso # 0.01 pCO2 27 L pO2 44.0 L* HCO3 20.1 L ABG pH 7.48 H ABG Total CO2 20.9 L ABG O2 Saturation 90.6 L ABG O2 Content 14.9 L ABG Base Excess -2.3 L ABG Hemoglobin 12.0 ABG Carboxyhemoglobin 1.6 H POC ABG HHb (Measured) 9.2 H ABG Methemoglobin 0.8 ABG O2 Capacity 16.4 Hgb O2 Saturation 88.4 L FiO2 40.0 Sodium Potassium Chloride Carbon Dioxide Anion Gap BUN Creatinine Est GFR ( Amer) Est GFR (Non-Af Amer) POC Glucose (mg/dL) 95 Random Glucose Calcium Phosphorus Magnesium Total Bilirubin AST ALT Alkaline Phosphatase Total Protein Albumin Globulin Albumin/Globulin Ratio 12/23/16 12/23/16 05:20 06:10 WBC RBC Hgb Hct MCV MCH MCHC RDW Plt Count MPV Gran % Lymph % (Auto) [place] % (Auto) Eos % (Auto) Baso % (Auto) Gran # Lymph # [place] # Eos # Baso # pCO2 26 L pO2 60.0 L HCO3 19.8 L ABG pH 7.49 H ABG Total CO2 20.6 L ABG O2 Saturation 96.5 ABG O2 Content 16.0 ABG Base Excess -2.3 L ABG Hemoglobin 12.1 ABG Carboxyhemoglobin 1.3 POC ABG HHb (Measured) 3.4 ABG Methemoglobin 1.3 ABG O2 Capacity 16.6 Hgb O2 Saturation 94.0 L FiO2 60.0 Sodium 141 Potassium 3.5 L Chloride 107 Carbon Dioxide 24 Anion Gap 14 BUN 10 Creatinine 0.8 Est GFR ( Amer) > 60 Est GFR (Non-Af Amer) > 60 POC Glucose (mg/dL) Random Glucose 95 Calcium 8.6 Phosphorus 2.0 L Magnesium 1.5 L Total Bilirubin 0.8 AST 40 ALT 48 Alkaline Phosphatase 81 Total Protein 6.9 Albumin 3.7 Globulin 3.1 Albumin/Globulin Ratio 1.2 Intake & Output: Intake & Output 12/22/16 12/23/16 12/23/16 18:59 06:59 18:59 Intake Total 1899 Output Total 950 Balance 949 Intake: IV 1819 Left Forearm 1819 Oral 80 Output: Urine 950 Urethral (Garcia) 950 Other: Voiding Method Indwelling Catheter Indwelling Catheter Vital Signs: Vital Signs - 24 hr 12/22/16 12/22/16 12/22/16 08:06 08:14 08:15 Temperature Pulse Rate 82 Respiratory 19 Rate Blood Pressure 143/106 H O2 Sat by Pulse 100 Oximetry 12/22/16 12/22/16 12/22/16 08:22 08:26 08:27 Temperature 98.6 F 98.8 F 98.8 F Pulse Rate 93 H 83 Respiratory Rate Blood Pressure 169/115 H 159/99 H O2 Sat by Pulse 79 L 100 Oximetry 12/22/16 12/22/16 12/22/16 09:00 09:35 10:00 Temperature 99.0 F 99.1 F 99.1 F Pulse Rate 94 H 76 80 Respiratory Rate Blood Pressure 150/95 H 148/80 O2 Sat by Pulse 65 L 100 100 Oximetry 12/22/16 12/22/16 12/22/16 11:00 11:01 11:48 Temperature 99.7 F H 99.7 F H 99.5 F Pulse Rate 95 H 100 H Respiratory 16 17 Rate Blood Pressure 81/33 L O2 Sat by Pulse 100 87 L Oximetry 12/22/16 12/22/16 12/22/16 12:00 12:03 13:00 Temperature 100.2 F H 100.6 F H Pulse Rate 97 H 98 H 102 H Respiratory 20 Rate Blood Pressure O2 Sat by Pulse 100 100 Oximetry 12/22/16 12/22/16 12/22/16 13:01 13:25 14:00 Temperature 100.6 F H 100.6 F H 100.9 F H Pulse Rate 102 H 105 H 101 H Respiratory 25 H 23 22 Rate Blood Pressure 174/103 H 167/62 H O2 Sat by Pulse 99 96 97 Oximetry 12/22/16 12/22/16 12/22/16 14:09 15:00 15:02 Temperature 101.1 F H Pulse Rate 111 H 113 H 106 H Respiratory 49 H 21 24 Rate Blood Pressure 163/87 H 196/77 H O2 Sat by Pulse 85 L 87 L 73 L Oximetry 12/22/16 12/22/16 12/22/16 15:10 15:19 16:00 Temperature 101.1 F H Pulse Rate 113 H 96 H Respiratory 28 H Rate Blood Pressure 196/77 H 192/109 H O2 Sat by Pulse 99 Oximetry 12/22/16 12/22/16 12/22/16 16:24 16:28 16:58 Temperature Pulse Rate 99 H 105 H 99 H Respiratory 31 H 31 H 30 H Rate Blood Pressure 181/121 H 170/104 H 146/106 H O2 Sat by Pulse 94 L 100 100 Oximetry 12/22/16 12/22/16 12/22/16 17:00 18:00 18:01 Temperature 100.6 F H Pulse Rate 99 H 101 H Respiratory 25 H 17 Rate Blood Pressure 141/72 151/110 H O2 Sat by Pulse 100 Oximetry 12/22/16 12/22/16 12/22/16 18:38 19:00 20:00 Temperature 100.2 F H Pulse Rate 110 H 110 H 120 H Respiratory 24 25 H 20 Rate Blood Pressure 147/85 122/90 139/82 O2 Sat by Pulse 100 Oximetry 12/22/16 12/22/16 12/22/16 21:00 22:00 22:19 Temperature Pulse Rate 127 H 130 H 131 H Respiratory 28 H 29 H Rate Blood Pressure 151/95 H 148/98 H 148/98 H O2 Sat by Pulse Oximetry 12/22/16 12/22/16 12/22/16 23:00 23:02 23:38 Temperature Pulse Rate 116 H 121 H 127 H Respiratory 29 H 32 H 30 H Rate Blood Pressure 148/109 H 175/98 H O2 Sat by Pulse 79 L Oximetry 12/23/16 12/23/16 12/23/16 00:00 00:06 00:14 Temperature 103 F H Pulse Rate 133 H 131 H 114 H Respiratory 33 H Rate Blood Pressure 161/102 H 175/98 H O2 Sat by Pulse 93 L 92 L Oximetry 12/23/16 12/23/16 12/23/16 00:24 00:30 00:50 Temperature Pulse Rate 113 H 117 H Respiratory 32 H 26 H 25 H Rate Blood Pressure 141/104 H 151/99 H O2 Sat by Pulse 94 L 99 Oximetry 12/23/16 12/23/16 12/23/16 01:00 02:00 03:00 Temperature Pulse Rate 115 H 116 H 117 H Respiratory 26 H 24 22 Rate Blood Pressure 154/97 H 135/90 166/114 H O2 Sat by Pulse 100 99 99 Oximetry 12/23/16 12/23/16 12/23/16 04:00 04:01 05:00 Temperature Pulse Rate 123 H 122 H 127 H Respiratory 28 H 27 H 25 H Rate Blood Pressure 124/90 O2 Sat by Pulse 88 L 96 94 L Oximetry 12/23/16 12/23/16 12/23/16 05:02 05:29 06:20 Temperature 101.9 F H Pulse Rate 126 H 133 H Respiratory 28 H Rate Blood Pressure 130/69 184/113 H O2 Sat by Pulse 100 Oximetry
[2016-12-23] MEDS ORDERED: Labetalol 5 mg/ml Inj 20ML IV ONE (08:13)
--- NOTE | 2016-12-23 08:29 | RAD ---
HISTORY: REPEAT COMPARISON: Earlier same day FINDINGS: LUNGS: There is an infiltrate in the left lower lobe. There is some linear atelectasis in the right lung PLEURA: No significant pleural effusion identified, no pneumothorax apparent. CARDIOVASCULAR: Mild cardiomegaly OSSEOUS STRUCTURES: No significant abnormalities. VISUALIZED UPPER ABDOMEN: Normal. OTHER FINDINGS: None. IMPRESSION: Left lower lobe infiltrate
[2016-12-23] MEDS ORDERED: Acetylcysteine 20% Inhal Soln (4ml) PO SCH ×2 (08:30→10:00)
[2016-12-23] MEDS: Albuterol 0.083% Inhal Sol (2.5 mg/3 mL) UD IH SCH ×4 (08:30→19:30)
--- NOTE | 2016-12-23 08:35 | RAD ---
HISTORY: sob COMPARISON: 12/21/2016 FINDINGS: LUNGS: There is a patchy alveolar infiltrate in the left lower lobe consistent with pneumonia PLEURA: No significant pleural effusion identified, no pneumothorax apparent. CARDIOVASCULAR: Normal. OSSEOUS STRUCTURES: No significant abnormalities. VISUALIZED UPPER ABDOMEN: Normal. OTHER FINDINGS: None. IMPRESSION: Left lower lobe infiltrate
[2016-12-23] MEDS ORDERED: Meropenem 1g/NS 100mL IVPB 1 GM/100 ML PIGGYBACK IVPB STA (08:38)
[2016-12-23] MEDS ORDERED: Acetylcysteine 20% Inhal Soln (4ml) IH SCH (09:53)
--- NOTE | 2016-12-23 10:13 | CP.CCUPN ---
<OliviaAdarsh sen - Last Filed: 12/23/16 10:01> CCU Subjective - Physician Review Events Since Last Encounter (Free Text): 12/23/16 10:01 Patient was seen and examined at bedside and is somewhat worse today. Patient had a Tmax of 103F overnight and required IV ofirmev as well as tachycardia and hypertension requiring metoprolol IV. Patient minimally verbal at this time which appears to be his baseline, mumbles, shakes head and nods to questions. No complaints at this time, did require some suctioning this AM from respiratory. CCU Objective - Vital Signs / Intake & Output Vital Signs (Last 4 hours): Vital Signs Pulse BP 12/23/16 08:30 134 H 157/101 H 12/23/16 06:20 133 H 184/113 H Intake and Output (Last 8hrs): Intake & Output 12/22/16 12/23/16 12/23/16 22:59 06:59 14:59 Intake Total 1899 2300 Output Total 950 1400 Balance 949 900 Intake: IV 1819 2200 Left Forearm 1819 Left Wrist 2200 Oral 80 100 Output: Urine 950 1400 Urethral (Garcia) 950 1400 Other: Voiding Method Indwelling Catheter Indwelling Catheter # Bowel Movements 0 - Physical Exam Head: Positive for: Atraumatic, Normocephalic Pupils: Positive for: PERRL Extroacular Muscles: Positive for: EOMI Conjunctiva: Positive for: Normal Ears: Positive for: Normal Mouth: Positive for: Moist Mucous Membranes Nose (External): Positive for: Atraumatic Neck: Positive for: Trachea Midline. Negative for: JVD, Lymphadenopathy Respiratory/Chest: Positive for: Clear to Auscultation, Decreased Breath Sounds (mildly). Negative for: Respiratory Distress, Accessory Muscle Use, Wheezes, Rales, Rhonchi, Tachypneic Cardiovascular: Positive for: Normal S1, S2, Tachycardic. Negative for: Murmurs , Rub, Gallop Abdomen: Positive for: Normal Bowel Sounds. Negative for: Tenderness, Distention, Peritoneal Signs Upper Extremity: Positive for: Normal Inspection, Capillary Refill < 2s. Negative for: Cyanosis, Edema, Swelling, Erythema Lower Extremity: Positive for: Normal Inspection, Capillary Refill < 2 s. 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 Negative for: Rashes - Medications Active Medications: Active Medications Generic Name Dose Route Start Last Admin Trade Name Freq PRN Reason Stop Dose Admin Acetylcysteine 3 ml 12/23/16 09:53 Acetylcysteine 20% IH Q4H TARAN Albuterol Sulfate 2.5 mg 12/23/16 08:30 Albuterol 0.083% Inhal Jo (2.5 Mg/3 Ml) Ud IH [id number] TARAN Arformoterol Tartrate 15 mcg 12/22/16 20:00 12/23/16 07:36 Brovana IH 15 mcg [id number] TARAN Administration Budesonide 0.5 mg 12/22/16 20:00 12/23/16 07:36 Pulmicort Respules IH 0.5 mg [id number] TARAN Administration Guaifenesin 600 mg 12/22/16 17:00 12/22/16 18:50 Mucinex La PO Not Given BID TARAN Heparin Sodium (Porcine) 5,000 units 12/23/16 14:00 Heparin SC Q8 TARAN Protocol Ceftriaxone Sodium 1 gm in 100 mls @ 100 mls/hr 12/22/16 12:00 12/22/16 13:00 Rocephin 1 Gram Ivpb IVPB 100 mls/hr DAILY TARAN Administration Protocol Clindamycin Phosphate 600 mg/ 54 mls @ 102 mls/hr 12/22/16 14:00 12/23/16 05: 11 Sodium Chloride IVPB 102 mls/hr Q8 TARAN Administration Protocol Acetaminophen 1,000 mg in 100 mls @ 400 mls/hr 12/23/16 00:01 12/23/16 08:15 Ofirmev IVPB 12/25/16 00:02 400 mls/hr Q6H PRN Administration Temperature Potassium Phosphate 15 mmole/ 255 mls @ 42.5 mls/hr 12/23/16 06:43 12/23/16 09:09 Dextrose IVPB 12/23/16 12:42 42.5 mls/hr ONCE ONE Administration Potassium Chloride 10 meq in 100 mls @ 100 mls/hr 12/23/16 08:00 12/23/16 08: 55 Potassium Chloride 10 Meq/100 Ml IVPB 12/23/16 14:59 100 mls/hr Q2H TARAN Administration Meropenem 1g/NS 100mL IVPB 1 gm in 100 mls @ 100 mls/hr 12/23/16 14:00 Meropenem 1g/Ns 100ml Ivpb IVPB 12/23/16 22:59 Q8 [facility] Protocol Lamotrigine 25 mg 12/22/16 18:00 Lamictal PO BID [facility] Protocol Metoprolol Tartrate 5 mg 12/21/16 18:25 12/23/16 06:20 Lopressor IVP 5 mg Q3H PRN Administration Systolic Blood Pressure - Patient Studies Lab Studies: Microbiology Studies 12/21/16 18:00 MRSA Culture (Admit) - Final Naris MRSA NOT DETECTED 12/21/16 16:00 Blood Culture - Preliminary Blood NO GROWTH AFTER 24 HOURS Lab Studies 12/23/16 12/23/16 12/23/16 Range/Units 06:10 05:20 05:20 WBC 11.2 H D (4.5-11.0) 10^3/ul RBC 4.58 (3.5-6.1) 10^6/uL Hgb 12.8 L (14.0-18.0) gm/dL Hct 38.2 L (42.0-52.0) % MCV 83.4 (80.0-105.0) fL MCH 27.9 (25.0-35.0) pg MCHC 33.5 (31.0-37.0) g/dl RDW 13.9 (11.5-14.5) % Plt Count 214 (120.0-450.0) 10^3/uL MPV 10.7 (7.0-11.0) fl Gran % 77.8 H (50.0-68.0) % Lymph % (Auto) 16.7 L (22.0-35.0) % [place] % (Auto) 5.3 (1.0-6.0) % Eos % (Auto) 0.1 L (1.5-5.0) % Baso % (Auto) 0.1 (0.0-3.0) % Gran # 8.72 H (1.4-6.5) Lymph # 1.9 (1.2-3.4) [place] # 0.6 (0.1-0.6) Eos # 0.0 (0.0-0.7) Baso # 0.01 (0.0-2.0) K/mm3 pCO2 26 L (35-45) mm/Hg pO2 60.0 L (80-100) mm/Hg HCO3 19.8 L (21-28) mmol/L ABG pH 7.49 H (7.35-7.45) ABG Total CO2 20.6 L (22-28) mmol.L ABG O2 Saturation 96.5 (95-98) % ABG O2 Content 16.0 (15-23) ML/dl ABG Base Excess -2.3 L (-2.0-3.0) mmol/L ABG Hemoglobin 12.1 (11.7-17.4) g/dL ABG Carboxyhemoglobin 1.3 (0.5-1.5) % POC ABG HHb (Measured) 3.4 (0-5) % ABG Methemoglobin 1.3 (0.0-3.0) % ABG O2 Capacity 16.6 (16-24) mL/dl Hgb O2 Saturation 94.0 L (95.0-98.0) % FiO2 60.0 % Sodium 141 (132-148) mmol/L Potassium 3.5 L (3.6-5.0) mmol/L Chloride 107 (95-110) mmol/L Carbon Dioxide 24 (21-33) mmol/L Anion Gap 14 (10-20) BUN 10 (7-21) mg/dL Creatinine 0.8 (0.5-1.4) mg/dL Est GFR ( Amer) > 60 Est GFR (Non-Af Amer) > 60 POC Glucose (mg/dL) (65-110) mg/dL Random Glucose 95 (70-110) mg/dL Calcium 8.6 (8.4-10.5) mg/dL Phosphorus 2.0 L (2.5-4.5) mg/dL Magnesium 1.5 L (1.7-2.2) mg/dL Total Bilirubin 0.8 (0.2-1.3) mg/dL AST 40 (15-59) U/L ALT 48 (7-56) U/L Alkaline Phosphatase 81 (38-133) U/L Total Protein 6.9 (5.8-8.3) g/dL Albumin 3.7 (3.0-4.8) g/dL Globulin 3.1 gm/dL Albumin/Globulin Ratio 1.2 (1.1-1.8) 12/23/16 12/22/16 12/22/16 Range/Units 00:20 21:50 15:56 WBC (4.5-11.0) 10^3/ul RBC (3.5-6.1) 10^6/uL Hgb (14.0-18.0) gm/dL Hct (42.0-52.0) % MCV (80.0-105.0) fL MCH (25.0-35.0) pg MCHC (31.0-37.0) g/dl RDW (11.5-14.5) % Plt Count (120.0-450.0) 10^3/uL MPV (7.0-11.0) fl Gran % (50.0-68.0) % Lymph % (Auto) (22.0-35.0) % [place] % (Auto) (1.0-6.0) % Eos % (Auto) (1.5-5.0) % Baso % (Auto) (0.0-3.0) % Gran # (1.4-6.5) Lymph # (1.2-3.4) [place] # (0.1-0.6) Eos # (0.0-0.7) Baso # (0.0-2.0) K/mm3 pCO2 27 L (35-45) mm/Hg pO2 44.0 L* (80-100) mm/Hg HCO3 20.1 L (21-28) mmol/L ABG pH 7.48 H (7.35-7.45) ABG Total CO2 20.9 L (22-28) mmol.L ABG O2 Saturation 90.6 L (95-98) % ABG O2 Content 14.9 L (15-23) ML/dl ABG Base Excess -2.3 L (-2.0-3.0) mmol/L ABG Hemoglobin 12.0 (11.7-17.4) g/dL ABG Carboxyhemoglobin 1.6 H (0.5-1.5) % POC ABG HHb (Measured) 9.2 H (0-5) % ABG Methemoglobin 0.8 (0.0-3.0) % ABG O2 Capacity 16.4 (16-24) mL/dl Hgb O2 Saturation 88.4 L (95.0-98.0) % FiO2 40.0 % Sodium (132-148) mmol/L Potassium (3.6-5.0) mmol/L Chloride (95-110) mmol/L Carbon Dioxide (21-33) mmol/L Anion Gap (10-20) BUN (7-21) mg/dL Creatinine (0.5-1.4) mg/dL Est GFR ( Amer) Est GFR (Non-Af Amer) POC Glucose (mg/dL) 95 121 H (65-110) mg/dL Random Glucose (70-110) mg/dL Calcium (8.4-10.5) mg/dL Phosphorus (2.5-4.5) mg/dL Magnesium (1.7-2.2) mg/dL Total Bilirubin (0.2-1.3) mg/dL AST (15-59) U/L ALT (7-56) U/L Alkaline Phosphatase (38-133) U/L Total Protein (5.8-8.3) g/dL Albumin (3.0-4.8) g/dL Globulin gm/dL Albumin/Globulin Ratio (1.1-1.8) // Range/Units 11:19 WBC (4.5-11.0) 10^3/ul RBC (3.5-6.1) 10^6/uL Hgb (14.0-18.0) gm/dL Hct (42.0-52.0) % MCV (80.0-105.0) fL MCH (25.0-35.0) pg MCHC (31.0-37.0) g/dl RDW (11.5-14.5) % Plt Count (120.0-450.0) 10^3/uL MPV (7.0-11.0) fl Gran % (50.0-68.0) % Lymph % (Auto) (22.0-35.0) % [place] % (Auto) (1.0-6.0) % Eos % (Auto) (1.5-5.0) % Baso % (Auto) (0.0-3.0) % Gran # (1.4-6.5) Lymph # (1.2-3.4) [place] # (0.1-0.6) Eos # (0.0-0.7) Baso # (0.0-2.0) K/mm3 pCO2 (35-45) mm/Hg pO2 (80-100) mm/Hg HCO3 (21-28) mmol/L ABG pH (7.35-7.45) ABG Total CO2 (22-28) mmol.L ABG O2 Saturation (95-98) % ABG O2 Content (15-23) ML/dl ABG Base Excess (-2.0-3.0) mmol/L ABG Hemoglobin (11.7-17.4) g/dL ABG Carboxyhemoglobin (0.5-1.5) % POC ABG HHb (Measured) (0-5) % ABG Methemoglobin (0.0-3.0) % ABG O2 Capacity (16-24) mL/dl Hgb O2 Saturation (95.0-98.0) % FiO2 % Sodium (132-148) mmol/L Potassium (3.6-5.0) mmol/L Chloride (95-110) mmol/L Carbon Dioxide (21-33) mmol/L Anion Gap (10-20) BUN (7-21) mg/dL Creatinine (0.5-1.4) mg/dL Est GFR ( Amer) Est GFR (Non-Af Amer) POC Glucose (mg/dL) 83 (65-110) mg/dL Random Glucose (70-110) mg/dL Calcium (8.4-10.5) mg/dL Phosphorus (2.5-4.5) mg/dL Magnesium (1.7-2.2) mg/dL Total Bilirubin (0.2-1.3) mg/dL AST (15-59) U/L ALT (7-56) U/L Alkaline Phosphatase (38-133) U/L Total Protein (5.8-8.3) g/dL Albumin (3.0-4.8) g/dL Globulin gm/dL Albumin/Globulin Ratio (1.1-1.8) Laboratory Results - last 24 hr 12/22/16 12/22/16 12/22/16 11:19 15:56 21:50 WBC RBC Hgb Hct MCV MCH MCHC RDW Plt Count MPV Gran % Lymph % (Auto) [place] % (Auto) Eos % (Auto) Baso % (Auto) Gran # Lymph # [place] # Eos # Baso # pCO2 pO2 HCO3 ABG pH ABG Total CO2 ABG O2 Saturation ABG O2 Content ABG Base Excess ABG Hemoglobin ABG Carboxyhemoglobin POC ABG HHb (Measured) ABG Methemoglobin ABG O2 Capacity Hgb O2 Saturation FiO2 Sodium Potassium Chloride Carbon Dioxide Anion Gap BUN Creatinine Est GFR ( Amer) Est GFR (Non-Af Amer) POC Glucose (mg/dL) 83 121 H 95 Random Glucose Calcium Phosphorus Magnesium Total Bilirubin AST ALT Alkaline Phosphatase Total Protein Albumin Globulin Albumin/Globulin Ratio 12/23/16 12/23/16 12/23/16 00:20 05:20 05:20 WBC 11.2 H D RBC 4.58 Hgb 12.8 L Hct 38.2 L MCV 83.4 MCH 27.9 MCHC 33.5 RDW 13.9 Plt Count 214 MPV 10.7 Gran % 77.8 H Lymph % (Auto) 16.7 L [place] % (Auto) 5.3 Eos % (Auto) 0.1 L Baso % (Auto) 0.1 Gran # 8.72 H Lymph # 1.9 [place] # 0.6 Eos # 0.0 Baso # 0.01 pCO2 27 L pO2 44.0 L* HCO3 20.1 L ABG pH 7.48 H ABG Total CO2 20.9 L ABG O2 Saturation 90.6 L ABG O2 Content 14.9 L ABG Base Excess -2.3 L ABG Hemoglobin 12.0 ABG Carboxyhemoglobin 1.6 H POC ABG HHb (Measured) 9.2 H ABG Methemoglobin 0.8 ABG O2 Capacity 16.4 Hgb O2 Saturation 88.4 L FiO2 40.0 Sodium 141 Potassium 3.5 L Chloride 107 Carbon Dioxide 24 Anion Gap 14 BUN 10 Creatinine 0.8 Est GFR ( Amer) > 60 Est GFR (Non-Af Amer) > 60 POC Glucose (mg/dL) Random Glucose 95 Calcium 8.6 Phosphorus 2.0 L Magnesium 1.5 L Total Bilirubin 0.8 AST 40 ALT 48 Alkaline Phosphatase 81 Total Protein 6.9 Albumin 3.7 Globulin 3.1 Albumin/Globulin Ratio 1.2 12/23/16 06:10 WBC RBC Hgb Hct MCV MCH MCHC RDW Plt Count MPV Gran % Lymph % (Auto) [place] % (Auto) Eos % (Auto) Baso % (Auto) Gran # Lymph # [place] # Eos # Baso # pCO2 26 L pO2 60.0 L HCO3 19.8 L ABG pH 7.49 H ABG Total CO2 20.6 L ABG O2 Saturation 96.5 ABG O2 Content 16.0 ABG Base Excess -2.3 L ABG Hemoglobin 12.1 ABG Carboxyhemoglobin 1.3 POC ABG HHb (Measured) 3.4 ABG Methemoglobin 1.3 ABG O2 Capacity 16.6 Hgb O2 Saturation 94.0 L FiO2 60.0 Sodium Potassium Chloride Carbon Dioxide Anion Gap BUN Creatinine Est GFR ( Amer) Est GFR (Non-Af Amer) POC Glucose (mg/dL) Random Glucose Calcium Phosphorus Magnesium Total Bilirubin AST ALT Alkaline Phosphatase Total Protein Albumin Globulin Albumin/Globulin Ratio Fingerstick Blood Sugar Results: 95 Results Reviewed to Date: Yes Review of Systems - Review of Systems All systems: reviewed and no additional remarkable complaints except - Respiratory Respiratory: Cough Critical Care Progress Note - Prophylaxis GI Prophylaxis GI: PPI - Prophylaxis DVT Prophylaxis DVT: Heparin SQ, SCDs - Nutrition Nutrition: Nutrition Category Date Time Status Dysphagia/Modified Consistency Diet [DIET] Diets 12/22/16 Dinner Ordered Assessment/Plan - Assessment and Plan (Free Text) Assessment: 51 year old male with a PMH of multiple sclerosis on copaxone, HTN, seizures on lamotrigine, GERD, who presented on 12/21/16 for worsening cough, shortness of breath, intubated on the field by EMS, found to have hydronephrosis with a 6mm left ureteral stone and multiple other stones, POD#1 BL ureteral stents by urology. Plan: Neurologic Hx of MS on copaxone at home and seizure disorder Off sedation, following commands, swallow re-eval today Can re-start AEDs if cleared for PO Cardiovascular Hx HTN, continues to have elvated BP and HR, PRN metoprolol in place, given labetalol x1 Monitoring closely Pulmonary Extubated yesterday, ABG shows resp alkalosis, metabolic alkalosis, hypoxemic, was placed on hi-flow in the AM, repeat ABG at 1200 Maintain O2 sat >92%, titrating FiO2 down, currently 60% CTA was neg for PE Continue pulm toilet, increased mucomyst and albuterol to q4h taran Asp precautions, IS ordered, suction PRN, chest PT Gastroenterologic Pending swallow re-eval Cont GI ppx Aspiration precautions Renal/Electrolytes/Fluids 2200/1800 HypoK and HypoMag, replenishing today, repeat BMP 1300 BUN and Cr stable, off NS Urologic CT abd/pelv showed 6mm proximal ureteral stone with mod hydronephrosis and stones layered in left renal pelvis S/p POD#1 B/L ureteral stent placement by urology Garcia in place, draining bloody urine Endocrinologic Targeting euglycemia Infectious disease Febrile Tmax 103 Leukocytosis downtrending On clinda day 2 per PCP and started meropenem today BCxs negative x2 day 2, urine cx no growth Hematologic Hgb stable, hemodynamically stable, only minor blood tinged urine s/p procedure Musculoskeletal Monitoring for skin break down PT/OT eval pending OOBTC w/desk assistant x 2 GI/DVT ppx: Heparin SC/SCDs/Protonix Patient was seen and examined at bedside and case was discussed at length with attending physician. - Date & Time Date: 12/23/16 Time: 08:00 <Behzad ARIZMENDI,Tabitha H - Last Filed: 12/23/16 12:51> CCU Objective - Vital Signs / Intake & Output Intake and Output (Last 8hrs): Intake & Output 12/22/16 12/23/16 12/23/16 22:59 06:59 14:59 Intake Total 1899 2300 Output Total 950 1400 Balance 949 900 Intake: IV 1819 2200 Left Forearm 1819 Left Wrist 2200 Oral 80 100 Output: Urine 950 1400 Urethral (Garcia) 950 1400 Other: Voiding Method Indwelling Catheter Indwelling Catheter # Bowel Movements 0 - Medications Active Medications: Active Medications Generic Name Dose Route Start Last Admin Trade Name Freq PRN Reason Stop Dose Admin Acetylcysteine 4 ml 12/23/16 12:00 12/23/16 12:17 Acetylcysteine 20% IH 4 ml [id number] TARAN Administration Albuterol Sulfate 2.5 mg 12/23/16 08:30 12/23/16 12:17 Albuterol 0.083% Inhal Jo (2.5 Mg/3 Ml) Ud IH 2.5 mg [id number] TARAN Administration Arformoterol Tartrate 15 mcg 12/22/16 20:00 12/23/16 07:36 Brovana IH 15 mcg [id number] TARAN Administration Budesonide 0.5 mg 12/22/16 20:00 12/23/16 07:36 Pulmicort Respules IH 0.5 mg [id number] TARAN Administration Guaifenesin 600 mg 12/22/16 17:00 12/23/16 11:12 Mucinex La PO 600 mg BID TARAN Administration Heparin Sodium (Porcine) 5,000 units 12/23/16 14:00 Heparin SC Q8 [facility] Protocol Clindamycin Phosphate 600 mg/ 54 mls @ 102 mls/hr 12/22/16 14:00 12/23/16 05: 11 Sodium Chloride IVPB 102 mls/hr Q8 TARAN Administration Protocol Acetaminophen 1,000 mg in 100 mls @ 400 mls/hr 12/23/16 00:01 12/23/16 08:15 Ofirmev IVPB 12/25/16 00:02 400 mls/hr Q6H PRN Administration Temperature Potassium Chloride 10 meq in 100 mls @ 100 mls/hr 12/23/16 08:00 12/23/16 11: 00 Potassium Chloride 10 Meq/100 Ml IVPB 12/23/16 14:59 100 mls/hr Q2H TARAN Administration Meropenem 1g/NS 100mL IVPB 1 gm in 100 mls @ 100 mls/hr 12/23/16 14:00 Meropenem 1g/Ns 100ml Ivpb IVPB 12/23/16 22:59 Q8 [facility] Protocol Lamotrigine 25 mg 12/22/16 18:00 12/23/16 10:29 Lamictal PO 25 mg BID TARAN Administration Protocol Metoprolol Tartrate 5 mg 12/21/16 18:25 12/23/16 06:20 Lopressor IVP 5 mg Q3H PRN Administration Systolic Blood Pressure Pantoprazole Sodium 40 mg 12/23/16 10:30 12/23/16 11:12 Protonix Inj IVP 40 mg DAILY TARAN Administration - Patient Studies Lab Studies: Microbiology Studies 12/21/16 18:00 MRSA Culture (Admit) - Final Naris MRSA NOT DETECTED 12/21/16 16:00 Blood Culture - Preliminary Blood NO GROWTH AFTER 24 HOURS Lab Studies 12/23/16 12/23/16 12/23/16 Range/Units 12:30 11:15 07:05 WBC (4.5-11.0) 10^3/ul RBC (3.5-6.1) 10^6/uL Hgb (14.0-18.0) gm/dL Hct (42.0-52.0) % MCV (80.0-105.0) fL MCH (25.0-35.0) pg MCHC (31.0-37.0) g/dl RDW (11.5-14.5) % Plt Count (120.0-450.0) 10^3/uL MPV (7.0-11.0) fl Gran % (50.0-68.0) % Lymph % (Auto) (22.0-35.0) % [place] % (Auto) (1.0-6.0) % Eos % (Auto) (1.5-5.0) % Baso % (Auto) (0.0-3.0) % Gran # (1.4-6.5) Lymph # (1.2-3.4) [place] # (0.1-0.6) Eos # (0.0-0.7) Baso # (0.0-2.0) K/mm3 pCO2 28 L (35-45) mm/Hg pO2 71.0 L (80-100) mm/Hg HCO3 20.4 L (21-28) mmol/L ABG pH 7.47 H (7.35-7.45) ABG Total CO2 21.3 L (22-28) mmol.L ABG O2 Saturation 97.9 (95-98) % ABG O2 Content 14.7 L (15-23) ML/dl ABG Base Excess -2.3 L (-2.0-3.0) mmol/L ABG Hemoglobin 11.0 L (11.7-17.4) g/dL ABG Carboxyhemoglobin 1.8 H (0.5-1.5) % POC ABG HHb (Measured) 2.0 (0-5) % ABG Methemoglobin 1.3 (0.0-3.0) % ABG O2 Capacity 15.0 L (16-24) mL/dl Hgb O2 Saturation 95.0 (95.0-98.0) % FiO2 50.0 % Sodium (132-148) mmol/L Potassium (3.6-5.0) mmol/L Chloride (95-110) mmol/L Carbon Dioxide (21-33) mmol/L Anion Gap (10-20) BUN (7-21) mg/dL Creatinine (0.5-1.4) mg/dL Est GFR ( Amer) Est GFR (Non-Af Amer) POC Glucose (mg/dL) 109 80 (65-110) mg/dL Random Glucose (70-110) mg/dL Calcium (8.4-10.5) mg/dL Phosphorus (2.5-4.5) mg/dL Magnesium (1.7-2.2) mg/dL Total Bilirubin (0.2-1.3) mg/dL AST (15-59) U/L ALT (7-56) U/L Alkaline Phosphatase (38-133) U/L Total Protein (5.8-8.3) g/dL Albumin (3.0-4.8) g/dL Globulin gm/dL Albumin/Globulin Ratio (1.1-1.8) 12/23/16 12/23/16 12/23/16 Range/Units 06:10 05:20 05:20 WBC 11.2 H D (4.5-11.0) 10^3/ul RBC 4.58 (3.5-6.1) 10^6/uL Hgb 12.8 L (14.0-18.0) gm/dL Hct 38.2 L (42.0-52.0) % MCV 83.4 (80.0-105.0) fL MCH 27.9 (25.0-35.0) pg MCHC 33.5 (31.0-37.0) g/dl RDW 13.9 (11.5-14.5) % Plt Count 214 (120.0-450.0) 10^3/uL MPV 10.7 (7.0-11.0) fl Gran % 77.8 H (50.0-68.0) % Lymph % (Auto) 16.7 L (22.0-35.0) % [place] % (Auto) 5.3 (1.0-6.0) % Eos % (Auto) 0.1 L (1.5-5.0) % Baso % (Auto) 0.1 (0.0-3.0) % Gran # 8.72 H (1.4-6.5) Lymph # 1.9 (1.2-3.4) [place] # 0.6 (0.1-0.6) Eos # 0.0 (0.0-0.7) Baso # 0.01 (0.0-2.0) K/mm3 pCO2 26 L (35-45) mm/Hg pO2 60.0 L (80-100) mm/Hg HCO3 19.8 L (21-28) mmol/L ABG pH 7.49 H (7.35-7.45) ABG Total CO2 20.6 L (22-28) mmol.L ABG O2 Saturation 96.5 (95-98) % ABG O2 Content 16.0 (15-23) ML/dl ABG Base Excess -2.3 L (-2.0-3.0) mmol/L ABG Hemoglobin 12.1 (11.7-17.4) g/dL ABG Carboxyhemoglobin 1.3 (0.5-1.5) % POC ABG HHb (Measured) 3.4 (0-5) % ABG Methemoglobin 1.3 (0.0-3.0) % ABG O2 Capacity 16.6 (16-24) mL/dl Hgb O2 Saturation 94.0 L (95.0-98.0) % FiO2 60.0 % Sodium 141 (132-148) mmol/L Potassium 3.5 L (3.6-5.0) mmol/L Chloride 107 (95-110) mmol/L Carbon Dioxide 24 (21-33) mmol/L Anion Gap 14 (10-20) BUN 10 (7-21) mg/dL Creatinine 0.8 (0.5-1.4) mg/dL Est GFR ( Amer) > 60 Est GFR (Non-Af Amer) > 60 POC Glucose (mg/dL) (65-110) mg/dL Random Glucose 95 (70-110) mg/dL Calcium 8.6 (8.4-10.5) mg/dL Phosphorus 2.0 L (2.5-4.5) mg/dL Magnesium 1.5 L (1.7-2.2) mg/dL Total Bilirubin 0.8 (0.2-1.3) mg/dL AST 40 (15-59) U/L ALT 48 (7-56) U/L Alkaline Phosphatase 81 (38-133) U/L Total Protein 6.9 (5.8-8.3) g/dL Albumin 3.7 (3.0-4.8) g/dL Globulin 3.1 gm/dL Albumin/Globulin Ratio 1.2 (1.1-1.8) 12/23/16 12/22/16 12/22/16 Range/Units 00:20 21:50 15:56 WBC (4.5-11.0) 10^3/ul RBC (3.5-6.1) 10^6/uL Hgb (14.0-18.0) gm/dL Hct (42.0-52.0) % MCV (80.0-105.0) fL MCH (25.0-35.0) pg MCHC (31.0-37.0) g/dl RDW (11.5-14.5) % Plt Count (120.0-450.0) 10^3/uL MPV (7.0-11.0) fl Gran % (50.0-68.0) % Lymph % (Auto) (22.0-35.0) % [place] % (Auto) (1.0-6.0) % Eos % (Auto) (1.5-5.0) % Baso % (Auto) (0.0-3.0) % Gran # (1.4-6.5) Lymph # (1.2-3.4) [place] # (0.1-0.6) Eos # (0.0-0.7) Baso # (0.0-2.0) K/mm3 pCO2 27 L (35-45) mm/Hg pO2 44.0 L* (80-100) mm/Hg HCO3 20.1 L (21-28) mmol/L ABG pH 7.48 H (7.35-7.45) ABG Total CO2 20.9 L (22-28) mmol.L ABG O2 Saturation 90.6 L (95-98) % ABG O2 Content 14.9 L (15-23) ML/dl ABG Base Excess -2.3 L (-2.0-3.0) mmol/L ABG Hemoglobin 12.0 (11.7-17.4) g/dL ABG Carboxyhemoglobin 1.6 H (0.5-1.5) % POC ABG HHb (Measured) 9.2 H (0-5) % ABG Methemoglobin 0.8 (0.0-3.0) % ABG O2 Capacity 16.4 (16-24) mL/dl Hgb O2 Saturation 88.4 L (95.0-98.0) % FiO2 40.0 % Sodium (132-148) mmol/L Potassium (3.6-5.0) mmol/L Chloride (95-110) mmol/L Carbon Dioxide (21-33) mmol/L Anion Gap (10-20) BUN (7-21) mg/dL Creatinine (0.5-1.4) mg/dL Est GFR ( Amer) Est GFR (Non-Af Amer) POC Glucose (mg/dL) 95 121 H (65-110) mg/dL Random Glucose (70-110) mg/dL Calcium (8.4-10.5) mg/dL Phosphorus (2.5-4.5) mg/dL Magnesium (1.7-2.2) mg/dL Total Bilirubin (0.2-1.3) mg/dL AST (15-59) U/L ALT (7-56) U/L Alkaline Phosphatase (38-133) U/L Total Protein (5.8-8.3) g/dL Albumin (3.0-4.8) g/dL Globulin gm/dL Albumin/Globulin Ratio (1.1-1.8) 12/22/16 Range/Units 11:19 WBC (4.5-11.0) 10^3/ul RBC (3.5-6.1) 10^6/uL Hgb (14.0-18.0) gm/dL Hct (42.0-52.0) % MCV (80.0-105.0) fL MCH (25.0-35.0) pg MCHC (31.0-37.0) g/dl RDW (11.5-14.5) % Plt Count (120.0-450.0) 10^3/uL MPV (7.0-11.0) fl Gran % (50.0-68.0) % Lymph % (Auto) (22.0-35.0) % [place] % (Auto) (1.0-6.0) % Eos % (Auto) (1.5-5.0) % Baso % (Auto) (0.0-3.0) % Gran # (1.4-6.5) Lymph # (1.2-3.4) [place] # (0.1-0.6) Eos # (0.0-0.7) Baso # (0.0-2.0) K/mm3 pCO2 (35-45) mm/Hg pO2 (80-100) mm/Hg HCO3 (21-28) mmol/L ABG pH (7.35-7.45) ABG Total CO2 (22-28) mmol.L ABG O2 Saturation (95-98) % ABG O2 Content (15-23) ML/dl ABG Base Excess (-2.0-3.0) mmol/L ABG Hemoglobin (11.7-17.4) g/dL ABG Carboxyhemoglobin (0.5-1.5) % POC ABG HHb (Measured) (0-5) % ABG Methemoglobin (0.0-3.0) % ABG O2 Capacity (16-24) mL/dl Hgb O2 Saturation (95.0-98.0) % FiO2 % Sodium (132-148) mmol/L Potassium (3.6-5.0) mmol/L Chloride (95-110) mmol/L Carbon Dioxide (21-33) mmol/L Anion Gap (10-20) BUN (7-21) mg/dL Creatinine (0.5-1.4) mg/dL Est GFR ( Amer) Est GFR (Non-Af Amer) POC Glucose (mg/dL) 83 (65-110) mg/dL Random Glucose (70-110) mg/dL Calcium (8.4-10.5) mg/dL Phosphorus (2.5-4.5) mg/dL Magnesium (1.7-2.2) mg/dL Total Bilirubin (0.2-1.3) mg/dL AST (15-59) U/L ALT (7-56) U/L Alkaline Phosphatase (38-133) U/L Total Protein (5.8-8.3) g/dL Albumin (3.0-4.8) g/dL Globulin gm/dL Albumin/Globulin Ratio (1.1-1.8) Laboratory Results - last 24 hr 12/22/16 12/22/16 12/22/16 11:19 15:56 21:50 WBC RBC Hgb Hct MCV MCH MCHC RDW Plt Count MPV Gran % Lymph % (Auto) [place] % (Auto) Eos % (Auto) Baso % (Auto) Gran # Lymph # [place] # Eos # Baso # pCO2 pO2 HCO3 ABG pH ABG Total CO2 ABG O2 Saturation ABG O2 Content ABG Base Excess ABG Hemoglobin ABG Carboxyhemoglobin POC ABG HHb (Measured) ABG Methemoglobin ABG O2 Capacity Hgb O2 Saturation FiO2 Sodium Potassium Chloride Carbon Dioxide Anion Gap BUN Creatinine Est GFR ( Amer) Est GFR (Non-Af Amer) POC Glucose (mg/dL) 83 121 H 95 Random Glucose Calcium Phosphorus Magnesium Total Bilirubin AST ALT Alkaline Phosphatase Total Protein Albumin Globulin Albumin/Globulin Ratio 12/23/16 12/23/16 12/23/16 00:20 05:20 05:20 WBC 11.2 H D RBC 4.58 Hgb 12.8 L Hct 38.2 L MCV 83.4 MCH 27.9 MCHC 33.5 RDW 13.9 Plt Count 214 MPV 10.7 Gran % 77.8 H Lymph % (Auto) 16.7 L [place] % (Auto) 5.3 Eos % (Auto) 0.1 L Baso % (Auto) 0.1 Gran # 8.72 H Lymph # 1.9 [place] # 0.6 Eos # 0.0 Baso # 0.01 pCO2 27 L pO2 44.0 L* HCO3 20.1 L ABG pH 7.48 H ABG Total CO2 20.9 L ABG O2 Saturation 90.6 L ABG O2 Content 14.9 L ABG Base Excess -2.3 L ABG Hemoglobin 12.0 ABG Carboxyhemoglobin 1.6 H POC ABG HHb (Measured) 9.2 H ABG Methemoglobin 0.8 ABG O2 Capacity 16.4 Hgb O2 Saturation 88.4 L FiO2 40.0 Sodium 141 Potassium 3.5 L Chloride 107 Carbon Dioxide 24 Anion Gap 14 BUN 10 Creatinine 0.8 Est GFR ( Amer) > 60 Est GFR (Non-Af Amer) > 60 POC Glucose (mg/dL) Random Glucose 95 Calcium 8.6 Phosphorus 2.0 L Magnesium 1.5 L Total Bilirubin 0.8 AST 40 ALT 48 Alkaline Phosphatase 81 Total Protein 6.9 Albumin 3.7 Globulin 3.1 Albumin/Globulin Ratio 1.2 12/23/16 12/23/16 12/23/16 06:10 07:05 11:15 WBC RBC Hgb Hct MCV MCH MCHC RDW Plt Count MPV Gran % Lymph % (Auto) [place] % (Auto) Eos % (Auto) Baso % (Auto) Gran # Lymph # [place] # Eos # Baso # pCO2 26 L pO2 60.0 L HCO3 19.8 L ABG pH 7.49 H ABG Total CO2 20.6 L ABG O2 Saturation 96.5 ABG O2 Content 16.0 ABG Base Excess -2.3 L ABG Hemoglobin 12.1 ABG Carboxyhemoglobin 1.3 POC ABG HHb (Measured) 3.4 ABG Methemoglobin 1.3 ABG O2 Capacity 16.6 Hgb O2 Saturation 94.0 L FiO2 60.0 Sodium Potassium Chloride Carbon Dioxide Anion Gap BUN Creatinine Est GFR ( Amer) Est GFR (Non-Af Amer) POC Glucose (mg/dL) 80 109 Random Glucose Calcium Phosphorus Magnesium Total Bilirubin AST ALT Alkaline Phosphatase Total Protein Albumin Globulin Albumin/Globulin Ratio 12/23/16 12:30 WBC RBC Hgb Hct MCV MCH MCHC RDW Plt Count MPV Gran % Lymph % (Auto) [place] % (Auto) Eos % (Auto) Baso % (Auto) Gran # Lymph # [place] # Eos # Baso # pCO2 28 L pO2 71.0 L HCO3 20.4 L ABG pH 7.47 H ABG Total CO2 21.3 L ABG O2 Saturation 97.9 ABG O2 Content 14.7 L ABG Base Excess -2.3 L ABG Hemoglobin 11.0 L ABG Carboxyhemoglobin 1.8 H POC ABG HHb (Measured) 2.0 ABG Methemoglobin 1.3 ABG O2 Capacity 15.0 L Hgb O2 Saturation 95.0 FiO2 50.0 Sodium Potassium Chloride Carbon Dioxide Anion Gap BUN Creatinine Est GFR ( Amer) Est GFR (Non-Af Amer) POC Glucose (mg/dL) Random Glucose Calcium Phosphorus Magnesium Total Bilirubin AST ALT Alkaline Phosphatase Total Protein Albumin Globulin Albumin/Globulin Ratio Critical Care Progress Note - Nutrition Nutrition: Nutrition Category Date Time Status Dysphagia/Modified Consistency Diet [DIET] Diets 12/22/16 Dinner Ordered Attending/Attestation - Attestation I have personally seen and examined this patient.: Yes I have fully participated in the care of the patient.: Yes I have reviewed all pertinent clinical information: Yes Notes (Text): 12/23/16 12:47 51 y/o M w/ resolving sepsis SOurce unknown but UTi/Pyelonephritis likely w/ concern for ASP PNA Post -op fevers continue , treated with cooling blanket and tylenol ABX changed after fevers continued and ID's input . Meropenum added for greater Gram - Coverage. Would be cautious w/ clindamycin and poor coverage for possible intra abdominal infections . Sputum cx sent as well. Aggressive Chest PT added , suctioning, mucomyst and Albuterol. On HFNC 50% 50 L, patient has difficulty w/ spitting up secretions and MS causing further muscle weakness. PT/OT needed heparin sq tid cc time 65 min
[2016-12-23] MEDS: cefTRIAXone 1 gm 1 GM/100 ML BAG IVPB SCH (10:29)
[2016-12-23] MEDS: guaiFENesin 600 mg ER Tab PO SCH ×2 (11:12→18:16)
[2016-12-23] MEDS: Acetylcysteine 20% Inhal Soln (4ml) IH SCH ×3 (12:17→19:30)
[2016-12-23 12:40] LABS: ARTERIAL BLOOD GAS HCO3 20.4 mmol/L (21-28); ARTERIAL BLOOD GAS O2 CONTENT 14.7 ML/dl (15-23); ARTERIAL BLOOD GAS PH 7.47 (7.35-7.45); CARBOXYHEMOGLOBIN 1.8 % (0.5-1.5); METHEMOGLOBIN 1.3 % (0.0-3.0)
--- NOTE | 2016-12-23 12:52 | PN ---
DATE: 12/23/2016 CHIEF COMPLAINT: Follow up for questionable altered mental status. SUBJECTIVE: The patient seen and examined at bedside. He is extubated. He has a hypophonic voice b ut follows in response to commands. He is status post ureteral stent for his 6 mm left ureteral ston e and multiple other stones. He is on Copaxone for his MS at home. Off sedation, following commands . Will need to restart his antiepileptics today if cleared for p.o. PAST MEDICAL HISTORY: History of multiple sclerosis with chronic demyelinating disease. Last MRI on 09/07/2015 with atrophy of the corpus callosum, no enhancing lesions. On Copaxone injections for hi s multiple sclerosis. He has seizures from underlying MS. REVIEW OF SYSTEMS: A 14-point review of systems is negative except for the HPI. ALLERGIES: No known drug allergies. SOCIAL HISTORY: No illicit drug use, smoking, or ETOH abuse. MEDICATIONS: Reviewed via nurses' reconciliation sheet. FAMILY HISTORY: Noncontributory. PHYSICAL EXAMINATION: VITAL SIGNS: Temperature of 101.9, pulse rate of 133, blood pressure 184/113, and respiratory rate o f 100 via high flow oxygen. ASSESSMENT AND PLAN: This is a 51-year-old man with past medical history of hypertension; multiple s clerosis, on Copaxone injections ____; seizures, on Lamictal and was on Vimpat in the past; gastroeso phageal reflux disease, who presented on 12/21/2016 for worsening cough, shortness breath, intubated in the field, found to have hydronephrosis, with 6 mm left ureteral stent and multiple stents, status post bilateral ureteral stents by urology; and he had also an elevated white count which is likely u nderlying secondary sepsis which caused a breakthrough seizure, and he had metabolic derangements cau sing him breakthrough seizures as well. At this time, recommend to continue with his Copaxone/medica tions for his MS and to restart his antiepileptic drugs for his underlying seizures once he is cleare d for p.o. by a swallowing evaluation, and continue to follow with ID doc in regards to his leukocyto sis. Continue to monitor his electrolytes and correct accordingly, and continue GI and deep venous t hrombosis prophylaxis. No further neurological intervention needed at this time. Please reconsult i f necessary. He will follow up with us in the outpatient setting. Bentley Lindquist MD cc: [phone] TT: 12/23/2016 12:52:16 Confirmation # [id number] Dictation # [id number] mn
[2016-12-23 13:35] LABS: BLOOD UREA NITROGEN 10 mg/dL (7-21); CALCIUM 8.4 mg/dL (8.4-10.5); CARBON DIOXIDE 23 mmol/L (21-33); CHLORIDE 107 mmol/L (98-107); GFR AFRICAN-AMERICAN > 60; GLUCOSE,RANDOM 113 mg/dL (70-110); POTASSIUM 3.9 mmol/L (3.6-5.0); SODIUM 138 mmol/L (132-148)
[2016-12-23] MEDS: Meropenem 1g/NS 100mL IVPB 1 GM/100 ML PIGGYBACK IVPB SCH ×2 (14:57→21:18)
--- NOTE | 2016-12-23 15:32 | PN ---
DATE: 12/23/2016 SUBJECTIVE: The patient is lying in bed, in no acute distress. He is awake and responsive. There a re no complaints of chest pain or shortness of breath. OBJECTIVE: VITAL SIGNS: Blood pressure 157/101, pulse 134, temperature 101.9 max, respiratory rate 20. LUNGS: Show a few scattered crepitations at the bases. HEART: Regular rate and rhythm. Slightly tachycardic. ABDOMEN: Soft, nontender, bowel sounds are normoactive. EXTREMITIES: Without cyanosis, clubbing, or edema. NEUROLOGIC: The patient is without focal, sensory or motor deficits. SKIN: Warm and dry. LABORATORY DATA: WBCs 11.2, hemoglobin 12.8, hematocrit 38.2. Sodium 141, potassium 3.5, chloride 1 07, CO2 24, BUN 10, creatinine 0.8, glucose 95. Chest x-ray shows a left lower lobe infiltrate. IMPRESSION: 1. Aspiration pneumonia, status post ventilatory failure. 2. Multiple sclerosis. 3. Seizure disorder. 4. Left ureteral stone with mild hydronephrosis, status post cystoscopy and stent placement. 5. Larsen's palsy. 6. Hypertension. 7. Gastroesophageal reflux disease. 8. Hypercholesterolemia. PLAN: Continue IV antibiotics, pulmonary toilet. Monitor respiratory status. Pulmonary followup [facility] Dr. Gonzalez, followup with Dr. Martinez/Dr. Escobar. Aspiration precautions. Neurology followup [facility] Dr. Lindquist. We will obtain modified barium swallow for swallowing evaluation. Prognosis remains guarded. Garrett Torre JD, MD cc: [id number] TT: 12/23/2016 15:32:16 Confirmation # [id number] Dictation # [id number] en
[2016-12-23] MEDS: MethylPREDNISolone 40 mg Vial IVP SCH ×2 (15:57→21:20)
--- NOTE | 2016-12-23 16:55 | CP.PCM.PN ---
Subjective - Date & Time of Evaluation Date of Evaluation: 12/23/16 Time of Evaluation: 16:00 - Subjective Subjective: Infectious Disease Follow Up: December 23, 2016 51 yo male with presentation of SOB and AMS. The patient had worsening shortness of breath at home to the point that during a coughing fit at home he collapsed. He was intubated in the [place]. The patient was brought to the MICU for further care. He remains intubated and ventilated. The patient was last in [facility] in September 2016. The patient has Multiple Sclerosis. He was sent home with Keflex at this time. He was on Aztreonam and Vancomycin on the past admission. Fevers up to 103 F. Antibiotics changed to Meropenem. Received one dose of Amikacin yesterday. On Clindamycin. Objective - Vital Signs/Intake and Output Vital Signs (last 24 hours): Temp Pulse Resp BP Pulse Ox 100.2 F H 109 H 28 H 167/75 H 100 12/23/16 16:43 12/23/16 16:43 12/23/16 16:43 12/23/16 16:43 12/23/16 16:43 Intake and Output: 12/23/16 12/23/16 06:59 18:59 Intake Total 2300 Output Total 1400 Balance 900 - Medications Medications: Current Medications Acetylcysteine (Acetylcysteine 20%) 4 ml IH [id number] PENDING SALE TO [facility] Last Admin: 12/23/16 14:56 Dose: 4 ml Albuterol Sulfate (Albuterol 0.083% Inhal Jo (2.5 Mg/3 Ml) Ud) 2.5 mg IH [id number] PENDING SALE TO [facility] Last Admin: 12/23/16 14:56 Dose: 2.5 mg Arformoterol Tartrate (Brovana) 15 mcg IH [id number] PENDING SALE TO [facility] Last Admin: 12/23/16 07:36 Dose: 15 mcg Budesonide (Pulmicort Respules) 0.5 mg IH [id number] PENDING SALE TO [facility] Last Admin: 12/23/16 07:36 Dose: 0.5 mg Cholecalciferol (Vitamin D) 4,000 iu PO DAILY PENDING SALE TO [facility] Glatiramer Acetate (Copaxone) 20 mg SC MWF PENDING SALE TO [facility] Guaifenesin (Mucinex La) 600 mg PO BID PENDING SALE TO [facility] Last Admin: 12/23/16 11:12 Dose: 600 mg Heparin Sodium (Porcine) (Heparin) 5,000 units SC Q8 GOKUL PRN Reason: Protocol Last Admin: 12/23/16 14:57 Dose: 5,000 units Clindamycin Phosphate 600 mg/ (Sodium Chloride) 54 mls @ 102 mls/hr IVPB Q8 GOKUL PRN Reason: Protocol Last Admin: 12/23/16 15:43 Dose: 102 mls/hr Acetaminophen (Ofirmev) 1,000 mg in 100 mls @ 400 mls/hr IVPB Q6H PRN PRN Reason: Temperature Stop: 12/25/16 00:02 Last Admin: 12/23/16 08:15 Dose: 400 mls/hr Meropenem 1g/NS 100mL IVPB (Meropenem 1g/Ns 100ml Ivpb) 1 gm in 100 mls @ 100 mls/hr IVPB Q8 GOKUL PRN Reason: Protocol Stop: 12/23/16 22:59 Last Admin: 12/23/16 14:57 Dose: 100 mls/hr Lamotrigine (Lamictal) 25 mg PO BID GOKUL PRN Reason: Protocol Last Admin: 12/23/16 10:29 Dose: 25 mg Methylprednisolone (Solu-Medrol) 20 mg IVP Q8 PENDING SALE TO [facility] Last Admin: 12/23/16 15:57 Dose: 20 mg Metoprolol Tartrate (Lopressor) 5 mg IVP Q3H PRN PRN Reason: Systolic Blood Pressure Last Admin: 12/23/16 06:20 Dose: 5 mg Pantoprazole Sodium (Protonix Inj) 40 mg IVP DAILY PENDING SALE TO [facility] Last Admin: 12/23/16 11:12 Dose: 40 mg - Labs Labs: 12/23/16 05:20 12/23/16 12:57 PT 11.5 Seconds (9.9-11.8) 12/21/16 15:13 INR 1.06 (0.93-1.08) 12/21/16 15:13 APTT 27.6 Seconds (23.7-30.8) 12/21/16 15:13 - Constitutional Appears: Toxic, No Acute Distress, Chronically Ill - Head Exam Additional comments: extubated yesterday - Eye Exam Eye Exam: EOMI, PERRL Pupil Exam: NORMAL ACCOMODATION, PERRL - ENT Exam ENT Exam: Mucous Membranes Moist, Normal External Ear Exam, TM's Normal Bilaterally - Neck Exam Neck Exam: Full ROM, Normal Inspection - Respiratory Exam Respiratory Exam: Decreased Breath Sounds. absent: Rales, Rhonchi, Wheezes - Cardiovascular Exam Cardiovascular Exam: REGULAR RHYTHM, RRR, +S1, +S2 - GI/Abdominal Exam GI & Abdominal Exam: Soft, Normal Bowel Sounds. absent: Distended, Tenderness - Extremities Exam Extremities Exam: absent: Joint Swelling, Pedal Edema - Neurological Exam Neurological Exam: Alert, Awake, CN II-XII Intact - Psychiatric Exam Psychiatric exam: Normal Affect, Normal Mood - Skin Skin Exam: Intact, Normal Color Assessment and Plan - Assessment and Plan (Free Text) Assessment: 51 yo Afghan male with left pyelonephritis and nephrolithiasis presenting with sepsis, AMS, SOB, and syncope. Went to OR for stent placement and stone removal yesterday. The patient was on Clindamycin and Rocephin. Given prior hospitalizations and persistent fevers, meropenem started over Rocephin as the spectrum for gram negative coverage is better. Given a dose of Aminoglycoside ( Amikacin) as part of patient's coverage. The patient was intubated and ventilated... extubated and on high flow oxygen. I would consider change of Clindamycin to Vancomycin if fever does NOT improve in the next 24 or so hours. Supportive care Thank you for allowing me to participate in the care of the patient, we will follow with you.
[2016-12-23] MEDS ORDERED: GLATIRAMER ACETATE 20 MG/ML SC STA (17:06)
--- NOTE | 2016-12-23 23:07 | PN ---
DATE: 12/23/2016 REFERRING PHYSICIAN: Dr. Torre. SUBJECTIVE: He is up in the bed on high flow nasal cannula oxygen. Has a cough, unable to clear pul monary secretion. No hemoptysis, no hematemesis, no hematuria, no diarrhea reported. OBJECTIVE: GENERAL: In mild to moderate distress. VITAL SIGNS: Temp is 98, heart rate is , respiratory rate is 24, blood pressure 179/84, pulse o x 100% on high flow nasal cannula oxygen. HEENT: Moist mucous membranes. Crowded airway. Mallampati score is 4. NECK: Supple. No JVD. LUNGS: Bilateral scattered rhonchi and wheezing. HEART: S1 and S2. ABDOMEN: Soft, nontender. No organomegaly. EXTREMITIES: There is no edema. NEUROLOGIC: Awake, alert, follows simple commands. MEDICATIONS: He is on Mucomyst 20% inhaled q. 4 hours, albuterol/Atrovent nebulizer q. 4 hours, Brov ian inhaled twice a day, clindamycin 600 mg q. 8 hours, heparin units subQ q. 8 hours, Lamictal 25 mg twice a day, metoprolol tartrate 5 mg IV q. 3 hours p.r.n., meropenem 1 gram IV q. 8 hours, T ylenol p.r.n., Protonix 40 mg daily, Pulmicort inhaled twice a day, Solu-Medrol 20 mg IV q. 8 hours, vitamin D 4000 units daily. LABORATORY DATA: Shows hemoglobin 12.8, hematocrit 38.2, WBC 11.2, platelet is 214. Blood gas this morning shows pH 7.47, pCO2 of 28, O2 71. That is on high flow oxygen. Sodium 138, potassium 3.9, c hloride 107, bicarbonate 23, BUN 10, creatinine 0.7, glucose 113, calcium is 8.4, magnesium 2.0. [address] st x-ray shows left lower lobe infiltrate. IMPRESSION AND PLAN: Respiratory failure pneumonia, chronic lung disease, obstructive uropathy , status post cystoscopy with ureteral stent placement, history of multiple sclerosis, oropharyngeal dysphagia, chronic aspiration, seizure disorder, history of Larsen's palsy, hypertension, gastroesophag eal reflux disease. I spoke to nursing staff. I also spoke to the medical billing coordinator. Requested to jennie bean on Solu-Medrol. Continue antibiotics, incentive spirometer and inhaled bronchodilator. May con tinue to use high flow nasal cannula oxygen. If there is any obstruction overnight and desaturation, may place him on noninvasive ventilation. Aspiration precaution. Follow up ABG, chest x-ray, CBC _ ____ morning. Critical care time more than 35 minutes. Thank you and will follow with you. Laquita Gonzalez MD cc: [id number] TT: 12/23/2016 23:06:52 Confirmation # [id number] Dictation # [id number] mn
[2016-12-24] MEDS: Acetylcysteine 20% Inhal Soln (4ml) IH SCH ×6 (00:10→19:30)
[2016-12-24] MEDS: Albuterol 0.083% Inhal Sol (2.5 mg/3 mL) UD IH SCH ×6 (00:10→19:30)
[2016-12-24] MEDS: MethylPREDNISolone 40 mg Vial IVP SCH ×3 (05:23→21:43)
[2016-12-24 06:19] LABS: ADD MANUAL DIFF? NO
[2016-12-24 06:22] LABS: GRAN # 9.19 (1.4-6.5); GRAN % 88.3 % (50.0-68.0); HEMATOCRIT 33.7 % (42.0-52.0); LYMPH # 0.9 (1.2-3.4); LYMPH % 8.7 % (22.0-35.0); MEAN CELL VOLUME 81.2 fL (80.0-105.0); MEAN CORPUSCULAR HEMOGLOBIN 27.7 pg (25.0-35.0); MEAN CORPUSCULAR HGB CONC 34.1 g/dl (31.0-37.0); MEAN PLATELET VOLUME 10.5 fl (7.0-11.0); MONO # 0.3 (0.1-0.6); PLATELET COUNT 208 10^3/uL (120.0-450.0); RED CELL DISTRIBUTION WIDTH 13.6 % (11.5-14.5); WHITE BLOOD COUNT 10.4 10^3/ul (4.5-11.0)
[2016-12-24 06:39] LABS: ALB/GLOB RATIO 1.2 (1.1-1.8); ALKALINE PHOSPHATASE 76 U/L (38-133); ALT/SGPT 38 U/L (7-56); AST/SGOT 38 U/L (15-59); BILIRUBIN,TOTAL 0.5 mg/dL (0.2-1.3); BLOOD UREA NITROGEN 12 mg/dL (7-21); CALCIUM 8.7 mg/dL (8.4-10.5); CARBON DIOXIDE 25 mmol/L (21-33); CHLORIDE 108 mmol/L (95-110); GFR AFRICAN-AMERICAN > 60; GLUCOSE,RANDOM 153 mg/dL (70-110); POTASSIUM 3.5 mmol/L (3.6-5.0); SODIUM 140 mmol/L (132-148); TOTAL PROTEIN 6.5 g/dL (5.8-8.3)
[2016-12-24] MEDS ORDERED: Potassium Chloride 20 mEq/15 ml LIQ UD PO STA (06:57)
[2016-12-24 07:04] LABS: PHOSPHOROUS 2.3 mg/dL (2.5-4.5)
--- NOTE | 2016-12-24 07:14 | PN ---
DATE: 12/23/2016 See the history and physical and consult and operative reports and see the other notes in the chart. The patient is currently still in the intensive care unit, but he is now extubated. PAST MEDICAL AND SURGICAL HISTORY: No other changes. VITAL SIGNS: Noted. PHYSICAL EXAMINATION: ABDOMEN: Relatively soft. Garcia catheter is in place and draining clear yellow urine. DIAGNOSES: 1. Sepsis. 2. Possible urosepsis. 3. Bilateral urolithiasis and bilateral hydronephrosis. PLAN: For urology is as follows: 1. For now, Garcia catheter to straight drainage. 2. Antibiotics as per infectious disease and we will follow along and then make further recommendati ons as the patient improves. Subhash Escobar MD cc: [phone] TT: 12/24/2016 07:13:46 Confirmation # [id number] Dictation # [id number] tn
[2016-12-24] MEDS: Arformoterol 15 mcg/2 ml Inh Sol IH SCH ×2 (07:47→19:31)
[2016-12-24] MEDS: Budesonide 0.5 mg/2 ml Inhal Susp UD IH SCH ×2 (07:47→19:30)
[2016-12-24] MEDS: Meropenem 1g/NS 100mL IVPB 1 GM/100 ML PIGGYBACK IVPB SCH ×3 (08:15→22:37)
--- NOTE | 2016-12-24 08:19 | CON ---
DATE: 12/21/2016 REASON FOR CONSULTATION: Sepsis. HISTORY OF PRESENT ILLNESS: History is mostly from the chart. Also had an occasion to speak with lora shin mother. This is a 51-year-old gentleman who presents to the hospital already intubated with sepsis ; the etiology is being worked out. The history is, of course, limited. We are unable to ask the patient more questions upon presentation. He has a Garcia catheter inserted. The CT scan shows the presence of stones within the bladder and the kidneys bilaterally and hydroneph rosis, and there is a 6 mm proximal stone. See the plan listed below. PAST MEDICAL AND SURGICAL HISTORY: All as listed on the chart. PHYSICAL EXAMINATION: GENERAL: He is currently intubated. VITAL SIGNS: Noted. ABDOMEN: Relatively soft. GENITOURINARY: Garcia catheter is in place. DIAGNOSES: Urolithiasis, hydronephrosis, sepsis of unclear etiology. The possibilities for pulmonary sepsis versus genitourinary sepsis is difficult to distinguish. At t his point, we discussed options with the ICU attending, with the anesthesiologist, with the family. I have called the mother. It is late on Friday evening. What we are going to do is start with antibiotics and IV fluids, and first thing in the morning we ar e going to place a stent on the left side, once the patient is little more stabilized. Subhash Escobar MD cc: [phone] TT: 12/24/2016 08:19:05 Confirmation # [id number] Dictation # [id number] jamie
--- NOTE | 2016-12-24 08:46 | OP ---
PROCEDURE DATE: 12/22/2016 PREOPERATIVE DIAGNOSES: Urolithiasis, bilateral stone disease, hydronephrosis on the left and voidin g dysfunction, bladder calculi and urosepsis, and also respiratory distress. POSTOPERATIVE DIAGNOSES: Urolithiasis, bilateral stone disease, hydronephrosis on the left and voidi ng dysfunction, bladder calculi and urosepsis, and also respiratory distress, bilateral hydronephrosi s, left and right. PROCEDURE: Cystoscopy, left retrograde pyelogram, insertion of left Double-J stent, right retrograde pyelogram, insertion of right Double-J stent, and a cystogram, insertion of Garcia catheter. COMPLICATIONS: There were none. FINDINGS: 1. Normal anterior urethra, no strictures. 2. From the veru on in is moderately visually occlusive. 3. Within the urinary bladder, there is a lot of debris and stone material. Multiple pictures were taken and saved on the chart. 4. The left retrograde shows hydronephrosis and I inserted a stent on that side. For thoroughness and based on his history, I did a right retrograde pyelogram and I found similar fin dings, although no clear definite stone, but with the history and the CAT scan and the whole picture, we inserted a Double-J stent. INDICATIONS FOR PROCEDURE: See history and physical and the chart notes and the consultation note. The patient presented to the hospital already intubated in the field with sepsis. The etiology, whet her it is respiratory or sepsis, is unclear at this point. But, given the fact that he has hydronephrosis and a stone and I am not able to get further history, we brought him for immediate surgery as an emergency, as lifesaving surgical procedure for insertion of stent. We discussed various options. I discussed with his mother both last night upon presentati on and again this morning. I also discussed with the ICU attendings. After discussing risks, benefits and treatment alternatives, the patient is brought here. The procedure, I just want to mention, went in an uncomplicated fashion, rapidly with no change in hi s heart rate or blood pressure. I also want to mention blood loss is less than 10 mL. PROCEDURE ITSELF: After discussing options and making it an emergency, after discussing options with his mother, obviously cannot discuss with patient, he is intubated. We brought the patient here for an absolute emergency for lifesaving surgical procedure and intervent ion. So after discussing with his mother and getting her permission and consent, we brought him here for t he procedure. DESCRIPTION OF PROCEDURE: The patient was placed on the table, already intubated. We confirmed his ID via the bracelet. Timeouts were called to confirm the patient, the positioning, etc. The patient is already on antibiotics. The procedure continues, cystoscope. We removed the Garcia catheter that is there, inserted and intro duced the cystoscope via the urethra. It is a 22 Italian scope. Upon insertion, I do not note any urethral strictures or the like. From the veru on in is moderately visually occlusive. Basically, we were able to put the scope in fa irly easily. Bladder is inspected, but I note in the bladder it is just some debris and stone material that is jordon ating around, a yellowish material. Multiple pictures were taken. Left ureteral orifice identified. Left retrograde pyelogram performed. At this point, I note the presence of a moderate amount of hy dronephrosis (this could also just be a chronic UPJ obstruction sort of picture). It is difficult to evaluate in this setting. But again, the goal was just to get a stent in. The films are going to be submitted to the radiologist and we will review them later, but this is jus t to get the stent and drain the kidney. Once we did this, given the whole history, I decided to inject on the right side as well as quickly, as rapidly as possible. Given the fact that he has stones on both sides, and upon doing so, we noted the presence of right hy dronephrosis. Again, this could also just be chronic right UPJ obstruction. It is difficult to see on these limited images whether the retrograde demonstrates a stone or not wit hin the ureter (on the CT scan, it did not mention such). I do not see any on the right side on the CT scan, but at this point, we put a Double-J stent in on t he right side as well just to make sure that we have adequate drainage for the kidneys (and then fur ther plans later could follow). Procedure continues in the following fashion: We introduced the Garcia catheter via the urethra witho ut difficulty and just took a cystogram to confirm positioning into the, and just the general nature of the bladder. The patient tolerated the procedure well without complication. ADDENDUM: I discussed with the mother afterwards postop. I called her just to confirm our findings, and then further plans to follow. The patient returned to the ICU in stable condition. Subhash Escobar MD cc: [phone] TT: 12/24/2016 08:45:14 en
--- NOTE | 2016-12-24 09:15 | PN ---
DATE: 12/24/2016 The patient seen and examined at bedside. He is comfortable. His mental status at baseline. He appears to be alert, awake, and oriented x 3, in good mood. He is on 5 liters nasal cannula and his oxygen saturation 100%. PHYSICAL EXAMINATION: VITAL SIGNS: His temperature 98, respiratory rate 20, oxygen saturation 100%, blood pressure 130/83, heart rate 105. HEAD AND NECK: Atraumatic. LUNGS: A few crackles bibasilarly. HEART: Regular rate and rhythm. S1, S2 normal. ABDOMEN: Soft, nontender, nondistended. MUSCULOSKELETAL: No C/C/E. NEUROLOGIC: The patient has underlying multiple sclerosis and does not move lower extremities. SKIN: Moist. PSYCHIATRIC: The patient is alert, awake, in good mood. LABORATORIES: WBC 10.4, hemoglobin 11.5, platelet count 208. Sodium 140, potassium 3.5 (supplemented), chloride 108, carbon dioxide 25, BUN 12, creatinine 0.7, glucose 153, AST 38, ALT 38. MEDICATIONS: Tylenol IV, p.r.n. Mucomyst, Brovana, Pulmicort, clindamycin, heparin subQ, trandate, Lamictal, meropenem, Solu-Medrol 20 mg IV q. 8, metoprolol p.r.n., Protonix, potassium supplementation. ASSESSMENT AND PLAN: This is a 51-year-old gentleman who presented with community-acquired pneumonia in the setting of likely chronic aspiration, requiring intubation. The patient substantially improved over the last 2 days and was extubated yesterday successfully. At present time, patient is respiratory marie relatively stable with fi02 down to 5 liters per minute via nasal cannula. He is hemodynamically stable except for mild tachycardia. He is afebrile, even though overnight had a low grade fever. He is alert, awake, not in any distress. He is in a good mood. I would continue with antibiotics. I would taper steroids. I would continue with bronchodilators and aggressive pulmonary toilet including chest physiotherapy, incentive spirometry. I would proceed with speech and swallow evaluation. I will continue to target euvolemia , euglycemia, normothermia and oxygen saturation more than 90%. I will continue with deep venous thrombosis and gastrointestinal prophylaxis. Okay to downgrade to telemetry. ccm time 40 min Dann Seymour MD cc: [id number] TT: 12/24/2016 09:14:09 Confirmation # [id number] Dictation # [id number] en MTDD
[2016-12-24] MEDS: guaiFENesin 600 mg ER Tab PO SCH ×2 (09:31→17:44)
[2016-12-24] MEDS ORDERED: Potassium & Sodium Phosphate PO ONE (10:00)
--- NOTE | 2016-12-24 10:14 | PN ---
DATE: 12/24/2016 SUBJECTIVE: The patient is lying in bed in no acute distress. He is awake and responsive. There ar e no complaints of chest pain or shortness of breath. OBJECTIVE: VITAL SIGNS: Blood pressure 130/83, temperature 97.4 rectally, pulse 99, respiratory rate 29. LUNGS: Show a few scattered crepitations at the bases. HEART: Regular rate and rhythm. ABDOMEN: Soft, nontender. Bowel sounds are normoactive. EXTREMITIES: Without cyanosis, clubbing, or edema. NEUROLOGIC: The patient was without focal sensory or motor deficits. SKIN: Warm and dry. LABORATORY DATA: WBC is 10.4, hemoglobin 11.5, hematocrit 33.7. Sodium 140, potassium 3.5, chloride 108, CO2 of 25. BUN 12, creatinine 0.7. Glucose 153. IMPRESSION: 1. Aspiration pneumonia, status post ventilatory failure. 2. Multiple sclerosis. 3. Seizure disorder. 4. Left ureteral stone with mild hydronephrosis, status post cystoscopy and stent placement. 5. Larsen's palsy. 6. Hypertension. 7. Gastroesophageal reflux disease. 8. Hypercholesterolemia. PLAN: Continue IV antibiotics, pulmonary toilet, monitor respiratory status. Pulmonary followup wit h Dr. Gonzalez, GI followup with Dr. Escobar. Aspiration precautions. Neurology followup with Dr. Basil phelps. Awaiting modified barium swallow for swallowing evaluation. Physical therapy and social work f or discharge planning. Garrett Torre JD, MD cc: [id number] TT: 12/24/2016 10:14:08 Confirmation # [id number] Dictation # [id number] [email or web address]
[2016-12-24] MEDS ORDERED: Meropenem 1g/NS 100mL IVPB 1 GM/100 ML PIGGYBACK IVPB SCH (16:00)
--- NOTE | 2016-12-24 23:12 | CP.PCM.PN ---
Subjective - Date & Time of Evaluation Date of Evaluation: 12/24/16 Time of Evaluation: 22:00 - Subjective Subjective: Infectious Disease Follow Up: December 24, 2016 51 yo male with presentation of SOB and AMS. The patient had worsening shortness of breath at home to the point that during a coughing fit at home he collapsed. He was intubated in the edward. The patient was brought to the MICU for further care. He remains intubated and ventilated. [place] [facility] [place] The patient has Multiple Sclerosis. He was sent home with Keflex at this time. He was on Aztreonam and Vancomycin on the past admission. Fevers up to 100.6 F in the past 24 hours and afebrile so far today. Antibiotics continued on Meropenem. Received one dose of Amikacin two days ago. On Clindamycin. Cultures have been negative to date. The patient is no longer on high flow oxygen and is on 5 L nasal canula now. The patient is improving. Objective - Vital Signs/Intake and Output Vital Signs (last 24 hours): Temp Pulse Resp BP Pulse Ox 98.9 F 106 H 38 H 99/59 L 97 12/24/16 16:00 12/24/16 22:00 12/24/16 22:00 12/24/16 16:00 12/24/16 22:00 Intake and Output: 12/24/16 12/25/16 18:59 06:59 Intake Total 1020 Output Total 600 Balance 420 - Medications Medications: Current Medications Acetylcysteine (Acetylcysteine 20%) 4 ml IH [id number] REPLACED BY [facility] Last Admin: 12/24/16 19:30 Dose: 4 ml Albuterol Sulfate (Albuterol 0.083% Inhal Jo (2.5 Mg/3 Ml) Ud) 2.5 mg IH [id number] REPLACED BY [facility] Last Admin: 12/24/16 19:30 Dose: 2.5 mg Arformoterol Tartrate (Brovana) 15 mcg IH [id number] REPLACED BY [facility] Last Admin: 12/24/16 19:31 Dose: 15 mcg Budesonide (Pulmicort Respules) 0.5 mg IH [id number] REPLACED BY [facility] Last Admin: 12/24/16 19:30 Dose: 0.5 mg Cholecalciferol (Vitamin D) 4,000 iu PO DAILY REPLACED BY [facility] Last Admin: 12/24/16 09:31 Dose: 4,000 iu Guaifenesin (Mucinex La) 600 mg PO BID REPLACED BY [facility] Last Admin: 12/24/16 17:44 Dose: 600 mg Heparin Sodium (Porcine) (Heparin) 5,000 units SC Q8 REPLACED BY [facility] PRN Reason: Protocol Last Admin: 12/24/16 21:44 Dose: 5,000 units Home Med (Home Med) 1 unit SC [facility] Clindamycin Phosphate 600 mg/ (Sodium Chloride) 54 mls @ 102 mls/hr IVPB Q8 REPLACED BY [facility] PRN Reason: Protocol Last Admin: 12/24/16 21:46 Dose: 102 mls/hr Acetaminophen (Ofirmev) 1,000 mg in 100 mls @ 400 mls/hr IVPB Q6H PRN PRN Reason: Temperature Stop: 12/25/16 00:02 Last Admin: 12/23/16 08:15 Dose: 400 mls/hr Meropenem 1g/NS 100mL IVPB (Meropenem 1g/Ns 100ml Ivpb) 1 gm in 100 mls @ 100 mls/hr IVPB Q8 REPLACED BY [facility] PRN Reason: Protocol Last Admin: 12/24/16 22:37 Dose: 100 mls/hr Lamotrigine (Lamictal) 25 mg PO BID REPLACED BY [facility] PRN Reason: Protocol Last Admin: 12/24/16 17:44 Dose: 25 mg Methylprednisolone (Solu-Medrol) 20 mg IVP Q8 REPLACED BY [facility] Last Admin: 12/24/16 21:43 Dose: 20 mg Metoprolol Tartrate (Lopressor) 5 mg IVP Q3H PRN PRN Reason: Systolic Blood Pressure Last Admin: 12/23/16 17:12 Dose: 5 mg Pantoprazole Sodium (Protonix Ec Tab) 40 mg PO 0630 REPLACED BY [facility] - Labs Labs: 12/24/16 05:20 12/24/16 05:20 PT 11.5 Seconds (9.9-11.8) 12/21/16 15:13 INR 1.06 (0.93-1.08) 12/21/16 15:13 APTT 27.6 Seconds (23.7-30.8) 12/21/16 15:13 - Constitutional Appears: Toxic, No Acute Distress, Chronically Ill - Head Exam Head Exam: ATRAUMATIC, NORMOCEPHALIC - Eye Exam Eye Exam: EOMI, PERRL Pupil Exam: NORMAL ACCOMODATION, PERRL - ENT Exam ENT Exam: Mucous Membranes Moist, Normal External Ear Exam, TM's Normal Bilaterally - Neck Exam Neck Exam: Full ROM, Normal Inspection - Respiratory Exam Respiratory Exam: Decreased Breath Sounds, NORMAL BREATHING PATTERN. absent: Rales, Rhonchi, Wheezes - Cardiovascular Exam Cardiovascular Exam: REGULAR RHYTHM, RRR, +S1, +S2 - GI/Abdominal Exam GI & Abdominal Exam: Soft, Normal Bowel Sounds. absent: Distended, Tenderness - Extremities Exam Extremities Exam: absent: Joint Swelling, Pedal Edema - Neurological Exam Neurological Exam: Alert, Awake, CN II-XII Intact - Psychiatric Exam Psychiatric exam: Normal Affect, Normal Mood - Skin Skin Exam: Intact, Normal Color Assessment and Plan - Assessment and Plan (Free Text) Assessment: 51 yo [place]an male with left pyelonephritis and nephrolithiasis presenting with sepsis, AMS, SOB, and syncope. Went to OR for stent placement and stone removal yesterday. The patient was on Clindamycin and Rocephin. Given prior hospitalizations and persistent fevers, meropenem started over Rocephin as the spectrum for gram negative coverage is better. Given a dose of Aminoglycoside ( Amikacin) as part of patient's coverage. The patient was intubated and ventilated... extubated and on high flow oxygen. I would consider change of Clindamycin to Vancomycin if fever does NOT improve in the next 24 or so hours. Currently on Meropenem and Clindamycin. Patient appears to be improving. Cultures negative but that does NOT rule out infective process. Would give 10 days of antibiotic therapy at the minimum. Supportive care Thank you for allowing me to participate in the care of the patient, we will follow with you.
[2016-12-25] MEDS: Acetylcysteine 20% Inhal Soln (4ml) IH SCH ×7 (00:57→23:29)
[2016-12-25] MEDS: Albuterol 0.083% Inhal Sol (2.5 mg/3 mL) UD IH SCH ×7 (00:58→23:29)
--- NOTE | 2016-12-25 04:02 | PN ---
DATE: 12/24/2016 REFERRING PHYSICIAN: Dr. Garrett Torre. SUBJECTIVE: He is lying in the bed, head at 45-degree, on nasal cannula oxygen. He still has cough and shortness of breath, but improved. No nausea, no vomiting, no diarrhea, no leg pain, no leg swel ling. OBJECTIVE: GENERAL: No acute distress. VITAL SIGNS: Temp is 98, heart rate is 106, respiratory rate is 30, blood pressure 138/78, pulse ox 98% on nasal cannula. HEENT: Moist mucous membrane. Crowded airway. NECK: Supple. No JVD. LUNGS: Has scattered rhonchi, few wheezing. HEART: S1, S2. ABDOMEN: Soft, nontender. No organomegaly. EXTREMITIES: There is no edema. NEUROLOGIC: Awake, alert, follows simple commands. MEDICATIONS: He is on Mucomyst 20% inhaled q. 4 hours, albuterol/Atrovent nebulizer q. 4 hours, Brov ian 15 mcg inhaled twice a day, clindamycin 600 mg q. 8 hours, heparin 5000 units subQ q. 8 hours, on glatiramer acetate 20 mg daily, also on Lamictal 25 mg twice a day, metoprolol tartrate 5 mg q. 3 ho urs p.r.n., meropenem 1 g IV q. 8 hours, Mucinex, Lasix 20 mg twice a day, Tylenol on a p.r.n. basis, Protonix 40 mg daily, Pulmicort inhaled twice a day, Solu-Medrol 20 mg q. 8 hours, vitamin D 4000 In ternational Units daily. LABORATORY DATA: Shows hemoglobin 11.5, hematocrit 33.7, WBC 10.4, platelet count is 208. Sodium 14 0, potassium 3.5, chloride 108, bicarbonate 25, BUN 12, creatinine 0.7, glucose is 153, calcium 8.7, phosphorus 2.3, magnesium 2.0, AST 38, ALT 38, alk phos is 76, albumin is 3.5. IMPRESSION AND PLAN: Status post respiratory failure, presently extubated; chronic lung disease; obs tructive uropathy, status post cystoscopy and ureteral stent; history of multiple sclerosis; orophary ngeal dysphagia; chronic aspiration; seizure disorder; history of Larsen palsy; hypertension; gastroeso phageal reflux disease, severe activities of daily living dysfunction. From pulmonary point of view, doing okay. Continue antibiotics, IV steroids, inhaled bronchodilator, incentive spirometer. Gastric prophylaxis. Deep venous thrombosis prophylaxis. Fall precaution. I spoke to nursing staff. Continue physical therapy, out of bed to chair if possible. Follow up lab s in the morning. We will follow with you. Laquita Gonzalez MD cc: [phone] TT: 12/25/2016 04:01:18 Confirmation # [id number] Dictation # [id number] dn
[2016-12-25] MEDS: Meropenem 1g/NS 100mL IVPB 1 GM/100 ML PIGGYBACK IVPB SCH ×3 (05:42→21:23)
[2016-12-25] MEDS: MethylPREDNISolone 40 mg Vial IVP SCH ×3 (05:43→21:22)
[2016-12-25] MEDS: Pantoprazole 40 mg EC Tab PO SCH (05:44)
[2016-12-25 06:01] LABS: ADD MANUAL DIFF? NO
[2016-12-25 06:08] LABS: GRAN # 8.43 (1.4-6.5); GRAN % 85.6 % (50.0-68.0); HEMATOCRIT 31.2 % (42.0-52.0); LYMPH % 9.9 % (22.0-35.0); MEAN CELL VOLUME 81.3 fL (80.0-105.0); MEAN CORPUSCULAR HEMOGLOBIN 28.9 pg (25.0-35.0); MEAN CORPUSCULAR HGB CONC 35.6 g/dl (31.0-37.0); MEAN PLATELET VOLUME 10.4 fl (7.0-11.0); MONO # 0.4 (0.1-0.6); MONO % 4.5 % (1.0-6.0); PLATELET COUNT 242 10^3/uL (120.0-450.0); WHITE BLOOD COUNT 9.8 10^3/ul (4.5-11.0)
[2016-12-25 06:25] LABS: ALKALINE PHOSPHATASE 64 U/L (38-133); ALT/SGPT 37 U/L (7-56); AST/SGOT 35 U/L (15-59); BILIRUBIN,TOTAL 0.3 mg/dL (0.2-1.3); BLOOD UREA NITROGEN 23 mg/dL (7-21); CALCIUM 9.1 mg/dL (8.4-10.5); CARBON DIOXIDE 26 mmol/L (21-33); CHLORIDE 111 mmol/L (98-107); GFR AFRICAN-AMERICAN > 60; GLUCOSE,RANDOM 149 mg/dL (70-110); MAGNESIUM 2.1 mg/dL (1.7-2.2); PHOSPHOROUS 2.4 mg/dL (2.5-4.5); POTASSIUM 3.9 mmol/L (3.6-5.0); SODIUM 144 mmol/L (132-148); TOTAL PROTEIN 6.3 g/dL (5.8-8.3)
[2016-12-25] MEDS: Arformoterol 15 mcg/2 ml Inh Sol IH SCH ×2 (08:06→19:44)
[2016-12-25] MEDS: Budesonide 0.5 mg/2 ml Inhal Susp UD IH SCH ×2 (08:06→19:44)
[2016-12-25] MEDS: GLATIRAMER ACETATE 20 MG/ML SC SCH (08:59)
[2016-12-25] MEDS: guaiFENesin 600 mg ER Tab PO SCH ×2 (08:59→16:59)
--- NOTE | 2016-12-25 14:27 | CP.PCM.PN ---
Subjective - Date & Time of Evaluation Date of Evaluation: 12/25/16 Time of Evaluation: 13:15 - Subjective Subjective: Infectious Disease Follow Up: December 25, 2016 51 yo male with presentation of SOB and AMS. The patient had worsening shortness of breath at home to the point that during a coughing fit at home he collapsed. He was intubated in the edward. The patient was brought to the MICU for further care. He remains intubated and ventilated. The patient was last in [facility] [place] in September 2016. The patient has Multiple Sclerosis. He was sent home with Keflex at this time. He was on Aztreonam and Vancomycin on the past admission. Fevers up to 100.6 F in the past 24 hours and afebrile so far today. Antibiotics continued on Meropenem. Received one dose of Amikacin two days ago. On Clindamycin. Cultures have been negative to date. The patient is no longer on high flow oxygen and improved to 2 L nasal canula now. The patient is improving slowly. Objective - Vital Signs/Intake and Output Vital Signs (last 24 hours): Temp Pulse Resp BP Pulse Ox 98.7 F 98 H 28 H 127/74 96 12/25/16 12:53 12/25/16 12:53 12/25/16 12:00 12/25/16 12:00 12/25/16 12:00 Intake and Output: 12/25/16 12/25/16 06:59 18:59 Intake Total 640 Output Total 700 Balance -60 - Medications Medications: Current Medications Acetylcysteine (Acetylcysteine 20%) 4 ml IH [id number] [facility] Last Admin: 12/25/16 11:07 Dose: 4 ml Albuterol Sulfate (Albuterol 0.083% Inhal Jo (2.5 Mg/3 Ml) Ud) 2.5 mg IH [id number] [facility] Last Admin: 12/25/16 11:07 Dose: 2.5 mg Arformoterol Tartrate (Brovana) 15 mcg IH [id number] [facility] Last Admin: 12/25/16 08:06 Dose: 15 mcg Budesonide (Pulmicort Respules) 0.5 mg IH [id number] [facility] Last Admin: 12/25/16 08:06 Dose: 0.5 mg Cholecalciferol (Vitamin D) 4,000 iu PO DAILY [facility] Last Admin: 12/25/16 08:59 Dose: 4,000 iu Guaifenesin (Mucinex La) 600 mg PO BID [facility] Last Admin: 12/25/16 08:59 Dose: 600 mg Heparin Sodium (Porcine) (Heparin) 5,000 units SC Q8 [facility] PRN Reason: Protocol Last Admin: 12/25/16 13:15 Dose: 5,000 units Home Med (Home Med) 1 unit SC MWF [facility] Last Admin: 12/25/16 08:59 Dose: Not Given Clindamycin Phosphate 600 mg/ (Sodium Chloride) 54 mls @ 102 mls/hr IVPB Q8 [facility] PRN Reason: Protocol Last Admin: 12/25/16 14:16 Dose: 102 mls/hr Meropenem 1g/NS 100mL IVPB (Meropenem 1g/Ns 100ml Ivpb) 1 gm in 100 mls @ 100 mls/hr IVPB Q8 [facility] PRN Reason: Protocol Last Admin: 12/25/16 13:12 Dose: 100 mls/hr Lamotrigine (Lamictal) 25 mg PO BID [facility] PRN Reason: Protocol Last Admin: 12/25/16 08:59 Dose: 25 mg Methylprednisolone (Solu-Medrol) 20 mg IVP Q8 [facility] Last Admin: 12/25/16 13:13 Dose: 20 mg Metoprolol Tartrate (Lopressor) 5 mg IVP Q3H PRN PRN Reason: Systolic Blood Pressure Last Admin: 12/23/16 17:12 Dose: 5 mg Pantoprazole Sodium (Protonix Ec Tab) 40 mg PO 0630 [facility] Last Admin: 12/25/16 05:44 Dose: 40 mg - Labs Labs: 12/25/16 05:30 12/25/16 05:30 PT 11.5 Seconds (9.9-11.8) 12/21/16 15:13 INR 1.06 (0.93-1.08) 12/21/16 15:13 APTT 27.6 Seconds (23.7-30.8) 12/21/16 15:13 - Constitutional Appears: Non-toxic, No Acute Distress, Chronically Ill - Head Exam Head Exam: ATRAUMATIC, NORMOCEPHALIC - Eye Exam Eye Exam: EOMI, PERRL Pupil Exam: NORMAL ACCOMODATION, PERRL - ENT Exam ENT Exam: Mucous Membranes Moist, Normal External Ear Exam, TM's Normal Bilaterally - Neck Exam Neck Exam: Full ROM, Normal Inspection - Respiratory Exam Respiratory Exam: Decreased Breath Sounds, NORMAL BREATHING PATTERN. absent: Rales, Rhonchi, Wheezes - Cardiovascular Exam Cardiovascular Exam: REGULAR RHYTHM, RRR, +S1, +S2 - GI/Abdominal Exam GI & Abdominal Exam: Soft, Normal Bowel Sounds. absent: Distended, Tenderness - Extremities Exam Extremities Exam: Full ROM, Normal Inspection - Neurological Exam Neurological Exam: Alert, Awake, CN II-XII Intact, Oriented x3 - Psychiatric Exam Psychiatric exam: Normal Affect, Normal Mood - Skin Skin Exam: Intact, Normal Color Assessment and Plan - Assessment and Plan (Free Text) Assessment: 51 yo [place] male with left pyelonephritis and nephrolithiasis presenting with sepsis, AMS, SOB, and syncope. Went to OR for stent placement and stone removal yesterday. The patient was on Clindamycin and Rocephin. Given prior hospitalizations and persistent fevers, meropenem started over Rocephin as the spectrum for gram negative coverage is better. Given a dose of Aminoglycoside ( Amikacin) as part of patient's coverage. The patient was intubated and ventilated... extubated and on high flow oxygen. I would consider change of Clindamycin to Vancomycin if fever does NOT improve in the next 24 or so hours. Currently on Meropenem and Clindamycin. Patient appears to be improving. Cultures negative but that does NOT rule out infective process. Would give 10 days of antibiotic therapy at the minimum. Supportive care. Overall, the patient has been improving. Thank you for allowing me to participate in the care of the patient, we will follow with you
--- NOTE | 2016-12-25 16:17 | PN ---
DATE: 12/25/2016 REFERRING PHYSICIAN: Dr. Torre. SUBJECTIVE: He is lying in the bed, head at 45 degrees, on nasal cannula oxygen. Night was unremark able. Feels better. Decreased cough, decreased shortness of breath. No nausea, no vomiting, no chad rrhea. No leg pain or leg swelling. OBJECTIVE: GENERAL: No acute distress. VITAL SIGNS: Temperature is 98, heart rate is 90, respiratory rate is 20, blood pressure 127/74, pul se ox 96% on nasal cannula. HEENT: Moist mucous membrane. Crowded airway. NECK: Supple. No JVD. LUNGS: Have scattered rhonchi with a few wheezing. HEART: S1 and S2. ABDOMEN: Soft, nontender. No organomegaly. EXTREMITIES: No edema. NEUROLOGIC: Awake, alert, follows simple commands. MEDICATIONS: He is on Mucomyst 20% inhaled q. 4 hours, albuterol-Atrovent nebulizer q. 4 hours, Brov ian inhaled twice a day round the clock, clindamycin 600 mg q. 8 hours, heparin 5000 units subQ q. 8 hours, Lamictal 25 mg twice a day, metoprolol tartrate 5 mg IV q. 3 hours p.r.n., meropenem 1 g IV q. 8 hours, Mucinex LA 600 mg twice a day, Protonix 40 mg daily, Pulmicort inhaled twice a day, Solu-Me drol 20 mg q. 8 hours, vitamin D 4000 units daily. LABORATORY DATA: Shows hemoglobin 11.1, hematocrit 31.2, WBC 9.8, platelet is 242. Sodium 144, pota ssium 3.9, chloride 111, bicarbonate 26, BUN 23, creatinine 0.8, glucose is 149, calcium is 9.1, phos phorus is 2.4. AST 35, ALT 37, alk phos is 64, albumin is 3.2. IMPRESSION AND PLAN: Status post respiratory failure, presently extubated to nasal cannula; chronic obstructive lung disease, may have obstructive sleep apnea syndrome; obstructive uropathy according t o cystoscopy and ureteral stent placement; has multiple sclerosis, oropharyngeal dysphagia, aspiratio n precaution, history of chronic aspiration, seizure disorder, history of Larsen's palsy, hypertension, gastroesophageal reflux disease, activities of daily living dysfunction. Clinically he is much impr hortencia. Continue IV and inhaled bronchodilator. Keep head at 45 degrees. Antibiotics. Aspiration pr ecaution. Gastric prophylaxis. DVT prophylaxis. Out of bed to chair. Start therapy. Thank you, and will follow with you. Laquita Gonzalez MD cc: [phone] TT: 12/25/2016 16:16:52 Confirmation # [id number] Dictation # [id number] mn
--- NOTE | 2016-12-25 17:28 | PN ---
DATE: 12/25/2016 SUBJECTIVE: The patient is lying in bed, in no acute distress. He is awake and responsive. He holly es any chest pain or shortness of breath. OBJECTIVE: VITAL SIGNS: Blood pressure 127/74, pulse 98, temperature 98.7, respiratory rate 28. LUNGS: Show a few scattered crepitations at the bases. HEART: Regular rate and rhythm. ABDOMEN: Soft, nontender, bowel sounds are normoactive. EXTREMITIES: Without cyanosis, clubbing, or edema. NEUROLOGIC: The patient is awake and responsive without focal, sensory or motor deficits. SKIN: Warm and dry. LABORATORY DATA: WBCs 9.8, hemoglobin 11.1, hematocrit 31.2. Sodium 144, potassium 3.9, chloride 11 1, CO2 26, BUN 23, creatinine 0.8, glucose 149. IMPRESSION: 1. Aspiration pneumonia, status post ventilatory failure. 2. Multiple sclerosis. 3. Seizure disorder. 4. Left ureteral stone with mild hydronephrosis, status post cystoscopy and stent placement. 5. Larsen's palsy. 6. Hypertension. 7. Gastroesophageal reflux disease. 8. Hypercholesterolemia. PLAN: Continue IV antibiotics, pulmonary toilet, chest PT, monitor respiratory status. Pulmonary fo llowup with Dr. Gonzalez, followup with Dr. Escobar. Aspiration precautions. Neurology followup [facility] Dr. Lindquist. For modified barium swallow. Physical therapy and social work for discharge planning . Garrett Torre JD, MD cc: [id number] TT: 12/25/2016 17:27:37 Confirmation # [id number] Dictation # [id number]
[2016-12-26] MEDS: Albuterol 0.083% Inhal Sol (2.5 mg/3 mL) UD IH SCH ×3 (04:03→20:04)
[2016-12-26] MEDS: Acetylcysteine 20% Inhal Soln (4ml) IH SCH ×3 (04:03→20:03)
[2016-12-26] MEDS: Meropenem 1g/NS 100mL IVPB 1 GM/100 ML PIGGYBACK IVPB SCH ×3 (05:28→21:43)
[2016-12-26] MEDS: MethylPREDNISolone 40 mg Vial IVP SCH ×3 (05:29→21:42)
[2016-12-26 06:02] LABS: ADD MANUAL DIFF? NO
[2016-12-26 06:16] LABS: BASO # 0.01 K/mm3 (0.0-2.0); BASO % 0.1 % (0.0-3.0); GRAN # 7.43 (1.4-6.5); GRAN % 78.1 % (50.0-68.0); HEMATOCRIT 31.9 % (42.0-52.0); LYMPH # 1.4 (1.2-3.4); MEAN CELL VOLUME 81.2 fL (80.0-105.0); MEAN CORPUSCULAR HGB CONC 34.5 g/dl (31.0-37.0); MEAN PLATELET VOLUME 10.7 fl (7.0-11.0); MONO # 0.7 (0.1-0.6); MONO % 6.8 % (1.0-6.0); PLATELET COUNT 269 10^3/uL (120.0-450.0); WHITE BLOOD COUNT 9.5 10^3/ul (4.5-11.0)
[2016-12-26 06:43] LABS: ALKALINE PHOSPHATASE 70 U/L (38-133); ALT/SGPT 44 U/L (7-56); AST/SGOT 40 U/L (15-59); BILIRUBIN,TOTAL 0.4 mg/dL (0.2-1.3); BLOOD UREA NITROGEN 18 mg/dL (7-21); CALCIUM 8.9 mg/dL (8.4-10.5); CARBON DIOXIDE 26 mmol/L (21-33); CHLORIDE 112 mmol/L (98-107); GFR AFRICAN-AMERICAN > 60; GLUCOSE,RANDOM 132 mg/dL (70-110); MAGNESIUM 1.9 mg/dL (1.7-2.2); PHOSPHOROUS 2.6 mg/dL (2.5-4.5); POTASSIUM 3.6 mmol/L (3.6-5.0); SODIUM 145 mmol/L (132-148); TOTAL PROTEIN 6.4 g/dL (5.8-8.3)
[2016-12-26] MEDS: Budesonide 0.5 mg/2 ml Inhal Susp UD IH SCH ×2 (07:06→20:04)
[2016-12-26] MEDS: Arformoterol 15 mcg/2 ml Inh Sol IH SCH ×2 (07:06→20:04)
[2016-12-26] MEDS: Pantoprazole 40 mg EC Tab PO SCH (08:01)
[2016-12-26] MEDS: guaiFENesin 600 mg ER Tab PO SCH ×2 (09:15→17:31)
[2016-12-26] MEDS ORDERED: Barium Sulfate for Susp 96% w/w 176g Bottle PR ONE (12:56)
--- NOTE | 2016-12-26 13:44 | PN ---
DATE: 12/26/2016 SUBJECTIVE: The patient is lying in bed in no acute distress. He is awake and responsive. He denie s chest pain or shortness of breath. OBJECTIVE: VITAL SIGNS: Blood pressure 137/80, pulse 79, respiratory rate 20, temperature is 98.4 axillary. LUNGS: Show decreased crepitations at the bases. HEART: Regular rate and rhythm. ABDOMEN: Soft, nontender. Bowel sounds are normoactive. EXTREMITIES: Without cyanosis, clubbing, or edema. NEUROLOGIC: The patient is awake and responsive without focal sensory or motor deficits. SKIN: Warm and dry. LABORATORY DATA: WBC is 9.5, hemoglobin 11.0, hematocrit 31.9. Sodium 145, potassium 3.6, chloride 112, CO2 26, BUN 18, creatinine 0.7, glucose 132. IMPRESSION: 1. Aspiration pneumonia, status post ventilatory failure. 2. Multiple sclerosis. 3. Seizure disorder. 4. Left ureteral stone with mild hydronephrosis, status post cystoscopy and stent placement. 5. Larsen's palsy. 6. Hypertension. 7. Gastroesophageal reflux disease. 8. Hypercholesterolemia. PLAN: Continue IV antibiotics, pulmonary toilet, chest PT, monitor respiratory status. Pulmonary fo llowup with Dr. Gonzalez. follow up with Dr. Escobar. Aspiration precautions. Neurology followup with Dr. Lindquist. Physical therapy and social work for discharge planning. The patient is medically stable for transfer to the medical/surgical floor. Garrett Torre JD, MD cc: [id number] TT: 12/26/2016 13:43:52 Confirmation # [id number] Dictation # [id number] tn
--- NOTE | 2016-12-26 14:57 | RAD ---
PROCEDURE: Modified barium swallow study. HISTORY: Aspiration pneumonia/multiple sclerosis COMPARISON: None available. TECHNIQUE: Under fluoroscopic guidance, various consistencies of barium were ingested by the patient. Examination was performed in conjunction with the speech pathologist. FINDINGS: There is no evidence of deep laryngeal penetration or aspiration. On the lateral projection, the vallecula, piriform sinuses, epiglottis and airways appear normal. The total fluoroscopic time was 2 minutes and 28 seconds. IMPRESSION: No deep laryngeal penetration or aspiration observed. Please refer to the detailed report and recommendations of the speech pathologist.
[2016-12-26] MEDS: Metoprolol 1 mg/ml Inj IVP PRN (17:48)
--- NOTE | 2016-12-26 20:44 | CP.PCM.PN ---
Subjective - Date & Time of Evaluation Date of Evaluation: 12/26/16 Time of Evaluation: 14:00 - Subjective Subjective: Infectious Disease Follow Up: December 26, 2016 51 yo male with presentation of SOB and AMS. The patient had worsening shortness of breath at home to the point that during a coughing fit at home he collapsed. He was intubated in the [facility]. The patient was brought to the MICU for further care. He remains intubated and ventilated. The patient [place] [facility] The patient has Multiple Sclerosis. He was sent home with Keflex at this time. He was on Aztreonam and Vancomycin on the past admission. Afebrile so far today. Antibiotics continued on Meropenem. Received one dose of Amikacin two days ago. On Clindamycin. Cultures have been negative to date. The patient is no longer on high flow oxygen and improved to 2 L nasal canula now. The patient is improving slowly. Awaiting transfer to medical floor. Objective - Vital Signs/Intake and Output Vital Signs (last 24 hours): Temp Pulse Resp BP Pulse Ox 98.4 F 73 20 164/106 H 98 12/26/16 18:53 12/26/16 18:53 12/26/16 18:53 12/26/16 18:53 12/26/16 18:53 Intake and Output: 12/26/16 12/27/16 18:59 06:59 Intake Total 900 Output Total 1300 Balance -400 - Medications Medications: Current Medications Acetylcysteine (Acetylcysteine 20%) 4 ml IH [id number] [facility] Last Admin: 12/26/16 20:03 Dose: 4 ml Albuterol Sulfate (Albuterol 0.083% Inhal Jo (2.5 Mg/3 Ml) Ud) 2.5 mg IH [id number] [facility] Last Admin: 12/26/16 20:04 Dose: 2.5 mg Arformoterol Tartrate (Brovana) 15 mcg IH [id number] [facility] Last Admin: 12/26/16 20:04 Dose: 15 mcg Budesonide (Pulmicort Respules) 0.5 mg IH [id number] [facility] Last Admin: 12/26/16 20:04 Dose: 0.5 mg Cholecalciferol (Vitamin D) 4,000 iu PO DAILY [facility] Last Admin: 12/26/16 09:15 Dose: 4,000 iu Guaifenesin (Mucinex La) 600 mg PO BID [facility] Last Admin: 12/26/16 17:31 Dose: 600 mg Heparin Sodium (Porcine) (Heparin) 5,000 units SC Q8 [facility] PRN Reason: Protocol Last Admin: 12/26/16 14:32 Dose: 5,000 units Home Med (Home Med) 1 unit SC MWF [facility] Last Admin: 12/25/16 08:59 Dose: Not Given Clindamycin Phosphate 600 mg/ (Sodium Chloride) 54 mls @ 102 mls/hr IVPB Q8 [facility] PRN Reason: Protocol Last Admin: 12/26/16 14:29 Dose: 102 mls/hr Meropenem 1g/NS 100mL IVPB (Meropenem 1g/Ns 100ml Ivpb) 1 gm in 100 mls @ 100 mls/hr IVPB Q8 [facility] PRN Reason: Protocol Last Admin: 12/26/16 14:29 Dose: 100 mls/hr Lamotrigine (Lamictal) 25 mg PO BID [facility] PRN Reason: Protocol Last Admin: 12/26/16 17:31 Dose: 25 mg Methylprednisolone (Solu-Medrol) 20 mg IVP Q8 [facility] Last Admin: 12/26/16 14:31 Dose: 20 mg Metoprolol Tartrate (Lopressor) 5 mg IVP Q3H PRN PRN Reason: Systolic Blood Pressure Last Admin: 12/26/16 17:48 Dose: 5 mg Pantoprazole Sodium (Protonix Ec Tab) 40 mg PO 0630 [facility] Last Admin: 12/26/16 08:01 Dose: 40 mg - Labs Labs: 12/26/16 05:30 12/26/16 05:30 PT 11.5 Seconds (9.9-11.8) 12/21/16 15:13 INR 1.06 (0.93-1.08) 12/21/16 15:13 APTT 27.6 Seconds (23.7-30.8) 12/21/16 15:13 - Constitutional Appears: Non-toxic, No Acute Distress, Chronically Ill - Head Exam Head Exam: ATRAUMATIC, NORMOCEPHALIC - Eye Exam Eye Exam: EOMI, PERRL Pupil Exam: NORMAL ACCOMODATION, PERRL - ENT Exam ENT Exam: Mucous Membranes Moist, Normal External Ear Exam, TM's Normal Bilaterally - Neck Exam Neck Exam: Full ROM, Normal Inspection - Respiratory Exam Respiratory Exam: Clear to Ausculation Bilateral, NORMAL BREATHING PATTERN. absent: Rales, Rhonchi, Wheezes - Cardiovascular Exam Cardiovascular Exam: REGULAR RHYTHM, RRR, +S1, +S2 - GI/Abdominal Exam GI & Abdominal Exam: Soft, Normal Bowel Sounds. absent: Distended, Tenderness - Extremities Exam Extremities Exam: absent: Joint Swelling, Pedal Edema - Neurological Exam Neurological Exam: Alert, Awake, CN II-XII Intact, Oriented x3 - Psychiatric Exam Psychiatric exam: Normal Affect, Normal Mood - Skin Skin Exam: Intact, Normal Color Assessment and Plan - Assessment and Plan (Free Text) Assessment: 51 yo [place] male with left pyelonephritis and nephrolithiasis presenting with sepsis, AMS, SOB, and syncope. Went to OR for stent placement and stone removal yesterday. The patient was on Clindamycin and Rocephin. Given prior hospitalizations and persistent fevers, meropenem started over Rocephin as the spectrum for gram negative coverage is better. Given a dose of Aminoglycoside ( Amikacin) as part of patient's coverage. The patient was intubated and ventilated... extubated and on high flow oxygen. I would consider change of Clindamycin to Vancomycin if fever does NOT improve in the next 24 or so hours. Was on Meropenem and Clindamycin. Now on Cefepime and Clindamycin. Patient appears to be improving. Cultures negative but that does NOT rule out infective process. Would complete total of 10 days of antibiotic therapy at the minimum. Supportive care. Overall, the patient has been improving. Thank you for allowing me to participate in the care of the patient, we will follow with you
--- NOTE | 2016-12-26 22:13 | PN ---
DATE: 12/26/2016 REFERRING PHYSICIAN: Dr. Torre. SUBJECTIVE: He is lying in the bed, head at 45 degree. Night was unremarkable, feels much better, s till having cough and shortness of breath. No nausea, no vomiting, no diarrhea. No leg pain or leg swelling. OBJECTIVE: GENERAL: No acute distress. VITAL SIGNS: Temperature is 98, heart rate is 73, respiratory rate is 20, blood pressure 164/106, pu lse ox 98% on nasal cannula. HEENT: Moist mucous membranes. Crowded airway. Mallampati score is 4. NECK: Supple. No JVD. LUNGS: Has scattered rhonchi. HEART: S1 and S2. ABDOMEN: Soft, nontender. No organomegaly. EXTREMITIES: There is no edema. NEUROLOGIC: Awake, alert, follows simple commands. MEDICATIONS: He is on Mucomyst 20% inhaled q. 12 hours, albuterol-Atrovent nebulizer q. 6 hours, Br ovana inhaled twice a day, clindamycin 600 mg q. 8 hours, heparin 5000 units subQ q. 8 hours, Lamicta l 25 mg twice daily, metoprolol tartrate 5 mg IV q. 3 hours p.r.n., meropenem IV q. 8 hours, Protonix 40 mg daily, Pulmicort inhaled twice a day, Solu-Medrol 20 mg q. 8 hours, vitamin D 4000 units daily . LABORATORY DATA: Shows hemoglobin 11.0, hematocrit 31.9, WBC 9.5, platelet count is 269. Sodium 145 , potassium 3.9, chloride 112, bicarbonate is 26, BUN 18, creatinine 0.7, glucose 132, calcium 8.9, p hosphorus 2.6, AST 40, ALT 44, alkaline phosphatase is 70, albumin is 3.3. Has modified barium swall ow done today which shows no deep laryngeal penetration or aspiration observed on the lateral project ions vallecula, pyriform sinuses, epiglottitis and airway appears normal. IMPRESSION AND PLAN: Status post respiratory failure, currently extubated on nasal cannula. Chronic obstructive lung disease, may have obstructive sleep apnea syndrome, obstructive uropathy requiring cystoscopy and placement of urethral stents and removing the stones, aspiration precaution, seizure d isorder, Larsen's palsy, hypertension, gastroesophageal reflux disease. We will decrease Solu-Medrol t o 20 q. 12 hours, add Norvasc 5 mg daily. Gastric prophylaxis, deep venous thrombosis prophylaxis. Fall precaution. Out of bed to chair if possible, physical therapy. Thank you and will follow with you. Laquita Gonzalez MD cc: [id number] TT: 12/26/2016 22:12:18 Confirmation # [id number] Dictation # [id number] mikhail
[2016-12-27] MEDS: Albuterol 0.083% Inhal Sol (2.5 mg/3 mL) UD IH SCH ×5 (00:58→20:15)
[2016-12-27] MEDS: Meropenem 1g/NS 100mL IVPB 1 GM/100 ML PIGGYBACK IVPB SCH ×3 (05:30→21:23)
[2016-12-27] MEDS: Pantoprazole 40 mg EC Tab PO SCH (05:31)
[2016-12-27 06:48] LABS: ADD MANUAL DIFF? NO
[2016-12-27 07:18] LABS: BASO # 0.03 K/mm3 (0.0-2.0); BASO % 0.3 % (0.0-3.0); GRAN # 6.26 (1.4-6.5); GRAN % 66.6 % (50.0-68.0); HEMATOCRIT 35.5 % (42.0-52.0); LYMPH # 2.2 (1.2-3.4); LYMPH % 23.3 % (22.0-35.0); MEAN CELL VOLUME 81.4 fL (80.0-105.0); MEAN CORPUSCULAR HEMOGLOBIN 27.8 pg (25.0-35.0); MEAN CORPUSCULAR HGB CONC 34.1 g/dl (31.0-37.0); MEAN PLATELET VOLUME 10.8 fl (7.0-11.0); MONO # 0.9 (0.1-0.6); MONO % 9.8 % (1.0-6.0); PLATELET COUNT 316 10^3/uL (120.0-450.0); RED CELL DISTRIBUTION WIDTH 13.9 % (11.5-14.5); WHITE BLOOD COUNT 9.4 10^3/ul (4.5-11.0)
[2016-12-27 07:20] LABS: ALKALINE PHOSPHATASE 81 U/L (38-133); ALT/SGPT 51 U/L (7-56); AST/SGOT 29 U/L (15-59); BILIRUBIN,TOTAL 0.4 mg/dL (0.2-1.3); BLOOD UREA NITROGEN 15 mg/dL (7-21); CALCIUM 9.3 mg/dL (8.4-10.5); CARBON DIOXIDE 25 mmol/L (21-33); CHLORIDE 108 mmol/L (98-107); GFR AFRICAN-AMERICAN > 60; GLUCOSE,RANDOM 108 mg/dL (70-110); PHOSPHOROUS 3.1 mg/dL (2.5-4.5); SODIUM 140 mmol/L (132-148); TOTAL PROTEIN 6.7 g/dL (5.8-8.3)
[2016-12-27] MEDS: Acetylcysteine 20% Inhal Soln (4ml) IH SCH ×2 (07:40→20:14)
[2016-12-27] MEDS: Arformoterol 15 mcg/2 ml Inh Sol IH SCH ×2 (07:41→20:15)
[2016-12-27] MEDS: Budesonide 0.5 mg/2 ml Inhal Susp UD IH SCH ×2 (07:41→20:15)
[2016-12-27] MEDS: guaiFENesin 600 mg ER Tab PO SCH ×2 (09:19→17:15)
[2016-12-27] MEDS: MethylPREDNISolone 40 mg Vial IVP SCH ×2 (09:20→21:22)
[2016-12-27] MEDS: GLATIRAMER ACETATE 20 MG/ML SC SCH (10:13)
--- NOTE | 2016-12-27 10:36 | PN ---
DATE: 12/27/2016 REFERRING PHYSICIAN: Dr. Torre. SUBJECTIVE: The patient is lying in the bed, sleepy, arousable. Night was unremarkable. Still has some cough and sputum production. No nausea, no vomiting or diarrhea. No leg pain or leg swelling. OBJECTIVE: GENERAL: No acute distress. VITAL SIGNS: Temperature is 98, heart rate is 98, respiratory rate is 18, blood pressure 159/84, pul se ox 98% on nasal cannula. HEENT: Moist mucous membrane. Crowded airway. NECK: Supple. No JVD. LUNGS: Have fair airflow with a few rhonchi. HEART: S1 and S2. ABDOMEN: Soft, nontender. No organomegaly. EXTREMITIES: There is no edema. NEUROLOGIC: Awake, alert, follows simple commands. MEDICATIONS: He is on Mucomyst 20% inhaled q. 12 hours, albuterol-Atrovent nebulizer q. 6 hours, Bro lisa 15 mcg q. 12 hours, clindamycin 600 mg q. 8 hours, heparin 5000 units subQ q. 8 hours, Lamictal is 25 mg twice a day, metoprolol tartrate 5 mg q. 3 hours p.r.n., meropenem 1 g IV q. 8 hours, Mucin ex LA 600 mg twice a day, Norvasc 5 mg daily, Protonix 40 mg daily, Pulmicort inhaled twice a day, So jefferson-Medrol 20 mg q. 12 hours, vitamin D 4000 units p.o. daily. LABORATORY DATA: Shows hemoglobin 12.1, hematocrit 35.5, WBC 9.4, platelet count is 316. Sodium 140 , potassium 4.0, chloride 108, bicarbonate 25, BUN 15, creatinine 0.7, glucose 108, calcium 9.3, phos phorus 3.1, magnesium is 2.0. AST is 29, ALT 51, alk phos is 81, albumin is 3.4. MICROBIOLOGY: Blood culture, urine culture - so far there is no growth. IMPRESSION AND PLAN: Status post respiratory failure, presently extubated, on nasal cannula, chronic obstructive lung disease, may have obstructive sleep apnea syndrome, obstructive uropathy requiring cystoscopy and placement of ureteral stent, seizure disorder, Larsen's palsy, hypertension, gastroesoph ageal reflux disease. Pulmonary point of view, doing okay. Keep head elevated at 45 degrees. Incen tive spirometer. If possible, get him out of bed to chair. Follow blood pressure closely. Aspirati on precaution. Thank you, and will follow with you. Laquita Gonzalez MD cc: [id number] TT: 12/27/2016 10:35:33 Confirmation # [id number] Dictation # [id number] mn
--- NOTE | 2016-12-27 10:43 | RAD ---
HISTORY: chest congestion COMPARISON: 12/23/2016 FINDINGS: LUNGS: The lungs are well inflated and clear. PLEURA: No significant pleural effusion identified, no pneumothorax apparent. CARDIOVASCULAR: Normal. OSSEOUS STRUCTURES: No significant abnormalities. VISUALIZED UPPER ABDOMEN: Normal. OTHER FINDINGS: None. IMPRESSION: No active pulmonary disease.
--- NOTE | 2016-12-27 11:00 | PN ---
DATE: 12/27/2016 SUBJECTIVE: The patient is lying in bed in no acute distress. He is awake and responsive. He denie s chest pain or shortness of breath. OBJECTIVE: VITAL SIGNS: Blood pressure 159/84, temperature 98.6, pulse 98, respiratory rate 18. LUNGS: Show a few crepitations at the bases, otherwise clear. HEART: Regular rate and rhythm. ABDOMEN: Soft, nontender, bowel sounds are normoactive. EXTREMITIES: Without cyanosis, clubbing, or edema. NEUROLOGIC: The patient is awake and responsive without focal sensory or motor deficits. SKIN: Warm and dry. LABORATORY DATA: WBC is 9.4, hemoglobin 12.1, hematocrit 35.5. Sodium 140, potassium 4.0, chloride 108, CO2 25, BUN 15, creatinine 0.7, glucose of 108. Modified barium swallow shows no evidence of as piration. IMPRESSION: 1. Aspiration pneumonia, status post ventilatory failure. 2. Multiple sclerosis. 3. Seizure disorder. 4. Left ureteral stone with mild hydronephrosis, status post cystoscopy and stent placement. 5. Larsen's palsy. 6. Hypertension. 7. Gastroesophageal reflux disease. 8. Hypercholesterolemia. PLAN: Continue IV meropenem and clindamycin. Infectious disease followup with Dr. De Leon. Continue yosef st PT, pulmonary toilet, nebulizer treatments and pulmonary followup with [facility] Dr. Escobar. Advance diet as tolerated. Neurology followup with Dr. Lindquist. Physical therapy and social work for discharge planning. Garrett Torre JD, MD cc: [id number] TT: 12/27/2016 10:59:15 Confirmation # [id number] Dictation # [id number] cecile
--- NOTE | 2016-12-27 15:21 | CP.PCM.PN ---
Subjective - Date & Time of Evaluation Date of Evaluation: 12/27/16 Time of Evaluation: 13:00 - Subjective Subjective: Infectious Disease Follow Up: December 27, 2016 51 yo male with presentation of SOB and AMS. The patient had worsening shortness of breath at home to the point that during a coughing fit at home he collapsed. He was intubated in the [place]. The patient was brought to the MICU for further care. He remains intubated and ventilated. [place] [facility] [place] The patient has Multiple Sclerosis. He was sent home with Keflex at this time. He was on Aztreonam and Vancomycin on the past admission. Afebrile so far today. Antibiotics continued on Meropenem. Received one dose of Amikacin several days ago. On Clindamycin. Cultures have been negative to date. The patient is no longer on high flow oxygen and improved to 2 L nasal canula now. The patient is improving slowly. On the medical floor now. Objective - Vital Signs/Intake and Output Vital Signs (last 24 hours): Temp Pulse Resp BP Pulse Ox 98 F 95 H 18 147/97 H 98 12/27/16 12:00 12/27/16 13:58 12/27/16 12:00 12/27/16 12:00 12/27/16 06:00 Intake and Output: 12/27/16 12/27/16 06:59 18:59 Intake Total 400 480 Output Total 675 700 Balance -275 -220 - Medications Medications: Current Medications Acetylcysteine (Acetylcysteine 20%) 4 ml IH [id number] [facility] Last Admin: 12/27/16 07:40 Dose: 4 ml Albuterol Sulfate (Albuterol 0.083% Inhal Jo (2.5 Mg/3 Ml) Ud) 2.5 mg IH [id number] [facility] Last Admin: 12/27/16 13:23 Dose: 2.5 mg Amlodipine Besylate (Norvasc) 5 mg PO DAILY [facility] Last Admin: 12/27/16 09:18 Dose: 5 mg Arformoterol Tartrate (Brovana) 15 mcg IH [id number] [facility] Last Admin: 12/27/16 07:41 Dose: 15 mcg Budesonide (Pulmicort Respules) 0.5 mg IH [id number] [facility] Last Admin: 12/27/16 07:41 Dose: 0.5 mg Cholecalciferol (Vitamin D) 4,000 iu PO DAILY [facility] Last Admin: 12/27/16 09:19 Dose: 4,000 iu Guaifenesin (Mucinex La) 600 mg PO BID [facility] Last Admin: 12/27/16 09:19 Dose: 600 mg Heparin Sodium (Porcine) (Heparin) 5,000 units SC Q8 [facility] PRN Reason: Protocol Last Admin: 12/27/16 13:18 Dose: 5,000 units Home Med (Home Med) 1 unit SC MWF [facility] Last Admin: 12/27/16 10:13 Dose: Not Given Clindamycin Phosphate 600 mg/ (Sodium Chloride) 54 mls @ 102 mls/hr IVPB Q8 [facility] PRN Reason: Protocol Last Admin: 12/27/16 14:49 Dose: 102 mls/hr Meropenem 1g/NS 100mL IVPB (Meropenem 1g/Ns 100ml Ivpb) 1 gm in 100 mls @ 100 mls/hr IVPB Q8 [facility] PRN Reason: Protocol Last Admin: 12/27/16 13:18 Dose: 100 mls/hr Lamotrigine (Lamictal) 25 mg PO BID [facility] PRN Reason: Protocol Last Admin: 12/27/16 09:19 Dose: 25 mg Methylprednisolone (Solu-Medrol) 20 mg IVP Q12 [facility] Last Admin: 12/27/16 09:20 Dose: 20 mg Metoprolol Tartrate (Lopressor) 5 mg IVP Q3H [facility] PRN Reason: Systolic Blood Pressure Last Admin: 12/26/16 17:48 Dose: 5 mg Pantoprazole Sodium (Protonix Ec Tab) 40 mg PO 0630 [facility] Last Admin: 12/27/16 05:31 Dose: 40 mg - Labs Labs: 12/27/16 06:30 12/27/16 06:30 PT 11.5 Seconds (9.9-11.8) 12/21/16 15:13 INR 1.06 (0.93-1.08) 12/21/16 15:13 APTT 27.6 Seconds (23.7-30.8) 12/21/16 15:13 - Constitutional Appears: Non-toxic, No Acute Distress, Chronically Ill - Head Exam Head Exam: ATRAUMATIC, NORMOCEPHALIC - Eye Exam Eye Exam: EOMI, PERRL Pupil Exam: NORMAL ACCOMODATION, PERRL - ENT Exam ENT Exam: Mucous Membranes Moist, Normal External Ear Exam, TM's Normal Bilaterally - Neck Exam Neck Exam: Full ROM, Normal Inspection - Respiratory Exam Respiratory Exam: Clear to Ausculation Bilateral, NORMAL BREATHING PATTERN. absent: Rales, Rhonchi, Wheezes - Cardiovascular Exam Cardiovascular Exam: REGULAR RHYTHM, RRR, +S1, +S2 - GI/Abdominal Exam GI & Abdominal Exam: Soft, Normal Bowel Sounds. absent: Distended, Tenderness - Extremities Exam Extremities Exam: Full ROM, Normal Inspection - Neurological Exam Neurological Exam: Alert, Awake, CN II-XII Intact, Oriented x3 - Psychiatric Exam Psychiatric exam: Normal Affect, Normal Mood - Skin Skin Exam: Intact, Normal Color Assessment and Plan - Assessment and Plan (Free Text) Assessment: 51 yo [place]ut[place] male with left pyelonephritis and nephrolithiasis presenting with sepsis, AMS, SOB, and syncope. Went to OR for stent placement and stone removal yesterday. The patient was on Clindamycin and Rocephin. Given prior hospitalizations and persistent fevers, meropenem started over Rocephin as the spectrum for gram negative coverage is better. Given a dose of Aminoglycoside ( Amikacin) as part of patient's coverage. The patient was intubated and ventilated... extubated and on high flow oxygen. Was on Meropenem and Clindamycin. Now on Cefepime and Clindamycin. Patient clinically improving. Cultures negative but that does NOT rule out infective process. Would complete total of 10 days of antibiotic therapy at the minimum. Thank you for allowing me to participate in the care of the patient, we will follow with you
[2016-12-27] MEDS: Metoprolol 1 mg/ml Inj IVP PRN (23:46)
[2016-12-28] MEDS: Albuterol 0.083% Inhal Sol (2.5 mg/3 mL) UD IH SCH ×4 (01:39→22:56)
[2016-12-28] MEDS: Meropenem 1g/NS 100mL IVPB 1 GM/100 ML PIGGYBACK IVPB SCH ×3 (05:19→22:05)
[2016-12-28] MEDS: Pantoprazole 40 mg EC Tab PO SCH (05:29)
[2016-12-28] MEDS: Arformoterol 15 mcg/2 ml Inh Sol IH SCH ×2 (08:23→19:15)
[2016-12-28] MEDS: Budesonide 0.5 mg/2 ml Inhal Susp UD IH SCH ×2 (08:23→19:15)
[2016-12-28] MEDS: Acetylcysteine 20% Inhal Soln (4ml) IH SCH ×2 (08:23→19:15)
[2016-12-28] MEDS: guaiFENesin 600 mg ER Tab PO SCH ×2 (11:11→18:59)
[2016-12-28] MEDS: MethylPREDNISolone 40 mg Vial IVP SCH ×2 (11:11→22:05)
--- NOTE | 2016-12-28 13:02 | PN ---
DATE: 12/28/2016 SUBJECTIVE: The patient is lying in bed in no acute distress. He is awake and responsive. He denie s chest pain or shortness of breath. OBJECTIVE: VITAL SIGNS: Blood pressure 123/99, pulse 76, temperature 98.1, respiratory rate 20. LUNGS: Show a few crackles at the bases. HEART: Regular rate and rhythm. ABDOMEN: Soft, nontender, bowel sounds are normoactive. EXTREMITIES: Without cyanosis, clubbing, or edema. NEUROLOGIC: The patient is awake and responsive without focal sensory or motor deficits. SKIN: Warm and dry. LABORATORY DATA: Chest x-ray on 12/27/2016 showed no active disease. IMPRESSION: 1. Aspiration pneumonia, status post ventilatory failure, clinically improved. 2. Multiple sclerosis. 3. Seizure disorder. 4. Left ureteral stone with mild hydronephrosis, status post cystoscopy and stent placement. 5. Larsen's palsy. 6. Hypertension. 7. Gastroesophageal reflux disease. 8. Hypercholesterolemia. PLAN: Continue IV meropenem and clindamycin. Continue infectious disease followup with [facility] physical therapy, pulmonary toilet, nebulizer treatments and pulmonary followup with Dr. Gonzalez, followup with Dr. Escobar. Advance diet as tolerated. Aspiration precautions. Neurology followup with Dr. Lindquist. Physical therapy and social work for discharge planning. Garrett Torre JD, MD cc: [id number] TT: 12/28/2016 13:00:28 Confirmation # [id number] Dictation # [id number] cecile
--- NOTE | 2016-12-28 16:56 | CP.PCM.PN ---
Subjective - Date & Time of Evaluation Date of Evaluation: 12/28/16 Time of Evaluation: 15:00 - Subjective Subjective: Infectious Disease Follow Up: December 28, 2016 51 yo male with presentation of SOB and AMS. The patient had worsening shortness of breath at home to the point that during a coughing fit at home he collapsed. He was intubated in the [place]. The patient was brought to the MICU for further care. He remains intubated and ventilated. The patient was last in [facility] [place] in [place]. The patient has Multiple Sclerosis. He was sent home with Keflex at this time. He was on Aztreonam and Vancomycin on the past admission. Afebrile so far today. Antibiotics continued on Meropenem. Received one dose of Amikacin several days ago. On Clindamycin. Cultures have been negative to date. The patient is no longer on high flow oxygen and improved to 2 L nasal canula now. The patient is improving slowly. On the medical floor now. No new complaints. Objective - Vital Signs/Intake and Output Vital Signs (last 24 hours): Temp Pulse Resp BP Pulse Ox 98.7 F 83 19 127/89 98 12/28/16 12:00 12/28/16 12:00 12/28/16 12:00 12/28/16 12:00 12/28/16 05:43 Intake and Output: 12/28/16 12/28/16 06:59 18:59 Intake Total 660 Output Total 1999 Balance -1340 - Medications Medications: Current Medications Acetylcysteine (Acetylcysteine 20%) 4 ml IH [id number] [facility] Last Admin: 12/28/16 08:23 Dose: 4 ml Albuterol Sulfate (Albuterol 0.083% Inhal Jo (2.5 Mg/3 Ml) Ud) 2.5 mg IH [id number] [facility] Last Admin: 12/28/16 13:40 Dose: 2.5 mg Amlodipine Besylate (Norvasc) 5 mg PO DAILY [facility] Last Admin: 12/28/16 11:10 Dose: 5 mg Arformoterol Tartrate (Brovana) 15 mcg IH [id number] [facility] Last Admin: 12/28/16 08:23 Dose: 15 mcg Budesonide (Pulmicort Respules) 0.5 mg IH [id number] [facility] Last Admin: 12/28/16 08:23 Dose: 0.5 mg Cholecalciferol (Vitamin D) 4,000 iu PO DAILY [facility] Last Admin: 12/28/16 11:08 Dose: 4,000 iu Guaifenesin (Mucinex La) 600 mg PO BID [facility] Last Admin: 12/28/16 11:11 Dose: 600 mg Heparin Sodium (Porcine) (Heparin) 5,000 units SC Q8 [facility] PRN Reason: Protocol Last Admin: 12/28/16 14:14 Dose: Not Given Home Med (Home Med) 1 unit SC MWF [facility] Last Admin: 12/27/16 10:13 Dose: Not Given Clindamycin Phosphate 600 mg/ (Sodium Chloride) 54 mls @ 102 mls/hr IVPB Q8 [facility] PRN Reason: Protocol Last Admin: 12/28/16 15:11 Dose: 102 mls/hr Meropenem 1g/NS 100mL IVPB (Meropenem 1g/Ns 100ml Ivpb) 1 gm in 100 mls @ 100 mls/hr IVPB Q8 [facility] PRN Reason: Protocol Last Admin: 12/28/16 14:05 Dose: 100 mls/hr Lamotrigine (Lamictal) 25 mg PO BID [facility] PRN Reason: Protocol Last Admin: 12/28/16 11:10 Dose: 25 mg Methylprednisolone (Solu-Medrol) 20 mg IVP Q12 [facility] Last Admin: 12/28/16 11:11 Dose: 20 mg Metoprolol Tartrate (Lopressor) 5 mg IVP Q3H [facility] PRN Reason: Systolic Blood Pressure Last Admin: 12/27/16 23:46 Dose: 5 mg Pantoprazole Sodium (Protonix Ec Tab) 40 mg PO 0630 [facility] Last Admin: 12/28/16 05:29 Dose: 40 mg - Labs Labs: 12/27/16 06:30 12/27/16 06:30 PT 11.5 Seconds (9.9-11.8) 12/21/16 15:13 INR 1.06 (0.93-1.08) 12/21/16 15:13 APTT 27.6 Seconds (23.7-30.8) 12/21/16 15:13 - Constitutional Appears: Non-toxic, No Acute Distress, Chronically Ill - Head Exam Head Exam: ATRAUMATIC, NORMOCEPHALIC - Eye Exam Eye Exam: EOMI, PERRL Pupil Exam: NORMAL ACCOMODATION, PERRL - ENT Exam ENT Exam: Mucous Membranes Moist, Normal External Ear Exam, TM's Normal Bilaterally - Neck Exam Neck Exam: Full ROM, Normal Inspection - Respiratory Exam Respiratory Exam: Clear to Ausculation Bilateral, NORMAL BREATHING PATTERN. absent: Rales, Rhonchi, Wheezes - Cardiovascular Exam Cardiovascular Exam: REGULAR RHYTHM, RRR, +S1, +S2 - GI/Abdominal Exam GI & Abdominal Exam: Soft, Normal Bowel Sounds. absent: Distended, Tenderness - Extremities Exam Extremities Exam: Full ROM, Normal Inspection - Neurological Exam Neurological Exam: Alert, Awake, CN II-XII Intact, Oriented x3 - Psychiatric Exam Psychiatric exam: Normal Affect, Normal Mood - Skin Skin Exam: Intact, Normal Color Assessment and Plan - Assessment and Plan (Free Text) Assessment: 51 yo [place] male with left pyelonephritis and nephrolithiasis presenting with sepsis, AMS, SOB, and syncope. Went to OR for stent placement and stone removal yesterday. The patient was on Clindamycin and Rocephin. Given prior hospitalizations and persistent fevers, meropenem started over Rocephin as the spectrum for gram negative coverage is better. Given a dose of Aminoglycoside ( Amikacin) as part of patient's coverage. The patient was intubated and ventilated... extubated and on high flow oxygen. Was on Meropenem and Clindamycin. Now on Cefepime and Clindamycin. Patient clinically improving. Cultures negative but that does NOT rule out infective process. Would complete total of 10 days of antibiotic therapy at the minimum given recent infection history. Thank you for allowing me to participate in the care of the patient, we will follow with you
--- NOTE | 2016-12-28 18:45 | PN ---
DATE: 12/28/2016 REFERRING PHYSICIAN: Dr. Torre. SUBJECTIVE: He is lying in the bed, head at 45 degrees, feels okay, has a mild cough and sputum prod uction. No nausea, no vomiting, no diarrhea. No leg pain or leg swelling. OBJECTIVE: GENERAL: In no acute distress. VITAL SIGNS: Temp is 98, heart rate is 83, respiratory rate is 18, blood pressure 127/89 and pulse o x 98% on nasal cannula. HEENT: Moist mucous membranes. Crowded airway. NECK: Supple. No JVD. LUNGS: Has a fair airflow with scattered rhonchi. HEART: S1, S2. ABDOMEN: Soft, nontender. No organomegaly. EXTREMITIES: There is no edema. NEUROLOGIC: Awake, alert, follows simple commands. MEDICATIONS: He is on Mucomyst 20% inhaled twice a day, albuterol-Atrovent nebulizer q.6 hours, Brov ian 15 mcg inhaled twice a day, clindamycin 600 mg q.8 hours, heparin 5000 units subQ q.8 hours, Lami ctal 25 mg twice a day, metoprolol tartrate 5 mg q.3 hours p.r.n., meropenem 1 g IV q.8 hours, Mucine x LA 600 mg twice a day, Norvasc 5 mg daily, Protonix 40 mg daily, Pulmicort inhaled twice a day, Jo u-Medrol 20 mg q.12 hours, vitamin D 4000 units daily. LABORATORY DATA: Reviewed and noted. No new lab is available since yesterday. IMPRESSION AND PLAN: Respiratory failure, has been extubated, on nasal cannula; chronic obstructive lung disease, obstructive sleep apnea syndrome, obstructive uropathy status post cystoscopy and place ment of ureteral stent, seizure disorder, Larsen's palsy, hypertension, oropharyngeal dysphagia. Kaley nue bronchodilator, incentive spirometer. Keep head elevated at 45 degrees. Gastric prophylaxis. D VT prophylaxis. Aspiration precaution. Will benefit from rehabilitation. Thank you and will follow with you. Laquita Gonzalez MD cc: [id number] TT: 12/28/2016 18:44:21 Confirmation # [id number] Dictation # [id number] dn
[2016-12-29] MEDS: Albuterol 0.083% Inhal Sol (2.5 mg/3 mL) UD IH SCH ×4 (02:09→19:42)
[2016-12-29] MEDS: Meropenem 1g/NS 100mL IVPB 1 GM/100 ML PIGGYBACK IVPB SCH ×3 (05:23→21:29)
[2016-12-29] MEDS: Pantoprazole 40 mg EC Tab PO SCH (05:31)
[2016-12-29] MEDS: Budesonide 0.5 mg/2 ml Inhal Susp UD IH SCH ×2 (07:58→19:43)
[2016-12-29] MEDS: Acetylcysteine 20% Inhal Soln (4ml) IH SCH ×2 (07:58→19:42)
[2016-12-29] MEDS: Arformoterol 15 mcg/2 ml Inh Sol IH SCH ×2 (07:58→19:42)
[2016-12-29] MEDS: MethylPREDNISolone 40 mg Vial IVP SCH ×2 (09:06→21:28)
[2016-12-29] MEDS: guaiFENesin 600 mg ER Tab PO SCH ×2 (09:06→18:00)
--- NOTE | 2016-12-29 15:42 | PN ---
DATE: 12/29/2016 SUBJECTIVE: The patient is lying in bed in no acute distress. He is awake and responsive. He denie s chest pain or shortness of breath. OBJECTIVE: VITAL SIGNS: Blood pressure 137/98, temperature 98.9, pulse 84, respiratory rate 20. LUNGS: Show bilateral crepitations. HEART: Regular rate and rhythm. ABDOMEN: Soft, nontender, bowel sounds are normoactive. EXTREMITIES: Without cyanosis, clubbing, or edema. NEUROLOGIC: The patient is awake and responsive without focal sensory or motor deficits. SKIN: Warm and dry. IMPRESSION: 1. Aspiration pneumonia, status post ventilatory failure, clinically improved. 2. Multiple sclerosis. 3. Seizure disorder. 4. Left ureteral stone with mild hydronephrosis, status post cystoscopy and stent placement. 5. Larsen's palsy. 6. Hypertension. 7. Gastroesophageal reflux disease. 8. Hypercholesterolemia. PLAN: Continue IV meropenem and clindamycin. Continue infectious disease followup with Dr. De Leon. [facility] physical therapy, pulmonary toilet, nebulizer treatments and pulmonary followup with Dr. Gonzalez. with Dr. Escobar. Advance diet as tolerated, aspiration precautions. Neurology followup with Dr. Lindquist. Physical therapy and social work for discharge planning. Garrett Torre JD, MD cc: [id number] TT: 12/29/2016 15:41:15 Confirmation # [id number] Dictation # [id number] raphael
[2016-12-29 16:09] VITALS: O2SAT 98
--- NOTE | 2016-12-29 17:42 | CP.PCM.PN ---
Subjective - Date & Time of Evaluation Date of Evaluation: 12/29/16 Time of Evaluation: 15:30 - Subjective Subjective: Infectious Disease Follow Up: December 29, 2016 51 yo male with presentation of SOB and AMS. The patient had worsening shortness of breath at home to the point that during a coughing fit at home he collapsed. He was intubated in the edward. The patient was brought to the MICU for further care. He remains intubated and ventilated. The patient was last in [facility] in September 2016. The patient has Multiple Sclerosis. He was sent home with Keflex at this time. He was on Aztreonam and Vancomycin on the past admission. Afebrile so far today. Antibiotics continued on Meropenem. Received one dose of Amikacin several days ago. On Clindamycin. Cultures have been negative to date. The patient is no longer on high flow oxygen and improved to 2 L nasal canula now. The patient is improving slowly. On the medical floor now. No new complaints. Objective - Vital Signs/Intake and Output Vital Signs (last 24 hours): Temp Pulse Resp BP Pulse Ox 99 F 92 H 20 120/81 98 12/29/16 16:08 12/29/16 16:08 12/29/16 16:08 12/29/16 16:08 12/29/16 16:08 Intake and Output: 12/29/16 12/29/16 06:59 18:59 Intake Total 0 720 Output Total 950 750 Balance -950 -30 - Medications Medications: Current Medications Acetylcysteine (Acetylcysteine 20%) 4 ml IH [id number] [facility] Last Admin: 12/29/16 07:58 Dose: 4 ml Albuterol Sulfate (Albuterol 0.083% Inhal Jo (2.5 Mg/3 Ml) Ud) 2.5 mg IH [id number] [facility] Last Admin: 12/29/16 13:20 Dose: 2.5 mg Amlodipine Besylate (Norvasc) 5 mg PO DAILY [facility] Last Admin: 12/29/16 09:06 Dose: 5 mg Arformoterol Tartrate (Brovana) 15 mcg IH [id number] [facility] Last Admin: 12/29/16 07:58 Dose: 15 mcg Budesonide (Pulmicort Respules) 0.5 mg IH [id number] [facility] Last Admin: 12/29/16 07:58 Dose: 0.5 mg Cholecalciferol (Vitamin D) 4,000 iu PO DAILY [facility] Last Admin: 12/29/16 09:06 Dose: 4,000 iu Guaifenesin (Mucinex La) 600 mg PO BID [facility] Last Admin: 12/29/16 09:06 Dose: 600 mg Heparin Sodium (Porcine) (Heparin) 5,000 units SC Q8 [facility] PRN Reason: Protocol Last Admin: 12/28/16 14:14 Dose: Not Given Home Med (Home Med) 1 unit SC MWF [facility] Last Admin: 12/27/16 10:13 Dose: Not Given Clindamycin Phosphate 600 mg/ (Sodium Chloride) 54 mls @ 102 mls/hr IVPB Q8 [facility] PRN Reason: Protocol Last Admin: 12/29/16 13:26 Dose: 102 mls/hr Meropenem 1g/NS 100mL IVPB (Meropenem 1g/Ns 100ml Ivpb) 1 gm in 100 mls @ 100 mls/hr IVPB Q8 [facility] PRN Reason: Protocol Last Admin: 12/29/16 14:15 Dose: 100 mls/hr Lamotrigine (Lamictal) 25 mg PO BID [facility] PRN Reason: Protocol Last Admin: 12/29/16 09:06 Dose: 25 mg Methylprednisolone (Solu-Medrol) 20 mg IVP Q12 [facility] Last Admin: 12/29/16 09:06 Dose: 20 mg Metoprolol Tartrate (Lopressor) 5 mg IVP Q3H PRN PRN Reason: Systolic Blood Pressure Last Admin: 12/27/16 23:46 Dose: 5 mg Pantoprazole Sodium (Protonix Ec Tab) 40 mg PO 0630 [facility] Last Admin: 12/29/16 05:31 Dose: 40 mg - Labs Labs: 12/27/16 06:30 12/27/16 06:30 PT 11.5 Seconds (9.9-11.8) 12/21/16 15:13 INR 1.06 (0.93-1.08) 12/21/16 15:13 APTT 27.6 Seconds (23.7-30.8) 12/21/16 15:13 - Constitutional Appears: Non-toxic, No Acute Distress, Chronically Ill - Head Exam Head Exam: ATRAUMATIC, NORMOCEPHALIC - Eye Exam Eye Exam: EOMI, PERRL Pupil Exam: NORMAL ACCOMODATION, PERRL - ENT Exam ENT Exam: Mucous Membranes Moist, Normal External Ear Exam, TM's Normal Bilaterally - Neck Exam Neck Exam: Full ROM, Normal Inspection - Respiratory Exam Respiratory Exam: Clear to Ausculation Bilateral, NORMAL BREATHING PATTERN. absent: Rales, Rhonchi, Wheezes - Cardiovascular Exam Cardiovascular Exam: REGULAR RHYTHM, RRR, +S1, +S2 - GI/Abdominal Exam GI & Abdominal Exam: Soft, Normal Bowel Sounds. absent: Distended, Tenderness - Extremities Exam Extremities Exam: Full ROM, Normal Inspection - Neurological Exam Neurological Exam: Alert, Awake, CN II-XII Intact, Oriented x3 - Psychiatric Exam Psychiatric exam: Normal Affect, Normal Mood - Skin Skin Exam: Intact, Normal Color Assessment and Plan - Assessment and Plan (Free Text) Assessment: 51 yo [place]ij[place] male with left pyelonephritis and nephrolithiasis presenting with sepsis, AMS, SOB, and syncope. Went to OR for stent placement and stone removal yesterday. The patient was on Clindamycin and Rocephin. Given prior hospitalizations and persistent fevers, meropenem started over Rocephin as the spectrum for gram negative coverage is better. Given a dose of Aminoglycoside ( Amikacin) as part of patient's coverage. The patient was intubated and ventilated... extubated and on high flow oxygen. Was on Meropenem and Clindamycin. Now on Cefepime and Clindamycin. Patient clinically improving. Cultures negative but that does NOT rule out infective process. Would complete total of 10 days of antibiotic therapy at the minimum given recent infection history. Thank you for allowing me to participate in the care of the patient, we will follow with you
--- NOTE | 2016-12-29 17:49 | PN ---
DATE: 12/29/2016 REFERRING PHYSICIAN: Dr. Torre. SUBJECTIVE: The patient is lying in the bed, sleepy, arousable. Still has a mild cough, but feels b art, no short of breath. No nausea, no vomiting, no diarrhea. No leg pain or leg swelling. OBJECTIVE: GENERAL: No acute distress. VITAL SIGNS: Temperature is 98, heart rate 84, respiratory rate is 20, blood pressure 137/98, pulse ox 99% on 3 liters nasal cannula. HEENT: Moist mucous membrane. Crowded airway. NECK: Supple. No JVD. LUNGS: Has a fair airflow with few rhonchi. HEART: S1, S2. ABDOMEN: Soft, nontender. No organomegaly. EXTREMITIES: There is no edema. NEUROLOGIC: Sleepy, arousable, follows simple command. MEDICATIONS: He is on Mucomyst 20% inhaled twice a day, albuterol-Atrovent nebulizer q. 6 hours, Bro lisa 15 mcg inhaled twice a day, clindamycin 600 mg q. 8 hours, heparin 5000 units subQ q. 8 hours, Lamictal 25 mg twice daily, metoprolol tartrate 5 mg IV q. 3 hours p.r.n., meropenem 1 g IV q. 8 tatiana rs, Mucinex, Lasix ____ mg twice a day, Norvasc 5 mg daily, Protonix 40 mg daily, Pulmicort inhaled t wice a day, Solu-Medrol 20 mg q. 12 hours, vitamin D 4000 units daily. LABORATORY DATA: Reviewed and noted. No new lab is available. IMPRESSION AND PLAN: Status post respiratory failure, presently extubated on nasal cannula, obstruct veronica lung disease, obstructive sleep apnea syndrome, obstructive uropathy, status post cystoscopy and placement of ureteral stent, seizure disorder, Larsen's palsy, hypertension, oropharyngeal dysphagia. Pulmonary point of view doing okay. Encourage incentive spirometer. Keep head elevated at 45 degree . Gastric prophylaxis. DVT prophylaxis. Aspiration precaution. Antibiotic as per infectious disea ses. Thank you and we will follow with you. Laquita Gonzalez MD cc: [id number] TT: 12/29/2016 17:48:36 Confirmation # [id number] Dictation # [id number] jn
[2016-12-30] MEDS: Albuterol 0.083% Inhal Sol (2.5 mg/3 mL) UD IH SCH ×3 (01:39→13:47)
[2016-12-30] MEDS: Meropenem 1g/NS 100mL IVPB 1 GM/100 ML PIGGYBACK IVPB SCH ×2 (05:05→13:32)
[2016-12-30] MEDS: Pantoprazole 40 mg EC Tab PO SCH (06:38)
[2016-12-30 07:33] VITALS: BP 131/83; PULSE 81; RESP 19; TEMP 98.6
[2016-12-30] MEDS: Arformoterol 15 mcg/2 ml Inh Sol IH SCH (08:10)
[2016-12-30] MEDS: Acetylcysteine 20% Inhal Soln (4ml) IH SCH (08:10)
[2016-12-30] MEDS: Budesonide 0.5 mg/2 ml Inhal Susp UD IH SCH (08:11)
[2016-12-30] MEDS: MethylPREDNISolone 40 mg Vial IVP SCH (09:59)
[2016-12-30] MEDS: guaiFENesin 600 mg ER Tab PO SCH (10:00)
[2016-12-30] MEDS: GLATIRAMER ACETATE 20 MG/ML SC SCH (10:06)
[2016-12-30] MEDS ORDERED: POLYETHYLENE GLYCOL 3350 17 GM/Dose PACKET PO SCH (10:15)
--- NOTE | 2016-12-30 12:31 | PN ---
DATE: 12/30/2016 SUBJECTIVE: The patient is lying in bed, in no acute distress. He was awake and responsive. He den ies chest pain or shortness of breath. OBJECTIVE: VITAL SIGNS: Blood pressure 131/83, temperature 98.6, pulse 81, respiratory rate 19. LUNGS: Show a few crepitations bilaterally. HEART: Regular rate and rhythm. ABDOMEN: Soft, nontender, bowel sounds are normoactive. EXTREMITIES: Without cyanosis, clubbing, or edema. NEUROLOGIC: The patient is awake and responsive without focal, sensory or motor deficits. SKIN: Warm and dry. IMPRESSION: 1. Aspiration pneumonia, status post ventilatory failure, clinically improved. 2. Multiple sclerosis. 3. Seizure disorder. 4. Left ureteral stone with mild hydronephrosis, status post cystoscopy and stent placement. 5. Larsen's palsy. 6. Hypertension. 7. Gastroesophageal reflux disease. 8. Hypercholesterolemia. PLAN: Continue IV meropenem and clindamycin. Continue ID followup with Dr. De Leon. Chest physical director apy, pulmonary toilet, nebulizer treatments and pulmonary followup with Dr. Gonzalez, followup with Dr. Escobar. Aspiration precautions. Neurology followup with Dr. Lindquist. Physical therapy and soci al work for discharge planning. Garrett Torre JD, MD cc: [id number] TT: 12/30/2016 12:30:51 Confirmation # [id number] Dictation # [id number] en
--- NOTE | 2016-12-30 17:53 | CP.PCM.PN ---
Subjective - Date & Time of Evaluation Date of Evaluation: 12/30/16 Time of Evaluation: 11:00 - Subjective Subjective: Infectious Disease Follow Up: December 30, 2016 51 yo male with presentation of SOB and AMS. The patient had worsening shortness of breath at home to the point that during a coughing fit at home he collapsed. He was intubated in the edward. The patient was brought to the MICU for further care. He remains intubated and ventilated. The patient was last in [facility] in September 2016. The patient has Multiple Sclerosis. He was sent home with Keflex at this time. He was on Aztreonam and Vancomycin on the past admission. Afebrile so far today. Antibiotics continued on Meropenem. Received one dose of Amikacin several days ago. On Clindamycin. Cultures have been negative to date. The patient is no longer on high flow oxygen and improved to 2 L nasal canula now. The patient is improving slowly. On the medical floor now. No new complaints. Awaiting for bed in TCU. Objective - Vital Signs/Intake and Output Vital Signs (last 24 hours): Temp Pulse Resp BP Pulse Ox 98.6 F 81 19 131/83 98 12/30/16 07:33 12/30/16 07:33 12/30/16 07:33 12/30/16 09:59 12/30/16 07:33 Intake and Output: 12/30/16 12/30/16 06:59 18:59 Intake Total 600 300 Output Total 1300 600 Balance -700 -300 - Labs Labs: 12/27/16 06:30 12/27/16 06:30 PT 11.5 Seconds (9.9-11.8) 12/21/16 15:13 INR 1.06 (0.93-1.08) 12/21/16 15:13 APTT 27.6 Seconds (23.7-30.8) 12/21/16 15:13 - Constitutional Appears: Non-toxic, No Acute Distress, Chronically Ill - Head Exam Head Exam: ATRAUMATIC, NORMOCEPHALIC - Eye Exam Eye Exam: EOMI, PERRL Pupil Exam: NORMAL ACCOMODATION, PERRL - ENT Exam ENT Exam: Mucous Membranes Moist, Normal External Ear Exam, TM's Normal Bilaterally - Neck Exam Neck Exam: Full ROM, Normal Inspection - Respiratory Exam Respiratory Exam: Clear to Ausculation Bilateral, NORMAL BREATHING PATTERN. absent: Rales, Rhonchi, Wheezes - Cardiovascular Exam Cardiovascular Exam: REGULAR RHYTHM, RRR, +S1, +S2 - GI/Abdominal Exam GI & Abdominal Exam: Soft, Normal Bowel Sounds. absent: Distended, Tenderness - Extremities Exam Extremities Exam: Full ROM, Normal Inspection - Neurological Exam Neurological Exam: Alert, Awake, CN II-XII Intact, Oriented x3 - Psychiatric Exam Psychiatric exam: Normal Affect, Normal Mood - Skin Skin Exam: Intact, Normal Color Assessment and Plan - Assessment and Plan (Free Text) Assessment: 51 yo [place] male with left pyelonephritis and nephrolithiasis presenting with sepsis, AMS, SOB, and syncope. Went to OR for stent placement and stone removal yesterday. The patient was on Clindamycin and Rocephin. Given prior hospitalizations and persistent fevers, meropenem started over Rocephin as the spectrum for gram negative coverage is better. Given a dose of Aminoglycoside ( Amikacin) as part of patient's coverage. The patient was intubated and ventilated... extubated and on high flow oxygen. Was on Meropenem and Clindamycin. Now on Cefepime and Clindamycin. Patient clinically improving. Cultures negative but that does NOT rule out infective process. Would complete total of 10 days of antibiotic therapy at the minimum given recent infection history. Awaiting bed in TCU. Thank you for allowing me to participate in the care of the patient, we will follow with you
--- NOTE | 2017-01-01 03:49 | DS ---
HOSPITAL COURSE: The patient is a 51-year-old male with a history of multiple sclerosis, admitted th rough the Emergency Department to the intensive care unit on 12/21/2016 in ventilatory failure second christofer to recurrent aspiration pneumonia. The patient was extubated on 12/22/2016, received IV antibioti cs, which currently include clindamycin 600 mg IV q. 8 hours, meropenem 1 gram IV q. 8 hours. He was seen in consultation by infectious disease, Dr. De Leon, as well as neurology, Dr. Lindquist, and pulmonary, Dr. Gonzalez. He has had an uneventful post-extubation course and is now medically stable for transfe r to the transitional care unit for continuation of his IV antibiotic therapy. Physical examination including vital signs and physical findings are as per progress note dated 12/30. IMPRESSION: 1. Recurrent aspiration pneumonia, status post ventilatory failure. 2. Multiple sclerosis. 3. Seizure disorder. 4. Left ureteral stone with mild hydronephrosis, status post cystoscopy and stent placement. 5. Larsen's palsy. 6. Hypertension. 7. Gastroesophageal reflux disease. 8. Hypercholesterolemia. PLAN: The patient will be transferred to the transitional care unit on the following medications: I n addition to the antibiotics listed above, Solu-Medrol 20 mg IV q. 12 hours, Lamictal 25 mg twice da opal, amlodipine 5 mg daily, Protonix 40 mg daily, Mucomyst, albuterol, and Brovana via inhalation. T he patient will be maintained on a regular diet. Activities as per subacute rehab. Garrett Torre JD, MD cc: [phone] TT: 01/01/2017 03:48:55 tn
== END 2016-12-30 14:13 | DRG 853 ==
LOC: ED 14:33 → ERH 15:59 → CCU 17:56 → 2RNO 12-26 19:02 → 3RNO 12-28 22:33
PROVIDERS: ADMIT Internal Medicine; ATTEND Internal Medicine
PROC: 5A1955Z Respiratory Ventilation, Greater than 96 Consecutive Hours (ICD-10-PCS; principal; 2016-12-21)
PROC: 0T778ZZ Dilation of Left Ureter, Via Natural or Artificial Opening Endoscopic (ICD-10-PCS; 2016-12-22)
PROC: BT14ZZZ Fluoroscopy of Kidneys, Ureters and Bladder (ICD-10-PCS; 2016-12-22)
PROC: 0T768DZ Dilation of Right Ureter with Intraluminal Device, Via Natural or Artificial Opening Endoscopic (ICD-10-PCS; 2016-12-22)
PROC: BT10ZZZ Fluoroscopy of Bladder (ICD-10-PCS; 2016-12-22)
DX: A41.9 Sepsis, unspecified organism (principal); J96.00 Acute respiratory failure, unspecified whether with hypoxia or hypercapnia; J69.0 Pneumonitis due to inhalation of food and vomit; G93.40 Encephalopathy, unspecified; G35 Multiple sclerosis; J44.9 Chronic obstructive pulmonary disease, unspecified; R13.12 Dysphagia, oropharyngeal phase; N13.6 Pyonephrosis; N20.2 Calculus of kidney with calculus of ureter; H46.9 Unspecified optic neuritis; N13.30 Unspecified hydronephrosis; E78.5 Hyperlipidemia, unspecified; E78.00 Pure hypercholesterolemia, unspecified; G40.909 Epilepsy, unspecified, not intractable, without status epilepticus; G47.33 Obstructive sleep apnea (adult) (pediatric); G51.0 Bell's palsy; I10 Essential (primary) hypertension; K21.9 Gastro-esophageal reflux disease without esophagitis; N21.0 Calculus in bladder; Z79.899 Other long term (current) drug therapy; Z87.01 Personal history of pneumonia (recurrent); Z87.442 Personal history of urinary calculi; Z99.3 Dependence on wheelchair; R32 Unspecified urinary incontinence; F17.210 Nicotine dependence, cigarettes, uncomplicated; G47.30 Sleep apnea, unspecified; R40.2412 Glasgow coma scale score 13-15, at arrival to emergency department

== ENCOUNTER 2016-12-30 14:17 | Inpatient (IN) | payer OTHER, MEDICAID ==
--- NOTE | 2016-12-30 18:20 | CON ---
DATE: 12/30/2016 HISTORY OF PRESENT ILLNESS: This is a 51-year-old just transferred to [facility], who was admitted while i n Emergency Room for ventilatory failure. The patient was found to have pneumonia, now transferred t o [facility]. PAST MEDICAL HISTORY: Seizure disorder, multiple sclerosis, Larsen's palsy, hypertension, high cholest moraima, GERD. REVIEW OF SYSTEMS: A 10-point review of system was negative. ALLERGIES: No known drug allergy. PHYSICAL EXAMINATION: HEENT: Normocephalic, atraumatic. NECK: Supple. NEUROLOGIC: Awake, oriented to self, slightly dysarthric speech and no facial asymmetry, right eye n ystagmus. Visual edward full. Motor examination: Moves upper extremities okay, 5/5 strength. Tone normal. Dissymmetry on [id number]. Limited movement to lower extremities. Deep tendon reflexe s 1+. Plantars are downgoing. Sensory appears intact. Cerebellar and gait deferred. IMPRESSION: Multiple sclerosis. The patient was admitted with pneumonia and seizure disorder. PLAN: Will continue physical therapy. We will follow up. Silvestre Lindquist MD cc: [id number] TT: 12/30/2016 18:19:52 Confirmation # [id number] Dictation # [id number] jamie
[2016-12-30] MEDS: guaiFENesin 600 mg ER Tab PO SCH (18:37)
[2016-12-30] MEDS ORDERED: Arformoterol 15 mcg/2 ml Inh Sol IH SCH (20:00)
[2016-12-30] MEDS: Budesonide 0.5 mg/2 ml Inhal Susp UD IH SCH (20:10)
[2016-12-30] MEDS: Arformoterol 15 mcg/2 ml Inh Sol IH SCH (20:10)
[2016-12-30] MEDS: Albuterol 0.083% Inhal Sol (2.5 mg/3 mL) UD IH SCH (20:10)
[2016-12-30] MEDS: Acetylcysteine 20% Inhal Soln (4ml) IH SCH (20:10)
[2016-12-30] MEDS: MethylPREDNISolone 40 mg Vial IVP SCH (21:26)
[2016-12-30] MEDS: Meropenem 1g/NS 100mL IVPB 1 GM/100 ML PIGGYBACK IVPB SCH (21:29)
[2016-12-30 23:02] VITALS: BMI 23.3
[2016-12-30] MEDS ORDERED: Pneumococcal 23-Valent Vaccine IM ONE (23:02)
[2016-12-31] MEDS: Albuterol 0.083% Inhal Sol (2.5 mg/3 mL) UD IH SCH ×4 (03:01→20:40)
[2016-12-31] MEDS: Meropenem 1g/NS 100mL IVPB 1 GM/100 ML PIGGYBACK IVPB SCH ×3 (05:53→22:21)
[2016-12-31] MEDS: Pantoprazole 40 mg EC Tab PO SCH (05:53)
--- NOTE | 2016-12-31 07:02 | CON ---
DATE: 12/30/2016 REFERRING PHYSICIAN: Dr. Torre REASON FOR CONSULT: Status post pneumonia, respiratory failure, history of myasthenia gravis. HISTORY OF PRESENT ILLNESS: This is a 51-year-old gentleman who has MS, Larsen's palsy, hypertension, seizure disorder, chronic lung disease, may have obstructive sleep apnea syndrome, admitted with resp iratory failure requiring ventilator, finally extubated, also found to have obstructive uropathy requ iring cystoscopy with extraction of stone and ureteral stent, presently admitted to [facility] to continue care. He is lying in the bed, has mild cough, clear sputum. No chest pain, no nausea, no vomiting, diarrhea. No leg pain or leg swelling. PAST MEDICAL HISTORY: Recurrent aspiration, oropharyngeal dysphagia, seizure disorder, history of Be ll's palsy, hypertension, GERD, hyperlipidemia, MS, may have sleep apnea syndrome. ALLERGIES: None known. SOCIAL HISTORY: Nonsmoker, nondrinker. FAMILY HISTORY: No significant cardiopulmonary disease reported. MEDICATIONS: He is on Mucomyst 20% 4 mL q. 12 hours, albuterol-Atrovent nebulizer q. 6 hours, Brovan a 15 mcg inhaled twice a day, clindamycin 600 mg q. 8 hours, Colace 100 mg twice a day, heparin 5000 units subQ q. 8 hours, lamotrigine 25 mg twice a day, meropenem 1 gram q. 8 hours, MiraLax 17 grams daily, Mucinex LA 600 mg twice a day, Norvasc 5 mg daily, Protonix 40 mg daily, Pulmicort inhaled tw ice a day, Solu-Medrol 20 mg q. 12 hours, vitamin D 4000 units daily. REVIEW OF SYSTEMS: No headache, no rhinitis. Has still mild cough and shortness of breath. No ches t pain, no nausea, no vomiting, diarrhea. No leg pain or leg swelling. PHYSICAL EXAMINATION: GENERAL: No acute distress. VITAL SIGNS: Temp is 98, heart rate is 92, respiratory rate is 20, blood pressure 111/70, pulse ox 9 8% on 3 L nasal cannula. HEENT: Moist mucous membranes. Crowded airway. NECK: Supple, no JVD. LUNGS: Have a few scattered rhonchi. HEART: S1 and S2. ABDOMEN: Soft, nontender. No organomegaly. EXTREMITIES: There is no edema. NEUROLOGIC: Awake, alert, follows simple commands. LABORATORY DATA: Shows no new lab is available since yesterday. IMPRESSION AND PLAN: Status post respiratory failure, presently extubated on nasal cannula, obstruct veronica lung disease, may have obstructive sleep apnea syndrome, obstructive uropathy status post cystosc opy and placement of ureteral stent, seizure disorder, Larsen's palsy, hypertension, oropharyngeal dysp hagia. Pulmonary point of view, doing well. Continue bronchodilator. Keep head at 45 degrees. Gas tric prophylaxis, deep venous thrombosis prophylaxis. Fall precaution. We will write CPAP 8 cm with 30% oxygen while sleeping. Will recommend attended sleep study upon discharge as outpatient. We wi ll follow with you. Laquita Gonzalez MD cc: [id number] TT: 12/31/2016 07:01:15 Confirmation # [id number] Dictation # [id number] tn
[2016-12-31] MEDS: Arformoterol 15 mcg/2 ml Inh Sol IH SCH ×2 (07:31→20:40)
[2016-12-31] MEDS: Budesonide 0.5 mg/2 ml Inhal Susp UD IH SCH ×2 (07:31→20:40)
[2016-12-31] MEDS: Acetylcysteine 20% Inhal Soln (4ml) IH SCH ×2 (07:31→20:40)
[2016-12-31 08:22] LABS: ADD MANUAL DIFF? NO
[2016-12-31 08:27] LABS: BASO # 0.01 K/mm3 (0.0-2.0); BASO % 0.1 % (0.0-3.0); EOS % 0.1 % (1.5-5.0); GRAN # 11.62 (1.4-6.5); GRAN % 78.3 % (50.0-68.0); HEMATOCRIT 38.6 % (42.0-52.0); LYMPH # 2.3 (1.2-3.4); LYMPH % 15.5 % (22.0-35.0); MEAN CELL VOLUME 85.2 fL (80.0-105.0); MEAN CORPUSCULAR HEMOGLOBIN 27.8 pg (25.0-35.0); MEAN CORPUSCULAR HGB CONC 32.6 g/dl (31.0-37.0); MEAN PLATELET VOLUME 9.8 fl (7.0-11.0); MONO # 0.9 (0.1-0.6); PLATELET COUNT 446 10^3/uL (120.0-450.0); RED CELL DISTRIBUTION WIDTH 14.5 % (11.5-14.5); WHITE BLOOD COUNT 14.8 10^3/ul (4.5-11.0)
[2016-12-31 08:39] LABS: ALB/GLOB RATIO 1.1 (1.1-1.8); ALKALINE PHOSPHATASE 82 U/L (38-133); ALT/SGPT 52 U/L (7-56); AST/SGOT 25 U/L (15-59); BILIRUBIN,TOTAL 0.4 mg/dL (0.2-1.3); BLOOD UREA NITROGEN 20 mg/dL (7-21); CALCIUM 9.2 mg/dL (8.4-10.5); CARBON DIOXIDE 27 mmol/L (21-33); CHLORIDE 106 mmol/L (98-107); GFR AFRICAN-AMERICAN > 60; GLUCOSE,RANDOM 104 mg/dL (70-110); POTASSIUM 4.1 mmol/L (3.6-5.0); SODIUM 139 mmol/L (132-148); TOTAL PROTEIN 6.5 g/dL (5.8-8.3)
[2016-12-31] MEDS: guaiFENesin 600 mg ER Tab PO SCH ×2 (14:56→18:43)
[2016-12-31] MEDS: POLYETHYLENE GLYCOL 3350 17 GM/Dose PACKET PO SCH (14:56)
[2016-12-31] MEDS: MethylPREDNISolone 40 mg Vial IVP SCH ×2 (14:59→22:23)
--- NOTE | 2016-12-31 15:39 | CP.PCM.PCO ---
Assessment & Plan - Assessment and Plan (Free Text) Assessment: NEURO COMMUNITCATION NOTE: PATIENT HAS MS AND SEIZURES. SEIZURE CONTROLLED WITH LAMICTAL.. C/W LAMICTAL DOSE AND PHYSICAL THERAPY. WILL PLACE HIM ON MS MEDICATION IN THE OFFICE. F/U OUTPATIENT SIGN OFF NAEL LACKEY MD
--- NOTE | 2016-12-31 18:36 | CP.PCM.CON ---
History of Present Illness - History of Present Illness History of Present Illness: Infectious Disease Consult/Follow Up: December 31, 2016 51 yo male with presentation of SOB and AMS. The patient had worsening shortness of breath at home to the point that during a coughing fit at home he collapsed. He was intubated in the [facility]. The patient was brought to the MICU for further care. He remains intubated and ventilated. The patient was last in [facility] in September 2016. The patient has Multiple Sclerosis. He was sent home with Keflex at this time. He was on Aztreonam and Vancomycin on the past admission. Afebrile so far today. Antibiotics continued on Meropenem. Received one dose of Amikacin several days ago. Cultures have been negative to date. The patient is no longer on high flow oxygen and improved to 2 L nasal canula now. The patient is improving slowly. On the medical floor now. No new complaints. In TCU now. On Meropenem and Clindamycin. PMHx: Multiple sclerosis, hyperlipidemia, seizures PSHx: none that I am aware of Allergies: NKDA Social Hx: No tobacco, EtOH, illicit drug use Active Medications Acetylcysteine (Acetylcysteine 20%) 4 ml IH [id number] GOKUL PRN Reason: Protocol Last Admin: 12/31/16 07:31 Dose: 4 ml Albuterol Sulfate (Albuterol 0.083% Inhal Jo (2.5 Mg/3 Ml) Ud) 2.5 mg IH [id number] GOKUL PRN Reason: Protocol Last Admin: 12/31/16 13:44 Dose: 2.5 mg Amlodipine Besylate (Norvasc) 5 mg PO DAILY GOKUL PRN Reason: Protocol Last Admin: 12/31/16 14:57 Dose: 5 mg Arformoterol Tartrate (Brovana) 15 mcg IH [id number] GOKUL PRN Reason: Protocol Last Admin: 12/31/16 07:31 Dose: 15 mcg Budesonide (Pulmicort Respules) 0.5 mg IH [id number] GOKUL PRN Reason: Protocol Last Admin: 12/31/16 07:31 Dose: 0.5 mg Cholecalciferol (Vitamin D) 4,000 iu PO DAILY GOKUL PRN Reason: Protocol Last Admin: 12/31/16 15:00 Dose: 4,000 iu Docusate Sodium (Colace) 100 mg PO BID GOKUL PRN Reason: Protocol Last Admin: 12/31/16 14:51 Dose: 100 mg Guaifenesin (Mucinex La) 600 mg PO BID GOKUL PRN Reason: Protocol Last Admin: 12/31/16 14:56 Dose: 600 mg Heparin Sodium (Porcine) (Heparin) 5,000 units SC Q8 GOKUL PRN Reason: Protocol Last Admin: 12/31/16 14:52 Dose: 5,000 units Clindamycin Phosphate 600 mg/ (Sodium Chloride) 54 mls @ 102 mls/hr IVPB Q8 GOKUL PRN Reason: Protocol Last Admin: 12/31/16 14:50 Dose: 102 mls/hr Meropenem 1g/NS 100mL IVPB (Meropenem 1g/Ns 100ml Ivpb) 1 gm in 100 mls @ 100 mls/hr IVPB Q8 GOKUL PRN Reason: Protocol Last Admin: 12/31/16 05:53 Dose: 100 mls/hr Lamotrigine (Lamictal) 25 mg PO BID GOKUL PRN Reason: Protocol Last Admin: 12/31/16 14:53 Dose: 25 mg Methylprednisolone (Solu-Medrol) 20 mg IVP Q12 GOKUL PRN Reason: Protocol Last Admin: 12/31/16 14:59 Dose: Not Given Pantoprazole Sodium (Protonix Ec Tab) 40 mg PO 0600 GOKUL PRN Reason: Protocol Last Admin: 12/31/16 05:53 Dose: 40 mg Polyethylene Glycol (Miralax) 17 gm PO DAILY GOKUL PRN Reason: Protocol Last Admin: 12/31/16 14:56 Dose: 17 gm Family Hx: Unable to obtain at this time ROS: Patient has difficulty with speech secondary to Multiple Sclerosis. Had SOB. No chest pain, abdominal pain, melena, hematuria, hematemesis, hematochezia, depression, anxiety. Past Patient History - Infectious Disease Hx of Infectious Diseases: None - Past Social History Smoking Status: Former Smoker - CARDIAC Hx Hypertension: Yes - PULMONARY Hx Chronic Obstructive Pulmonary Disease (COPD): No - NEUROLOGICAL HX Cerebrovascular Accident: No - HEENT Hx HEENT Problems: Yes Other/Comment: Optic neuritis - RENAL Hx Renal Failure: No - ENDOCRINE/METABOLIC Hx Diabetes Mellitus Type 1: No Hx Diabetes Mellitus Type 2: No Hx Hypothyroidism: No - HEMATOLOGICAL/ONCOLOGICAL Hx Blood Transfusions: No Hx Blood Transfusion Reaction: No - INTEGUMENTARY Hx Dermatological Problems: Yes Other/Comment: multiple old bruises from banging his lower legs when in a chair - MUSCULOSKELETAL/RHEUMATOLOGICAL Hx Falls: Yes (past has had ms since age 19) - GASTROINTESTINAL Hx Gastroesophageal Reflux: Yes - GENITOURINARY/GYNECOLOGICAL Hx Reproductive Disorders: No - PSYCHIATRIC Hx Psychophysiologic Disorder: No Hx Substance Use: No - SURGICAL HISTORY Hx Surgeries: No - ANESTHESIA Hx Anesthesia Reactions: No Meds Allergies/Adverse Reactions: Allergies Allergy/AdvReac Type Severity Reaction Status Date / Time No Known Allergies Allergy Verified 12/21/16 20:02 - Medications Medications: Current Medications Acetylcysteine (Acetylcysteine 20%) 4 ml IH [id number] GOKUL PRN Reason: Protocol Last Admin: 12/31/16 07:31 Dose: 4 ml Albuterol Sulfate (Albuterol 0.083% Inhal Jo (2.5 Mg/3 Ml) Ud) 2.5 mg IH [id number] GOKUL PRN Reason: Protocol Last Admin: 12/31/16 13:44 Dose: 2.5 mg Amlodipine Besylate (Norvasc) 5 mg PO DAILY GOKUL PRN Reason: Protocol Last Admin: 12/31/16 14:57 Dose: 5 mg Arformoterol Tartrate (Brovana) 15 mcg IH [id number] GOKUL PRN Reason: Protocol Last Admin: 12/31/16 07:31 Dose: 15 mcg Budesonide (Pulmicort Respules) 0.5 mg IH [id number] GOKUL PRN Reason: Protocol Last Admin: 12/31/16 07:31 Dose: 0.5 mg Cholecalciferol (Vitamin D) 4,000 iu PO DAILY GOKUL PRN Reason: Protocol Last Admin: 12/31/16 15:00 Dose: 4,000 iu Docusate Sodium (Colace) 100 mg PO BID GOKUL PRN Reason: Protocol Last Admin: 12/31/16 14:51 Dose: 100 mg Guaifenesin (Mucinex La) 600 mg PO BID GOKUL PRN Reason: Protocol Last Admin: 12/31/16 14:56 Dose: 600 mg Heparin Sodium (Porcine) (Heparin) 5,000 units SC Q8 GOKUL PRN Reason: Protocol Last Admin: 12/31/16 14:52 Dose: 5,000 units Clindamycin Phosphate 600 mg/ (Sodium Chloride) 54 mls @ 102 mls/hr IVPB Q8 GOKUL PRN Reason: Protocol Last Admin: 12/31/16 14:50 Dose: 102 mls/hr Meropenem 1g/NS 100mL IVPB (Meropenem 1g/Ns 100ml Ivpb) 1 gm in 100 mls @ 100 mls/hr IVPB Q8 GOKUL PRN Reason: Protocol Last Admin: 12/31/16 05:53 Dose: 100 mls/hr Lamotrigine (Lamictal) 25 mg PO BID GOKUL PRN Reason: Protocol Last Admin: 12/31/16 14:53 Dose: 25 mg Methylprednisolone (Solu-Medrol) 20 mg IVP Q12 GOKUL PRN Reason: Protocol Last Admin: 12/31/16 14:59 Dose: Not Given Pantoprazole Sodium (Protonix Ec Tab) 40 mg PO 0600 GOKUL PRN Reason: Protocol Last Admin: 12/31/16 05:53 Dose: 40 mg Polyethylene Glycol (Miralax) 17 gm PO DAILY GOKUL PRN Reason: Protocol Last Admin: 12/31/16 14:56 Dose: 17 gm Physical Exam - Constitutional Appears: Non-toxic, No Acute Distress, Chronically Ill - Head Exam Head Exam: ATRAUMATIC, NORMOCEPHALIC - Eye Exam Eye Exam: EOMI, PERRL Pupil Exam: NORMAL ACCOMODATION, PERRL - ENT Exam ENT Exam: Mucous Membranes Moist, Normal External Ear Exam, TM's Normal Bilaterally - Neck Exam Neck exam: Positive for: Full Rom, Normal Inspection - Respiratory Exam Respiratory Exam: Clear to Auscultation Bilateral, NORMAL BREATHING PATTERN. absent: Rales, Rhonchi, Wheezes - Cardiovascular Exam Cardiovascular Exam: REGULAR RHYTHM, RRR, +S1, +S2 - GI/Abdominal Exam GI & Abdominal Exam: Normal Bowel Sounds, Soft. absent: Distended, Tenderness - Extremities Exam Extremities exam: Positive for: full ROM, normal inspection - Neurological Exam Neurological exam: Alert, CN II-XII Intact, Oriented x3 - Psychiatric Exam Psychiatric exam: Normal Affect, Normal Mood - Skin Skin Exam: Intact, Normal Color Results - Vital Signs Recent Vital Signs: Last Vital Signs Temp 97.6 F 12/31/16 10:00 Pulse 88 12/31/16 14:57 Resp 16 12/31/16 10:00 BP 130/84 12/31/16 14:57 Pulse Ox 97 12/31/16 10:00 - Labs Result Diagrams: 12/31/16 06:00 12/31/16 06:00 Labs: Laboratory Results - last 24 hr 12/31/16 12/31/16 06:00 06:00 WBC 14.8 H D RBC 4.53 Hgb 12.6 L Hct 38.6 L MCV 85.2 MCH 27.8 MCHC 32.6 RDW 14.5 Plt Count 446 MPV 9.8 Gran % 78.3 H Lymph % (Auto) 15.5 L [place] % (Auto) 6.0 Eos % (Auto) 0.1 L Baso % (Auto) 0.1 Gran # 11.62 H Lymph # 2.3 [place] # 0.9 H Eos # 0.0 Baso # 0.01 Sodium 139 Potassium 4.1 Chloride 106 Carbon Dioxide 27 Anion Gap 10 BUN 20 Creatinine 0.8 Est GFR ( Amer) > 60 Est GFR (Non-Af Amer) > 60 Random Glucose 104 Calcium 9.2 Total Bilirubin 0.4 AST 25 ALT 52 Alkaline Phosphatase 82 Total Protein 6.5 Albumin 3.4 Globulin 3.1 Albumin/Globulin Ratio 1.1 Assessment & Plan - Assessment and Plan (Free Text) Assessment: 51 yo [place] male with left pyelonephritis and nephrolithiasis presenting with sepsis, AMS, SOB, and syncope. Went to OR for stent placement and stone removal yesterday. The patient was on Clindamycin and Rocephin. Given prior hospitalizations and persistent fevers, meropenem started over Rocephin as the spectrum for gram negative coverage is better. Given a dose of Aminoglycoside ( Amikacin) as part of patient's coverage. The patient was intubated and ventilated... extubated and on high flow oxygen. Was on Meropenem and Clindamycin. Now on Cefepime and Clindamycin. Patient clinically improving. Cultures negative but that does NOT rule out infective process. Would complete total of 10 days of antibiotic therapy at the minimum given recent infection history. Now in TCU. Thank you for allowing me to participate in the care of the patient, we will follow with you
--- NOTE | 2016-12-31 19:02 | PN ---
DATE: 12/31/2016 REFERRING PHYSICIAN: Dr. Torre. SUBJECTIVE: He is out of bed to wheelchair, participating in therapy. Therapy is going to be trying him on parallel bars. His breathing is better, decreased cough, decreased shortness of breath. No nausea, no vomiting, no diarrhea. No leg pain or leg swelling. OBJECTIVE: GENERAL: In no acute distress. VITAL SIGNS: Temperature is 98, heart rate is 90, respiratory rate is 16, blood pressure 130/80, pul se ox 97% on nasal cannula. HEENT: Moist mucous membranes. Crowded airway. Mallampati score is 4. NECK: Supple. No JVD. LUNGS: Has a fair airflow with a few rhonchi. HEART: S1 and S2. ABDOMEN: Soft, nontender. No organomegaly. EXTREMITIES: There is no edema. NEUROLOGIC: Awake, alert, follows simple commands. MEDICATIONS: He is on Mucomyst 20% inhaled q.12 hours, albuterol-Atrovent nebulizer q.6 hours, Brova na 15 mcg inhaled twice a day, around the clock; clindamycin 600 mg q.8 hours, Colace 100 mg twice a day, heparin 5000 units subQ q.8 hours, Lamictal 25 mg twice a day, meropenem 1 g IV q.8 hours, Virginie ax 17 grams daily, Mucinex LA 600 mg twice a day, Norvasc 5 mg daily, Protonix 40 mg daily, budesonid e inhaled twice a day, Solu-Medrol 20 mg q.12 hours, vitamin D 4000 units daily. LABORATORY DATA: Shows hemoglobin 12.6, hematocrit 38.6, WBC 14.8, platelet count is 446. Sodium 13 9, potassium 4.1, chloride 106, bicarbonate 27, BUN 20, creatinine 0.8, glucose 104, calcium 9.2, tot al bili 0.4, AST 25, ALT 82, alkaline phosphatase is 82, total protein 6.5, albumin is 3.4. IMPRESSION AND PLAN: Status post respiratory failure, presently extubated on nasal cannula; may have obstructive sleep apnea syndrome, obstructive uropathy status post cystoscopy and placement of stent , seizure disorder, Larsen's palsy, hypertension, oropharyngeal dysphagia. I spoke to therapist. Will continue CPAP while sleeping. Keep head elevated at 45 degrees. Bronchodilator. Gastric prophylax is. DVT prophylaxis. Aspiration precaution. Will need attended sleep study upon discharge as an ou tpatient. Thank you and will follow with you. Laquita Gonzalez MD cc: [phone] TT: 12/31/2016 19:01:32 Confirmation # [id number] Dictation # [id number] dn
--- NOTE | 2016-12-31 20:09 | HP ---
HISTORY OF PRESENT ILLNESS: The patient is a 51-year-old male who was admitted through the Emergency Department to [facility] on 12/21/2016 in respiratory failure due to recurrent aspiratio n pneumonia. The patient has a history of multiple sclerosis and recurrent aspiration pneumonia in t he past. He has been treated with IV antibiotics including meropenem and clindamycin. The patient w as extubated on 12/22/2016 and has had an uneventful course, and has been transferred to the [facility] care unit to complete his course of IV antibiotics. PAST MEDICAL HISTORY: Includes seizure disorder, multiple sclerosis, Larsen's palsy, hypertension, hyp ercholesterolemia and GERD. There is no history of diabetes mellitus, heart disease or cancer. PAST SURGICAL HISTORY: The patient has no significant past surgical history. CURRENT MEDICATIONS: Include meropenem 1 gram IV q. 8 hours, clindamycin 600 mg IV q. 8 hours, Solu- Medrol 20 mg IV q. 12 hours, Lamictal 25 mg twice daily, amlodipine 5 mg daily, Protonix 40 mg daily, Mucomyst, albuterol, and Brovana via inhalation. ALLERGIES: The patient has no known drug allergies. SOCIAL HISTORY: The patient is essentially bed and wheelchair bound with total ADL and IADL dependen ce and lives at home under the care of his parents. There is no history of tobacco or alcohol use. REVIEW OF SYSTEMS: The patient denies any chest pain or shortness of breath. He has a nonproductive cough with no hemoptysis, no fever, no chills, no abdominal pain, no nausea, no vomiting, no diarrhe a, no rash or jaundice. PHYSICAL EXAMINATION: GENERAL: The patient is a well-developed, slightly cachectic male in no acute distress. VITAL SIGNS: Blood pressure 130/84, pulse 88, temperature 97.6, respiratory rate 16. HEENT: Head is normocephalic, atraumatic. Pupils equal, round and reactive to light. Extraocular m ovements intact. NECK: Supple with no carotid bruit, no thyromegaly, no adenopathy. LUNGS: Show a few scattered crepitations at the bases bilaterally. HEART: Regular rate and rhythm with no murmurs, rubs or gallops. ABDOMEN: Soft, nontender, bowel sounds are normoactive. EXTREMITIES: Without cyanosis, clubbing, or edema. NEUROLOGIC: The patient is awake and responsive. His speech is slightly dysarthric He has no focal deficits. LABORATORY DATA: WBC is 14.8, hemoglobin 12.6, hematocrit 38.6. CMP is within normal limits. IMPRESSION: 1. Recurrent aspiration pneumonia, status post ventilatory failure. 2. Multiple sclerosis. 3. Seizure disorder. 4. Hypertension. 5. Larsen's palsy. 6. Hypercholesterolemia. 7. Gastroesophageal reflux disease. PLAN: Continue IV antibiotics. Continue pulmonary followup with Dr. Gonzalez, pulmonary toilet, nebul izer treatments, and taper Solu-Medrol as tolerated. Continue infectious disease consultation with Amanda De Leon and neurology followup with Dr. Lnidquist. Physical therapy and social work for discharge anne allen Garrett Torre JD, MD cc: [phone] TT: 12/31/2016 20:09:31 mt
[2017-01-01] MEDS: Albuterol 0.083% Inhal Sol (2.5 mg/3 mL) UD IH SCH ×4 (02:50→22:16)
[2017-01-01] MEDS: Meropenem 1g/NS 100mL IVPB 1 GM/100 ML PIGGYBACK IVPB SCH ×3 (05:38→22:18)
[2017-01-01] MEDS: Pantoprazole 40 mg EC Tab PO SCH (05:38)
[2017-01-01] MEDS: Arformoterol 15 mcg/2 ml Inh Sol IH SCH ×2 (07:39→22:16)
[2017-01-01] MEDS: Acetylcysteine 20% Inhal Soln (4ml) IH SCH ×2 (07:39→22:15)
[2017-01-01] MEDS: Budesonide 0.5 mg/2 ml Inhal Susp UD IH SCH ×2 (07:39→22:16)
[2017-01-01] MEDS: guaiFENesin 600 mg ER Tab PO SCH ×2 (10:04→18:16)
[2017-01-01] MEDS: POLYETHYLENE GLYCOL 3350 17 GM/Dose PACKET PO SCH (10:04)
[2017-01-01] MEDS: MethylPREDNISolone 40 mg Vial IVP SCH ×2 (10:05→21:51)
--- NOTE | 2017-01-01 14:15 | PN ---
DATE: 01/01/2017 SUBJECTIVE: The patient is lying in bed, in no acute distress. OBJECTIVE: VITAL SIGNS: Blood pressure 125/92, pulse 81, temperature 97.6, respiratory rate 16. LUNGS: Show a few crepitations bilaterally. HEART: Regular rate and rhythm. ABDOMEN: Soft, nontender, bowel sounds are normoactive. EXTREMITIES: Without cyanosis, clubbing, or edema. NEUROLOGIC: The patient is awake and responsive. SKIN: Warm and dry. IMPRESSION: 1. Recurrent aspiration pneumonia, status post ventilatory failure. 2. Multiple sclerosis. 3. Seizure disorder. 4. Hypertension. 5. Larsen's palsy. 6. Hypercholesterolemia. 7. Gastroesophageal reflux disease. PLAN: Continue IV antibiotics. Infectious disease followup with Dr. De Leon. Continue pulmonary followu p with Dr. Gonzalez. Taper Solu-Medrol as tolerated. Continue neurology followup with Dr. Lindquist. ysical therapy and social work for discharge planning. Garrett Torre JD, MD cc: [id number] TT: 01/01/2017 14:14:45 Confirmation # [id number] Dictation # [id number] jamie
--- NOTE | 2017-01-01 16:30 | PN ---
DATE: 01/01/2017 REFERRING PHYSICIAN: Dr. Torre SUBJECTIVE: He is lying in the bed, head at 45 degrees, feels much better. Mild cough. No nausea, no vomiting, diarrhea. No leg pain or leg swelling. OBJECTIVE: GENERAL: No acute distress. VITAL SIGNS: Temp is 98, heart rate is 90, respiratory rate is 16, blood pressure 130/84, pulse ox 9 7%. HEENT: Moist mucous membrane. Crowded airway. NECK: Supple. No JVD. LUNGS: Have a fair airflow with few rhonchi. HEART: S1, S2. ABDOMEN: Soft, nontender. No organomegaly. EXTREMITIES: There is no edema. NEUROLOGIC: Awake, alert, follows simple commands. MEDICATIONS: He is on Mucomyst inhaled twice a day, albuterol Atrovent nebulizer q.6 hours, Brovana 15 mcg inhaled twice a day, clindamycin 600 mg q.8 hours, Colace 100 mg twice a day, heparin 5000 uni ts subQ q.8 hours, Lamictal is 25 mg twice a day, meropenem 1 g IV q.8 hours, MiraLax 17 grams daily, Mucinex LA 600 mg twice a day, Norvasc 5 mg daily, Protonix 40 mg daily, Pulmicort inhaled twice a d ay, Solu-Medrol 20 mg q.12 hours, vitamin D 4000 units international daily. LABORATORY DATA: Reviewed. No new lab is available since yesterday. IMPRESSION AND PLAN: Status post respiratory failure requiring noninvasive ventilation and presently extubated on nasal cannula, obstructive sleep apnea syndrome, obstructive uropathy status post cysto scopy with placement of stent and extraction of stone, seizure disorder, Larsen palsy, hypertension, or opharyngeal dysphagia. Pulmonary point of view, doing okay. Continue bronchodilator. Keep head jayme vated at 45 degrees. Encourage continuous positive airway pressure use. Gastric prophylaxis, deep v enous thrombosis prophylaxis. Fall precaution. Continue therapy. Thank you and we will follow with you. Laquita Gonzalez MD cc: [phone] TT: 01/01/2017 16:29:48 Confirmation # [id number] Dictation # [id number]
--- NOTE | 2017-01-01 18:39 | CP.PCM.PN ---
Subjective - Date & Time of Evaluation Date of Evaluation: 01/01/17 Time of Evaluation: 18:30 - Subjective Subjective: Infectious Disease Consult/Follow Up: January 01, 2017 51 yo male with presentation of SOB and AMS. The patient had worsening shortness of breath at home to the point that during a coughing fit at home he collapsed. He was intubated in the [facility]. The patient was brought to the MICU for further care. He remains intubated and ventilated. The patient was last in [facility] in September 2016. The patient has Multiple Sclerosis. He was sent home with Keflex at this time. He was on Aztreonam and Vancomycin on the past admission. Afebrile so far today. Antibiotics continued on Meropenem. Received one dose of Amikacin several days ago. Cultures have been negative to date. The patient is no longer on high flow oxygen and improved to 2 L nasal canula now. The patient is improving slowly. On the medical floor now. No new complaints. In TCU now. On Meropenem and Clindamycin. No new complaints. Objective - Vital Signs/Intake and Output Vital Signs (last 24 hours): Temp Pulse Resp BP Pulse Ox 97.6 F 81 16 125/92 H 97 12/31/16 10:00 01/01/17 10:04 12/31/16 10:00 01/01/17 10:04 12/31/16 10:00 Intake and Output: 01/01/17 01/01/17 06:59 18:59 Output Total 900 Balance -900 - Medications Medications: Current Medications Acetylcysteine (Acetylcysteine 20%) 4 ml IH [id number] GOKUL PRN Reason: Protocol Last Admin: 01/01/17 07:39 Dose: 4 ml Albuterol Sulfate (Albuterol 0.083% Inhal Jo (2.5 Mg/3 Ml) Ud) 2.5 mg IH [id number] GOKUL PRN Reason: Protocol Last Admin: 01/01/17 15:06 Dose: 2.5 mg Amlodipine Besylate (Norvasc) 5 mg PO DAILY GOKUL PRN Reason: Protocol Last Admin: 01/01/17 10:04 Dose: 5 mg Arformoterol Tartrate (Brovana) 15 mcg IH [id number] GOKUL PRN Reason: Protocol Last Admin: 01/01/17 07:39 Dose: 15 mcg Budesonide (Pulmicort Respules) 0.5 mg IH [id number] GOKUL PRN Reason: Protocol Last Admin: 01/01/17 07:39 Dose: 0.5 mg Cholecalciferol (Vitamin D) 4,000 iu PO DAILY GOKUL PRN Reason: Protocol Last Admin: 01/01/17 10:06 Dose: 4,000 iu Docusate Sodium (Colace) 100 mg PO BID GOKUL PRN Reason: Protocol Last Admin: 01/01/17 18:15 Dose: 100 mg Guaifenesin (Mucinex La) 600 mg PO BID GOKUL PRN Reason: Protocol Last Admin: 01/01/17 18:16 Dose: 600 mg Heparin Sodium (Porcine) (Heparin) 5,000 units SC Q8 GOKUL PRN Reason: Protocol Last Admin: 01/01/17 13:27 Dose: 5,000 units Clindamycin Phosphate 600 mg/ (Sodium Chloride) 54 mls @ 102 mls/hr IVPB Q8 GOKUL PRN Reason: Protocol Last Admin: 01/01/17 18:15 Dose: 102 mls/hr Meropenem 1g/NS 100mL IVPB (Meropenem 1g/Ns 100ml Ivpb) 1 gm in 100 mls @ 100 mls/hr IVPB Q8 OGKUL PRN Reason: Protocol Last Admin: 01/01/17 13:27 Dose: 100 mls/hr Lamotrigine (Lamictal) 25 mg PO BID GOKUL PRN Reason: Protocol Last Admin: 01/01/17 10:04 Dose: 25 mg Methylprednisolone (Solu-Medrol) 20 mg IVP Q12 GOKUL PRN Reason: Protocol Last Admin: 01/01/17 10:05 Dose: 20 mg Pantoprazole Sodium (Protonix Ec Tab) 40 mg PO 0600 GOKUL PRN Reason: Protocol Last Admin: 01/01/17 05:38 Dose: 40 mg Polyethylene Glycol (Miralax) 17 gm PO DAILY GOKUL PRN Reason: Protocol Last Admin: 01/01/17 10:04 Dose: 17 gm - Labs Labs: 12/31/16 06:00 12/31/16 06:00 - Constitutional Appears: Non-toxic, No Acute Distress, Chronically Ill - Head Exam Head Exam: ATRAUMATIC, NORMOCEPHALIC - Eye Exam Eye Exam: EOMI, PERRL Pupil Exam: NORMAL ACCOMODATION, PERRL - ENT Exam ENT Exam: Mucous Membranes Moist, Normal External Ear Exam, TM's Normal Bilaterally - Neck Exam Neck Exam: Full ROM, Normal Inspection - Respiratory Exam Respiratory Exam: Clear to Ausculation Bilateral, NORMAL BREATHING PATTERN. absent: Rales, Rhonchi, Wheezes - Cardiovascular Exam Cardiovascular Exam: REGULAR RHYTHM, RRR, +S1, +S2 - GI/Abdominal Exam GI & Abdominal Exam: Soft, Normal Bowel Sounds. absent: Distended, Tenderness - Extremities Exam Extremities Exam: Full ROM, Normal Inspection - Neurological Exam Neurological Exam: Alert, Awake, CN II-XII Intact, Oriented x3 - Psychiatric Exam Psychiatric exam: Normal Affect, Normal Mood - Skin Skin Exam: Intact, Normal Color Assessment and Plan - Assessment and Plan (Free Text) Assessment: 51 yo [place] male with left pyelonephritis and nephrolithiasis presenting with sepsis, AMS, SOB, and syncope. Went to OR for stent placement and stone removal yesterday. The patient was on Clindamycin and Rocephin. Given prior hospitalizations and persistent fevers, meropenem started over Rocephin as the spectrum for gram negative coverage is better. Given a dose of Aminoglycoside ( Amikacin) as part of patient's coverage. The patient was intubated and ventilated... extubated and on high flow oxygen. Was on Meropenem and Clindamycin. Patient clinically improving. Cultures negative but that does NOT rule out infective process. Would complete total of 10 days of antibiotic therapy at the minimum given recent infection history. Remains in TCU. Thank you for allowing me to participate in the care of the patient, we will follow with you.
[2017-01-02] MEDS: Albuterol 0.083% Inhal Sol (2.5 mg/3 mL) UD IH SCH ×4 (04:20→19:41)
[2017-01-02] MEDS: Meropenem 1g/NS 100mL IVPB 1 GM/100 ML PIGGYBACK IVPB SCH ×3 (06:12→23:04)
[2017-01-02] MEDS: Pantoprazole 40 mg EC Tab PO SCH (06:12)
[2017-01-02] MEDS: Arformoterol 15 mcg/2 ml Inh Sol IH SCH ×2 (07:37→19:36)
[2017-01-02] MEDS: Acetylcysteine 20% Inhal Soln (4ml) IH SCH ×2 (07:37→19:36)
[2017-01-02] MEDS: Budesonide 0.5 mg/2 ml Inhal Susp UD IH SCH ×2 (07:38→19:36)
[2017-01-02 09:10] LABS: ADD MANUAL DIFF? NO
[2017-01-02 09:27] LABS: BASO # 0.01 K/mm3 (0.0-2.0); BASO % 0.1 % (0.0-3.0); EOS % 0.3 % (1.5-5.0); GRAN # 7.88 (1.4-6.5); GRAN % 69.8 % (50.0-68.0); HEMATOCRIT 37.8 % (42.0-52.0); LYMPH # 2.5 (1.2-3.4); LYMPH % 22.3 % (22.0-35.0); MEAN CELL VOLUME 86.1 fL (80.0-105.0); MEAN CORPUSCULAR HGB CONC 32.5 g/dl (31.0-37.0); MEAN PLATELET VOLUME 9.8 fl (7.0-11.0); MONO # 0.9 (0.1-0.6); MONO % 7.5 % (1.0-6.0); PLATELET COUNT 452 10^3/uL (120.0-450.0); RED CELL DISTRIBUTION WIDTH 14.5 % (11.5-14.5); WHITE BLOOD COUNT 11.3 10^3/ul (4.5-11.0)
[2017-01-02] MEDS: POLYETHYLENE GLYCOL 3350 17 GM/Dose PACKET PO SCH (09:32)
[2017-01-02] MEDS: guaiFENesin 600 mg ER Tab PO SCH ×2 (09:32→18:27)
[2017-01-02] MEDS: MethylPREDNISolone 40 mg Vial IVP SCH ×2 (09:33→23:05)
[2017-01-02 09:47] LABS: ALB/GLOB RATIO 1.1 (1.1-1.8); ALKALINE PHOSPHATASE 84 U/L (38-133); ALT/SGPT 45 U/L (7-56); AST/SGOT 34 U/L (15-59); BILIRUBIN,TOTAL 0.6 mg/dL (0.2-1.3); BLOOD UREA NITROGEN 22 mg/dL (7-21); CALCIUM 9.3 mg/dL (8.4-10.5); CARBON DIOXIDE 30 mmol/L (21-33); CHLORIDE 105 mmol/L (95-110); GFR AFRICAN-AMERICAN > 60; GLUCOSE,RANDOM 101 mg/dL (70-110); POTASSIUM 4.3 mmol/L (3.6-5.0); SODIUM 139 mmol/L (132-148); TOTAL PROTEIN 6.4 g/dL (5.8-8.3)
--- NOTE | 2017-01-02 16:11 | PN ---
DATE: 01/02/2017 SUBJECTIVE: The patient is lying in bed in no acute distress. OBJECTIVE: VITAL SIGNS: Blood pressure 126/63, temperature 98.7, pulse 78, respiratory rate 16. LUNGS: Show few scattered crepitations bilaterally. HEART: Regular rate and rhythm. ABDOMEN: Soft, nontender, bowel sounds are normoactive. EXTREMITIES: Without cyanosis, clubbing, or edema. NEUROLOGIC: The patient is awake and responsive. SKIN: Warm and dry. LABORATORY DATA: WBC is 11.3, hemoglobin 12.3, hematocrit 37.8. CMP is within normal limits. IMPRESSION: 1. Recurrent aspiration pneumonia, status post ventilatory failure. 2. Multiple sclerosis. 3. Seizure disorder. 4. Hypertension. 5. Larsen's palsy. 6. Hypercholesterolemia. 7. Gastroesophageal reflux disease. PLAN: Continue IV antibiotics. Infectious disease followup with Dr. De Leon. Continue pulmonary followu p with Dr. Gonzalez. Taper steroids as tolerated. Continue neurology followup with Dr. Lindquist. Physi sumi therapy and social work for discharge planning. Garrett Torre JD, MD cc: [id number] TT: 01/02/2017 16:10:41 Confirmation # [id number] Dictation # [id number] raphael
--- NOTE | 2017-01-02 19:25 | PN ---
DATE: 01/02/2017 REFERRING PHYSICIAN: Dr. Torre. SUBJECTIVE: He is lying in the bed, sleepy. Night was unremarkable. Does not use BiPAP. No nausea . No vomiting. No diarrhea. Has some cough. No dysuria. No leg pain or leg swelling. OBJECTIVE: GENERAL: No acute distress. VITAL SIGNS: Temperature is 98, heart rate is 78, respiratory rate is 20, blood pressure 123/63, pul se ox 100% on room air. HEENT: Moist mucous membrane. No ulcer or thrush noted. NECK: Supple. No JVD. LUNGS: Has scattered rhonchi. HEART: S1 and S2. ABDOMEN: Soft, nontender. No organomegaly. EXTREMITIES: No edema. NEUROLOGIC: Sleepy, arousable, follows simple command. MEDICATIONS: Mucomyst 4 mL q. 12 hours, albuterol-Atrovent nebulizer q. 6 hours, Brovana 15 mcg inha led twice a day, clindamycin 600 mg q. 8 hours, Colace 100 mg twice a day, heparin 5000 units subQ q. 8 hours, Lamictal 25 mg twice a day, meropenem 1 g q. 8 hours, MiraLax 17 grams daily, Mucinex LA 60 0 mg twice a day, Norvasc 5 mg daily, Protonix 40 mg daily, Pulmicort inhaled twice a day, Solu-Medro l 20 mg q. 12 hours, vitamin D 4000 international units daily. LABORATORY DATA: Shows hemoglobin 12.3, hematocrit 37.8, WBC 11.3, platelet is 452. Sodium 139, pot assium 4.3, chloride 105, bicarbonate 30, BUN 22, creatinine 0.9, glucose 101, calcium is 9. . A ST 34, ALT 45, alkaline phosphatase is 84, albumin 3.4. IMPRESSION AND PLAN: Status post respiratory failure requiring noninvasive ventilation, presently on nasal cannula. Chronic obstructive lung disease, obstructive sleep apnea syndrome, obstructive urop athy requiring cystoscopy and placement of the stent, extraction of stone, seizure disorder, Larsen's p alsy, hypertension, oropharyngeal dysphagia. Pulmonary point of view, doing okay. Keep head elevate d at 45 degrees. Continue antibiotics, IV and inhaled bronchodilator, incentive spirometer. Fall pr ecaution. Aspiration precaution. Continue therapy. Encourage continuous positive airway pressure u se. Thank you and will follow with you. Laquita Gonzalez MD cc: [phone] TT: 01/02/2017 19:24:11 Confirmation # [id number] Dictation # [id number] tn
--- NOTE | 2017-01-02 20:20 | CP.PCM.PN ---
Subjective - Date & Time of Evaluation Date of Evaluation: 01/02/17 Time of Evaluation: 20:12 - Subjective Subjective: Infectious Disease Follow Up: January 02, 2017 51 yo male with presentation of SOB and AMS. The patient had worsening shortness of breath at home to the point that during a coughing fit at home he collapsed. He was intubated in the edward. The patient was brought to the MICU for further care. He remains intubated and ventilated. The patient was last in [facility] [place]. The patient has Multiple Sclerosis. He was sent home with Keflex at this time. He was on Aztreonam and Vancomycin on the past admission. Afebrile so far today. Antibiotics continued on Meropenem. Received one dose of Amikacin several days ago. Cultures have been negative to date. The patient is no longer on high flow oxygen and improved to 2 L nasal canula now. The patient is improving slowly. On the medical floor now. No new complaints. In TCU now. On Meropenem and Clindamycin. No new complaints. Objective - Vital Signs/Intake and Output Vital Signs (last 24 hours): Temp Pulse Resp BP Pulse Ox 98.7 F 78 16 123/63 100 01/02/17 10:00 01/02/17 10:00 01/02/17 10:00 01/02/17 10:00 01/02/17 10:00 - Medications Medications: Current Medications Acetylcysteine (Acetylcysteine 20%) 4 ml IH [id number] GOKUL PRN Reason: Protocol Last Admin: 01/02/17 19:36 Dose: 4 ml Albuterol Sulfate (Albuterol 0.083% Inhal Jo (2.5 Mg/3 Ml) Ud) 2.5 mg IH [id number] GOKUL PRN Reason: Protocol Last Admin: 01/02/17 19:41 Dose: 2.5 mg Amlodipine Besylate (Norvasc) 5 mg PO DAILY GOKUL PRN Reason: Protocol Last Admin: 01/02/17 09:32 Dose: 5 mg Arformoterol Tartrate (Brovana) 15 mcg IH [id number] GOKUL PRN Reason: Protocol Last Admin: 01/02/17 19:36 Dose: 15 mcg Budesonide (Pulmicort Respules) 0.5 mg IH [id number] GOKUL PRN Reason: Protocol Last Admin: 01/02/17 19:36 Dose: 0.5 mg Cholecalciferol (Vitamin D) 4,000 iu PO DAILY GOKUL PRN Reason: Protocol Last Admin: 01/02/17 09:34 Dose: 4,000 iu Docusate Sodium (Colace) 100 mg PO BID GOKUL PRN Reason: Protocol Last Admin: 01/02/17 18:25 Dose: 100 mg Guaifenesin (Mucinex La) 600 mg PO BID GOKUL PRN Reason: Protocol Last Admin: 01/02/17 18:27 Dose: 600 mg Heparin Sodium (Porcine) (Heparin) 5,000 units SC Q8 GOKUL PRN Reason: Protocol Last Admin: 01/02/17 14:00 Dose: 5,000 units Clindamycin Phosphate 600 mg/ (Sodium Chloride) 54 mls @ 102 mls/hr IVPB Q8 GOKUL PRN Reason: Protocol Last Admin: 01/02/17 13:57 Dose: 102 mls/hr Meropenem 1g/NS 100mL IVPB (Meropenem 1g/Ns 100ml Ivpb) 1 gm in 100 mls @ 100 mls/hr IVPB Q8 GOKUL PRN Reason: Protocol Last Admin: 01/02/17 14:26 Dose: 100 mls/hr Lamotrigine (Lamictal) 25 mg PO BID GOKUL PRN Reason: Protocol Last Admin: 01/02/17 18:26 Dose: 25 mg Methylprednisolone (Solu-Medrol) 20 mg IVP Q12 GOKUL PRN Reason: Protocol Last Admin: 01/02/17 09:33 Dose: 20 mg Pantoprazole Sodium (Protonix Ec Tab) 40 mg PO 0600 GOKUL PRN Reason: Protocol Last Admin: 01/02/17 06:12 Dose: 40 mg Polyethylene Glycol (Miralax) 17 gm PO DAILY GOKUL PRN Reason: Protocol Last Admin: 01/02/17 09:32 Dose: 17 gm - Labs Labs: 01/02/17 07:00 01/02/17 07:00 - Constitutional Appears: Non-toxic, No Acute Distress, Chronically Ill - Head Exam Head Exam: ATRAUMATIC, NORMOCEPHALIC - Eye Exam Eye Exam: EOMI, PERRL Pupil Exam: NORMAL ACCOMODATION, PERRL - ENT Exam ENT Exam: Mucous Membranes Moist, Normal External Ear Exam, TM's Normal Bilaterally - Neck Exam Neck Exam: Full ROM, Normal Inspection - Respiratory Exam Respiratory Exam: Clear to Ausculation Bilateral, NORMAL BREATHING PATTERN. absent: Rales, Rhonchi, Wheezes - Cardiovascular Exam Cardiovascular Exam: REGULAR RHYTHM, RRR, +S1, +S2 - GI/Abdominal Exam GI & Abdominal Exam: Soft, Normal Bowel Sounds. absent: Distended, Tenderness - Extremities Exam Extremities Exam: Full ROM, Normal Inspection - Neurological Exam Neurological Exam: Alert, Awake, CN II-XII Intact, Oriented x3 - Psychiatric Exam Psychiatric exam: Normal Affect, Normal Mood - Skin Skin Exam: Intact, Normal Color Assessment and Plan - Assessment and Plan (Free Text) Assessment: 51 yo Congolese male with left pyelonephritis and nephrolithiasis presenting with sepsis, AMS, SOB, and syncope. Went to OR for stent placement and stone removal yesterday. The patient was on Clindamycin and Rocephin. Given prior hospitalizations and persistent fevers, meropenem started over Rocephin as the spectrum for gram negative coverage is better. Given a dose of Aminoglycoside ( Amikacin) as part of patient's coverage. The patient was intubated and ventilated... extubated and on high flow oxygen. Was on Meropenem and Clindamycin. Patient clinically improving. Cultures negative but that does NOT rule out infective process. Would complete total of 10 days of antibiotic therapy at the minimum given recent infection history. Remains in TCU. Thank you for allowing me to participate in the care of the patient, we will follow with you.
[2017-01-03] MEDS: Albuterol 0.083% Inhal Sol (2.5 mg/3 mL) UD IH SCH ×4 (01:56→20:48)
[2017-01-03] MEDS: Pantoprazole 40 mg EC Tab PO SCH (05:29)
[2017-01-03] MEDS: Meropenem 1g/NS 100mL IVPB 1 GM/100 ML PIGGYBACK IVPB SCH ×3 (05:29→21:58)
[2017-01-03] MEDS: Arformoterol 15 mcg/2 ml Inh Sol IH SCH ×2 (07:30→20:48)
[2017-01-03] MEDS: Acetylcysteine 20% Inhal Soln (4ml) IH SCH ×2 (07:30→20:48)
[2017-01-03] MEDS: Budesonide 0.5 mg/2 ml Inhal Susp UD IH SCH ×2 (07:31→20:48)
[2017-01-03] MEDS: POLYETHYLENE GLYCOL 3350 17 GM/Dose PACKET PO SCH (10:28)
[2017-01-03] MEDS: guaiFENesin 600 mg ER Tab PO SCH ×2 (10:28→17:47)
[2017-01-03] MEDS: MethylPREDNISolone 40 mg Vial IVP SCH ×2 (11:14→21:59)
--- NOTE | 2017-01-03 11:42 | PN ---
DATE: 01/03/2017 SUBJECTIVE: The patient is lying in bed in no acute distress. OBJECTIVE: VITAL SIGNS: Blood pressure 122/84, pulse 93, temperature 98.7, respiratory rate 16. LUNGS: Show a few scattered crepitations bilaterally. HEART: Regular rate and rhythm. ABDOMEN: Soft, nontender. Bowel sounds normoactive. Indwelling Garcia is intact. Urine is blood ti nged. EXTREMITIES: Without cyanosis, clubbing, or edema. NEUROLOGIC: The patient is awake and responsive. SKIN: Warm and dry. IMPRESSION: 1. Recurrent aspiration, status post ventilatory failure. 2. Multiple sclerosis. 3. Seizure disorder. 4. Hypertension. 5. Larsen's palsy. 6. Hypercholesterolemia. 7. Gastroesophageal reflux disease. 8. Renal stone, status post cystoscopy and stent placement with some residual hematuria. PLAN: Continue IV antibiotics. Infectious disease followup with Dr. De Leon, pulmonary followup with Dr. Lisa LUGO with Dr. Escobar. Taper steroids as tolerated. Continue neurology followup with Dr. Lomas or. Physical therapy and social work for discharge planning. Garrett Torre JD, MD cc: [phone] TT: 01/03/2017 11:41:25 Confirmation # [id number] Dictation # [id number] tn
--- NOTE | 2017-01-03 17:13 | CP.PCM.PN ---
Subjective - Date & Time of Evaluation Date of Evaluation: 01/03/17 Time of Evaluation: 17:00 - Subjective Subjective: Infectious Disease Follow Up: January 03, 2017 51 yo male with presentation of SOB and AMS. The patient had worsening shortness of breath at home to the point that during a coughing fit at home he collapsed. He was intubated in the [place]ward. The patient was brought to the MICU for further care. He remains intubated and ventilated. The patient was last in [facility] in September 2016. The patient has Multiple Sclerosis. He was sent home with Keflex at this time. He was on Aztreonam and Vancomycin on the past admission. Afebrile so far today. Antibiotics continued on Meropenem. Received one dose of Amikacin several days ago. Cultures have been negative to date. The patient is no longer on high flow oxygen and improved to 2 L nasal canula now. The patient is improving slowly. On the medical floor now. No new complaints. In TCU now. On Meropenem and Clindamycin. No new complaints. Objective - Vital Signs/Intake and Output Vital Signs (last 24 hours): Temp Pulse Resp BP Pulse Ox 98.7 F 93 H 16 122/84 100 01/02/17 10:00 01/03/17 10:28 01/02/17 10:00 01/03/17 10:28 01/02/17 10:00 Intake and Output: 01/03/17 01/03/17 06:59 18:59 Intake Total 540 Output Total 675 Balance -135 - Medications Medications: Current Medications Acetaminophen (Tylenol 325mg Tab) 650 mg PO Q6H PRN PRN Reason: Pain, moderate (4-7) Last Admin: 01/03/17 15:43 Dose: 650 mg Acetylcysteine (Acetylcysteine 20%) 4 ml IH [id number] GOKUL PRN Reason: Protocol Last Admin: 01/03/17 07:30 Dose: 4 ml Albuterol Sulfate (Albuterol 0.083% Inhal Jo (2.5 Mg/3 Ml) Ud) 2.5 mg IH [id number] GOKUL PRN Reason: Protocol Last Admin: 01/03/17 13:25 Dose: 2.5 mg Amlodipine Besylate (Norvasc) 5 mg PO DAILY GOKUL PRN Reason: Protocol Last Admin: 01/03/17 10:28 Dose: 5 mg Arformoterol Tartrate (Brovana) 15 mcg IH [id number] GOKUL PRN Reason: Protocol Last Admin: 01/03/17 07:30 Dose: 15 mcg Budesonide (Pulmicort Respules) 0.5 mg IH [id number] GOKUL PRN Reason: Protocol Last Admin: 01/03/17 07:31 Dose: 0.5 mg Cholecalciferol (Vitamin D) 4,000 iu PO DAILY GOKLU PRN Reason: Protocol Last Admin: 01/03/17 10:29 Dose: 4,000 iu Docusate Sodium (Colace) 100 mg PO BID GOKUL PRN Reason: Protocol Last Admin: 01/03/17 10:27 Dose: 100 mg Guaifenesin (Mucinex La) 600 mg PO BID GOKUL PRN Reason: Protocol Last Admin: 01/03/17 10:28 Dose: 600 mg Heparin Sodium (Porcine) (Heparin) 5,000 units SC Q8 GOKUL PRN Reason: Protocol Last Admin: 01/03/17 15:27 Dose: 5,000 units Clindamycin Phosphate 600 mg/ (Sodium Chloride) 54 mls @ 102 mls/hr IVPB Q8 GOKUL PRN Reason: Protocol Last Admin: 01/03/17 14:10 Dose: 102 mls/hr Meropenem 1g/NS 100mL IVPB (Meropenem 1g/Ns 100ml Ivpb) 1 gm in 100 mls @ 100 mls/hr IVPB Q8 GOKUL PRN Reason: Protocol Last Admin: 01/03/17 05:29 Dose: 100 mls/hr Lamotrigine (Lamictal) 25 mg PO BID GOKUL PRN Reason: Protocol Last Admin: 01/03/17 10:27 Dose: 25 mg Methylprednisolone (Solu-Medrol) 20 mg IVP Q12 GOKUL PRN Reason: Protocol Last Admin: 01/03/17 11:14 Dose: 20 mg Pantoprazole Sodium (Protonix Ec Tab) 40 mg PO 0600 GOKUL PRN Reason: Protocol Last Admin: 01/03/17 05:29 Dose: 40 mg Polyethylene Glycol (Miralax) 17 gm PO DAILY GOKUL PRN Reason: Protocol Last Admin: 01/03/17 10:28 Dose: 17 gm - Labs Labs: 01/02/17 07:00 01/02/17 07:00 - Constitutional Appears: Non-toxic, No Acute Distress, Chronically Ill - Head Exam Head Exam: ATRAUMATIC, NORMOCEPHALIC - Eye Exam Eye Exam: EOMI, PERRL Pupil Exam: NORMAL ACCOMODATION, PERRL - ENT Exam ENT Exam: Mucous Membranes Moist, Normal External Ear Exam, TM's Normal Bilaterally - Neck Exam Neck Exam: Full ROM, Normal Inspection - Respiratory Exam Respiratory Exam: Clear to Ausculation Bilateral, NORMAL BREATHING PATTERN. absent: Rales, Rhonchi, Wheezes - Cardiovascular Exam Cardiovascular Exam: REGULAR RHYTHM, RRR, +S1, +S2 - GI/Abdominal Exam GI & Abdominal Exam: Soft, Normal Bowel Sounds. absent: Distended, Tenderness - Extremities Exam Extremities Exam: Full ROM, Normal Inspection - Neurological Exam Neurological Exam: Alert, Awake, CN II-XII Intact, Oriented x3 - Psychiatric Exam Psychiatric exam: Normal Affect, Normal Mood - Skin Skin Exam: Intact, Normal Color Assessment and Plan - Assessment and Plan (Free Text) Assessment: 51 yo [place] male with left pyelonephritis and nephrolithiasis presenting with sepsis, AMS, SOB, and syncope. Went to OR for stent placement and stone removal yesterday. The patient was on Clindamycin and Rocephin. Given prior hospitalizations and persistent fevers, meropenem started over Rocephin as the spectrum for gram negative coverage is better. Given a dose of Aminoglycoside ( Amikacin) as part of patient's coverage. The patient was intubated and ventilated... extubated and on high flow oxygen. Was on Meropenem and Clindamycin. Patient clinically improving. Cultures negative but that does NOT rule out infective process. Would complete total of 10 days of antibiotic therapy at the minimum given recent infection history. Remains in TCU. Thank you for allowing me to participate in the care of the patient, we will follow with you.
--- NOTE | 2017-01-03 20:23 | PN ---
DATE: 01/03/2017 REFERRING PHYSICIAN: Dr. Torre. SUBJECTIVE: He is lying in the bed, head at 45 degree, therapist at bedside, trying to get him out o f bed to chair, noncompliant with CPAP. He has some cough. No nausea, no vomiting, no diarrhea. No leg pain or leg swelling. OBJECTIVE: GENERAL: No acute distress. VITAL SIGNS: Temp is 98, heart rate is 78, respiratory rate is 16, blood pressure 123/63, pulse ox 1 00% on nasal cannula. HEENT: Moist mucous membrane. Crowded airway. NECK: Supple. No JVD. LUNGS: Has a fair airflow with few rhonchi. HEART: S1 and S2. ABDOMEN: Soft, nontender. No organomegaly. EXTREMITIES: There is no edema. NEUROLOGIC: Sleepy, arousable, follows simple command. MEDICATIONS: He is on Mucomyst 4 mL inhaled twice a day, albuterol-Atrovent nebulizer q. 6 hours, Br ovana 15 mcg inhaled twice a day, clindamycin 600 mg q. 8 hours, Colace 100 mg twice a day, heparin 5 000 units subQ q. 8 hours, Lamictal 25 mg twice a day, meropenem 1 g IV q. 8 hours, MiraLax 17 grams daily, Mucinex 600 mg twice a day, Norvasc 5 mg daily, Protonix 40 mg daily, Pulmicort inhaled twice a day, Solu-Medrol 20 mg q. 12 hours, Tylenol p.r.n., vitamin D 4000 units daily. LABORATORY DATA: Reviewed. No new lab is available. IMPRESSION AND PLAN: Status post respiratory failure requiring noninvasive ventilation, presently on nasal cannula, may have sleep apnea syndrome, chronic obstructive lung disease, obstructive uropathy requiring cystoscopy and placement of stent and extraction of renal stone, seizure disorder, Larsen's palsy, hypertension, oropharyngeal dysphagia. Pulmonary point of view, he is doing okay. Continue I V and inhaled bronchodilator. Encourage CPAP use. Gastric prophylaxis, deep venous thrombosis proph ylaxis. Continue meropenem. We will discontinue clindamycin. Thank you and will follow with you. Laquita Gonzalez MD cc: [phone] TT: 01/03/2017 20:22:51 Confirmation # [id number] Dictation # [id number] mikhail
[2017-01-04] MEDS: Albuterol 0.083% Inhal Sol (2.5 mg/3 mL) UD IH SCH ×4 (01:07→20:55)
[2017-01-04] MEDS: Pantoprazole 40 mg EC Tab PO SCH (05:35)
[2017-01-04] MEDS: Meropenem 1g/NS 100mL IVPB 1 GM/100 ML PIGGYBACK IVPB SCH ×3 (05:35→21:31)
[2017-01-04] MEDS: Budesonide 0.5 mg/2 ml Inhal Susp UD IH SCH ×2 (07:20→20:55)
[2017-01-04] MEDS: Acetylcysteine 20% Inhal Soln (4ml) IH SCH ×2 (07:20→20:55)
[2017-01-04] MEDS: Arformoterol 15 mcg/2 ml Inh Sol IH SCH ×2 (07:20→20:55)
[2017-01-04] MEDS: POLYETHYLENE GLYCOL 3350 17 GM/Dose PACKET PO SCH (09:31)
[2017-01-04] MEDS: guaiFENesin 600 mg ER Tab PO SCH ×2 (09:32→17:49)
[2017-01-04] MEDS: MethylPREDNISolone 40 mg Vial IVP SCH ×2 (09:33→21:31)
--- NOTE | 2017-01-04 13:53 | PN ---
DATE: 01/04/2017 SUBJECTIVE: The patient is lying in bed in no acute distress. OBJECTIVE: VITAL SIGNS: Blood pressure 141/95, temperature 98, pulse 77, respiratory rate 18. LUNGS: Show a few scattered crepitations bilaterally. HEART: Regular rate and rhythm. ABDOMEN: Soft, nontender. Bowel sounds are normoactive. GENITOURINARY: Indwelling Garcia is intact. Urine is slightly blood-tinged. EXTREMITIES: Without cyanosis, clubbing, or edema. NEUROLOGIC: The patient is awake and responsive. SKIN: Warm and dry. IMPRESSION: 1. Recurrent aspiration pneumonia, status post ventilatory failure. 2. Multiple sclerosis. 3. Seizure disorder. 4. Hypertension. 5. Larsen's palsy. 6. Hypercholesterolemia. 7. Gastroesophageal reflux disease. 8. Renal stone, status post cystoscopy and stent placement with some residual hematuria. PLAN: Continue antibiotics for a total of 10 days. Continue infectious disease followup with Dr. De Leon , pulmonary followup with Dr. Gonzalez, with Dr. Escobar. Taper steroids as tolerated. Continue ne urology followup with Dr. Lindquist. Physical therapy and social work for discharge planning. Garrett Torre JD, MD cc: [phone] TT: 01/04/2017 13:52:12 Confirmation # [id number] Dictation # [id number] tn
--- NOTE | 2017-01-04 22:29 | CP.PCM.PN ---
Subjective - Date & Time of Evaluation Date of Evaluation: 01/04/17 Time of Evaluation: 20:45 - Subjective Subjective: Infectious Disease Follow Up: January 03, 2017 51 yo male with presentation of SOB and AMS. The patient had worsening shortness of breath at home to the point that during a coughing fit at home he collapsed. He was intubated in the [place]. The patient was brought to the MICU for further care. He remains intubated and ventilated. The [place] [facility] [place] The patient has Multiple Sclerosis. He was sent home with Keflex at this time. He was on Aztreonam and Vancomycin on the past admission. Afebrile so far today. Antibiotics continued on Meropenem. Received one dose of Amikacin several days ago. Cultures have been negative to date. The patient is no longer on high flow oxygen and improved to 2 L nasal canula now. The patient is improving slowly. On the medical floor now. No new complaints. In TCU now. On Meropenem. Clindamycin completed. No new complaints. Objective - Vital Signs/Intake and Output Vital Signs (last 24 hours): Temp Pulse Resp BP Pulse Ox 98.1 F 57 L 20 119/47 L 98 01/04/17 16:00 01/04/17 16:00 01/04/17 16:00 01/04/17 16:00 01/04/17 16:00 Intake and Output: 01/04/17 01/05/17 18:59 06:59 Output Total 1700 Balance -1700 - Medications Medications: Current Medications Acetaminophen (Tylenol 325mg Tab) 650 mg PO Q6H PRN PRN Reason: Pain, moderate (4-7) Last Admin: 01/03/17 15:43 Dose: 650 mg Acetylcysteine (Acetylcysteine 20%) 4 ml IH [id number] GOKUL PRN Reason: Protocol Last Admin: 01/04/17 20:55 Dose: 4 ml Albuterol Sulfate (Albuterol 0.083% Inhal Jo (2.5 Mg/3 Ml) Ud) 2.5 mg IH [id number] GOKUL PRN Reason: Protocol Last Admin: 01/04/17 20:55 Dose: 2.5 mg Amlodipine Besylate (Norvasc) 5 mg PO DAILY GOKUL PRN Reason: Protocol Last Admin: 01/04/17 09:32 Dose: 5 mg Arformoterol Tartrate (Brovana) 15 mcg IH [id number] GOKUL PRN Reason: Protocol Last Admin: 01/04/17 20:55 Dose: 15 mcg Budesonide (Pulmicort Respules) 0.5 mg IH [id number] GOKUL PRN Reason: Protocol Last Admin: 01/04/17 20:55 Dose: 0.5 mg Cholecalciferol (Vitamin D) 4,000 iu PO DAILY GOKUL PRN Reason: Protocol Last Admin: 01/04/17 09:34 Dose: 4,000 iu Docusate Sodium (Colace) 100 mg PO BID GOKUL PRN Reason: Protocol Last Admin: 01/04/17 17:48 Dose: 100 mg Guaifenesin (Mucinex La) 600 mg PO BID GOKUL PRN Reason: Protocol Last Admin: 01/04/17 17:49 Dose: 600 mg Heparin Sodium (Porcine) (Heparin) 5,000 units SC Q8 GOKUL PRN Reason: Protocol Last Admin: 01/04/17 21:30 Dose: 5,000 units Meropenem 1g/NS 100mL IVPB (Meropenem 1g/Ns 100ml Ivpb) 1 gm in 100 mls @ 100 mls/hr IVPB Q8 GOKUL PRN Reason: Protocol Last Admin: 01/04/17 21:31 Dose: 100 mls/hr Lamotrigine (Lamictal) 25 mg PO BID GOKUL PRN Reason: Protocol Last Admin: 01/04/17 17:49 Dose: 25 mg Methylprednisolone (Solu-Medrol) 20 mg IVP Q12 GOKUL PRN Reason: Protocol Last Admin: 01/04/17 21:31 Dose: 20 mg Pantoprazole Sodium (Protonix Ec Tab) 40 mg PO 0600 GOKUL PRN Reason: Protocol Last Admin: 01/04/17 05:35 Dose: 40 mg Polyethylene Glycol (Miralax) 17 gm PO DAILY GOKUL PRN Reason: Protocol Last Admin: 01/04/17 09:31 Dose: 17 gm - Labs Labs: 01/02/17 07:00 01/02/17 07:00 - Constitutional Appears: Non-toxic, No Acute Distress, Chronically Ill - Head Exam Head Exam: ATRAUMATIC, NORMOCEPHALIC - Eye Exam Eye Exam: EOMI, PERRL Pupil Exam: NORMAL ACCOMODATION, PERRL - ENT Exam ENT Exam: Mucous Membranes Moist, Normal External Ear Exam, TM's Normal Bilaterally - Neck Exam Neck Exam: Full ROM, Normal Inspection - Respiratory Exam Respiratory Exam: Clear to Ausculation Bilateral, NORMAL BREATHING PATTERN. absent: Rales, Rhonchi, Wheezes - Cardiovascular Exam Cardiovascular Exam: REGULAR RHYTHM, RRR, +S1, +S2 - GI/Abdominal Exam GI & Abdominal Exam: Soft, Normal Bowel Sounds. absent: Distended, Tenderness - Extremities Exam Extremities Exam: Full ROM, Normal Inspection - Neurological Exam Neurological Exam: Alert, Awake, CN II-XII Intact, Oriented x3 - Psychiatric Exam Psychiatric exam: Normal Affect, Normal Mood - Skin Skin Exam: Intact, Normal Color Assessment and Plan - Assessment and Plan (Free Text) Assessment: 51 yo Nepalese male with left pyelonephritis and nephrolithiasis presenting with sepsis, AMS, SOB, and syncope. Went to OR for stent placement and stone removal yesterday. The patient was on Clindamycin and Rocephin. Given prior hospitalizations and persistent fevers, meropenem started over Rocephin as the spectrum for gram negative coverage is better. Given a dose of Aminoglycoside ( Amikacin) as part of patient's coverage. The patient was intubated and ventilated... extubated and on high flow oxygen. On Meropenem. Patient clinically improving. Cultures negative but that does NOT rule out infective process. Would complete total of 10 days of antibiotic therapy at the minimum given recent infection history. Remains in TCU. Thank you for allowing me to participate in the care of the patient, we will follow with you.
[2017-01-05] MEDS: Albuterol 0.083% Inhal Sol (2.5 mg/3 mL) UD IH SCH ×4 (02:00→21:45)
[2017-01-05] MEDS: Meropenem 1g/NS 100mL IVPB 1 GM/100 ML PIGGYBACK IVPB SCH ×3 (05:27→21:56)
[2017-01-05] MEDS: Pantoprazole 40 mg EC Tab PO SCH (05:28)
--- NOTE | 2017-01-05 05:58 | PN ---
DATE: 01/04/2017 REFERRING PHYSICIAN: Dr. Torre. SUBJECTIVE: He is lying in the bed, head at 45 degree, having lunch. Speech therapy is at bedside h elping him with lunch. Still has a mild cough. No shortness of breath. No nausea, no vomiting, no diarrhea. No leg pain or leg swelling. OBJECTIVE: GENERAL: No acute distress. VITAL SIGNS: Temperature is 98, heart rate is 57, respiratory rate is 18, blood pressure 119/47, pul se ox 98% on nasal cannula. HEENT: Moist mucous membranes. Crowded airway. Mallampati score is 4. NECK: Supple. No JVD. LUNGS: Have a fair airflow with few rhonchi. HEART: S1, S2. ABDOMEN: Soft, nontender. No organomegaly. EXTREMITIES: There is no edema. NEUROLOGIC: Awake, alert, follows simple command. MEDICATIONS: He is on Mucomyst 20% inhaled q. 12 hours, albuterol and Atrovent nebulizer q. 6 hours , Brovana 15 mcg inhaled twice a day, Colace 100 mg twice a day, heparin 5000 units subQ q. 8 hours, Lamictal 25 mg twice a day, meropenem 1 g IV q. 8 hours, MiraLax 17 g daily, Mucinex LA 600 mg twice a day, Norvasc 5 mg daily, Protonix 40 mg daily, Pulmicort inhaled twice a day, Solu-Medrol 20 mg q. 12 hours, Tylenol p.r.n., vitamin D 4000 International Units daily. LABORATORY DATA: Reviewed. No new lab is available since yesterday. IMPRESSION AND PLAN: Status post respiratory failure, presently on nasal cannula. Sleep apnea syndr ome, chronic obstructive lung disease, obstructive uropathy requiring cystoscopy and stent placement, seizure disorder, Larsen's palsy, hypertension, oropharyngeal dysphagia. From pulmonary point of view , doing okay. Continue IV and inhaled bronchodilator, antibiotics, bronchodilators. Gastric prophyl axis, deep venous thrombosis prophylaxis. Continue therapy. Thank you and we will follow with you. Laquita Gonzalez MD cc: [id number] TT: 01/05/2017 05:58:07 Confirmation # [id number] Dictation # [id number] dn
[2017-01-05] MEDS: Arformoterol 15 mcg/2 ml Inh Sol IH SCH ×2 (07:21→21:45)
[2017-01-05] MEDS: Acetylcysteine 20% Inhal Soln (4ml) IH SCH ×2 (07:21→21:45)
[2017-01-05] MEDS: Budesonide 0.5 mg/2 ml Inhal Susp UD IH SCH ×2 (07:22→21:45)
[2017-01-05] MEDS: MethylPREDNISolone 40 mg Vial IVP SCH ×2 (09:34→21:57)
[2017-01-05] MEDS: guaiFENesin 600 mg ER Tab PO SCH ×2 (09:37→17:41)
[2017-01-05] MEDS: POLYETHYLENE GLYCOL 3350 17 GM/Dose PACKET PO SCH (09:37)
--- NOTE | 2017-01-05 12:12 | PN ---
DATE: 01/05/2017 SUBJECTIVE: The patient is lying in bed in no acute distress. He appears to have some upper respira tory congestion. He denies any chest pain or shortness of breath. OBJECTIVE: VITAL SIGNS: Blood pressure 133/85, temperature 97.9, pulse 76, respiratory rate 18. LUNGS: Show coarse crepitations bilaterally, greatest in the left upper lobe. HEART: Regular rate and rhythm. ABDOMEN: Soft, nontender, bowel sounds are normoactive. GENITOURINARY: Indwelling Garcia is intact. Urine is slightly blood-tinged. EXTREMITIES: Without cyanosis, clubbing, or edema. NEUROLOGIC: The patient is awake and responsive. SKIN: Warm and dry. IMPRESSION: 1. Recurrent aspiration pneumonia, status post ventilatory failure. 2. Multiple sclerosis. 3. Seizure disorder. 4. Hypertension. 5. Larsen's palsy. 6. Hypercholesterolemia. 7. Gastroesophageal reflux disease. 8. Renal stone, status post cystoscopy and stent placement with some residual hematuria. PLAN: The patient continues on meropenem 1 gram IV hours. Continue infectious disease followup with Dr. De Leon, pulmonary followup with Dr. Gonzalez and with Dr. Escobar. Taper steroids as tolerated. C ontinue neurology followup with Dr. Lindquist. We will obtain a chest x-ray. Will start in thickened l iquids with nectar consistency, as patient appears to be aspirating thin liquids. Physical therapy a nd social work for discharge planning. Garrett Torre JD, MD cc: [id number] TT: 01/05/2017 12:10:58 Confirmation # [id number] Dictation # [id number] [email or web address]
--- NOTE | 2017-01-05 15:22 | RAD ---
HISTORY: aspiration pneumonia COMPARISON: 12/27/2016. TECHNIQUE: Chest PA and lateral FINDINGS: LUNGS: No active pulmonary disease. PLEURA: No significant pleural effusion identified. No pneumothorax apparent. CARDIOVASCULAR: Normal. OSSEOUS STRUCTURES: No significant abnormalities. VISUALIZED UPPER ABDOMEN: Normal. OTHER FINDINGS: None. IMPRESSION: No active disease. No significant interval change compared to the prior examination(s).
--- NOTE | 2017-01-05 18:24 | PN ---
DATE: 01/05/2017 REFERRING PHYSICIAN: Dr. Torre. SUBJECTIVE: The patient is lying on the stretcher. No new complaint. Mild cough. No shortness of breath. No nausea, vomiting or diarrhea. No leg pain or leg swelling. OBJECTIVE: GENERAL: In no acute distress. VITAL SIGNS: Temperature is 98, heart rate is 94, respiratory rate is 20, blood pressure 127/86, pul se ox 98% on nasal cannula. HEENT: Moist mucous membranes. Crowded airway. NECK: Supple, no JVD. LUNGS: Have a fair airflow with a few rhonchi. HEART: S1 and S2. ABDOMEN: Soft, nontender. No organomegaly. EXTREMITIES: There is no edema. NEUROLOGIC: Awake, alert, follows simple commands. MEDICATIONS: He is on Mucomyst 4 mL q.12 hours, DuoNeb q.6 hours, Brovana q.12 hours, Colace 100 mg twice a day, heparin 5000 units subQ q.8 hours, Lamictal 25 mg twice a day, meropenem 1 gram q.8 hour s, MiraLax 17 grams daily, Mucinex LA 600 mg twice a day, Norvasc 5 mg daily, Protonix 40 mg daily, P ulmicort inhaled twice a day. LABORATORY DATA: Reviewed and no new lab is available. Had a chest x-ray done this morning, which s hows no active pulmonary disease. No significant changes compared to prior study. IMPRESSION AND PLAN: Status post respiratory failure, presently on nasal cannula, sleep apnea syndro me, obstructive lung disease, obstructive uropathy requiring cystoscopy and stent placement, seizure disorder, Larsen palsy, hypertension, oropharyngeal dysphagia, aspiration. Today's chest x-ray, no infiltrate, so resolved pneumonia. Keep head elevated at 45 degrees. Gastric prophylaxis, bronch odilator, encourage CPAP use and deep venous thrombosis prophylaxis. Continue with therapy. Thank you and will follow with you. Laquita Gonzalez MD cc: [id number] TT: 01/05/2017 18:23:41 Confirmation # [id number] Dictation # [id number] dn
--- NOTE | 2017-01-05 19:14 | CP.PCM.PN ---
Subjective - Date & Time of Evaluation Date of Evaluation: 01/05/17 Time of Evaluation: 17:00 - Subjective Subjective: Infectious Disease Follow Up: January 05, 2017 51 yo male with presentation of SOB and AMS. The patient had worsening shortness of breath at home to the point that during a coughing fit at home he collapsed. He was intubated in the edward. The patient was brought to the MICU for further care. He remains intubated and ventilated. The patient was last in [facility] in September 2016. The patient has Multiple Sclerosis. He was sent home with Keflex at this time. He was on Aztreonam and Vancomycin on the past admission. Afebrile so far today. Antibiotics continued on Meropenem. Received one dose of Amikacin several days ago. Cultures have been negative to date. The patient is no longer on high flow oxygen and improved to 2 L nasal canula now. The patient is improving slowly. On the medical floor now. No new complaints. In TCU now. On Meropenem. Clindamycin completed. No new complaints. Objective - Vital Signs/Intake and Output Vital Signs (last 24 hours): Temp Pulse Resp BP Pulse Ox 98.5 F 94 H 18 127/86 98 01/05/17 16:00 01/05/17 16:00 01/05/17 16:00 01/05/17 16:00 01/05/17 16:00 - Medications Medications: Current Medications Acetaminophen (Tylenol 325mg Tab) 650 mg PO Q6H PRN PRN Reason: Pain, moderate (4-7) Last Admin: 01/03/17 15:43 Dose: 650 mg Acetylcysteine (Acetylcysteine 20%) 4 ml IH [id number] GOKUL PRN Reason: Protocol Last Admin: 01/05/17 07:21 Dose: 4 ml Albuterol Sulfate (Albuterol 0.083% Inhal Jo (2.5 Mg/3 Ml) Ud) 2.5 mg IH [id number] GOKUL PRN Reason: Protocol Last Admin: 01/05/17 13:53 Dose: 2.5 mg Amlodipine Besylate (Norvasc) 5 mg PO DAILY GOKUL PRN Reason: Protocol Last Admin: 01/05/17 09:38 Dose: 5 mg Arformoterol Tartrate (Brovana) 15 mcg IH [id number] GOKUL PRN Reason: Protocol Last Admin: 01/05/17 07:21 Dose: 15 mcg Budesonide (Pulmicort Respules) 0.5 mg IH [id number] GOKUL PRN Reason: Protocol Last Admin: 01/05/17 07:22 Dose: 0.5 mg Cholecalciferol (Vitamin D) 4,000 iu PO DAILY GOKUL PRN Reason: Protocol Last Admin: 01/05/17 09:35 Dose: 4,000 iu Docusate Sodium (Colace) 100 mg PO BID GOKUL PRN Reason: Protocol Last Admin: 01/05/17 17:41 Dose: 100 mg Guaifenesin (Mucinex La) 600 mg PO BID GOKUL PRN Reason: Protocol Last Admin: 01/05/17 17:41 Dose: 600 mg Heparin Sodium (Porcine) (Heparin) 5,000 units SC Q8 GOKUL PRN Reason: Protocol Last Admin: 01/05/17 13:36 Dose: 5,000 units Meropenem 1g/NS 100mL IVPB (Meropenem 1g/Ns 100ml Ivpb) 1 gm in 100 mls @ 100 mls/hr IVPB Q8 GOKUL PRN Reason: Protocol Last Admin: 01/05/17 13:40 Dose: 100 mls/hr Lamotrigine (Lamictal) 25 mg PO BID GOKUL PRN Reason: Protocol Last Admin: 01/05/17 17:40 Dose: 25 mg Methylprednisolone (Solu-Medrol) 20 mg IVP Q12 GOKUL PRN Reason: Protocol Last Admin: 01/05/17 09:34 Dose: 20 mg Pantoprazole Sodium (Protonix Ec Tab) 40 mg PO 0600 GOKUL PRN Reason: Protocol Last Admin: 01/05/17 05:28 Dose: 40 mg Polyethylene Glycol (Miralax) 17 gm PO DAILY GOKUL PRN Reason: Protocol Last Admin: 01/05/17 09:37 Dose: 17 gm - Labs Labs: 01/02/17 07:00 01/02/17 07:00 - Constitutional Appears: Non-toxic, No Acute Distress, Chronically Ill - Head Exam Head Exam: ATRAUMATIC, NORMOCEPHALIC - Eye Exam Eye Exam: EOMI, PERRL Pupil Exam: NORMAL ACCOMODATION, PERRL - ENT Exam ENT Exam: Mucous Membranes Moist, Normal External Ear Exam, TM's Normal Bilaterally - Neck Exam Neck Exam: Full ROM, Normal Inspection - Respiratory Exam Respiratory Exam: Clear to Ausculation Bilateral, NORMAL BREATHING PATTERN. absent: Rales, Rhonchi, Wheezes - Cardiovascular Exam Cardiovascular Exam: REGULAR RHYTHM, RRR, +S1, +S2 - GI/Abdominal Exam GI & Abdominal Exam: Soft, Normal Bowel Sounds. absent: Distended, Tenderness - Extremities Exam Extremities Exam: Full ROM, Normal Inspection - Back Exam Back Exam: Full ROM, NORMAL INSPECTION - Neurological Exam Neurological Exam: Alert, Awake, CN II-XII Intact, Oriented x3 - Psychiatric Exam Psychiatric exam: Normal Affect, Normal Mood - Skin Skin Exam: Intact, Normal Color Assessment and Plan - Assessment and Plan (Free Text) Assessment: 51 yo [place] male with left pyelonephritis and nephrolithiasis presenting with sepsis, AMS, SOB, and syncope. Went to OR for stent placement and stone removal yesterday. The patient was on Clindamycin and Rocephin. Given prior hospitalizations and persistent fevers, meropenem started over Rocephin as the spectrum for gram negative coverage is better. Given a dose of Aminoglycoside ( Amikacin) as part of patient's coverage. The patient was intubated and ventilated... extubated and on high flow oxygen. On Meropenem. Patient clinically improving. Cultures negative but that does NOT rule out infective process. Would complete total of 10 days of antibiotic therapy at the minimum given recent infection history. Remains in TCU. Thank you for allowing me to participate in the care of the patient, we will follow with you.
[2017-01-06] MEDS: Albuterol 0.083% Inhal Sol (2.5 mg/3 mL) UD IH SCH ×4 (02:00→21:19)
[2017-01-06] MEDS: Meropenem 1g/NS 100mL IVPB 1 GM/100 ML PIGGYBACK IVPB SCH ×3 (05:21→23:04)
[2017-01-06] MEDS: Pantoprazole 40 mg EC Tab PO SCH (05:24)
[2017-01-06] MEDS: Acetylcysteine 20% Inhal Soln (4ml) IH SCH (07:34)
[2017-01-06] MEDS: Budesonide 0.5 mg/2 ml Inhal Susp UD IH SCH ×2 (07:35→21:29)
[2017-01-06] MEDS: Arformoterol 15 mcg/2 ml Inh Sol IH SCH ×2 (07:35→21:20)
[2017-01-06] MEDS: POLYETHYLENE GLYCOL 3350 17 GM/Dose PACKET PO SCH (10:31)
[2017-01-06] MEDS: guaiFENesin 600 mg ER Tab PO SCH ×2 (10:31→17:43)
[2017-01-06] MEDS: MethylPREDNISolone 40 mg Vial IVP SCH (10:32)
--- NOTE | 2017-01-06 14:07 | PN ---
DATE: 01/06/2017 SUBJECTIVE: The patient is lying in bed, in no acute distress. He denies any chest pain or shortnes s of breath. OBJECTIVE: VITAL SIGNS: Blood pressure 119/82, temperature 97.9, pulse 88, respiratory rate 14. LUNGS: Show decreased crepitations bilaterally. HEART: Regular rate and rhythm. ABDOMEN: Soft, nontender, bowel sounds are normoactive. Indwelling Garcia is intact. EXTREMITIES: Without cyanosis, clubbing, or edema. NEUROLOGIC: The patient is awake and responsive. SKIN: Warm and dry. LABORATORY DATA: Chest x-ray on 01/05/2017 showed no active disease. IMPRESSION: 1. Recurrent aspiration pneumonia, status post ventilatory failure. 2. Multiple sclerosis. 3. Seizure disorder. 4. Hypertension. 5. Larsen's palsy. 6. Hypercholesterolemia. 7. Gastroesophageal reflux disease. 8. Renal stone, status post cystoscopy and stent placement with some residual hematuria. PLAN: Continue meropenem 1 gram IV q. 24 hours. Continue infectious disease followup with Dr. De Leon, p ulmonary followup with Dr. Gonzalez, and followup with Dr. Escobar. Will discontinue IV steroids. Continue neurology followup with Dr. Lindquist. Will discontinue Mucomyst via inhalation. Would contin ue with thickened liquids with nectar consistency, as patient is clinically aspirating thin liquids. Physical therapy and social work for discharge planning. Garrett Torre JD, MD cc: [id number] TT: 01/06/2017 14:06:29 Confirmation # [id number] Dictation # [id number] mn
--- NOTE | 2017-01-06 15:57 | CP.PCM.PN ---
Subjective - Date & Time of Evaluation Date of Evaluation: 01/06/17 Time of Evaluation: 15:00 - Subjective Subjective: Infectious Disease Follow Up: January 06, 2017 51 yo male with presentation of SOB and AMS. The patient had worsening shortness of breath at home to the point that during a coughing fit at home he collapsed. He was intubated in the edward. The patient was brought to the MICU for further care. He remains intubated and ventilated. The patient was last in [facility] in September 2016. The patient has Multiple Sclerosis. He was sent home with Keflex at this time. He was on Aztreonam and Vancomycin on the past admission. Afebrile so far today. Antibiotics continued on Meropenem. Received one dose of Amikacin several days ago. Cultures have been negative to date. The patient is no longer on high flow oxygen and improved to 2 L nasal canula now. The patient is improving slowly. On the medical floor now. No new complaints. In TCU now. On Meropenem. Clindamycin completed. No new complaints. Objective - Vital Signs/Intake and Output Vital Signs (last 24 hours): Temp Pulse Resp BP Pulse Ox 97.9 F 88 16 119/82 100 01/06/17 10:00 01/06/17 10:32 01/06/17 10:00 01/06/17 10:32 01/06/17 10:00 Intake and Output: 01/06/17 01/06/17 06:59 18:59 Intake Total 100 420 Output Total 1250 Balance -1150 420 - Medications Medications: Current Medications Acetaminophen (Tylenol 325mg Tab) 650 mg PO Q6H PRN PRN Reason: Pain, moderate (4-7) Last Admin: 01/03/17 15:43 Dose: 650 mg Albuterol Sulfate (Albuterol 0.083% Inhal Jo (2.5 Mg/3 Ml) Ud) 2.5 mg IH [id number] GOKUL PRN Reason: Protocol Last Admin: 01/06/17 13:50 Dose: 2.5 mg Amlodipine Besylate (Norvasc) 5 mg PO DAILY GOKUL PRN Reason: Protocol Last Admin: 01/06/17 10:32 Dose: 5 mg Arformoterol Tartrate (Brovana) 15 mcg IH [id number] GOKUL PRN Reason: Protocol Last Admin: 01/06/17 07:35 Dose: 15 mcg Budesonide (Pulmicort Respules) 0.5 mg IH [id number] OGKUL PRN Reason: Protocol Last Admin: 01/06/17 07:35 Dose: 0.5 mg Cholecalciferol (Vitamin D) 4,000 iu PO DAILY GOKUL PRN Reason: Protocol Last Admin: 01/06/17 10:33 Dose: 4,000 iu Docusate Sodium (Colace) 100 mg PO BID GOKUL PRN Reason: Protocol Last Admin: 01/06/17 10:30 Dose: 100 mg Guaifenesin (Mucinex La) 600 mg PO BID GOKUL PRN Reason: Protocol Last Admin: 01/06/17 10:31 Dose: 600 mg Heparin Sodium (Porcine) (Heparin) 5,000 units SC Q8 GOKUL PRN Reason: Protocol Last Admin: 01/06/17 14:33 Dose: 5,000 units Meropenem 1g/NS 100mL IVPB (Meropenem 1g/Ns 100ml Ivpb) 1 gm in 100 mls @ 100 mls/hr IVPB Q8 GOKUL PRN Reason: Protocol Last Admin: 01/06/17 14:34 Dose: 100 mls/hr Lamotrigine (Lamictal) 25 mg PO BID GOKUL PRN Reason: Protocol Last Admin: 01/06/17 10:31 Dose: 25 mg Pantoprazole Sodium (Protonix Ec Tab) 40 mg PO 0600 GOKUL PRN Reason: Protocol Last Admin: 01/06/17 05:24 Dose: 40 mg Polyethylene Glycol (Miralax) 17 gm PO DAILY GOKUL PRN Reason: Protocol Last Admin: 01/06/17 10:31 Dose: 17 gm - Labs Labs: 01/02/17 07:00 01/02/17 07:00 - Constitutional Appears: Non-toxic, No Acute Distress, Chronically Ill - Head Exam Head Exam: ATRAUMATIC, NORMOCEPHALIC - Eye Exam Eye Exam: EOMI, PERRL Pupil Exam: NORMAL ACCOMODATION, PERRL - ENT Exam ENT Exam: Mucous Membranes Moist, Normal External Ear Exam, TM's Normal Bilaterally - Neck Exam Neck Exam: Full ROM, Normal Inspection - Respiratory Exam Respiratory Exam: Clear to Ausculation Bilateral, NORMAL BREATHING PATTERN. absent: Rales, Rhonchi, Wheezes - Cardiovascular Exam Cardiovascular Exam: REGULAR RHYTHM, RRR, +S1, +S2 - GI/Abdominal Exam GI & Abdominal Exam: Soft, Normal Bowel Sounds. absent: Distended, Tenderness - Extremities Exam Extremities Exam: Full ROM, Normal Inspection - Neurological Exam Neurological Exam: Alert, Awake, CN II-XII Intact, Oriented x3 - Psychiatric Exam Psychiatric exam: Normal Affect, Normal Mood - Skin Skin Exam: Intact, Normal Color Assessment and Plan - Assessment and Plan (Free Text) Assessment: 51 yo [place] male with left pyelonephritis and nephrolithiasis presenting with sepsis, AMS, SOB, and syncope. Went to OR for stent placement and stone removal yesterday. The patient was on Clindamycin and Rocephin. Given prior hospitalizations and persistent fevers, meropenem started over Rocephin as the spectrum for gram negative coverage is better. Given a dose of Aminoglycoside ( Amikacin) as part of patient's coverage. The patient was intubated and ventilated... extubated and on high flow oxygen. On Meropenem. Patient clinically improving. Cultures negative but that does NOT rule out infective process. Would complete total of 10 days of antibiotic therapy at the minimum given recent infection history. Remains in TCU. Nearing completion. Thank you for allowing me to participate in the care of the patient, we will follow with you.
[2017-01-07] MEDS: Albuterol 0.083% Inhal Sol (2.5 mg/3 mL) UD IH SCH ×4 (03:20→20:33)
[2017-01-07] MEDS: Meropenem 1g/NS 100mL IVPB 1 GM/100 ML PIGGYBACK IVPB SCH (05:47)
[2017-01-07] MEDS: Pantoprazole 40 mg EC Tab PO SCH (05:48)
[2017-01-07 06:57] LABS: ADD MANUAL DIFF? NO
[2017-01-07 07:10] LABS: BASO # 0.02 K/mm3 (0.0-2.0); BASO % 0.2 % (0.0-3.0); EOS # 0.1 (0.0-0.7); EOS % 1.1 % (1.5-5.0); GRAN # 5.24 (1.4-6.5); GRAN % 53.9 % (50.0-68.0); HEMATOCRIT 37.8 % (42.0-52.0); LYMPH # 3.6 (1.2-3.4); LYMPH % 36.6 % (22.0-35.0); MEAN CELL VOLUME 87.3 fL (80.0-105.0); MEAN CORPUSCULAR HEMOGLOBIN 28.2 pg (25.0-35.0); MEAN CORPUSCULAR HGB CONC 32.3 g/dl (31.0-37.0); MEAN PLATELET VOLUME 9.7 fl (7.0-11.0); MONO # 0.8 (0.1-0.6); MONO % 8.2 % (1.0-6.0); PLATELET COUNT 397 10^3/uL (120.0-450.0); RED CELL DISTRIBUTION WIDTH 14.9 % (11.5-14.5); WHITE BLOOD COUNT 9.7 10^3/ul (4.5-11.0)
[2017-01-07] MEDS: Budesonide 0.5 mg/2 ml Inhal Susp UD IH SCH ×2 (07:21→20:33)
[2017-01-07] MEDS: Arformoterol 15 mcg/2 ml Inh Sol IH SCH ×2 (07:21→20:33)
[2017-01-07 07:36] LABS: ALB/GLOB RATIO 1.1 (1.1-1.8); ALKALINE PHOSPHATASE 92 U/L (38-133); ALT/SGPT 51 U/L (7-56); AST/SGOT 26 U/L (15-59); BILIRUBIN,TOTAL 0.5 mg/dL (0.2-1.3); BLOOD UREA NITROGEN 24 mg/dL (7-21); CALCIUM 9.3 mg/dL (8.4-10.5); CARBON DIOXIDE 28 mmol/L (21-33); CHLORIDE 106 mmol/L (98-107); GFR AFRICAN-AMERICAN > 60; GLUCOSE,RANDOM 92 mg/dL (70-110); POTASSIUM 3.9 mmol/L (3.6-5.0); SODIUM 140 mmol/L (132-148); TOTAL PROTEIN 6.2 g/dL (5.8-8.3)
--- NOTE | 2017-01-07 07:48 | PN ---
DATE: 01/06/2017 SUBJECTIVE: He is lying in the bed, head at 45 degrees. Night sweats unremarkable. No headache, no rhinitis. Denied any significant cough, no shortness of breath, no nausea, no vomiting, diarrhea. No leg pain or leg swelling. OBJECTIVE: GENERAL: No acute distress. VITAL SIGNS: Temp is 98, heart rate is 88, respiratory rate is 18, blood pressure 107/63, pulse ox 9 7% on nasal cannula. HEENT: Moist mucous membranes. Crowded airway. Mallampati score is 4. NECK: Supple. No JVD. LUNGS: Has scattered rhonchi. HEART: S1 and S2. ABDOMEN: Soft, nontender. No organomegaly. EXTREMITIES: There is no edema. NEUROLOGIC: Awake, alert, follows simple commands. MEDICATIONS: He is on albuterol-Atrovent nebulizer q. 6 hours, Brovana 15 mcg inhaled twice a day, C olace 100 mg twice a day, heparin 5000 units subQ q. 8 hours, Lamictal 25 mg twice a day, meropenem 1 g IV q. 8 hours, MiraLax 17 grams daily, Mucinex LA 600 mg twice a day, Norvasc 5 mg daily, Protonix 40 mg daily, Pulmicort inhaled twice a day, Tylenol on a p.r.n. basis, vitamin D 4000 international units daily. LABORATORY DATA: Reviewed. No new lab is available. IMPRESSION AND PLAN: Status post respiratory failure, presently on nasal cannula, sleep apnea syndro me, obstructive lung disease, obstructive uropathy requiring cystoscopy and stent placement, seizure disorder, Larsen's palsy, oropharyngeal dysphagia, activities of daily living dysfunction. Pulmonary p oint of view, doing okay. Continue bronchodilator. Keep head elevated at 45 degree. Gastric prophy laxis. DVT prophylaxis. Aspiration precautions. Continue therapy. Thank you and will follow with you. Laquita Gonzalez MD cc: [id number] TT: 01/07/2017 07:47:37 Confirmation # [id number] Dictation # [id number] raphael
[2017-01-07] MEDS: POLYETHYLENE GLYCOL 3350 17 GM/Dose PACKET PO SCH (10:14)
[2017-01-07] MEDS: guaiFENesin 600 mg ER Tab PO SCH (10:15)
--- NOTE | 2017-01-07 15:11 | PN ---
DATE: 01/07/2017 SUBJECTIVE: The patient is lying in bed in no acute distress. He denies chest pain or shortness of breath. OBJECTIVE: VITAL SIGNS: Blood pressure 128/94, pulse 99, temperature 98.1, respiratory rate 18. LUNGS: Clear. HEART: Regular rate and rhythm. ABDOMEN: Soft, nontender, bowel sounds are normoactive. EXTREMITIES: Without cyanosis, clubbing, or edema. NEUROLOGIC: The patient is awake and responsive. SKIN: Warm and dry. LABORATORY DATA: WBC is 9.7, hemoglobin 12.2, hematocrit 37.8. Sodium 140, potassium 3.9, chloride 106, CO2 28, BUN 24, creatinine 0.9, glucose 92. IMPRESSION: 1. Recurrent aspiration pneumonia, status post ventilatory failure. 2. Multiple sclerosis. 3. Seizure disorder. 4. Hypertension. 5. Larsen's palsy. 6. Hypercholesterolemia. 7. Gastroesophageal reflux disease. 8. Renal stone, status post cystoscopy and stent placement. PLAN: We will discontinue IV antibiotics. Continue infectious disease followup with Dr. De Leon, pulmona ry followup with Dr. Gonzalez and followup with Dr. Escobar as well as neurology followup with Dr. Javier batista. Continue thickened liquids nectar consistency for possible discharge tomorrow. Garrett Torre JD, MD cc: 353 TT: 01/07/2017 15:11:02 Confirmation # [id number] Dictation # [id number]
[2017-01-07 16:52] VITALS: O2SAT 98
--- NOTE | 2017-01-07 19:30 | CP.PCM.PN ---
Subjective - Date & Time of Evaluation Date of Evaluation: 01/07/17 Time of Evaluation: 18:30 - Subjective Subjective: Infectious Disease Follow Up: January 07, 2017 51 yo male with presentation of SOB and AMS. The patient had worsening shortness of breath at home to the point that during a coughing fit at home he collapsed. He was intubated in the [facility]ward. The patient was brought to the MICU for further care. He remains intubated and ventilated. The patient was last in [facility] [place] in September 2016. The patient has Multiple Sclerosis. He was sent home with Keflex at this time. He was on Aztreonam and Vancomycin on the past admission. Afebrile so far today. Antibiotics continued on Meropenem. Received one dose of Amikacin several days ago. Cultures have been negative to date. The patient is no longer on high flow oxygen and improved to 2 L nasal canula now. The patient is improving slowly. On the medical floor now. No new complaints. In TCU now. On Meropenem. Clindamycin completed. No new complaints. Completed meropenem. Objective - Vital Signs/Intake and Output Vital Signs (last 24 hours): Temp Pulse Resp BP Pulse Ox 98.2 F 91 H 18 115/86 98 01/07/17 16:00 01/07/17 16:00 01/07/17 16:00 01/07/17 16:00 01/07/17 16:00 - Medications Medications: Current Medications Acetaminophen (Tylenol 325mg Tab) 650 mg PO Q6H PRN PRN Reason: Pain, moderate (4-7) Last Admin: 01/03/17 15:43 Dose: 650 mg Albuterol Sulfate (Albuterol 0.083% Inhal Jo (2.5 Mg/3 Ml) Ud) 2.5 mg IH [id number] GOKUL PRN Reason: Protocol Last Admin: 01/07/17 14:05 Dose: 2.5 mg Amlodipine Besylate (Norvasc) 5 mg PO DAILY GOKUL PRN Reason: Protocol Last Admin: 01/07/17 10:15 Dose: 5 mg Arformoterol Tartrate (Brovana) 15 mcg IH [id number] GOKUL PRN Reason: Protocol Last Admin: 01/07/17 07:21 Dose: 15 mcg Budesonide (Pulmicort Respules) 0.5 mg IH [id number] GOKUL PRN Reason: Protocol Last Admin: 01/07/17 07:21 Dose: 0.5 mg Cholecalciferol (Vitamin D) 4,000 iu PO DAILY GOKUL PRN Reason: Protocol Last Admin: 01/07/17 10:15 Dose: 4,000 iu Docusate Sodium (Colace) 100 mg PO BID GOKUL PRN Reason: Protocol Last Admin: 01/07/17 10:14 Dose: 100 mg Guaifenesin (Mucinex La) 600 mg PO BID GOKUL PRN Reason: Protocol Last Admin: 01/07/17 10:15 Dose: 600 mg Heparin Sodium (Porcine) (Heparin) 5,000 units SC Q8 GOKUL PRN Reason: Protocol Last Admin: 01/07/17 14:01 Dose: 5,000 units Lamotrigine (Lamictal) 25 mg PO BID GOKUL PRN Reason: Protocol Last Admin: 01/07/17 10:14 Dose: 25 mg Pantoprazole Sodium (Protonix Ec Tab) 40 mg PO 0600 GOKUL PRN Reason: Protocol Last Admin: 01/07/17 05:48 Dose: 40 mg Polyethylene Glycol (Miralax) 17 gm PO DAILY GOKUL PRN Reason: Protocol Last Admin: 01/07/17 10:14 Dose: 17 gm - Labs Labs: 01/07/17 06:30 01/07/17 06:30 - Constitutional Appears: Non-toxic, No Acute Distress, Chronically Ill - Head Exam Head Exam: ATRAUMATIC, NORMOCEPHALIC - Eye Exam Eye Exam: EOMI, PERRL Pupil Exam: NORMAL ACCOMODATION, PERRL - ENT Exam ENT Exam: Mucous Membranes Moist, Normal External Ear Exam, TM's Normal Bilaterally - Neck Exam Neck Exam: Full ROM, Normal Inspection - Respiratory Exam Respiratory Exam: Clear to Ausculation Bilateral, NORMAL BREATHING PATTERN. absent: Rales, Rhonchi, Wheezes - Cardiovascular Exam Cardiovascular Exam: REGULAR RHYTHM, RRR, +S1, +S2 - GI/Abdominal Exam GI & Abdominal Exam: Soft, Normal Bowel Sounds. absent: Distended, Tenderness - Extremities Exam Extremities Exam: Full ROM, Normal Inspection - Neurological Exam Neurological Exam: Alert, Awake, CN II-XII Intact, Oriented x3 - Psychiatric Exam Psychiatric exam: Normal Affect, Normal Mood - Skin Skin Exam: Intact, Normal Color Assessment and Plan - Assessment and Plan (Free Text) Assessment: 51 yo Gabonese male with left pyelonephritis and nephrolithiasis presenting with sepsis, AMS, SOB, and syncope. Went to OR for stent placement and stone removal yesterday. The patient was on Clindamycin and Rocephin. Given prior hospitalizations and persistent fevers, meropenem started over Rocephin as the spectrum for gram negative coverage is better. Given a dose of Aminoglycoside ( Amikacin) as part of patient's coverage. The patient was intubated and ventilated... extubated and on high flow oxygen. On Meropenem. Patient clinically improving. Cultures negative but that does NOT rule out infective process. Would complete total of 10 days of antibiotic therapy at the minimum given recent infection history. Remains in TCU. Nearing completion. Thank you for allowing me to participate in the care of the patient, we will follow with you.
--- NOTE | 2017-01-07 20:12 | PN ---
DATE: 01/07/2017 REFERRING PHYSICIAN: Dr. Torre. SUBJECTIVE: He is lying in the bed, night was unremarkable, doing well in therapy. No headache, no rhinitis. Cough is better. No shortness of breath, no nausea, no vomiting, diarrhea. No leg pain o r leg swelling. OBJECTIVE: GENERAL: No acute distress. VITAL SIGNS: Temperature is 98, heart rate is 91, respiratory rate is 18, blood pressure 115/86, pul se ox 98% on 3 liters nasal cannula. HEENT: Moist mucous membrane. Crowded airway. NECK: Supple, no JVD. LUNGS: Have a fair airflow with rhonchi. HEART: S1, S2. ABDOMEN: Soft, nontender. No organomegaly. EXTREMITIES: There is no edema. NEUROLOGIC: Awake, alert, follows simple command. MEDICATIONS: He is on albuterol-Atrovent nebulizer q. 6 hours p.r.n., Brovana inhaled twice a day, C olace 100 mg twice a day, heparin 5000 units subQ q. 8 hours, Lamictal 25 mg twice a day, MiraLax 17 grams daily, Mucinex LA 600 mg twice a day, Norvasc 5 mg daily, Protonix 40 mg daily, Pulmicort inhal ed twice a day, Tylenol on a p.r.n. basis, vitamin D 4000 units daily. LABORATORY DATA: Hemoglobin of 12.2, hematocrit 37.8, WBC 9.7, platelet is 397. Sodium 140, potassi um 3.9, chloride 106, bicarbonate 28, BUN 24, creatinine 0.9, glucose is 92, calcium , AST 26, A LT 51, alkaline phosphatase is 92. Albumin is 3.3. IMPRESSION AND PLAN: Status post respiratory failure, presently on nasal cannula oxygen, may have sl eep apnea syndrome, obstructive lung disease, obstructive uropathy requiring cystoscopy and stent sirena cement, seizure disorder, Larsen's palsy, oropharyngeal dysphagia, on modified diet, ADL dysfunction, h istory of . Pulmonary point of view, doing okay. Continue bronchodilator. Keep head elevated at 45 degrees. Gastric prophylaxis. DVT prophylaxis. Fall precaution. Aspiration precaution. Con tinue therapy. Continue stool softener. Thank you and will follow with you. Laquita Gonzalez MD cc: [phone] TT: 01/07/2017 20:11:22 Confirmation # [id number] Dictation # [id number] mn
[2017-01-08] MEDS: Albuterol 0.083% Inhal Sol (2.5 mg/3 mL) UD IH SCH ×3 (02:51→13:09)
[2017-01-08] MEDS: Pantoprazole 40 mg EC Tab PO SCH (05:23)
[2017-01-08] MEDS: Budesonide 0.5 mg/2 ml Inhal Susp UD IH SCH (07:18)
[2017-01-08] MEDS: Arformoterol 15 mcg/2 ml Inh Sol IH SCH (07:18)
[2017-01-08] MEDS: POLYETHYLENE GLYCOL 3350 17 GM/Dose PACKET PO SCH (10:09)
[2017-01-08] MEDS: guaiFENesin 600 mg ER Tab PO SCH (10:10)
[2017-01-08 10:16] VITALS: PULSE 80
[2017-01-08 11:51] VITALS: BP 144/74; RESP 14; TEMP 98.4
--- NOTE | 2017-01-08 15:36 | CP.PCM.PN ---
Subjective - Date & Time of Evaluation Date of Evaluation: 01/08/17 Time of Evaluation: 11:45 - Subjective Subjective: Infectious Disease Follow Up: January 08, 2017 51 yo male with presentation of SOB and AMS. The patient had worsening shortness of breath at home to the point that during a coughing fit at home he collapsed. He was intubated in the [facility]. The patient was brought to the MICU for further care. He remains intubated and ventilated. The patient was last in [facility] [place] in September 2016. The patient has Multiple Sclerosis. He was sent home with Keflex at this time. He was on Aztreonam and Vancomycin on the past admission. Afebrile so far today. Antibiotics continued on Meropenem. Received one dose of Amikacin several days ago. Cultures have been negative to date. The patient is no longer on high flow oxygen and improved to 2 L nasal canula now. The patient is improving slowly. On the medical floor now. No new complaints. In TCU now. On Meropenem. Clindamycin completed. No new complaints. Completed meropenem. Off antibiotics... possible discharge home today. Objective - Vital Signs/Intake and Output Vital Signs (last 24 hours): Temp Pulse Resp BP Pulse Ox 98.4 F 80 14 144/74 98 01/08/17 10:00 01/08/17 10:10 01/08/17 10:00 01/08/17 10:00 01/07/17 16:00 Intake and Output: 01/08/17 01/08/17 06:59 18:59 Intake Total 480 Output Total 500 Balance -20 - Medications Medications: Current Medications Acetaminophen (Tylenol 325mg Tab) 650 mg PO Q6H PRN PRN Reason: Pain, moderate (4-7) Last Admin: 01/03/17 15:43 Dose: 650 mg Albuterol Sulfate (Albuterol 0.083% Inhal Jo (2.5 Mg/3 Ml) Ud) 2.5 mg IH [id number] GOKUL PRN Reason: Protocol Last Admin: 01/08/17 13:09 Dose: 2.5 mg Amlodipine Besylate (Norvasc) 5 mg PO DAILY GOKUL PRN Reason: Protocol Last Admin: 01/08/17 10:10 Dose: 5 mg Arformoterol Tartrate (Brovana) 15 mcg IH [id number] GOKUL PRN Reason: Protocol Last Admin: 01/08/17 07:18 Dose: 15 mcg Budesonide (Pulmicort Respules) 0.5 mg IH [id number] GOKUL PRN Reason: Protocol Last Admin: 01/08/17 07:18 Dose: 0.5 mg Cholecalciferol (Vitamin D) 4,000 iu PO DAILY GOKUL PRN Reason: Protocol Last Admin: 01/08/17 10:11 Dose: 4,000 iu Docusate Sodium (Colace) 100 mg PO BID GOKUL PRN Reason: Protocol Last Admin: 01/08/17 10:08 Dose: 100 mg Guaifenesin (Mucinex La) 600 mg PO BID GOKUL PRN Reason: Protocol Last Admin: 01/08/17 10:10 Dose: 600 mg Lamotrigine (Lamictal) 25 mg PO BID GOKUL PRN Reason: Protocol Last Admin: 01/08/17 10:09 Dose: 25 mg Pantoprazole Sodium (Protonix Ec Tab) 40 mg PO 0600 GOKUL PRN Reason: Protocol Last Admin: 01/08/17 05:23 Dose: 40 mg Polyethylene Glycol (Miralax) 17 gm PO DAILY GOKUL PRN Reason: Protocol Last Admin: 01/08/17 10:09 Dose: 17 gm - Labs Labs: 01/07/17 06:30 01/07/17 06:30 - Constitutional Appears: Non-toxic, No Acute Distress, Chronically Ill - Head Exam Head Exam: ATRAUMATIC, NORMOCEPHALIC - Eye Exam Eye Exam: EOMI, PERRL Pupil Exam: NORMAL ACCOMODATION, PERRL - ENT Exam ENT Exam: Mucous Membranes Moist, Normal External Ear Exam, TM's Normal Bilaterally - Neck Exam Neck Exam: Full ROM, Normal Inspection - Respiratory Exam Respiratory Exam: Clear to Ausculation Bilateral, NORMAL BREATHING PATTERN. absent: Rales, Rhonchi, Wheezes - Cardiovascular Exam Cardiovascular Exam: REGULAR RHYTHM, RRR, +S1, +S2 - GI/Abdominal Exam GI & Abdominal Exam: Soft, Normal Bowel Sounds. absent: Distended, Tenderness - Extremities Exam Extremities Exam: Full ROM, Normal Inspection - Neurological Exam Neurological Exam: Alert, Awake, CN II-XII Intact, Oriented x3 - Psychiatric Exam Psychiatric exam: Normal Affect, Normal Mood - Skin Skin Exam: Intact, Normal Color Assessment and Plan - Assessment and Plan (Free Text) Assessment: 51 yo Salvadorean male with left pyelonephritis and nephrolithiasis presenting with sepsis, AMS, SOB, and syncope. Went to OR for stent placement and stone removal yesterday. The patient was on Clindamycin and Rocephin. Given prior hospitalizations and persistent fevers, meropenem started over Rocephin as the spectrum for gram negative coverage is better. Given a dose of Aminoglycoside ( Amikacin) as part of patient's coverage. The patient was intubated and ventilated... extubated and on high flow oxygen. On Meropenem. Patient clinically improving. Cultures negative but that does NOT rule out infective process. Would complete total of 10 days of antibiotic therapy at the minimum given recent infection history. Remains in TCU. Completed. Possible discharge home today. Thank you for allowing me to participate in the care of the patient, we will follow with you.
--- NOTE | 2017-01-08 16:51 | PN ---
DATE: 01/08/2017 REFERRING PHYSICIAN: Dr. Torre. SUBJECTIVE: He is lying in the bed, mother at bedside, night was unremarkable. No cough, no sputum production. No leg swelling. OBJECTIVE: GENERAL: In no acute distress. VITAL SIGNS: Temp is 98, heart rate is 89, respiratory rate is 14, blood pressure 112/74, pulse ox 9 8%. HEENT: Moist mucous membrane. Crowded airway. NECK: Supple. No JVD. LUNGS: Have fair airflow with rhonchi. HEART: S1, S2. ABDOMEN: Soft, nontender. No organomegaly. EXTREMITIES: There is no edema. NEUROLOGIC: Awake, alert, follows simple commands. MEDICATIONS: He is on albuterol-Atrovent nebulizer q. 6 hours, Brovana q. 12 hours, Colace 100 mg tw ice a day, Lamictal 25 mg twice a day, MiraLax 17 grams daily, Mucinex LA 600 mg twice a day, Norvasc 5 mg daily, Protonix 40 mg daily, Pulmicort inhaled twice a day, Tylenol p.r.n., vitamin D 400 inter national units daily. LABORATORY DATA: Reviewed. No new lab is available. IMPRESSION AND PLAN: Status post respiratory failure, on room air presently. He has sleep apnea syn drome, obstructive lung disease, obstructive uropathy requiring cystoscopy and stent placement, seizu re disorder, oropharyngeal dysphagia, on modified diet. I spoke to patient's mother at bedside. All the questions answered. I requested to patient should have a sleep study and PFT as outpatient. Sh kip expresses understanding and we will follow up. Gastric prophylaxis, DVT prophylaxis. Stable to ashley michelle. Also, spoke with to stop Garcia catheter. Nurses spoke to urology and was advised to leave the Garcia catheter in for a month. Thank you and will follow with you. Laquita Gonzalez MD cc: [id number] TT: 01/08/2017 16:50:25 Confirmation # [id number] Dictation # [id number] mn
--- NOTE | 2017-01-08 19:01 | DS ---
HOSPITAL COURSE: The patient is a 51-year-old male admitted to the transitional care unit on 017 for continued antibiotic treatments, status post hospitalization for recurrent aspiration pneumon ia with ventilatory failure. The patient has had an uneventful course in the TCU and is medically st able for discharge. There is no chest pain or shortness of breath at the present time. PHYSICAL EXAMINATION: VITAL SIGNS: Blood pressure 115/86, temperature 98.2, pulse 80, respiratory rate 18. LUNGS: Clear. HEART: Regular rate and rhythm. ABDOMEN: Soft, nontender. Bowel sounds normoactive. EXTREMITIES: Without cyanosis, clubbing, or edema. NEUROLOGIC: The patient is awake and responsive. SKIN: Warm and dry. GENITOURINARY: Indwelling Garcia catheter is intact. Urine is clear. IMPRESSION: 1. Recurrent aspiration pneumonia, status post ventilatory failure. 2. Multiple sclerosis. 3. Seizure disorder. 4. Hypertension. 5. Larsen's palsy. 6. Hypercholesterolemia. 7. Gastroesophageal reflux disease. 8. Renal stone, status post cystoscopy and stent placement. PLAN: The patient will be discharged to home today on the following medications: Lamictal 25 mg twi ce daily, Colace and MiraLax for constipation, Brovana, albuterol and Pulmicort inhaled, Norvasc 5 mg daily and Protonix 40 mg daily. The patient will be maintained on a heart-healthy diet with nectar consistency thickened liquids. Activity is ad libitum. He will be followed as an outpatient within the next 1-2 weeks. His Garcia catheter will remain , follow up with Dr. Escobar. Garrett Torre JD, MD cc: [id number] TT: 01/08/2017 19:00:56 [place]
== END 2017-01-08 13:30 | disposition home or self-care (01) | DRG 871 ==
LOC: TRCU 14:17
PROVIDERS: ADMIT Internal Medicine; ATTEND Internal Medicine
PROC: F07M6ZZ Therapeutic Exercise Treatment of Musculoskeletal System - Whole Body (ICD-10-PCS; principal; 2016-12-31)
PROC: F08Z1ZZ Dressing Techniques Treatment (ICD-10-PCS; 2017-01-01)
PROC: F08Z2ZZ Grooming/Personal Hygiene Treatment (ICD-10-PCS; 2017-01-01)
PROC: F08Z0ZZ Bathing/Showering Techniques Treatment (ICD-10-PCS; 2017-01-01)
DX: A41.9 Sepsis, unspecified organism (principal); J69.0 Pneumonitis due to inhalation of food and vomit; J96.90 Respiratory failure, unspecified, unspecified whether with hypoxia or hypercapnia; N12 Tubulo-interstitial nephritis, not specified as acute or chronic; N13.9 Obstructive and reflux uropathy, unspecified; G70.00 Myasthenia gravis without (acute) exacerbation; G35 Multiple sclerosis; E78.5 Hyperlipidemia, unspecified; E78.00 Pure hypercholesterolemia, unspecified; G40.909 Epilepsy, unspecified, not intractable, without status epilepticus; G47.33 Obstructive sleep apnea (adult) (pediatric); G51.0 Bell's palsy; I10 Essential (primary) hypertension; J44.9 Chronic obstructive pulmonary disease, unspecified; K21.9 Gastro-esophageal reflux disease without esophagitis; N20.0 Calculus of kidney; R13.12 Dysphagia, oropharyngeal phase; Z87.01 Personal history of pneumonia (recurrent); Z87.891 Personal history of nicotine dependence; Z91.19 Patient's noncompliance with other medical treatment and regimen; Z99.3 Dependence on wheelchair; Z74.01 Bed confinement status; R31.9 Hematuria, unspecified

== ENCOUNTER 2017-02-17 09:00 | Day surgery (SDC) | payer MEDICARE, MEDICAID ==
[2017-02-11 10:39] VITALS: BMI 24.4
[2017-02-17 10:01] LABS: BASO # 0.03 K/mm3 (0.0-2.0); BASO % 0.4 % (0.0-3.0); EOS # 0.3 (0.0-0.7); EOS % 3.9 % (1.5-5.0); GRAN # 4.23 (1.4-6.5); HEMOGLOBIN 12.2 gm/dL (14.0-18.0); LYMPH # 2.9 (1.2-3.4); LYMPH % 35.9 % (22.0-35.0); MEAN CELL VOLUME 82.3 fL (80.0-105.0); MEAN CORPUSCULAR HEMOGLOBIN 26.7 pg (25.0-35.0); MEAN CORPUSCULAR HGB CONC 32.4 g/dl (31.0-37.0); MEAN PLATELET VOLUME 10.1 fl (7.0-11.0); MONO # 0.5 (0.1-0.6); MONO % 6.8 % (1.0-6.0); PLATELET COUNT 285 10^3/uL (120.0-450.0); RBC 4.57 10^6/uL (3.5-6.1); RED CELL DISTRIBUTION WIDTH 13.6 % (11.5-14.5)
[2017-02-17 10:09] LABS: ALB/GLOB RATIO 1.1 (1.1-1.8); ALT/SGPT 47 U/L (7-56); AST/SGOT 28 U/L (15-59); BLOOD UREA NITROGEN 13 mg/dL (7-21); CALCIUM 9.9 mg/dL (8.4-10.5); GFR AFRICAN-AMERICAN > 60; GFR NON-AFRICAN AMERICAN > 60
[2017-02-17] MEDS ORDERED: Propofol 10 mg/ml Inj (20 ML) ONE (11:34)
[2017-02-17] MEDS ORDERED: Succinylcholine 200 mg/10 ml Inj IV ONE (12:09)
[2017-02-17] MEDS ORDERED: Lidocaine 2% Jelly (Uro-Jet) ONE (12:10)
[2017-02-17] MEDS ORDERED: cefTRIAXone (Rocephin) 1 gm Inj ONE (12:10)
[2017-02-17] MEDS ORDERED: Desflurane Inhalation Anesthetic Liq (240 ml) ONE (12:11)
[2017-02-17] MEDS ORDERED: Iohexol 240 (50 ml) ONE (12:11)
[2017-02-17] MEDS ORDERED: HYDROmorphone 0.5 mg/0.5 ml ISec IVP PRN (13:48)
[2017-02-17] MEDS ORDERED: Lactated Ringer's 1,000 ML IV SCH (13:48)
[2017-02-17 14:28] VITALS: O2SAT 100
[2017-02-17 15:05] VITALS: RESP 18; TEMP 97.6
--- NOTE | 2017-02-17 15:06 | RAD ---
PROCEDURE: Retrograde pyelogram HISTORY: Bilateral stent removeal, bilateral retrograde pyelogram COMPARISON: TECHNIQUE: Retrograde pyelogram. Fluoroscopy time 1 minutes and 54 seconds. Twenty-eight images submitted. FINDINGS: There is removal of bilateral stents. The final images show bilateral hydronephrosis. Study was performed by Dr. Martinez IMPRESSION: As above
[2017-02-17 15:39] VITALS: BP 134/98; PULSE 76
--- NOTE | 2017-02-17 21:08 | CARD ---
APPROVED REPORT EKG Measurement Heart [id number] <Conclusion> Normal sinus rhythm Normal ECG
--- NOTE | 2017-02-18 01:54 | OP ---
PROCEDURE DATE: 02/17/2017 PREOPERATIVE DIAGNOSES: Bilateral kidney stones, bilateral hydronephrosis, bilateral retained ureteral stents. POSTOPERATIVE DIAGNOSES: Bilateral kidney stones, bilateral hydronephrosis, bilateral retained ureteral stents. PROCEDURE: Cystoscopy, removal of bilateral ureteral stents, bilateral retrograde pyelograms, bilateral ureteroscopy. SURGEON: Barrera Martinez MD ANESTHESIA: General. SPECIMEN: Some small bladder stones were sent to pathology. DRAINS: An 18-Sammarinese 2-way Garcia catheter. COMPLICATIONS: None. ESTIMATED BLOOD LOSS: 10 mL. OPERATIVE FINDINGS: After informed consent was obtained, the patient was taken to the operating room and placed on the operating table. Anesthesia was administered. The patient was then placed in the dorsal lithotomy position and prepped and draped in the usual sterile fashion. A 22-Sammarinese cystoscope was placed in the patient's urethra and advanced proximally under direct vision until the bladder was entered. A full survey inspection of the bladder was then performed, which revealed multiple small bladder stones. There were bilateral stents noted exiting from the right and left ureteral orifices. There were no bladder tumors noted. There was some reaction noted around the ureteral orifices from the stents. On fluoroscopy, there were multiple calcifications and densities noted in the area of the right kidney. They appeared to be calyceal in nature. No discrete calcifications were noted in the area of the renal pelvis or along the ureter. At this point, grasping forceps was passed. The left ureteral stent was grasped and withdrawn to the urethral meatus. On fluoroscopy, the stent was then withdrawn in its entirety. There were no calcifications noted to be coming down the ureter along with the stent. The stent was removed in its entirety from the operative field. The cystoscope was then re-passed and a *------* catheter was introduced into the left ureter. Contrast was then instilled into the system. There were no discrete filling defects noted in the ureter. There did not appear to be any stones in the renal pelvis. There was mild hydronephrosis noted, although the calices appeared sharp. There was a large cluster of calcifications in the lower pole calyx and some were apparent in the midpole calyx. At this point, a sensory wire was obtained. It was opened through the open-ended ureteral catheter and advanced up the ureter under fluoroscopic guidance coiled in the upper collecting system. At this point, the open-ended ureteral catheter was removed. The bladder was drained. The cystoscope was removed leaving the wire in place. A 7-Sammarinese long semi-rigid ureteroscope was obtained. It was passed under direct vision into the bladder and guided into the left ureteral orifice. The ureteroscope was able to be advanced proximally under direct vision without difficulty until the renal pelvis was entered. The kidney was able to be inspected. There were no discrete stones noted in the ureter or in the renal pelvis. There was a moderate amount of ureteritis and reaction to the stent noted. At this point, the ureteroscope was withdrawn under direct vision. At this point, the cystoscope was re-passed. The grasping forceps was passed and the right ureteral stent was grasped. The right ureteral stent was then withdrawn to the level of the ureteral meatus. During fluoroscopy, the stent also was removed in its entirety. Again, there were no calcific densities noted to be coming down the ureter with the stent removal. At this point, the cystoscope was again re-passed. The open-ended ureteral catheter was then passed through the cystoscope and guided into the right ureteral orifice. A right retrograde pyelogram was then performed on its own contrast through the open-ended ureteral catheter into the right ureter during real time fluoroscopy. There appeared to be a moderate hydronephrosis on the right, which is likely chronic. Again, there were no discrete filling defects noted in the renal pelvis or ureter. At this point, the guidewire was passed through the open-ended ureteral catheter and advanced up the ureter until it coiled in the upper collecting system. The bladder was drained and cystoscope was removed while leaving the wire in place. The ureteroscope was then passed into the bladder under direct vision and guided into the right ureteral orifice. The uteroscope was able to be advanced easily up the right ureter until the right renal pelvis was entered. The renal pelvis and kidney were then able to be inspected. Again, there were no discrete stones encountered. There was evidence of moderate ureteral inflammation and reaction to the stent. The ureteroscope was then withdrawn under direct vision. At this point, the cystoscope was then re-passed. Some of the stones and debris from the bladder were able to be irrigated out of the bladder and sent to pathology as specimen. Again, there were no tumors or large stones noted in the bladder. There was [id number] inflammation noted from the indwelling stents. At this point, the procedure was completed. The bladder was drained and the cystoscope was withdrawn. The prostate appeared mildly enlarged, but did not appear occlusive in nature. There were no other ureteral lesions noted. At this point, the procedure was completed. The bladder had been drained before the cystoscope was removed. The patient was then returned to the supine position and taken to the recovery room awake in stable condition. Barrera Martinez MD
== END 2017-02-17 17:55 | disposition home or self-care (01) ==
LOC: SDS 09:00
PROVIDERS: ATTEND Urology
DX: N13.2 Hydronephrosis with renal and ureteral calculous obstruction (principal); I10 Essential (primary) hypertension
CPT/HCPCS: 52351; 72HRC; 88300

== ENCOUNTER 2017-02-17 21:35 | Inpatient (IN) | payer MEDICARE, MEDICAID ==
[2017-02-17 21:43] VITALS: BMI 23.7
--- NOTE | 2017-02-17 21:48 | ED PDOC ---
Arrival/HPI - General Time Seen by Provider: 02/17/17 21:38 Historian: Patient - History of Present Illness Narrative History of Present Illness (Text): 02/17/17 21:41 Herve Galicia is a 52 year old male, with a history of seizure disorder, multiple sclerosis, and hypertension, presents to the emergency department complaining of fever and weakness. Patient had bilateral ureteral stents removed earlier by after which he developed a fever of 103F. Patient has deficits due to multiple sclerosis, but states his weakness is worse today post procedure. Denies chest pain, shortness of breath, abdominal pain, nausea, vomiting, diarrhea, or any other complaints at this time. PMD: Dr. Torre Time/Duration: Other (earlier today ) Symptom Onset: Gradual Symptom Course: Worsening Activities at Onset: Light Past Medical History - Provider Review Nursing Documentation Reviewed: Yes - Infectious Disease Hx of Infectious Diseases: None - Cardiac Hx Pacemaker: No - Pulmonary Hx Chronic Obstructive Pulmonary Disease (COPD): No - Neurological Hx Paralysis: No - HEENT Hx HEENT Disorder: Yes Other/Comment: Optic neuritis - Renal Hx Renal Failure: No - Endocrine/Metabolic Hx Diabetes Mellitus Type 1: No Hx Diabetes Mellitus Type 2: No Hx Hypothyroidism: No - Hematological/Oncological Hx Blood Transfusions: No Hx Blood Transfusion Reaction: No - Integumentary Hx Dermatological Disorder: Yes Other/Comment: multiple old bruises from banging his lower legs when in a chair - Musculoskeletal/Rheumatological Hx Musculoskeletal Disorders: Yes (BEDBOUND WHEELCHAIR BOUND) - Gastrointestinal Hx Gastroesophageal Reflux: Yes - Genitourinary/Gynecological Hx Reproductive Disorders: No - Psychiatric Hx Emotional Abuse: No Hx Physical Abuse: No Hx Substance Use: No - Anesthesia Hx Anesthesia Reactions: No Hx Malignant Hyperthermia: No - Suicidal Assessment Feels Threatened In Home Enviroment: No Family/Social History - Physician Review Nursing Documentation Reviewed: Yes Family/Social History: No Known Family HX Smoking Status: Former Smoker Hx Alcohol Use: No Hx Substance Use: No Allergies/Home Meds Allergies/Adverse Reactions: Allergies No Known Allergies Allergy (Verified 02/11/17 10:39) Home Medications: Home Meds Medication Instructions Recorded Confirmed Pantoprazole Sodium [Protonix] 40 mg PO QAM 09/14/15 02/17/17 lamoTRIgine [Lamictal] 25 mg PO BID 09/26/15 02/17/17 Cholecalciferol [Vitamin D] 2,000 iu PO DAILY 02/11/17 02/17/17 Garlic [Odor Free Garlic] 1 each PO DAILY 02/11/17 02/17/17 Multivit-Min/FA/Lycopen/Lutein 1 each PO DAILY 02/11/17 02/17/17 [Centrum Silver Men Tablet] Review of Systems - Physician Review All systems were reviewed & negative as marked: Yes - Review of Systems Constitutional: Fatigue, Fevers Respiratory: Normal. absent: SOB, Cough, Sputum Cardiovascular: absent: Chest Pain, Palpitations Gastrointestinal: absent: Diarrhea, Nausea, Vomiting Neurological: absent: Headache, Dizziness Psychiatric: Normal Physical Exam Vital Signs Reviewed: Yes Vital Signs Temp Pulse Resp BP Pulse Ox 02/17/17 23:36 109 H 18 135/86 98 02/17/17 23:25 102.1 F H 121 H 28 H 141/53 L 95 02/17/17 22:20 103.5 F H 02/17/17 21:45 103.5 F H 121 H 22 150/112 H 100 Temperature: Febrile Blood Pressure: Hypertensive Pulse: Tachycardic Respiratory Rate: Normal Appearance: Positive for: Non-Toxic Pain Distress: None Mental Status: Positive for: Alert and Oriented X 3 - Systems Exam Head: Present: Atraumatic, Normocephalic Pupils: Present: PERRL Conjunctiva: Present: Normal Mouth: Present: Moist Mucous Membranes Neck: Present: Normal Range of Motion Respiratory/Chest: Present: Rhonchi. No: Respiratory Distress, Accessory Muscle Use Cardiovascular: Present: Normal S1, S2, Tachycardic. No: Murmurs Abdomen: Present: Normal Bowel Sounds. No: Tenderness, Distention, Peritoneal Signs Upper Extremity: Present: Normal Inspection. No: Cyanosis, Edema Lower Extremity: Present: Normal Inspection. No: Edema Neurological: Present: GCS=15, CN II-XII Intact, Speech Normal Skin: Present: Warm, Dry, Normal Color. No: Rashes Psychiatric: Present: Alert, Oriented x 3, Normal Insight, Normal Concentration Medical Decision Making ED Course and Treatment: 02/17/17 21:52 Impression: A 52 year old male who presents to emergency department for fever and weakness. Plan: -- EKG -- labs -- Chest X-ray -- Cefepime -- IVF -- Tylenol -- Vancomycin -- Blood culture -- Urine culture -- Urinalysis -- Reassess and disposition Progress Notes: 02/17/2017 22:38 EKG reviewed by me: Sinus Tachycardia @ 120bpm. Normal axis. normal interval. 02/17/17 23:49 Case discussed with who is aware and agrees with the plan to admit patient to telemetry. Accepts patient under his service. - Lab Interpretations Microbiology Results: Microbiology Results 02/17/17 22:15 Blood Blood Culture - Preliminary NO GROWTH AFTER 3 DAYS 02/17/17 21:45 Blood Blood Culture - Preliminary NO GROWTH AFTER 3 DAYS 02/17/17 23:40 Urine,Garcia Urine Culture - Final Yeast Species Lab Results: 02/17/17 21:45 02/17/17 21:45 Lab Results 02/17/17 23:40: Urine Color Light red, Urine Appearance Cloudy, Urine pH 7.0, Ur Specific Lyman 1.020, Urine Protein 100 H, Urine Glucose (UA) Negative, Urine Ketones Negative, Urine Blood Large H, Urine Nitrate Negative, Urine Bilirubin Negative, Urine Urobilinogen 0.2, Ur Leukocyte Esterase Large H, Urine RBC 5 - 10, Urine WBC Tntc, Ur Epithelial Cells 0 - 2, Urine Bacteria Mod 02/17/17 22:50: pCO2 36, pO2 99.0, HCO3 25.0, ABG pH 7.45, ABG Total CO2 26.1, ABG O2 Saturation 99.2 H, ABG Base Excess 1.2, ABG Potassium 3.3 L, Glucose 119 H, Lactate 1.0, FiO2 32.0, Sodium 144.0, Chloride 114.0 H, Arterial Blood Potassium 3.3 L 02/17/17 21:45: Sodium 143, Potassium 3.7, Chloride 106, Carbon Dioxide 27, Anion Gap 14, BUN 14, Creatinine 1.0, Est GFR ( Amer) > 60, Est GFR (Non- Af Amer) > 60, Random Glucose 119 H, Calcium 9.8, Phosphorus 3.0, Magnesium 1.7 , Total Bilirubin 0.5, AST 38, ALT 48, Alkaline Phosphatase 129, Troponin I < 0.01, Total Protein 8.0, Albumin 4.2, Globulin 3.7, Albumin/Globulin Ratio 1.1, Plasma Cortisol PM 12.1 02/17/17 21:45: PT 11.4, INR 1.06, APTT 30.0 02/17/17 21:45: Procalcitonin < 0.05 L 02/17/17 21:45: WBC 11.4 H D, RBC 4.49, Hgb 12.2 L, Hct 36.6 L, MCV 81.5, MCH 27.2, MCHC 33.3, RDW 13.7, Plt Count 326, MPV 9.8, Gran % 77.3 H, Lymph % (Auto ) 15.1 L, [place] % (Auto) 6.3 H, Eos % (Auto) 1.2 L, Baso % (Auto) 0.1, Gran # 8.77 H, Lymph # 1.7, [place] # 0.7 H, Eos # 0.1, Baso # 0.01 - RAD Interpretation Radiology Orders: 02/17/17 21:48 CHEST PORTABLE [RAD] Stat - Medication Orders Current Medication Orders: Discontinued Medications Acetaminophen (Tylenol 325 Mg Supp) 975 mg AL ONCE PRN PRN Reason: Fever >100.4 F Stop: 02/18/17 06:00 Last Admin: 02/17/17 22:20 Dose: 975 mg Acetaminophen (Tylenol 650 Mg Supp) 650 mg RC Q4H PRN PRN Reason: Fever >100.4 F Acetaminophen (Tylenol 325mg Tab) 650 mg PO Q4H PRN PRN Reason: Fever >100.4 F Last Admin: 02/18/17 18:15 Dose: 650 mg Acetaminophen (Tylenol 650 Mg Supp) 650 mg RC ONCE STA Stop: 02/18/17 22:25 Last Admin: 02/18/17 22:37 Dose: 650 mg Acetaminophen (Tylenol 650 Mg Supp) 650 mg RC ONCE ONE Stop: 02/19/17 02:21 Last Admin: 02/19/17 20:58 Dose: Acetaminophen (Tylenol 325 Mg Supp) 325 mg RC Q4H PRN PRN Reason: Fever >100.4 F Sodium Chloride (Sodium Chloride 0.9%) 1,000 mls @ 80 mls/hr IV .[id number] GOKUL Last Admin: 02/17/17 22:20 Dose: 80 mls/hr Cefepime HCl (Maxipime 2gm) 2 gm in 100 mls @ 100 mls/hr IVPB STAT STA PRN Reason: Protocol Stop: 02/17/17 22:50 Last Admin: 02/17/17 22:20 Dose: 100 mls/hr Vancomycin HCl (Vancomycin 1gm) 1 gm in 250 mls @ 167 mls/hr IVPB STAT STA PRN Reason: Protocol Stop: 02/17/17 23:20 Last Admin: 02/17/17 22:20 Dose: 167 mls/hr Sodium Chloride (Sodium Chloride 0.9%) 1,000 mls @ 100 mls/hr IV .Q10H STA Stop: 02/18/17 10:27 Last Admin: 02/18/17 01:13 Dose: 100 mls/hr Ceftriaxone Sodium (Rocephin 1 Gram Ivpb) 1 gm in 100 mls @ 100 mls/hr IVPB DAILY GOK[facility] PRN Reason: Protocol Last Admin: 02/18/17 10:30 Dose: 100 mls/hr Lamotrigine (Lamictal) 25 mg PO BID GOKUL PRN Reason: Protocol Last Admin: 02/21/17 10:07 Dose: 25 mg Re-Assess: Reassess Psych Meds Document 02/21/17 11:07 SPA (Rec: 02/21/17 14:25 SPA [id number]) Reassess Psych Med Effective Metoprolol Tartrate (Lopressor) 25 mg PO BRKDIN GOKUL Metoprolol Tartrate (Lopressor) 25 mg PO BID [facility] Last Admin: 02/21/17 10:07 Dose: 25 mg Pantoprazole Sodium (Protonix Ec Tab) 40 mg PO 0600 [facility] Last Admin: 02/21/17 05:33 Dose: 40 mg - Scribe Statement The provider has reviewed the documentation as recorded by the Fady Davidson Provider Attestation: Provider Scribe Attestation: All medical record entries made by the Rizwanibkip were at my direction and personally dictated by me. I have reviewed the chart and agree that the record accurately reflects my personal performance of the history, physical exam, medical decision making, and the department course for this patient. I have also personally directed, reviewed, and agree with the discharge instructions and disposition. Disposition/Present on Arrival - Present on Arrival Any Indicators Present on Arrival: No History of DVT/PE: No History of Uncontrolled Diabetes: No Urinary Catheter: Yes (blood tinged post cysto) History Surgical Site Infection Following: None - Disposition Have Diagnosis and Disposition been Completed?: Yes Diagnosis: Sepsis Disposition: HOSPITALIZED Disposition Time: 00:00 Condition: FAIR
[2017-02-17] MEDS ORDERED: Cefepime IV 2 gm in NS 2 GM/100 ML BAG IVPB STA (21:51)
[2017-02-17] MEDS ORDERED: Vancomycin 1gm in NS 250ml 1 GM/250 ML BAG IVPB STA (21:51)
[2017-02-17] MEDS ORDERED: Sodium Chloride 0.9% 1,000 ML IV SCH (22:00)
[2017-02-17 22:02] LABS: BASO # 0.01 K/mm3 (0.0-2.0); BASO % 0.1 % (0.0-3.0); EOS # 0.1 (0.0-0.7); EOS % 1.2 % (1.5-5.0); GRAN # 8.77 (1.4-6.5); GRAN % 77.3 % (50.0-68.0); HEMOGLOBIN 12.2 gm/dL (14.0-18.0); LYMPH # 1.7 (1.2-3.4); LYMPH % 15.1 % (22.0-35.0); MEAN CELL VOLUME 81.5 fL (80.0-105.0); MEAN CORPUSCULAR HEMOGLOBIN 27.2 pg (25.0-35.0); MEAN CORPUSCULAR HGB CONC 33.3 g/dl (31.0-37.0); MEAN PLATELET VOLUME 9.8 fl (7.0-11.0); MONO # 0.7 (0.1-0.6); MONO % 6.3 % (1.0-6.0); PLATELET COUNT 326 10^3/uL (120.0-450.0); RBC 4.49 10^6/uL (3.5-6.1); RED CELL DISTRIBUTION WIDTH 13.7 % (11.5-14.5); WHITE BLOOD COUNT 11.4 10^3/ul (4.5-11.0)
[2017-02-17 22:16] LABS: ALB/GLOB RATIO 1.1 (1.1-1.8); ALBUMIN 4.2 g/dL (3.0-4.8); ALT/SGPT 48 U/L (7-56); AST/SGOT 38 U/L (15-59); BLOOD UREA NITROGEN 14 mg/dL (7-21); GFR AFRICAN-AMERICAN > 60; GFR NON-AFRICAN AMERICAN > 60
[2017-02-17 22:23] LABS: CALCIUM 9.8 mg/dL (8.4-10.5); MAGNESIUM 1.7 mg/dL (1.7-2.2)
[2017-02-17 22:24] LABS: INR 1.06 (0.93-1.08); PROTHROMBIN TIME 11.4 Seconds (9.9-11.8)
[2017-02-17 22:39] LABS: TROPONIN I < 0.01 ng/mL
[2017-02-17 23:04] LABS: ARTERIAL BLOOD GAS O2 SAT 99.2 % (95-98); ARTERIAL BLOOD GAS PCO2 36 mm/Hg (35-45); ARTERIAL BLOOD GAS PH 7.45 (7.35-7.45); ARTERIAL BLOOD GAS TCO2 26.1 mmol.L (22-28)
[2017-02-18 00:01] LABS: URINE BILIRUBIN NEGATIVE (NEGATIVE); URINE BLOOD LARGE (NEGATIVE); URINE GLUCOSE (UA) NEGATIVE (NEGATIVE); URINE LEUKOCYTE ESTERASE LARGE Leu/uL (NEGATIVE); URINE NITRATE NEGATIVE (NEGATIVE); URINE PROTEIN 100 mg/dL (<30 mg/dL); URINE UROBILINOGEN 0.2 E.U./dL (<1 E.U./dL)
[2017-02-18 00:03] LABS: URINE APPEARANCE CLOUDY (CLEAR); URINE COLOR LIGHT RED (YELLOW)
[2017-02-18 00:22] LABS: URINE BACTERIA MOD (NEG); URINE EPITHELIAL CELLS 0 - 2 /hpf (0-5); URINE WBC TNTC /hpf (0-6)
[2017-02-18] MEDS ORDERED: Sodium Chloride 0.9% 1,000 ML IV STA (00:28)
--- NOTE | 2017-02-18 07:48 | RAD ---
HISTORY: Sepsis Patient COMPARISON: 01/05/2017. FINDINGS: LUNGS: The lungs are clear. PLEURA: No significant pleural effusion identified, no pneumothorax apparent. CARDIOVASCULAR: Normal. OSSEOUS STRUCTURES: No significant abnormalities. VISUALIZED UPPER ABDOMEN: Normal. OTHER FINDINGS: None. IMPRESSION: No active pulmonary disease.
[2017-02-18 09:14] LABS: BASO # 0.02 K/mm3 (0.0-2.0); BASO % 0.1 % (0.0-3.0); EOS # 0.3 (0.0-0.7); EOS % 2.2 % (1.5-5.0); GRAN # 10.98 (1.4-6.5); HEMOGLOBIN 11.4 gm/dL (14.0-18.0); LYMPH # 2.6 (1.2-3.4); LYMPH % 16.9 % (22.0-35.0); MEAN CELL VOLUME 83.8 fL (80.0-105.0); MEAN CORPUSCULAR HEMOGLOBIN 26.8 pg (25.0-35.0); MEAN PLATELET VOLUME 9.5 fl (7.0-11.0); MONO # 1.3 (0.1-0.6); MONO % 8.8 % (1.0-6.0); PLATELET COUNT 290 10^3/uL (120.0-450.0); RBC 4.25 10^6/uL (3.5-6.1); RED CELL DISTRIBUTION WIDTH 13.8 % (11.5-14.5); WHITE BLOOD COUNT 15.3 10^3/ul (4.5-11.0)
--- NOTE | 2017-02-18 09:47 | CP.PCM.PN ---
Subjective - Date & Time of Evaluation Date of Evaluation: 02/18/17 Time of Evaluation: 05:00 - Subjective Subjective: Nurse Pratibha told that patient has failed swallow eavlauation. His temp is 100.4*F. Patient has oral tylenol order. BP 150/78 H 120s. Patient was seen at bedside. Has no acute symptoms. Medical record was reviewed. This 52 year old male was admitted with elevated temperature ,S/P removal of ureteric stent. Has PMH of Multiple sepsis,renal calculus, s/p ureteric stent placement. Objective - Vital Signs/Intake and Output Vital Signs (last 24 hours): Temp Pulse Resp BP Pulse Ox 98.4 F 88 19 151/88 H 100 02/18/17 08:14 02/18/17 08:14 02/18/17 08:14 02/18/17 08:14 02/18/17 08:14 Intake and Output: 02/18/17 02/18/17 06:59 18:59 Intake Total 500 Output Total 2 Balance 498 - Medications Medications: Current Medications Acetaminophen (Tylenol 650 Mg Supp) 650 mg RC Q4H PRN PRN Reason: Fever >100.4 F Sodium Chloride (Sodium Chloride 0.9%) 1,000 mls @ 100 mls/hr IV .Q10H STA Stop: 02/18/17 10:27 Last Admin: 02/18/17 01:13 Dose: 100 mls/hr Lamotrigine (Lamictal) 25 mg PO BID [facility] PRN Reason: Protocol Metoprolol Tartrate (Lopressor) 25 mg PO BRKDIN [facility] Pantoprazole Sodium (Protonix Ec Tab) 40 mg PO 0600 [facility] - Labs Labs: 02/18/17 08:55 PT 11.4 Seconds (9.9-11.8) 02/17/17 21:45 INR 1.06 (0.93-1.08) 02/17/17 21:45 APTT 30.0 Seconds (23.7-30.8) 02/17/17 21:45 - Constitutional Appears: Well, No Acute Distress - Head Exam Head Exam: ATRAUMATIC, NORMAL INSPECTION, NORMOCEPHALIC - Eye Exam Eye Exam: Normal appearance - ENT Exam ENT Exam: Normal External Ear Exam - Neck Exam Neck Exam: Normal Inspection - Respiratory Exam Respiratory Exam: NORMAL BREATHING PATTERN - Cardiovascular Exam Cardiovascular Exam: absent: JVD - GI/Abdominal Exam GI & Abdominal Exam: absent: Distended - Rectal Exam Rectal Exam: Deferred - Exam Additional comments: Deferred. - Extremities Exam Extremities Exam: Normal Inspection - Back Exam Back Exam: NORMAL INSPECTION - Neurological Exam Neurological Exam: Alert, Oriented x3 - Psychiatric Exam Psychiatric exam: Normal Affect, Normal Mood - Skin Skin Exam: Normal Color Assessment and Plan - Assessment and Plan (Free Text) Assessment: Fever. Sepsis. Borderline anemia. Multiple sclerosis. Renal caclulus. Plan: NPO. Tylenol suppository as ordered. Continue present management.
[2017-02-18] MEDS: Pantoprazole 40 mg EC Tab PO SCH (10:23)
[2017-02-18] MEDS ORDERED: cefTRIAXone 1 gm 1 GM/100 ML BAG IVPB SCH (10:30)
[2017-02-18 12:10] LABS: CORTISOL PM 12.1 ug/dL (1.7-14.1)
--- NOTE | 2017-02-18 14:26 | CP.PCM.HP ---
History of Present Illness - History of Present Illness History of Present Illness: 52 yo male h/o MS adm thru ED for elevated temp s/p elective removal of ureteral stent Present on Admission - Present on Admission Any Indicators Present on Admission: No Review of Systems - Constitutional Constitutional: Fever - Genitourinary Genitourinary: Hematuria - Musculoskeletal Musculoskeletal: Muscle Weakness - Neurological Neurological: Abnormal Movements, Abnormal Speech, Weakness Past Patient History - Infectious Disease Hx of Infectious Diseases: None - Past Social History Smoking Status: Former Smoker - CARDIAC Hx Cardiac Disorders: Yes (CAD) Hx Hypercholesterolemia: Yes Hx Hypertension: Yes Hx Pacemaker: No - PULMONARY Hx Respiratory Disorders: Yes Hx Pneumonia: Yes - NEUROLOGICAL Hx Neurological Disorder: Yes (multiple sclerosis since 19y/o) Hx Dizziness: Yes Hx Seizures: Yes (absent seizures) - HEENT Hx HEENT Problems: Yes Other/Comment: Optic neuritis - RENAL Hx Chronic Kidney Disease: (had b/l ureteral stents removed 02/17/17,bladder stones) - ENDOCRINE/METABOLIC Hx Endocrine Disorders: No Hx Diabetes Mellitus Type 1: No Hx Diabetes Mellitus Type 2: No Hx Hypothyroidism: No - HEMATOLOGICAL/ONCOLOGICAL Hx Blood Disorders: No - INTEGUMENTARY Hx Dermatological Problems: Yes (dry skin on b/l LE) - MUSCULOSKELETAL/RHEUMATOLOGICAL Hx Musculoskeletal Disorders: Yes (multiple sclerosis, bedbound) Hx Falls: No - GASTROINTESTINAL Hx Gastrointestinal Disorders: Yes Hx Gastroesophageal Reflux: Yes - GENITOURINARY/GYNECOLOGICAL Hx Genitourinary Disorders: Yes Hx Incontinence: Yes - PSYCHIATRIC Hx Emotional Abuse: No Hx Physical Abuse: No Hx Substance Use: No - SURGICAL HISTORY Hx Surgeries: Yes - ANESTHESIA Hx Anesthesia Reactions: No Hx Malignant Hyperthermia: No Meds Allergies/Adverse Reactions: Allergies Allergy/AdvReac Type Severity Reaction Status Date / Time No Known Allergies Allergy Verified 02/11/17 10:39 Physical Exam - Head Exam Head Exam: ATRAUMATIC, NORMOCEPHALIC - Eye Exam Eye Exam: EOMI, Normal appearance - Neck Exam Neck exam: Positive for: Normal Inspection - Cardiovascular Exam Cardiovascular Exam: REGULAR RHYTHM - GI/Abdominal Exam GI & Abdominal Exam: Normal Bowel Sounds, Soft - Neurological Exam Neurological exam: Alert - Skin Skin Exam: Dry, Warm Results - Vital Signs Recent Vital Signs: Last Vital Signs Temp 98.4 F 02/18/17 08:14 Pulse 90 02/18/17 10:22 Resp 19 02/18/17 08:14 BP 156/116 H 02/18/17 10:22 Pulse Ox 100 02/18/17 08:14 - Labs Result Diagrams: 02/18/17 08:55 02/17/17 21:45 Labs: Laboratory Results - last 24 hr 02/18/17 08:55 WBC 15.3 H D RBC 4.25 Hgb 11.4 L Hct 35.6 L MCV 83.8 MCH 26.8 MCHC 32.0 RDW 13.8 Plt Count 290 MPV 9.5 Gran % 72.0 H Lymph % (Auto) 16.9 L [place] % (Auto) 8.8 H Eos % (Auto) 2.2 Baso % (Auto) 0.1 Gran # 10.98 H Lymph # 2.6 [place] # 1.3 H Eos # 0.3 Baso # 0.02 Assessment & Plan (1) Fever Status: Acute (2) Septicemia Status: Acute (3) Multiple sclerosis Status: Chronic (4) Kidney stones Status: Resolved - Assessment and Plan (Free Text) Plan: monitor for s&s of sepsis, possible transient septicemia s/p procedure - Date & Time Date: 02/18/17 Time: 13:00
--- NOTE | 2017-02-18 16:47 | CARD ---
APPROVED REPORT EKG Measurement Heart [id number] <Conclusion> Sinus tachycardia Otherwise normal ECG
--- NOTE | 2017-02-18 20:28 | CON ---
GASTROENTEROLOGY CONSULTATION DATE: 02/18/2017 HISTORY OF PRESENT ILLNESS: The patient is a 52-year-old male with end-stage multiple sclerosis. He had bilateral stents previously placed by another urologist for stones, although the stones were within the kidney non-obstructing. The patient had a cystoscopy with bilateral stent removal yesterday by Dr. Martinez, my partner who also did ureteroscopy and said there were no stones in the renal pelvis that he saw or in the ureter and the stents after being removed were left out. The patient voids on his own in good amounts. His mother called me last night telling me that her son had 103 fever and weakness. I advised them to go to the emergency room. His white count initially was 11,000 and this morning it is 15,000. He is on cefepime and received a dose of vancomycin. Currently, he is comfortable. No fever or chills. He is voiding well according both the patient and the nurses in good amounts. He has no flank pain. No nausea or vomiting. PAST MEDICAL HISTORY: Significant for the MS. ALLERGIES: HE HAS NO ALLERGIES. MEDICATIONS: At home, he is on Protonix and Lamictal. SOCIAL HISTORY: He no longer smokes. FAMILY HISTORY: Noncontributory. REVIEW OF SYMPTOMS: He has fatigue. No cardiac or respiratory symptoms. No gastrointestinal symptoms. No psychiatric symptoms. His neurologic symptoms are related to his MS. PHYSICAL EXAMINATION: VITAL SIGNS: Shows him currently to be afebrile, pulse 88, blood pressure 151/88 and respirations 19. HEENT: Normocephalic. Sclerae clear. Conjunctivae non-injected, he does have a history of optic neuritis from the MS. LUNGS: Clear to percussion and auscultation. Normal sinus rhythm. He has no CVA pain. ABDOMEN: No hepatosplenomegaly, rebound or guarding. No suprapubic fullness or tenderness. GENITALIA: Penis, testicle and cord, epididymis are normal. LABORATORY DATA: As mentioned showed white count 15,300 this morning and 11,400 last night. His coags are normal. His chemistry show a creatinine of 1 with a BUN of 14. His urinalysis not surprisingly has red cells, too numerous to count white cells and moderate bacteria. IMPRESSION: Sepsis after urologic procedure. I will order a noncontrast CAT scan to make sure there are no stones that have come down that are causing any kind of obstruction. He is on cefepime and received a dose of vancomycin. The ER was told prior to his arrival to make sure that they obtain urine and blood cultures. We would also suggest an ID consult. We will follow him with you. Ever Dominguez MD
[2017-02-19 05:31] LABS: HEMOGLOBIN 12.2 gm/dL (14.0-18.0); MEAN CELL VOLUME 82.8 fL (80.0-105.0); MEAN CORPUSCULAR HEMOGLOBIN 26.9 pg (25.0-35.0); MEAN CORPUSCULAR HGB CONC 32.4 g/dl (31.0-37.0); MEAN PLATELET VOLUME 10.4 fl (7.0-11.0); RBC 4.54 10^6/uL (3.5-6.1); RED CELL DISTRIBUTION WIDTH 13.8 % (11.5-14.5); WHITE BLOOD COUNT 17.7 10^3/ul (4.5-11.0)
[2017-02-19] MEDS: Pantoprazole 40 mg EC Tab PO SCH (07:24)
--- NOTE | 2017-02-19 10:26 | CP.PCM.PN ---
Subjective - Date & Time of Evaluation Date of Evaluation: 02/19/17 Time of Evaluation: 09:00 - Subjective Subjective: nad, no cough, no abd pain Objective - Vital Signs/Intake and Output Vital Signs (last 24 hours): Temp Pulse Resp BP Pulse Ox 98 F 99 H 20 133/97 H 100 02/19/17 08:00 02/19/17 10:08 02/19/17 06:00 02/19/17 10:08 02/19/17 06:00 - Medications Medications: Current Medications Acetaminophen (Tylenol 325mg Tab) 650 mg PO Q4H PRN PRN Reason: Fever >100.4 F Last Admin: 02/18/17 18:15 Dose: 650 mg Acetaminophen (Tylenol 325 Mg Supp) 325 mg RC Q4H PRN PRN Reason: Fever >100.4 F Lamotrigine (Lamictal) 25 mg PO BID [facility] PRN Reason: Protocol Last Admin: 02/19/17 10:08 Dose: 25 mg Metoprolol Tartrate (Lopressor) 25 mg PO BID [facility] Last Admin: 02/19/17 10:08 Dose: 25 mg Pantoprazole Sodium (Protonix Ec Tab) 40 mg PO 0600 [facility] Last Admin: 02/19/17 07:24 Dose: 40 mg - Labs Labs: 02/19/17 04:45 PT 11.4 Seconds (9.9-11.8) 02/17/17 21:45 INR 1.06 (0.93-1.08) 02/17/17 21:45 APTT 30.0 Seconds (23.7-30.8) 02/17/17 21:45 - Respiratory Exam Respiratory Exam: Clear to Ausculation Bilateral, NORMAL BREATHING PATTERN - Cardiovascular Exam Cardiovascular Exam: REGULAR RHYTHM - GI/Abdominal Exam GI & Abdominal Exam: Soft, Normal Bowel Sounds - Extremities Exam Extremities Exam: Normal Inspection - Neurological Exam Neurological Exam: Alert, Awake - Skin Skin Exam: Dry, Warm Assessment and Plan (1) Fever Status: Acute (2) Septicemia Status: Acute (3) Multiple sclerosis Status: Chronic (4) Kidney stones Status: Resolved (5) Leukocytosis Status: Acute - Assessment and Plan (Free Text) Plan: dc IV Rocephin, monitor for s&s of infection, re-culture if spikes temp
--- NOTE | 2017-02-19 13:26 | CT ---
PROCEDURE: CT Abdomen and Pelvis without intravenous contrast HISTORY: r/o obstruction COMPARISON: Prior abdomen pelvis CT 12/21/2016. TECHNIQUE: Technique. Contrast Dose: None Radiation dose: Total exam DLP = 853.2 mGy-cm. This CT exam was performed using one or more of the following dose reduction techniques: Automated exposure control, adjustment of the mA and/or kV according to patient size, and/or use of iterative reconstruction technique. FINDINGS: LOWER THORAX: Premature hemidiaphragm is again appreciated compared with prior CT 12/21/2016. Limited bilateral basilar atelectasis appreciate the right greater than left lung bases. Small hiatal hernia is also seen. LIVER: Stable lucency seen the right lobe liver measuring 2.3 cm lateral to the gallbladder fossa. GALLBLADDER AND BILE DUCTS: Unremarkable. PANCREAS: Unremarkable. No gross lesion or ductal dilatation. SPLEEN: Unremarkable. ADRENALS: Unremarkable. No mass. KIDNEYS AND URETERS: Prominent right hydronephrosis and in is identified increased involving the right kidney with layering likely any contrast ill-defined at the dependent portion of the right pelvocaliceal system likely from recent retrograde pyelogram performed 02/17/2017. Clinically correlate further as limited acute or subacute hemorrhage is not completely excluded. Left hydronephrosis not simply change with multifocal intrarenal calculi layering in the dependent urinary pelvis as well as upper midpole renal calices. Bilateral perinephric reaction appears slightly increased, particularly at the left side. No perinephric fluid collection bilaterally. The bilateral ureters appear prominent but without definite radiodense urolithiasis associated. Further clinical correlation advised. VASCULATURE: Unremarkable. No aortic aneurysm. BOWEL: Unremarkable. No obstruction. No gross mural thickening. APPENDIX: Unremarkable. Normal appendix. PERITONEUM: Unremarkable. No free fluid. No free air. LYMPH NODES: Unremarkable. No enlarged lymph nodes. BLADDER: The urinary bladder is not fully distended, with mural thickening not excluded. Trace perinephric reaction may indicate an element of cystitis. REPRODUCTIVE: The prostate gland is stable in appearance remaining mildly enlarged. BONES: No acute fracture. OTHER FINDINGS: None. IMPRESSION: Bilateral hydronephrosis is appreciated stable the left then increase at the right significantly. Retained I did a contrast filled from prior retrograde nephrogram is suggested the right kidney as discussed above. Mild increase in bilateral perinephric reaction is seen with intrarenal calculi again seen layering at the mid upper midpole left kidney calices and renal pelvis. Urinary bladder wall appears thickened but is poorly distended. Underlying cystitis difficult to exclude. Further clinical correlation is advised. Yes
[2017-02-20 06:24] LABS: HEMOGLOBIN 10.5 gm/dL (14.0-18.0); MEAN CELL VOLUME 82.6 fL (80.0-105.0); MEAN CORPUSCULAR HEMOGLOBIN 26.4 pg (25.0-35.0); RBC 3.97 10^6/uL (3.5-6.1); RED CELL DISTRIBUTION WIDTH 13.8 % (11.5-14.5); WHITE BLOOD COUNT 12.2 10^3/ul (4.5-11.0)
[2017-02-20] MEDS: Pantoprazole 40 mg EC Tab PO SCH (06:54)
--- NOTE | 2017-02-20 08:16 | PN ---
DATE: 02/19/2017 SUBJECTIVE: The patient is seen in his room at [facility]. He is awake and in no acute distress. PHYSICAL EXAMINATION VITAL SIGNS: He is afebrile, temp of 98, pulse 82, blood pressure 105/72, respiration is 18. ABDOMEN: Soft, nontender and nondistended. No CVA tenderness. LABORATORY DATA: WBC count did dropped to 17.7, creatinine 1.0 with a GFR greater than 60. Preliminary blood cultures are no growth after 24 hours. Gram stains were pending. IMPRESSION AND PLAN: CT scan shows persistent hydronephrosis with routine contrast in the right kidney this appears to be a choric hydronephrosis, left kidney also with a mild hydronephrosis and stones. The patient had bilateral ureteroscopy yesterday with removal of stents. There did not appear to be any obstructing calculi in his ureters. There were no stones noted in either renal pelvis. Plan would be to continue observation for now on IV fluids and antibiotics. It appears that the hydronephrosis is likely chronic and most likely from high voiding pressure given the patient multiple sclerosis. If the patient continues to have an elevated white count or spikes a fever, unfortunately I would recommend placement of nephrostomy tubes as indwelling stents will likely worsen the hydronephrosis. The patient is wheelchair bound, MS patient, very difficult management, we can consider replacing the stents, but that may further transfer pressure from his bladder up to his kidneys unless we want to consider an indwelling Garcia catheter as well. These will be for further infection, however. We will continue observation at this point. Repeat his cultures and continue to follow him closely. Barrera Martinez MD
--- NOTE | 2017-02-20 16:46 | CP.PCM.PN ---
Subjective - Date & Time of Evaluation Date of Evaluation: 02/20/17 Time of Evaluation: 11:50 - Subjective Subjective: nad Objective - Vital Signs/Intake and Output Vital Signs (last 24 hours): Temp Pulse Resp BP Pulse Ox 98.6 F 83 20 145/84 99 02/20/17 12:00 02/20/17 14:00 02/20/17 12:00 02/20/17 12:00 02/20/17 06:00 Intake and Output: 02/20/17 02/20/17 06:59 18:59 Intake Total 240 Balance 240 - Medications Medications: Current Medications Acetaminophen (Tylenol 325mg Tab) 650 mg PO Q4H PRN PRN Reason: Fever >100.4 F Last Admin: 02/18/17 18:15 Dose: 650 mg Acetaminophen (Tylenol 325 Mg Supp) 325 mg RC Q4H PRN PRN Reason: Fever >100.4 F Lamotrigine (Lamictal) 25 mg PO BID [facility] PRN Reason: Protocol Last Admin: 02/20/17 09:08 Dose: 25 mg Metoprolol Tartrate (Lopressor) 25 mg PO BID [facility] Last Admin: 02/20/17 09:08 Dose: 25 mg Pantoprazole Sodium (Protonix Ec Tab) 40 mg PO 0600 [facility] Last Admin: 02/20/17 06:54 Dose: 40 mg - Labs Labs: 02/20/17 05:40 PT 11.4 Seconds (9.9-11.8) 02/17/17 21:45 INR 1.06 (0.93-1.08) 02/17/17 21:45 APTT 30.0 Seconds (23.7-30.8) 02/17/17 21:45 - Respiratory Exam Respiratory Exam: Clear to Ausculation Bilateral, NORMAL BREATHING PATTERN - Cardiovascular Exam Cardiovascular Exam: REGULAR RHYTHM - GI/Abdominal Exam GI & Abdominal Exam: Soft, Normal Bowel Sounds - Neurological Exam Neurological Exam: Alert, Awake - Skin Skin Exam: Dry, Warm Assessment and Plan (1) Fever Status: Resolved (2) Septicemia Status: Suspected (3) Multiple sclerosis Status: Chronic (4) Kidney stones Status: Resolved (5) Leukocytosis Status: Acute - Assessment and Plan (Free Text) Plan: monitor WBC's, observe for S&S of infection, SW for dc planning
--- NOTE | 2017-02-20 20:02 | PN ---
DATE: 02/20/2017 SUBJECTIVE: The patient's urine culture grew 10,000 to 50,000 yeast species. Currently, he is not on any antibiotics. He is afebrile. His white count had gone up yesterday to 17,000 and is 12,000 this morning. He is voiding good amounts. No fever or chills. No flank pain. It might be worthwhile to have ID to give input as to whether they feel the yeast should be treated given the patient's spike in his white count, although now it is coming down. I would defer to them. No reason for any urologic intervention at this time. Ever Dominguez MD
[2017-02-21 02:23] VITALS: RESP 20; O2SAT 98
[2017-02-21] MEDS: Pantoprazole 40 mg EC Tab PO SCH (05:33)
[2017-02-21 06:31] LABS: HEMOGLOBIN 10.3 gm/dL (14.0-18.0); MEAN CORPUSCULAR HEMOGLOBIN 26.5 pg (25.0-35.0); MEAN CORPUSCULAR HGB CONC 32.3 g/dl (31.0-37.0); MEAN PLATELET VOLUME 10.1 fl (7.0-11.0); RBC 3.89 10^6/uL (3.5-6.1); RED CELL DISTRIBUTION WIDTH 13.7 % (11.5-14.5); WHITE BLOOD COUNT 8.1 10^3/ul (4.5-11.0)
--- NOTE | 2017-02-21 11:10 | CP.PCM.PN ---
Subjective - Date & Time of Evaluation Date of Evaluation: 02/21/17 Time of Evaluation: 10:20 - Subjective Subjective: NAD Objective - Vital Signs/Intake and Output Vital Signs (last 24 hours): Temp Pulse Resp BP Pulse Ox 98.2 F 84 20 118/80 98 02/21/17 06:00 02/21/17 10:07 02/21/17 06:00 02/21/17 10:07 02/21/17 06:00 - Medications Medications: Current Medications Acetaminophen (Tylenol 325mg Tab) 650 mg PO Q4H PRN PRN Reason: Fever >100.4 F Last Admin: 02/18/17 18:15 Dose: 650 mg Acetaminophen (Tylenol 325 Mg Supp) 325 mg RC Q4H PRN PRN Reason: Fever >100.4 F Lamotrigine (Lamictal) 25 mg PO BID [facility] PRN Reason: Protocol Last Admin: 02/21/17 10:07 Dose: 25 mg Metoprolol Tartrate (Lopressor) 25 mg PO BID [facility] Last Admin: 02/21/17 10:07 Dose: 25 mg Pantoprazole Sodium (Protonix Ec Tab) 40 mg PO 0600 [facility] Last Admin: 02/21/17 05:33 Dose: 40 mg - Labs Labs: 02/21/17 05:30 PT 11.4 Seconds (9.9-11.8) 02/17/17 21:45 INR 1.06 (0.93-1.08) 02/17/17 21:45 APTT 30.0 Seconds (23.7-30.8) 02/17/17 21:45 - Respiratory Exam Respiratory Exam: Clear to Ausculation Bilateral, NORMAL BREATHING PATTERN - Cardiovascular Exam Cardiovascular Exam: REGULAR RHYTHM - GI/Abdominal Exam GI & Abdominal Exam: Soft, Normal Bowel Sounds - Extremities Exam Extremities Exam: Normal Inspection - Neurological Exam Neurological Exam: Alert, Awake - Skin Skin Exam: Dry, Warm Assessment and Plan (1) Fever Status: Resolved (2) Septicemia Status: Inactive (3) Multiple sclerosis Status: Chronic (4) Kidney stones Status: Resolved (5) Leukocytosis Status: Resolved - Assessment and Plan (Free Text) Plan: for dc planning
[2017-02-21 12:21] VITALS: BP 118/78; PULSE 85; TEMP 97.5
== END 2017-02-21 14:57 | disposition home health service (06) | DRG 872 ==
LOC: ED 21:35 → ERH 02-18 00:02 → 2RNO 02-18 01:33
PROVIDERS: ADMIT Internal Medicine; ATTEND Internal Medicine
DX: A41.9 Sepsis, unspecified organism (principal); G35 Multiple sclerosis; I10 Essential (primary) hypertension; N13.2 Hydronephrosis with renal and ureteral calculous obstruction; G40.909 Epilepsy, unspecified, not intractable, without status epilepticus; D64.9 Anemia, unspecified; K21.9 Gastro-esophageal reflux disease without esophagitis; I25.10 Atherosclerotic heart disease of native coronary artery without angina pectoris; Z99.3 Dependence on wheelchair; Z87.891 Personal history of nicotine dependence

== ENCOUNTER 2017-11-12 19:59 | Inpatient (IN) | payer MEDICARE, MEDICAID ==
[2017-11-12 20:57] LABS: BASO # 0.02 K/mm3 (0.0-2.0); BASO % 0.2 % (0.0-3.0); EOS # 0.1 (0.0-0.7); EOS % 0.9 % (1.5-5.0); GRAN # 8.9 (1.4-6.5); GRAN % 72.3 % (50.0-68.0); HEMOGLOBIN 14.4 g/dL (14.0-18.0); LYMPH # 2.3 (1.2-3.4); MEAN CELL VOLUME 81.3 fl (80.0-105.0); MEAN CORPUSCULAR HEMOGLOBIN 26.9 pg (25.0-35.0); MEAN PLATELET VOLUME 10.5 fl (7.0-11.0); MONO # 0.9 (0.1-0.6); MONO % 7.6 % (1.0-6.0); RBC 5.36 10^6/uL (3.5-6.1); RED CELL DISTRIBUTION WIDTH 14.4 % (11.5-14.5); VENOUS BLOOD GAS PO2 49 mm/Hg (30-55); VENOUS BLOOD PH 7.33 (7.32-7.43); WHITE BLOOD COUNT 12.3 10^3/ul (4.5-11.0)
[2017-11-12 21:05] LABS: ARTERIAL BLOOD GAS HCO3 22.7 mmol/L (21-28); ARTERIAL BLOOD GAS O2 SAT 98.8 % (95-98); ARTERIAL BLOOD GAS PCO2 35 mm/Hg (35-45); ARTERIAL BLOOD GAS PH 7.42 (7.35-7.45); ARTERIAL BLOOD GAS TCO2 23.8 mmol.L (22-28)
[2017-11-12 21:07] LABS: INR 1.06 (0.93-1.08); PARTIAL THROMBOPLASTIN TIME 32.7 Seconds (25.1-36.5); PROTHROMBIN TIME 12.1 SECONDS (9.4-12.5)
[2017-11-12 21:11] LABS: ALB/GLOB RATIO 1.2 (1.1-1.8); ALBUMIN 4.5 g/dL (3.0-4.8); ALT/SGPT 53 U/L (7-56); AST/SGOT 31 U/L (17-59); BLOOD UREA NITROGEN 27 mg/dL (7-21); CALCIUM 9.7 mg/dL (8.4-10.5); GFR AFRICAN-AMERICAN 52; GFR NON-AFRICAN AMERICAN 43
[2017-11-12 21:21] LABS: B-TYPE NATRIURETIC PEPTIDE 95.4 pg/mL (0-450); TROPONIN I < 0.01 ng/mL
--- NOTE | 2017-11-12 22:06 | ED PDOC ---
Arrival/HPI - General Chief Complaint: Shortness Of Breath Time Seen by Provider: 11/12/17 20:06 Historian: Family - History of Present Illness Narrative History of Present Illness (Text): 11/12/17 20:30 Herve Galicia Jr is a 52 year old male, whose past medical history includes multiple sclerosis, Larsen's palsy, hypertension, seizure disorder, and chronic lung disease, who presents to the emergency department brought in by EMS accompanied by family for altered mental status. According to family, patient has appeared a bit more confused and somnolent than usual. Family has periods of alternating increased lucidity. Family reports questionable occasional shortness of breath, denies any known history of chest pain, fever, vomiting, diarrhea, or any other complaints. Symptom Onset: Gradual Symptom Course: Unchanged Activities at Onset: Light Context: Home Past Medical History - Provider Review Nursing Documentation Reviewed: Yes - Infectious Disease Hx of Infectious Diseases: None - Cardiac Hx Pacemaker: No - Pulmonary Hx Chronic Obstructive Pulmonary Disease (COPD): No - Neurological Hx Paralysis: No - HEENT Hx HEENT Disorder: Yes Other/Comment: Optic neuritis - Renal Hx Renal Failure: No - Endocrine/Metabolic Hx Diabetes Mellitus Type 1: No Hx Diabetes Mellitus Type 2: No Hx Hypothyroidism: No - Hematological/Oncological Hx Blood Transfusions: No Hx Blood Transfusion Reaction: No - Integumentary Hx Dermatological Disorder: Yes Other/Comment: multiple old bruises from banging his lower legs when in a chair - Musculoskeletal/Rheumatological Hx Musculoskeletal Disorders: Yes (BEDBOUND WHEELCHAIR BOUND) - Gastrointestinal Hx Gastroesophageal Reflux: Yes - Genitourinary/Gynecological Hx Reproductive Disorders: No - Psychiatric Hx Emotional Abuse: No Hx Physical Abuse: No Hx Substance Use: No - Anesthesia Hx Anesthesia Reactions: No Hx Malignant Hyperthermia: No - Suicidal Assessment Feels Threatened In Home Enviroment: No Family/Social History - Physician Review Nursing Documentation Reviewed: Yes Family/Social History: Unknown Family HX Smoking Status: Former Smoker Hx Alcohol Use: No Hx Substance Use: No Allergies/Home Meds Allergies/Adverse Reactions: Allergies No Known Allergies Allergy (Verified 02/11/17 10:39) Home Medications: Home Meds Medication Instructions Recorded Confirmed Pantoprazole Sodium [Protonix] 40 mg PO QAM 09/14/15 02/17/17 lamoTRIgine [Lamictal] 25 mg PO BID 09/26/15 02/17/17 Cholecalciferol [Vitamin D] 2,000 iu PO DAILY 02/11/17 02/17/17 Garlic [Odor Free Garlic] 1 each PO DAILY 02/11/17 02/17/17 Multivit-Min/FA/Lycopen/Lutein 1 each PO DAILY 02/11/17 02/17/17 [Centrum Silver Men Tablet] Review of Systems - Physician Review All systems were reviewed & negative as marked: Yes - Review of Systems Constitutional: Other (+somnolent) Eyes: Normal ENT: Normal Respiratory: SOB Cardiovascular: Normal. absent: Chest Pain Gastrointestinal: Normal. absent: Abdominal Pain, Diarrhea, Nausea, Vomiting Genitourinary Male: Normal. absent: Dysuria, Frequency, Hematuria, Urinary Output Changes Musculoskeletal: Normal. absent: Back Pain, Neck Pain Skin: Normal Neurological: Other (+confusion, +altered mental status) Endocrine: Normal Hemo/Lymphatic: Normal Psychiatric: Normal Physical Exam Vital Signs Reviewed: Yes Vital Signs Temp Pulse Resp BP Pulse Ox 11/12/17 22:52 100.2 F H 95 H 18 154/100 H 100 11/12/17 21:00 101.3 F H 11/12/17 20:31 101.3 F H 114 H 18 135/101 H 100 Temperature: Febrile Blood Pressure: Normal Pulse: Tachycardic Respiratory Rate: Normal Appearance: Positive for: Non-Toxic Pain Distress: None Mental Status: Positive for: other (Drowsy but arousable, poorly communicative) - Systems Exam Head: Present: Atraumatic, Normocephalic Pupils: Present: PERRL Extroacular Muscles: Present: EOMI Conjunctiva: Present: Normal. No: Other (No eye discharge) Ears: Present: Normal, NORMAL TM, Normal Canal. No: Erythema, TM Bulging, Fluid , TM Perf Mouth: Present: Moist Mucous Membranes Pharnyx: Present: Normal. No: ERYTHEMA, EXUDATE, TONSILS ENLARGED, Peritonsilar Swelling, Uvular Deviation, Muffled/Hoarse Voice, Strider, Soft Palate/Uvular Edema Nose (External): Present: Atraumatic Nose (Internal): Present: Normal Inspection Neck: Present: Normal Range of Motion. No: Meningeal Signs, MIDLINE TENDERNESS , Paraspinal Tenderness Respiratory/Chest: Present: Clear to Auscultation, Good Air Exchange. No: Respiratory Distress, Accessory Muscle Use Cardiovascular: Present: Normal S1, S2, Tachycardic. No: Murmurs Abdomen: No: Tenderness, Distention, Peritoneal Signs Upper Extremity: No: Cyanosis, Edema Lower Extremity: No: Edema, Cyanosis Neurological: Present: CN II-XII Intact, Motor Func Grossly Intact, Other (Awake , poorly communicative (baseline), no new focal neurological deficits) Skin: Present: Warm, Dry, Normal Color. No: Rashes Psychiatric: Present: Other (Drowsy but arousable) Medical Decision Making ED Course and Treatment: 11/12/17 20:30 Impression: 52 year old male brought in for altered mental status Plan: -- EKG -- Labs, cardiac enzymes, BNP, ABG/VBG, blood cultures -- Urinalysis, urine cultures -- Lactated Ringer's -- Tylenol -- Reassess and disposition Prior Visits: Notes and results from previous visits were reviewed. Progress Notes: Reviewed EKG, sinus tachycardia at 108 bpm. Non-specific ST/T wave changes. 11/12/17 21:40 Chest X-Ray reviewed, shows no acute processes. 11/12/17 23:[address] Torre, who is aware and agrees with plan. Accepts pt in to his service. Pt will be admitted to Telemetry for sepsis and urosepsis. 11/13/17 00:28 CT Head shows: Brain: Generalized volume loss. There is nonspecific periventricular and deep white matter disease. No hemorrhage. Ventricles: No acute findings. No ventriculomegaly. Bones/joints: No acute findings. No acute fracture. Soft tissues: No acute findings. Sinuses: No acute findings. No acute sinusitis. Mastoid air cells: No acute findings. No mastoid effusion. IMPRESSION: No acute findings. - Lab Interpretations Lab Results: 11/12/17 20:15 11/12/17 20:15 Lab Results 11/12/17 22:41: Urine Color Yellow, Urine Appearance Sl cloudy, Urine pH 7.0, Ur Specific [place] 1.020, Urine Protein 30 H, Urine Glucose (UA) Negative, Urine Ketones Negative, Urine Blood Small H, Urine Nitrate Negative, Urine Bilirubin Negative, Urine Urobilinogen 0.2, Ur Leukocyte Esterase Large H, Urine RBC 1 - 3, Urine WBC 20 - 25, Ur Epithelial Cells 4 - 5, Urine Bacteria Mod 11/12/17 20:55: pCO2 35, pO2 135.0 H, HCO3 22.7, ABG pH 7.42, ABG Total CO2 23.8 , ABG O2 Saturation 98.8 H, ABG Base Excess -1.3, ABG Potassium 3.5 L, Sodium 144.0, Chloride 116.0 H, Glucose 121 H, Lactate 1.2, FiO2 36.0, Arterial Blood Potassium 3.5 L 11/12/17 20:15: Sodium 146, Chloride 106, Potassium 4.0, Carbon Dioxide 26, Anion Gap 18, BUN 27 H, Creatinine 1.7 H, Est GFR ( Amer) 52, Est GFR ( Non-Af Amer) 43, Random Glucose 127 H, Calcium 9.7, Phosphorus 2.4 L, Magnesium 2.4 H, Total Bilirubin 0.5, AST 31, ALT 53, Alkaline Phosphatase 112, Lactate Dehydrogenase 495, Total Creatine Kinase 69, Troponin I < 0.01, NT-Pro-B Natriuret Pep 95.4, Total Protein 8.3, Albumin 4.5, Globulin 3.8, Albumin/ Globulin Ratio 1.2 11/12/17 20:15: pO2 49, VBG pH 7.33, VBG pCO2 53.0, VBG HCO3 27.9, VBG Total CO2 29.5 H, VBG O2 Sat (Calc) 87.9 H, VBG Base Excess 1.0, VBG Potassium 4.1, Sodium 144.0, Chloride 110.0 H, Glucose 135 H, Lactate 1.6, FiO2 21.0, Venous Blood Potassium 4.1 11/12/17 20:15: PT 12.1, INR 1.06, APTT 32.7 11/12/17 20:15: WBC 12.3 H D, RBC 5.36, Hgb 14.4, Hct 43.6, MCV 81.3, MCH 26.9, MCHC 33.0, RDW 14.4, Plt Count 255, MPV 10.5, Gran % 72.3 H, Lymph % (Auto) 19.0 L, [place] % (Auto) 7.6 H, Eos % (Auto) 0.9 L, Baso % (Auto) 0.2, Gran # 8.90 H, Lymph # (Auto) 2.3, [place] # (Auto) 0.9 H, Eos # (Auto) 0.1, Baso # (Auto) 0.02 I have reviewed the lab results: Yes - RAD Interpretation Radiology Orders: 11/12/17 20:31 CHEST PORTABLE [RAD] Stat 11/12/17 22:46 HEAD W/O CONTRAST [CT] Stat [place] Burnisher: ED Physician, Radiologist - EKG Interpretation Interpreted by ED Physician: Yes Type: 12 lead EKG - Medication Orders Current Medication Orders: Acetaminophen (Tylenol 325mg Tab) 650 mg PO Q4H PRN PRN Reason: Fever >100.5 F Stop: 11/13/17 11:00 Discontinued Medications Acetaminophen (Tylenol 650 Mg Supp) 650 mg RC STAT STA Stop: 11/12/17 20:35 Last Admin: 11/12/17 21:00 Dose: 650 mg MAR Pain/Vitals Document 11/12/17 21:00 AD (Rec: 11/12/17 21:00 AD [id number]) Vitals Temperature (97.6 F-99.6 F) 101.3 F Temperature Source Oral Lactated Ringer's 2,380 ml/ IV (SUPPLIES) 2,380 mls @ 4,762.74 mls/hr IV ONCE ONE PRN Reason: 60 ML/KG/HR Stop: 11/12/17 20:32 Last Admin: 11/12/17 20:59 Dose: 4,762.74 mls/hr eMAR Start Stop Document 11/12/17 20:59 AD (Rec: 11/12/17 21:00 AD [id number]) Intravenous Solution Start Date 11/12/17 Start Time 21:00 Ceftriaxone Sodium (Rocephin 1 Gram Ivpb) 1 gm in 100 mls @ 200 mls/hr IV ONCE STA PRN Reason: Protocol Stop: 11/12/17 23:16 Last Admin: 11/12/17 23:04 Dose: 200 mls/hr eMAR Start Stop Document 11/12/17 23:04 AD (Rec: 11/12/17 23:04 AD [id number]) Intravenous Solution Start Date 11/12/17 Start Time 23:04 Lamotrigine (Lamictal) 25 mg PO DAILY [facility] PRN Reason: Protocol Stop: 11/12/17 21:36 Last Admin: 11/12/17 21:56 Dose: 25 mg - Scribe Statement The provider has reviewed the documentation as recorded by the Fady Muhammad Provider Fady Attestation: All medical record entries made by the Fady were at my direction and personally dictated by me. I have reviewed the chart and agree that the record accurately reflects my personal performance of the history, physical exam, medical decision making, and the department course for this patient. I have also personally directed, reviewed, and agree with the discharge instructions and disposition. Disposition/Present on Arrival - Present on Arrival Any Indicators Present on Arrival: No History of DVT/PE: No History of Uncontrolled Diabetes: No Urinary Catheter: Yes (blood tinged post cysto) History of Decub. Ulcer: No History Surgical Site Infection Following: None - Disposition Have Diagnosis and Disposition been Completed?: Yes Diagnosis: Sepsis Disposition: HOSPITALIZED Disposition Time: 23:54 Patient Problems: Current Active Problems Problem Status Onset Sepsis Acute Condition: STABLE
[2017-11-12] MEDS ORDERED: cefTRIAXone 1 gm 1 GM/100 ML BAG IV STA (22:47)
[2017-11-12 23:14] LABS: URINE BILIRUBIN NEGATIVE (NEGATIVE); URINE BLOOD SMALL (NEGATIVE); URINE GLUCOSE (UA) NEGATIVE (NEGATIVE); URINE LEUKOCYTE ESTERASE LARGE Leu/uL (NEGATIVE); URINE PROTEIN 30 mg/dL (<30 mg/dL); URINE UROBILINOGEN 0.2 E.U./dL (<1 E.U./dL)
[2017-11-12 23:15] LABS: URINE APPEARANCE SL CLOUDY (CLEAR); URINE COLOR YELLOW (YELLOW)
[2017-11-12 23:18] LABS: URINE WBC 20 - 25 /hpf (0-6)
[2017-11-12 23:19] LABS: URINE BACTERIA MOD (NEG)
[2017-11-13 02:02] VITALS: BMI 24.4
[2017-11-13] MEDS ORDERED: Metoprolol 1 mg/ml Inj IVP ONE (05:40)
--- NOTE | 2017-11-13 08:34 | RAD ---
HISTORY: Sepsis Patient COMPARISON: 02/17/2017. FINDINGS: LUNGS: The lungs are clear. PLEURA: No significant pleural effusion identified, no pneumothorax apparent. CARDIOVASCULAR: Normal. OSSEOUS STRUCTURES: No significant abnormalities. VISUALIZED UPPER ABDOMEN: Normal. OTHER FINDINGS: None. IMPRESSION: No active pulmonary disease.
--- NOTE | 2017-11-13 09:27 | CT ---
PROCEDURE: CT HEAD WITHOUT CONTRAST. HISTORY: Altered mental status COMPARISON: None available. TECHNIQUE: Axial computed tomography images were obtained through the head/brain without intravenous contrast. Radiation dose: Total exam DLP = 889.44 mGy-cm. This CT exam was performed using one or more of the following dose reduction techniques: Automated exposure control, adjustment of the mA and/or kV according to patient size, and/or use of iterative reconstruction technique. FINDINGS: HEMORRHAGE: No intracranial hemorrhage. BRAIN: There are mild chronic microangiopathic changes. There is no mass, mass effect or abnormal extra-axial fluid collection. VENTRICLES: There is mild age advanced global parenchymal volume loss and proportionate enlargement of the ventricles and cortical sulci. CALVARIUM: The skull base and calvarium are normal. PARANASAL SINUSES: Predominantly clear. MASTOID AIR CELLS: Predominantly clear. OTHER FINDINGS: None. IMPRESSION: No acute intracranial abnormality. Mild chronic microangiopathic changes. Mild global parenchymal volume loss, advanced for the patient's age.
[2017-11-13] MEDS: Sodium Chloride 0.9% 1,000 ML IV SCH (10:54)
[2017-11-13] MEDS: cefTRIAXone 1 gm 1 GM/100 ML BAG IVPB SCH (10:57)
[2017-11-13] MEDS: Metoprolol Succinate 50 mg XL Tab PO SCH (10:58)
--- NOTE | 2017-11-13 14:40 | CARD ---
APPROVED REPORT EKG Measurement Heart [id number] <Conclusion> Sinus tachycardia Otherwise normal ECG
[2017-11-14] MEDS ORDERED: Metoprolol 1 mg/ml Inj IVP ONE (00:24)
[2017-11-14] MEDS: Sodium Chloride 0.9% 1,000 ML IV SCH (00:45)
[2017-11-14 05:35] LABS: PH,URINE 7.5 (4.7-8.0); URINE BILIRUBIN NEGATIVE (NEGATIVE); URINE BLOOD TRACE-INTACT (NEGATIVE); URINE GLUCOSE (UA) NEGATIVE (NEGATIVE); URINE LEUKOCYTE ESTERASE LARGE Leu/uL (NEGATIVE); URINE PROTEIN NEGATIVE mg/dL (<30 mg/dL); URINE UROBILINOGEN 0.2 E.U./dL (<1 E.U./dL)
[2017-11-14 05:41] LABS: URINE APPEARANCE SL CLOUDY (CLEAR); URINE COLOR YELLOW (YELLOW)
[2017-11-14] MEDS: Pantoprazole 40 mg EC Tab PO SCH (06:01)
[2017-11-14 06:02] LABS: URINE BACTERIA RARE (NEG); URINE EPITHELIAL CELLS 0 - 2 /hpf (0-5); URINE RBC 0 - 2 /hpf (0-2)
[2017-11-14] MEDS ORDERED: Metoprolol 1 mg/ml Inj IVP STA (06:40)
[2017-11-14 07:31] LABS: BASO # 0.02 K/mm3 (0.0-2.0); BASO % 0.1 % (0.0-3.0); EOS # 0.2 (0.0-0.7); EOS % 1.6 % (1.5-5.0); GRAN # 10.02 (1.4-6.5); GRAN % 73.2 % (50.0-68.0); LYMPH # 2.3 (1.2-3.4); LYMPH % 16.8 % (22.0-35.0); MEAN CELL VOLUME 80.9 fl (80.0-105.0); MEAN CORPUSCULAR HEMOGLOBIN 25.9 pg (25.0-35.0); MEAN PLATELET VOLUME 10.2 fl (7.0-11.0); MONO # 1.1 (0.1-0.6); MONO % 8.3 % (1.0-6.0); RBC 4.56 10^6/uL (3.5-6.1); RED CELL DISTRIBUTION WIDTH 13.9 % (11.5-14.5); WHITE BLOOD COUNT 13.7 10^3/ul (4.5-11.0)
[2017-11-14 07:34] LABS: HEMOGLOBIN 11.8 g/dL (14.0-18.0)
[2017-11-14 07:54] LABS: ALB/GLOB RATIO 1.2 (1.1-1.8); ALBUMIN 3.8 g/dL (3.0-4.8); ALT/SGPT 45 U/L (7-56); AST/SGOT 34 U/L (17-59); BLOOD UREA NITROGEN 14 mg/dL (7-21); GFR AFRICAN-AMERICAN > 60; GFR NON-AFRICAN AMERICAN > 60
[2017-11-14] MEDS: Metoprolol Succinate 50 mg XL Tab PO SCH (09:56)
[2017-11-14] MEDS: cefTRIAXone 1 gm 1 GM/100 ML BAG IVPB SCH (11:28)
--- NOTE | 2017-11-14 17:21 | CP.PCM.PN ---
Subjective - Date & Time of Evaluation Date of Evaluation: 11/14/17 Time of Evaluation: 17:19 - Subjective Subjective: PGY-[address] Torre Herve Galicia Jr, 52 M, former smoker, with PMH multiple sclerosis, Larsen's palsy, hypertension, seizure disorder, and chronic lung disease, was brought by family for AMS. Family noted periods of alternating increased lucidity. RN paged me for high BP. I found pt asleep, look comfortable. Pt got hydralazine 10 x 1 at 7am for BP of 164/115. Then he got Norvasc 5 po and Toprol 50 at 10-11 `am. O: VS HR 167/108, HR 102 Gen: NAD. Pt was sleeping. He was easily awoken. He looks excited and communicated with speech and sign language Card: regular S1. S2 Pulm: CTA b/l no w/r/r Neuro: Awake, alert, communicated with staff. Move all extremities Psych: "Happy" A: High blood pressure - not attributed to pain - likely primary Tachycardia of 102 P: Hydralazine 10 IV x 1 Recheck HR and BP in 30 mins Now is 11/14/2017 8:42pm. Dr Anjel Wen, house Doc, was paged for high blood pressure. 141/121. Dr. Wen asks me to call Dr. Torre and asks what he would like to do. Dr Torre called back, stated that he does not think the blood pressure is accurate. Dr. Wen later related that the blood pressure was taken manually. Dr Torre states that if the patient is asymptomatic, "no need to treat". I state that if Dr. Wen get another page regarding this patient, he will be called again. I have related Dr Torre's instructions to Dr. Wen. Objective - Vital Signs/Intake and Output Vital Signs (last 24 hours): Temp Pulse Resp BP Pulse Ox 98.1 F 75 18 160/90 H 98 11/14/17 06:00 11/14/17 09:56 11/14/17 06:00 11/14/17 09:56 11/14/17 06:00 Intake and Output: 11/14/17 11/14/17 06:59 18:59 Intake Total 1600 Output Total 1400 Balance 200 - Medications Medications: Current Medications Acetaminophen (Tylenol 325mg Tab) 650 mg PO Q4H PRN PRN Reason: Pain, Mild (1-3) Last Admin: 11/14/17 00:44 Dose: 650 mg Amlodipine Besylate (Norvasc) 5 mg PO DAILY [facility] Ceftriaxone Sodium (Rocephin 1 Gram Ivpb) 1 gm in 100 mls @ 100 mls/hr IVPB DAILY [facility] PRN Reason: Protocol Last Admin: 11/14/17 11:28 Dose: 100 mls/hr Lamotrigine (Lamictal) 25 mg PO BID [facility] PRN Reason: Protocol Last Admin: 11/14/17 11:28 Dose: 25 mg Metoprolol Succinate (Toprol Xl) 50 mg PO BRK [facility] Last Admin: 11/14/17 09:56 Dose: 50 mg Pantoprazole Sodium (Protonix Ec Tab) 40 mg PO 0600 [facility] Last Admin: 11/14/17 06:01 Dose: 40 mg Polyethylene Glycol (Miralax) 17 gm PO DAILY [facility] - Labs Labs: 11/14/17 07:00 11/14/17 07:00 PT 12.1 SECONDS (9.4-12.5) 11/12/17 20:15 INR 1.06 (0.93-1.08) 11/12/17 20:15 APTT 32.7 Seconds (25.1-36.5) 11/12/17 20:15
[2017-11-14] MEDS: POLYETHYLENE GLYCOL 3350 17 GM/Dose PACKET PO SCH (18:29)
--- NOTE | 2017-11-14 21:01 | HP ---
DATE OF EXAM: 11/14/2017 (Retain this field only for Dr. Colleen Ozuna, even if not dictated.) HISTORY OF PRESENT ILLNESS The patient is a 52-year-old male with a history of multiple sclerosis admitted through the Emergency Department on 11/12/2017 with low-grade fever, respiratory congestion and altered mental status. PAST MEDICAL HISTORY: The patient's past medical history includes recurrent aspiration pneumonia, seizure disorder and Larsen's palsy. PAST SURGICAL HISTORY: The patient has no significant past surgical history other than placement of ureteral stent by Dr. Escobar on previous admission. MEDICATIONS: The patient's current medications include Lamictal 25 mg twice daily, Protonix 40 mg daily, metoprolol 25 mg twice daily. ALLERGIES: THE PATIENT HAS NO KNOWN DRUG ALLERGIES. REVIEW OF SYSTEMS: The patient is unable to give a review of systems. SOCIAL HISTORY The patient lives with his parents, requires 24 hours care and is essentially wheelchair and bed-bound. There is no history of tobacco or alcohol use. PHYSICAL EXAMINATION: GENERAL: The patient is a well-developed, slightly cachectic male in no acute distress. VITAL SIGNS: Blood pressure 160/90, pulse 75, respiratory 18, temperature 98.1. HEENT: Head is normocephalic, atraumatic. Pupils equal, round, reactive to light. Extraocular movements intact. NECK: Supple. No thyromegaly. No adenopathy. No nuchal rigidity. LUNGS: Clear. HEART: Regular rate and rhythm. ABDOMEN: Soft and nontender. Bowel sounds are normoactive. EXTREMITIES: Without cyanosis, clubbing or edema. NEUROLOGIC: The patient is awake and responsive to verbal commands. There is bilateral spasticity of the upper and lower extremities. LABORATORY DATA: WBCs 13.7, hemoglobin 11.8, hematocrit 36.9. Sodium 145, potassium 3.8, chloride 109, CO2 25, BUN 14, creatinine 1.2, glucose 113. Urinalysis shows large leukocyte esterase with WBCs and moderate bacteria. Chest x-ray showed no active disease. CT scan of the head was negative for any acute bleeds or infarcts. IMPRESSION: 1. Urinary tract infection, rule out urosepsis. 2. History of kidney stones with ureteral stent. 3. Multiple sclerosis. 4. History of recurrent aspiration pneumonia. 5. History of seizure disorder. PLAN: The patient is admitted to the medical-surgical floor. We will obtain neurology consultation from Dr. Lindquist. Start the patient on empiric IV Rocephin 1 g every 24 hours, aspiration precautions as well as positioning to prevent decubitus ulcers. CARLOS De Luna MD
[2017-11-15] MEDS: Pantoprazole 40 mg EC Tab PO SCH (05:08)
[2017-11-15] MEDS: cefTRIAXone 1 gm 1 GM/100 ML BAG IVPB SCH (10:34)
[2017-11-15] MEDS: POLYETHYLENE GLYCOL 3350 17 GM/Dose PACKET PO SCH (10:35)
[2017-11-15] MEDS: Metoprolol Succinate 50 mg XL Tab PO SCH (10:35)
--- NOTE | 2017-11-15 13:31 | CP.PCM.PN ---
Subjective - Date & Time of Evaluation Date of Evaluation: 11/15/17 Time of Evaluation: 13:00 - Subjective Subjective: awake and responsive, NAD, no chest pain, no SOB Objective - Vital Signs/Intake and Output Vital Signs (last 24 hours): Temp Pulse Resp BP Pulse Ox 99.3 F 98 H 19 158/98 H 97 11/14/17 16:00 11/15/17 05:47 11/14/17 16:00 11/15/17 05:50 11/14/17 16:00 - Medications Medications: Current Medications Acetaminophen (Tylenol 325mg Tab) 650 mg PO Q4H PRN PRN Reason: Pain, Mild (1-3) Last Admin: 11/14/17 00:44 Dose: 650 mg Amlodipine Besylate (Norvasc) 5 mg PO DAILY [facility] Last Admin: 11/15/17 10:36 Dose: 5 mg Hydralazine HCl (Apresoline) 10 mg IVP Q6 PRN PRN Reason: BP ABOVE 150/98 Last Admin: 11/15/17 05:47 Dose: 10 mg Ceftriaxone Sodium (Rocephin 1 Gram Ivpb) 1 gm in 100 mls @ 100 mls/hr IVPB DAILY [facility] PRN Reason: Protocol Last Admin: 11/15/17 10:34 Dose: 100 mls/hr Lamotrigine (Lamictal) 25 mg PO BID [facility] PRN Reason: Protocol Last Admin: 11/15/17 10:35 Dose: 25 mg Metoprolol Succinate (Toprol Xl) 100 mg PO BRK [facility] Pantoprazole Sodium (Protonix Ec Tab) 40 mg PO 0600 [facility] Last Admin: 11/15/17 05:08 Dose: 40 mg Polyethylene Glycol (Miralax) 17 gm PO DAILY [facility] Last Admin: 11/15/17 10:35 Dose: 17 gm - Labs Labs: 11/14/17 07:00 11/14/17 07:00 PT 12.1 SECONDS (9.4-12.5) 11/12/17 20:15 INR 1.06 (0.93-1.08) 11/12/17 20:15 APTT 32.7 Seconds (25.1-36.5) 11/12/17 20:15 - Respiratory Exam Respiratory Exam: Clear to Ausculation Bilateral - Cardiovascular Exam Cardiovascular Exam: REGULAR RHYTHM - GI/Abdominal Exam GI & Abdominal Exam: Soft, Normal Bowel Sounds - Extremities Exam Extremities Exam: Normal Inspection - Neurological Exam Neurological Exam: Alert, Awake, Motor Sensory Deficit - Skin Skin Exam: Dry, Warm Assessment and Plan (1) UTI (urinary tract infection) Status: Acute (2) HTN (hypertension) Status: Acute (3) Multiple sclerosis Status: Chronic - Assessment and Plan (Free Text) Plan: increase metoprolol succ to 100 qd, continue IV Rocephin. Above events noted, no clinical evidence to support pulse pressure reading of 20 from yesterday. Continue monitoring bp
[2017-11-16] MEDS: Pantoprazole 40 mg EC Tab PO SCH (05:19)
[2017-11-16] MEDS: Metoprolol Succinate 100 mg XL Tab PO SCH (08:55)
[2017-11-16] MEDS: POLYETHYLENE GLYCOL 3350 17 GM/Dose PACKET PO SCH (10:53)
[2017-11-16] MEDS: cefTRIAXone 1 gm 1 GM/100 ML BAG IVPB SCH (10:54)
--- NOTE | 2017-11-16 12:25 | CP.PCM.PN ---
Subjective - Date & Time of Evaluation Date of Evaluation: 11/16/17 Time of Evaluation: 12:00 - Subjective Subjective: no acute distress, no chest pain, no SOB Objective - Vital Signs/Intake and Output Vital Signs (last 24 hours): Temp Pulse Resp BP Pulse Ox 98.6 F 92 H 20 124/94 H 96 11/15/17 16:00 11/16/17 10:53 11/16/17 08:44 11/16/17 10:53 11/16/17 08:44 Intake and Output: 11/16/17 11/16/17 06:59 18:59 Intake Total 1320 Balance 1320 - Medications Medications: Current Medications Acetaminophen (Tylenol 325mg Tab) 650 mg PO Q4H PRN PRN Reason: Pain, Mild (1-3) Last Admin: 11/15/17 23:40 Dose: 650 mg Amlodipine Besylate (Norvasc) 5 mg PO DAILY [facility] Last Admin: 11/16/17 10:53 Dose: 5 mg Hydralazine HCl (Apresoline) 10 mg IVP Q6 PRN PRN Reason: BP ABOVE 150/98 Last Admin: 11/15/17 05:47 Dose: 10 mg Ceftriaxone Sodium (Rocephin 1 Gram Ivpb) 1 gm in 100 mls @ 100 mls/hr IVPB DAILY [facility] PRN Reason: Protocol Last Admin: 11/16/17 10:54 Dose: 100 mls/hr Lamotrigine (Lamictal) 25 mg PO BID [facility] PRN Reason: Protocol Last Admin: 11/16/17 10:57 Dose: 25 mg Metoprolol Succinate (Toprol Xl) 100 mg PO BRK [facility] Last Admin: 11/16/17 08:55 Dose: 100 mg Pantoprazole Sodium (Protonix Ec Tab) 40 mg PO 0600 [facility] Last Admin: 11/16/17 05:19 Dose: 40 mg Polyethylene Glycol (Miralax) 17 gm PO DAILY [facility] Last Admin: 11/16/17 10:53 Dose: 17 gm - Labs Labs: 11/14/17 07:00 11/14/17 07:00 PT 12.1 SECONDS (9.4-12.5) 11/12/17 20:15 INR 1.06 (0.93-1.08) 11/12/17 20:15 APTT 32.7 Seconds (25.1-36.5) 11/12/17 20:15 - Respiratory Exam Respiratory Exam: NORMAL BREATHING PATTERN - Cardiovascular Exam Cardiovascular Exam: REGULAR RHYTHM - GI/Abdominal Exam GI & Abdominal Exam: Soft, Normal Bowel Sounds - Neurological Exam Neurological Exam: Alert, Awake - Skin Skin Exam: Dry, Warm Assessment and Plan (1) UTI (urinary tract infection) Status: Acute (2) HTN (hypertension) Status: Chronic (3) Multiple sclerosis Status: Chronic - Assessment and Plan (Free Text) Plan: dc IV Abx, SW for discharge planning in am
[2017-11-17] MEDS: Pantoprazole 40 mg EC Tab PO SCH (05:10)
[2017-11-17] MEDS: Metoprolol Succinate 100 mg XL Tab PO SCH (10:04)
--- NOTE | 2017-11-17 12:03 | CP.PCM.PN ---
Subjective - Date & Time of Evaluation Date of Evaluation: 11/17/17 Time of Evaluation: 09:00 - Subjective Subjective: NAD, denies chest pain, no SOB Objective - Vital Signs/Intake and Output Vital Signs (last 24 hours): Temp Pulse Resp BP Pulse Ox 98.2 F 90 18 155/117 H 97 11/17/17 08:14 11/17/17 08:14 11/17/17 08:14 11/17/17 10:04 11/17/17 08:14 Intake and Output: 11/17/17 11/17/17 06:59 18:59 Intake Total 1140 Output Total 100 Balance 1040 - Medications Medications: Current Medications Amlodipine Besylate (Norvasc) 5 mg PO DAILY [facility] Stop: 11/17/17 12:00 Last Admin: 11/16/17 10:53 Dose: 5 mg Amlodipine Besylate (Norvasc) 10 mg PO DAILY [facility] Last Admin: 11/17/17 10:04 Dose: 10 mg Lamotrigine (Lamictal) 25 mg PO BID [facility] PRN Reason: Protocol Last Admin: 11/16/17 17:35 Dose: 25 mg Metoprolol Succinate (Toprol Xl) 100 mg PO BRK [facility] Last Admin: 11/17/17 10:04 Dose: 100 mg Pantoprazole Sodium (Protonix Ec Tab) 40 mg PO 0600 [facility] Last Admin: 11/17/17 05:10 Dose: 40 mg - Labs Labs: 11/14/17 07:00 11/14/17 07:00 PT 12.1 SECONDS (9.4-12.5) 11/12/17 20:15 INR 1.06 (0.93-1.08) 11/12/17 20:15 APTT 32.7 Seconds (25.1-36.5) 11/12/17 20:15 - Respiratory Exam Respiratory Exam: Clear to Ausculation Bilateral, NORMAL BREATHING PATTERN - Cardiovascular Exam Cardiovascular Exam: REGULAR RHYTHM - GI/Abdominal Exam GI & Abdominal Exam: Soft, Normal Bowel Sounds - Neurological Exam Neurological Exam: Alert, Awake - Skin Skin Exam: Dry, Warm Assessment and Plan (1) UTI (urinary tract infection) Status: Acute (2) HTN (hypertension) Status: Chronic (3) Multiple sclerosis Status: Chronic - Assessment and Plan (Free Text) Plan: increase amlodipine 10mg qd for elevated bp, DC IV Abx, SW for discharge planning
[2017-11-18] MEDS: Pantoprazole 40 mg EC Tab PO SCH (05:47)
[2017-11-18 08:41] VITALS: BP 138/90; PULSE 80; RESP 20; TEMP 97.9; O2SAT 99
[2017-11-18] MEDS: Metoprolol Succinate 100 mg XL Tab PO SCH (09:15)
== END 2017-11-18 12:54 | disposition home or self-care (01) | DRG 690 ==
LOC: ED 19:59 → ERH 23:50 → 2RNO 11-13 01:19 → 3RSO 11-14 02:52
PROVIDERS: ADMIT Internal Medicine; ATTEND Internal Medicine
DX: N39.0 Urinary tract infection, site not specified (principal); G35 Multiple sclerosis; G40.909 Epilepsy, unspecified, not intractable, without status epilepticus; G51.0 Bell's palsy; I10 Essential (primary) hypertension; K21.9 Gastro-esophageal reflux disease without esophagitis; N20.0 Calculus of kidney; Z74.01 Bed confinement status; Z99.3 Dependence on wheelchair; Z87.891 Personal history of nicotine dependence

== ENCOUNTER 2018-01-08 08:35 | Emergency (ER) | payer MEDICARE, MEDICAID ==
[2018-01-08 08:42] VITALS: BMI 25.8
[2018-01-08] MEDS ORDERED: Norepinephrine 8 MG in Sodium Chloride 0.9% 500 ML IV PRN (08:57)
[2018-01-08] MEDS ORDERED: Sodium Chloride 0.9% 2,000 ML IV STA (09:01)
[2018-01-08 09:14] LABS: VENOUS BLOOD GAS BASE EXCESS -14.4 mmol/L (0.0-2.0); VENOUS BLOOD GAS PO2 30 mm/Hg (30-55)
[2018-01-08 09:17] LABS: VENOUS BLOOD PH 6.92 (7.32-7.43)
[2018-01-08] MEDS ORDERED: Sodium Bicarbonate (8.4%) 50 Meq Syringe IVP ONE (09:23)
[2018-01-08 09:24] LABS: ALB/GLOB RATIO 1.3 (1.1-1.8); CALCIUM 9.3 mg/dL (8.4-10.5)
[2018-01-08 09:29] LABS: BASO # 0.03 K/mm3 (0.0-2.0); BASO % 0.3 % (0.0-3.0); EOS % 0.1 % (1.5-5.0); GRAN # 2.98 (1.4-6.5); GRAN % 31.2 % (50.0-68.0); HEMOGLOBIN 12.4 g/dL (14.0-18.0); LYMPH # 5.4 (1.2-3.4); LYMPH % 56.9 % (22.0-35.0); MEAN CELL VOLUME 86.3 fl (80.0-105.0); MEAN CORPUSCULAR HEMOGLOBIN 26.1 pg (25.0-35.0); MEAN CORPUSCULAR HGB CONC 30.2 g/dl (31.0-37.0); MEAN PLATELET VOLUME 11.3 fl (7.0-11.0); MONO # 1.1 (0.1-0.6); MONO % 11.5 % (1.0-6.0); RBC 4.76 10^6/uL (3.5-6.1); RED CELL DISTRIBUTION WIDTH 14.6 % (11.5-14.5); WHITE BLOOD COUNT 9.6 10^3/ul (4.5-11.0)
[2018-01-08 09:38] LABS: INR 1.14 (0.93-1.08); PROTHROMBIN TIME 13.1 SECONDS (9.4-12.5)
[2018-01-08 09:46] VITALS: RESP 18; O2SAT 99
[2018-01-08] MEDS ORDERED: Vancomycin 1gm in NS 250ml 1 GM/250 ML BAG IVPB STA (09:48)
[2018-01-08] MEDS ORDERED: Piperacillin/Tazobact 3.375 gm 100 ML IVPB STA (09:48)
[2018-01-08 09:50] VITALS: BP 101/61
--- NOTE | 2018-01-08 09:58 | ED PDOC ---
Arrival/HPI - General Historian: EMS - History of Present Illness Time/Duration: Prior to Arrival Symptom Onset: Sudden Symptom Course: Unchanged Activities at Onset: Sleeping Context: Home <Bernard Briones - Last Filed: 01/08/18 11:40> <De DiosFaustino - Last Filed: 01/08/18 11:47> - General Chief Complaint: Cardiac Arrest Time Seen by Provider: 01/08/18 08:56 - History of Present Illness Narrative History of Present Illness (Text): 01/08/18 9:01 52 year old male, with past medical history of advanced MS (diagnosed at age 19 ) and seizure, presents to the Emergency department s/p cardiac arrest. Patient lives home with and sleeps on a hospital bed on the first floor. As per EMS , found patient breathing abnormally this morning and immediately called 911. Upon EMS arrival, patient was noted to have "agonal respiration" for which he was assisted with BVM and later intubated. While transferring patient to the stretcher, patient immediately went into asystole and CPR was initiated. Return of spontaneous circulation was achieved en route after continued CPR, assisted ventilation and medication. Upon arrival to the Emergency department, patient went into asystole again and appropriate protocol was initiated. After continuous CPR, assisted ventilation and medication, ROSC was achieved again in the Emergency department. Pulseless electrical activity and rhythms were achieved but were short lived prompting repetition of protocol. Placement of right subclavian central line was performed as well as placement of tapia catheter and NG tube. In chance of infection due to possible aspiration, patient is given antibiotics. Patient will be transferred to ICU for further treatment and care. HPI and ROS limited due to patient's current state of unresponsiveness. PMD: Dr. Torre (Bernard Briones) Past Medical History - Provider Review Nursing Documentation Reviewed: Yes - Infectious Disease Hx of Infectious Diseases: None - Cardiac Hx Cardiac Disorders: Yes Hx Hypertension: Yes - Pulmonary Hx Chronic Obstructive Pulmonary Disease (COPD): Yes - Neurological Hx Neurological Disorder: Yes Hx Seizures: Yes (absent) Other/Comment: sharma's palsy. Multiple Sclerosis - HEENT Hx HEENT Disorder: Yes (Optic neuritis) - Renal Hx Renal Disorder: No - Endocrine/Metabolic Hx Endocrine Disorders: No - Hematological/Oncological Hx Blood Disorders: No - Integumentary Hx Dermatological Disorder: No - Musculoskeletal/Rheumatological Hx Musculoskeletal Disorders: Yes (BEDBOUND/WHEELCHAIR BOUND) Hx Falls: Yes - Gastrointestinal Hx Gastrointestinal Disorders: Yes Hx Gastroesophageal Reflux: Yes - Genitourinary/Gynecological Hx Genitourinary Disorders: Yes Hx Incontinence: Yes - Psychiatric Hx Psychophysiologic Disorder: No Hx Substance Use: No - Anesthesia Hx Anesthesia Reactions: No Hx Malignant Hyperthermia: No - Suicidal Assessment Feels Threatened In Home Enviroment: No <Bernard Briones - Last Filed: 01/08/18 11:40> Family/Social History - Physician Review Nursing Documentation Reviewed: Yes Family/Social History: No Known Family HX Smoking Status: Never Smoked Hx Alcohol Use: No Hx Substance Use: No <Bernard Briones - Last Filed: 01/08/18 11:40> Allergies/Home Meds <Bernard Briones - Last Filed: 01/08/18 11:40> <Faustino De Dios - Last Filed: 01/08/18 11:47> Allergies/Adverse Reactions: Allergies No Known Allergies Allergy (Verified 01/08/18 09:44) Home Medications: Home Meds Medication Instructions Recorded Confirmed Pantoprazole Sodium [Protonix] 40 mg PO QAM 09/14/15 11/13/17 lamoTRIgine [Lamictal] 25 mg PO HS 09/26/15 11/13/17 Review of Systems - Review of Systems Systems not reviewed;Unavailable: Other (Unresponsive) Respiratory: Other (agonal respiration ) Cardiovascular: Other (Cardiac arrest ) <Bernard Briones - Last Filed: 01/08/18 11:40> Physical Exam Vital Signs Reviewed: Yes Temperature: Afebrile Blood Pressure: Hypotensive Pulse: Pulseless Respiratory Rate: Mechanically Ventilated Appearance: Positive for: Other (Pale) Pain Distress: None Mental Status: Positive for: other (Unresponsive) - Systems Exam Head: Present: Atraumatic, Normocephalic Pupils: Present: Other (pupils fixed at midpoint) Extroacular Muscles: Present: EOMI Conjunctiva: Present: Normal Respiratory/Chest: Present: Clear to Auscultation (clear with bagging) Cardiovascular: Present: Regular Rate and Rhythm, Normal S1, S2. No: Murmurs Abdomen: No: Tenderness, Distention, Peritoneal Signs Back: Present: Normal Inspection Upper Extremity: Present: Normal Inspection. No: Cyanosis, Edema Lower Extremity: Present: Normal Inspection. No: Edema Neurological: Present: Other (Unresponsive) Skin: Present: Warm, Dry, Normal Color. No: Rashes Psychiatric: Present: Other (Unresponsive) <Bernard Briones - Last Filed: 01/08/18 11:40> Vital Signs Pulse Pulse Resp BP Pulse Ox 01/08/18 09:45 96 H 01/08/18 09:41 110 H 18 101/61 99 01/08/18 09:35 96 H 18 55/39 L 99 01/08/18 09:30 104 H 18 77/43 L 99 01/08/18 09:27 124 H 18 124/70 99 01/08/18 09:25 150 H 18 153/130 H 99 01/08/18 09:23 149 H 18 000/00 L 99 01/08/18 09:20 41 L 18 36/28 L 99 01/08/18 09:15 100 H 18 50/32 L 99 01/08/18 09:10 125 H 18 78/44 L 99 01/08/18 09:00 36 L 18 000/00 L 99 01/08/18 08:53 135 H 18 60/38 L 99 01/08/18 08:40 0 L 0 L 000/00 L 0 L Medical Decision Making <Bernard Briones - Last Filed: 01/08/18 11:40> <Faustino De Dios - Last Filed: 01/08/18 11:47> ED Course and Treatment: 01/08/18 9:01 Impression: 52 year old male presents to the Emergency department s/p cardiac arrest. Plan: -- Cardiac Arrest protocol -- ABG -- VBG -- Labs -- Chest X-ray -- Vancomycin -- IV Fluids -- Blood Culture -- Reassess and disposition Prior Visits: Notes and results from previous visits were reviewed. Progress Notes: 01/08/18 9:15 PROCEDURE: CENTRAL LINE PLACEMENT Performed by the emergency provider, Time: 9:15 Consent: Informed consent was precluded by the urgency of the procedure and the patient condition. Timeout: A timeout to verify the correct patient, procedure, and site was performed. Indication: Cardiac asystole. Anesthesia: Local anesthesia. Skin Preparation: Hand hygiene performed prior to central venous catheter insertion. Sterile field, sterile drape, sterile technique, and cap and gown were used. The area was cleansed with antiseptic. Patient position: Supine. Location: Right subclavian . Ultrasound guidance: NO. Blind subclavian approach used. Technique: The landmarks for the line placement were identified. The vessel was cannulated and a non-tunneled 7.0 Fr triple lumen was placed using the Seldinger technique. Successful placement: YES. Assessment: Good patency and blood return through all three lumens. The ports were appropriately flushed. Post-procedure: Patient tolerated the procedure well with no immediate complications. Chest X-ray shows no pneumothorax and good line placement. 01/08/18 9:20 ICU paged for consultation. 01/08/18 10:51 Despite our best efforts and even after adding a second presser, patient succumbed to cardiopulmonary arrest. Patient was pronounced at 10:51 am. (Bernard Briones) 01/08/18 10:41 Faustino De Dios Internal Medicine Addendum: Patient is status post 4 code blues with with epi given every 3-5 minutes with pulse check/rhythm checks every 2 minutes. ROSC was achieved. Patient's code status was extensively discussed with mother and father of patient. DNR, DNI, and full code status thoroughly explained to patient's parents. As per parents, who state they are POA, the patient stated he did not want life saving measures. Patient has been made DNR. Patient experienced bradycardia. Blood pressure gradually decreased despite double pressor support. Pulses were not palplated. Asystole seen on monitor, pupils are fixed and dilated, no response to painful stimuli, no heart/lung sounds auscultated, cardiac ultrasound exhibited no movement Patient time of : 10:51AM. 01/08/18 11:24 - patient primary notified. (Faustino De Dios) - Lab Interpretations Lab Results: 01/08/18 09:01 01/08/18 09:01 Lab Results 01/08/18 09:02: pO2 30, VBG pH 6.92 L*, VBG pCO2 98.0 H*, VBG HCO3 20.1 L, VBG Total CO2 23.1, VBG O2 Sat (Calc) 37.3 L, VBG Base Excess -14.4 L, VBG Potassium 4.4, Glucose 132 H, Lactate 14.4 H*, FiO2 21.0, Sodium 149.0 H, Chloride 109.0 H, Venous Blood Potassium 4.4 06/14/18 09:01: Sodium 154 H, Potassium 4.3, Chloride 108 H, Carbon Dioxide 20 L , Anion Gap 30 H, BUN 22 H, Creatinine 2.3 H, Est GFR ( Amer) 37, Est GFR (Non-Af Amer) 30, Random Glucose 127 H, Calcium 9.3, Total Bilirubin 0.3, AST 62 H D, ALT 80 H, Alkaline Phosphatase 99, Lactate Dehydrogenase 624, Total Creatine Kinase 64, Troponin I 0.57 H* D, Total Protein 7.1, Albumin 4.0, Globulin 3.1, Albumin/Globulin Ratio 1.3 01/08/18 09:01: PT 13.1 H, INR 1.14 H 01/08/18 09:01: WBC 9.6 D, RBC 4.76, Hgb 12.4 L, Hct 41.1 L, MCV 86.3 D, MCH 26.1, MCHC 30.2 L, RDW 14.6 H, Plt Count 211, MPV 11.3 H, Gran % 31.2 L, Lymph % (Auto) 56.9 H, [place] % (Auto) 11.5 H, Eos % (Auto) 0.1 L, Baso % (Auto) 0.3, Gran # 2.98, Lymph # (Auto) 5.4 H, [place] # (Auto) 1.1 H, Eos # (Auto) 0.0, Baso # (Auto) 0.03 - RAD Interpretation Radiology Orders: 01/08/18 08:42 CHEST PORTABLE [RAD] Stat 01/08/18 09:43 CXR [CHEST PORTABLE] [RAD] Stat - Medication Orders Current Medication Orders: Norepinephrine Bitartrate 8 mg (/ Sodium Chloride) 508 mls @ 15.24 mls/hr IV .Q24H PRN; Protocol; 4 MCG/MIN PRN Reason: TITRATE PER MD ORDER Last Admin: 01/08/18 10:04 Dose: 4 mcg/min, 15.24 mls/hr eMAR Start Stop Document 01/08/18 10:04 LM (Rec: 01/08/18 10:04 [facility] [id number]) Intravenous Solution Start Date 01/08/18 Start Time 08:46 Titration Intervention Document 01/08/18 10:04 LM (Rec: 01/08/18 10:04 [facility] [place] [id number][place] Titration Intake Waste Amount 0 Container Volume 508 Titration Dosing Titration Dose 4 IV Rate 15.24 Intake/Decrease Started Vasopressin 20 units/ Sodium (Chloride) 101 mls @ 9.09 mls/hr IV .Q11H7M [facility]; 0.03 U/MIN PRN Reason: Protocol Discontinued Medications Hydrocortisone Sodium Succinate (Solu-Cortef) 100 mg IVP STAT [facility] Stop: 01/08/18 10:23 Sodium Chloride (Sodium Chloride 0.9%) 2,000 mls @ 999 mls/hr IV .Q2H1M [facility] Stop: 01/08/18 11:01 Last Admin: 01/08/18 10:05 Dose: 999 mls/hr eMAR Start Stop Document 01/08/18 10:05 [facility] [place] (Rec: 01/08/18 10:05 [facility] [place] [id number][place] Intravenous Solution Start Date 01/08/18 Start Time 08:46 End Date 01/08/18 End time 09:56 Total Infusion Time 70 Vancomycin HCl (Vancomycin 1gm) 1 gm in 250 mls @ 167 mls/hr IVPB STAT [facility] PRN Reason: Protocol Stop: 01/08/18 11:17 Piperacillin Sod/Tazobactam Sod (Zosyn 3.375 In Ns 100ml) 100 mls @ 200 mls/hr IVPB STAT ST[facility] PRN Reason: Protocol Stop: 01/08/18 10:17 Last Admin: 01/08/18 10:05 Dose: 200 mls/hr e[facility] Start Stop Document 01/08/18 10:05 [facility] [place] (Rec: 01/08/18 10:06 [facility] [place] [id number]) Intravenous Solution Start Date 01/08/18 Start Time 10:00 End Date 01/08/18 End time 10:30 Total Infusion Time 30 - PA / ADULT EDUCATION PROFESSIONAL / Resident Statement MD/DO has reviewed & agrees with the documentation as recorded. MD/DO has examined the patient and agrees with the treatment plan. - Scribe Statement The provider has reviewed the documentation as recorded by the Scribe <Bernard Briones - Last Filed: 01/08/18 11:40> <Faustino De Dios - Last Filed: 01/08/18 11:47> - Scribe Statement Brandon Carias. All medical record entries made by the Scribe were at my direction and personally dictated by me. I have reviewed the chart and agree that the record accurately reflects my personal performance of the history, physical exam, medical decision making, and the department course for this patient. I have also personally directed, reviewed, and agree with the discharge instructions and disposition. (Bernard Briones) Disposition/Present on Arrival - Present on Arrival History of DVT/PE: No History of Uncontrolled Diabetes: No Urinary Catheter: No History of Decub. Ulcer: No History Surgical Site Infection Following: None <Bernard Briones - Last Filed: 01/08/18 11:40> - Present on Arrival Any Indicators Present on Arrival: No - Disposition Have Diagnosis and Disposition been Completed?: Yes Disposition Time: 10:51 <Faustino De Dios - Last Filed: 01/08/18 11:47> - Disposition Diagnosis: Cardiac arrest Condition:
[2018-01-08 10:02] LABS: TROPONIN I 0.57 ng/mL
[2018-01-08 10:03] VITALS: PULSE 96
[2018-01-08 10:10] LABS: ARTERIAL BLOOD GAS HCO3 17.5 mmol/L (21-28); ARTERIAL BLOOD GAS O2 SAT 98.7 % (95-98); ARTERIAL BLOOD GAS PCO2 49 mm/Hg (35-45)
[2018-01-08 10:11] LABS: ARTERIAL BLOOD GAS PH 7.16 (7.35-7.45)
--- NOTE | 2018-01-08 10:25 | RAD ---
HISTORY: Cardiac Arrest COMPARISON: 11/12/2017 FINDINGS: LUNGS: No active pulmonary disease. PLEURA: No significant pleural effusion identified, no pneumothorax apparent. CARDIOVASCULAR: Normal. OSSEOUS STRUCTURES: No significant abnormalities. VISUALIZED UPPER ABDOMEN: Normal. OTHER FINDINGS: None. IMPRESSION: The endotracheal tube is in satisfactory position
--- NOTE | 2018-01-08 10:29 | RAD ---
HISTORY: line placement, right subclavian COMPARISON: No prior. FINDINGS: LUNGS: There is a right subclavian line that terminates in the inferior aspect of the right atrium. There is no pneumothorax. Endotracheal tube in satisfactory position PLEURA: No significant pleural effusion identified, no pneumothorax apparent. CARDIOVASCULAR: Normal. OSSEOUS STRUCTURES: No significant abnormalities. VISUALIZED UPPER ABDOMEN: Normal. OTHER FINDINGS: None. IMPRESSION: There is a right subclavian line that terminates in the inferior aspect of the right atrium. There is no pneumothorax. Endotracheal tube in satisfactory position
--- NOTE | 2018-01-08 23:40 | CARD ---
APPROVED REPORT EKG Measurement Heart [id number] <Conclusion> Re-entrant SVT Right bundle branch block Abnormal ECG
== END 2018-01-08 10:51 ==
LOC: ED 08:35 → UNDOADMIN 09:45 → ERH 09:45
DX: I46.9 Cardiac arrest, cause unspecified (principal); G35 Multiple sclerosis; I10 Essential (primary) hypertension; Z66 Do not resuscitate
CPT/HCPCS: 36556; 71045; 80053; 82550; 82803; 83615; 84484; 85025; 85610; 93005; 96361; 96365; 99285; J2543; J7030; J7040